=== PATIENT | male | born 1990 | race Caucasian/White ===

== ENCOUNTER 2024-11-06 22:10 | Inpatient (IN) | payer MEDICARE, OTHER ==
--- NOTE | 2024-11-06 22:22 | ED ---
SOB HPI - General Stated Complaint: Difficulty Breathing Time Seen by Provider: 11/06/24 22:11 Source: EMS Mode of arrival: EMS Limitations: physical limitation (Developmental delay) - History of Present Illness Initial Comments: This patient is a 34-year-old man with history of Prader-Willi syndrome who is sent from the [facility] to have evaluation and treatment for shortness of breath. The patient not able to give any additional history. MD Complaint: shortness of breath -: unknown - Related Data Home Medications Medication Instructions Recorded Confirmed Acetaminophen [Tylenol 8 Hour] 650 mg PO Q4H PRN 11/07/24 11/07/24 Albuterol Sulfate [Albuterol 2 puff PO RT-Q4H PRN 11/07/24 11/07/24 Sulfate Hfa] Ammonium Lactate Cream [Lac-Hydrin 1 applic TOPICAL BID 11/07/24 11/07/24 12% Cream] Ascorbic Acid [Vitamin C] 250 mg PO DAILY 11/07/24 11/07/24 Cetirizine HCl [Zyrtec] 10 mg PO DAILY 11/07/24 11/07/24 Cholecalciferol [Vitamin D3 (25 25 mcg PO DAILY 11/07/24 11/07/24 Mcg = 1000 Iu)] Furosemide [Lasix] 40 mg PO DAILY@0700 11/07/24 11/07/24 Insulin Lispro [humaLOG Kwikpen] 5 unit SQ TID@0700,1200,1700 11/07/24 11/07/24 Insulin Lispro [humaLOG Kwikpen] See Protocol SQ TID@0700,1200,1700 11/07/24 11/07/24 Loperamide [Imodium] 2 - 4 mg PO QID PRN 11/07/24 11/07/24 Magnesium Oxide [Mag-Ox] 400 mg PO DAILY@1400 11/07/24 11/07/24 Melatonin 6 mg PO HS 11/07/24 11/07/24 Omeprazole [PriLOSEC] 20 mg PO DAILY 11/07/24 11/07/24 Potassium Chloride [Klor-Con M20] 40 meq PO DAILY@0700 11/07/24 11/07/24 Propranolol [Inderal] 10 mg PO BID 11/07/24 11/07/24 Simvastatin [Zocor] 20 mg PO HS 11/07/24 11/07/24 Topiramate [Topamax] 50 mg PO DAILY@0700 11/07/24 11/07/24 Topiramate [Topamax] 100 mg PO DAILY@1400 11/07/24 11/07/24 Valproic Acid [Depakene] 500 mg PO TID@0700,1300,1900 11/07/24 11/07/24 Ziprasidone [Geodon] 40 mg PO DAILY@1400 11/07/24 11/07/24 Previous Rx's Medication Instructions Recorded Budesonide [Pulmicort] 1 mg INHALATION RT-BID ml 11/21/24 Enoxaparin [Lovenox] 40 mg SQ DAILY each 11/21/24 Formoterol Fumarate [Perforomist] 20 mcg INHALATION RT-BID ml 11/21/24 INSULIN LISPRO (HumaLOG) [HumaLOG] 0 unit SQ ACHS each 11/21/24 INSULIN LISPRO (HumaLOG) [HumaLOG] 15 unit SQ AC-TID each 11/21/24 Insulin Glargine (Lantus) [Lantus 55 unit SQ HS each 11/21/24 Vial] Ipratropium-Albuterol Nebulize 3 ml INHALATION RT-Q4H PRN each 11/21/24 [Duoneb 0.5 mg-3 mg/3 ml Soln] Ipratropium-Albuterol Nebulize 3 ml INHALATION RT-QID each 11/21/24 [Duoneb 0.5 mg-3 mg/3 ml Soln] LORazepam [Ativan] 0.5 mg PO Q6HR PRN #4 tab 11/21/24 Nystatin 100,000 Unit/gm Powd 1 applic TOPICAL BID each 11/21/24 [Mycostatin Powder] predniSONE 10 mg PO DAILY tab 11/21/24 risperiDONE [RisperDAL] 2 mg PO DAILY tab 11/21/24 risperiDONE [RisperDAL] 2 mg PO HS tab 11/21/24 Allergies Allergy/AdvReac Type Severity Reaction Status Date / Time Milk Containing Products Allergy Unknown Verified 11/07/24 08:56 (Dairy) Review of Systems ROS Statement: Those systems with pertinent positive or pertinent negative responses have been documented in the HPI. ROS Other: All systems not noted in ROS Statement are negative. Limitations: ROS unobtainable due to patients medical condition Constitutional: Denies: fever Respiratory: Reports: dyspnea Gastrointestinal: Denies: vomiting, diarrhea General Exam General appearance: alert, in distress Head exam: Present: atraumatic Eye exam: Present: PERRL. Absent: scleral icterus, conjunctival injection Neck exam: Present: normal inspection. Absent: tenderness Respiratory exam: Present: respiratory distress, wheezes. Absent: rales, rhonchi, stridor, accessory muscle use Cardiovascular Exam: Present: regular rate, normal rhythm, normal heart sounds. Absent: systolic murmur, diastolic murmur, rubs, gallop GI/Abdominal exam: Present: soft. Absent: distended, tenderness, guarding, rebound, rigid, mass, pulsatile mass Extremities exam: Present: normal inspection, normal capillary refill. Absent: pedal edema, calf tenderness Back exam: Present: normal inspection. Absent: CVA tenderness (R), CVA tenderness (L) Neurological exam: Present: alert. Absent: motor sensory deficit Skin exam: Present: warm, dry, intact, normal color. Absent: rash Course Vital Signs 11/06/24 11/06/24 11/06/24 22:12 22:30 22:50 Temperature 98.3 F Pulse Rate 89 81 Pulse Rate [ Molecular Genetic Pathologist ] Respiratory 33 H 25 H Rate Blood Pressure 133/77 122/71 Blood Pressure [Right Arm Supine] O2 Sat by Pulse 99 100 Oximetry Fraction of 100 Inspired Oxygen (FIO2) 11/06/24 11/07/24 11/07/24 23:56 00:09 00:19 Temperature Pulse Rate 77 87 89 Pulse Rate [ Molecular Genetic Pathologist ] Respiratory 20 Rate Blood Pressure 97/58 Blood Pressure [Right Arm Supine] O2 Sat by Pulse 99 Oximetry Fraction of 50 Inspired Oxygen (FIO2) 11/07/24 11/07/24 11/07/24 00:42 01:00 03:20 Temperature Pulse Rate 73 81 Pulse Rate [ Molecular Genetic Pathologist ] Respiratory 22 21 Rate Blood Pressure 119/69 131/72 Blood Pressure [Right Arm Supine] O2 Sat by Pulse 99 96 Oximetry Fraction of 50 Inspired Oxygen (FIO2) 11/07/24 11/07/24 11/07/24 04:00 04:40 04:42 Temperature Pulse Rate 93 Pulse Rate [ Molecular Genetic Pathologist ] Respiratory 20 Rate Blood Pressure 144/81 Blood Pressure [Right Arm Supine] O2 Sat by Pulse 95 Oximetry Fraction of 50 100 Inspired Oxygen (FIO2) 11/07/24 11/07/24 11/07/24 04:45 04:55 05:00 Temperature Pulse Rate 89 Pulse Rate [ 111 H 108 H Molecular Genetic Pathologist ] Respiratory 20 20 20 Rate Blood Pressure 149/96 Blood Pressure 163/97 163/97 [Right Arm Supine] O2 Sat by Pulse 98 98 98 Oximetry Fraction of 100 100 Inspired Oxygen (FIO2) 11/07/24 11/07/24 11/07/24 05:17 05:30 06:10 Temperature 99.1 F Pulse Rate 85 Pulse Rate [ 86 Molecular Genetic Pathologist ] Respiratory 22 22 Rate Blood Pressure 117/74 Blood Pressure 115/75 [Right Arm Supine] O2 Sat by Pulse 100 98 Oximetry Fraction of 100 100 Inspired Oxygen (FIO2) Procedures - Intubation Sedative: Etomidate Mg Given: 20 Laryngoscope: fiber optic video scope Size: 3 ET Tube Size: 6.5 ET Tube Uncuffed: Yes Tube Secured Location: teeth Tube Placement Confirmation: visualized tube passing through cords, equal breath sounds bilaterally, no breath sounds over epigastrium, confirmation by capnometry Patient Tolerated Procedure: no complications Intubation Complications: none Medical Decision Making - Medical Decision Making This patient is a 34-year-old man with history of Prader-Willi syndrome, also reportedly with history of asthma, obstructive sleep apnea, here with dyspnea. The patient presents with wheezing, tachypnea, mild respiratory distress. He is placed on BiPAP but then did become increasingly somnolent. Blood gases checked and the patient with hypercarbic respiratory failure. The patient is intubated, the case discussed with Dr. Myers, covering with GI and his treatment recommendations are incorporated. The patient had initial chest x-ray that I interpreted as negative for acute infiltrate, pneumothorax, congestive heart failure The patient had chest x-ray following intubation that I interpreted as negative for acute infiltrate, pneumothorax, there is presence of endotracheal tube Was pt. sent in by a medical professional or institution (, PA, AUDIT CONTROL CLERK, urgent c are, hospital, or usp...) When possible be specific @ -Yes the patient is sent from his long-term care facility for increasing dyspnea Did you speak to anyone other than the patient for history (EMS, parent, family, police, friend...)? What history was obtained from this source @ -[EMS gave history Did you review nursing and triage notes (agree or disagree)? Why? @ -[I reviewed and agree with nursing and triage notes] Were old charts reviewed (outside hosp., previous admission, EMS record, old EKG, old radiological studies, urgent care reports/EKG's, usp records)? Report findings @ -[No old charts were reviewed] Differential Diagnosis (chest pain, altered mental status, abdominal pain women, abdominal pain men, vaginal bleeding, weakness, fever, dyspnea, syncope, headache, dizziness, GI bleed, back pain, seizure, CVA, palpatations, mental health, musculoskeletal)? @ -[Differential Dyspnea: Coronary syndrome, arrhythmia, tamponade, asthma, COPD, pulmonary embolism, pneumonia, pneumothorax, pulmonary effusion, anaphylaxis, diabetic ketoacidosis, flailed chest, pulmonary contusion, diaphragmatic rupture, anemia, neuromuscular, this is not meant to be an all-inclusive list. EKG interpreted by me (3pts min.). @ -[I interpreted as above] X-rays interpreted by me (1pt min.). @ -[I interpreted as above CT interpreted by me (1pt min.). @ -[None done] U/S interpreted by me (1pt. min.). @ -[None done] What testing was considered but not performed or refused? (CT, X-rays, U/S, labs)? Why? @ -[None] What meds were considered but not given or refused? Why? @ -[None] Did you discuss the management of the patient with other professionals (professionals i.e. , PA, AUDIT CONTROL CLERK, lab, RT, psych nurse, social services coordinator, bowling alley manager, teacher, special service officer, dependency case manager)? Give summary @ -[Case discussed with admitting physician and also with the pulmonology service and treatment recommendations incorporated Was smoking cessation discussed for >3mins.? @ -[No] Was critical care preformed (if so, how long)? @ -[Yes, 45 minutes Were there social determinants of health that impacted care today? How? (Homelessness, low income, unemployed, alcoholism, drug addiction, transportation, low edu. Level, literacy, decrease access to med. care, [facility], rehab)? @ -[No] Was there de-escalation of care discussed even if they declined (Discuss DNR or withdrawal of care, Hospice)? DNR status @ -[No] What co-morbidities impacted this encounter? (DM, HTN, Smoking, COPD, CAD, Cancer, CVA, ARF, Chemo, Hep., AIDS, mental health diagnosis, sleep apnea, morbid obesity)? @ -[Prader-Willi syndrome. Diabetes. Asthma. Recent pneumonia Was patient admitted / discharged? Hospital course, mention meds given and route, prescriptions, significant lab abnormalities, going to OR and other pertinent info. @ -[See above Undiagnosed new problem with uncertain prognosis? @ -[No] Drug Therapy requiring intensive monitoring for toxicity (Heparin, Nitro, Insulin, Cardizem)? @ -[No] Were any procedures done? @ -[Yes, endotracheal intubation Diagnosis/symptom? @ -[Acute respiratory failure requiring intubation Hyperglycemia in diabetic patient Acute, or Chronic, or Acute on Chronic? @ -[Acute Uncomplicated (without systemic symptoms) or Complicated (systemic symptoms)? @ -[Complicated by altered mental status Side effects of treatment? @ -[No] Exacerbation, Progression, or Severe Exacerbation? @ -[No] Poses a threat to life or bodily function? How? (Chest pain, [place], [place], pneumonia, PE, COPD, DKA, ARF, appy, cholecystitis, CVA, Diverticulitis, Homicidal, Suicidal, threat to staff... and all critical care pts) @ -[Yes there is threat to life based on respiratory failure All treatments are based on ideal body weight as in ED triage - Lab Data Result diagrams: 11/19/24 15:06 11/21/24 10:33 Lab Results 11/06/24 11/06/24 11/06/24 Range/Units 22:40 22:40 22:40 WBC 5.77 (4.50-10.00) 10*3/uL RBC 4.39 L (4.40-5.60) 10*6/uL Hgb 13.5 (13.0-17.0) g/dL Hct 45.4 (39.6-50.0) % MCV 103.4 H (80.0-97.0) fL MCH 30.8 (27.0-32.0) pg MCHC 29.7 L (32.0-37.0) g/dL Plt Count 183 (140-440) 10*3/uL MPV 10.9 (9.5-12.2) fL Immature Gran % (Auto) 1.4 % Neutrophils % 65.5 % Lymphocytes % 18.2 % Monocytes % 14.4 % Eosinophils % 0.3 % Basophils % 0.2 % Immature Gran # 0.08 H (0.00-0.04) 10*3/uL Neutrophils # 3.78 (1.80-7.70) 10*3/uL Lymphocytes # 1.05 (0.90-5.00) 10*3/uL Monocytes # 0.83 (0.20-1.00) 10*3/uL Eosinophils # 0.02 L (0.04-0.35) 10*3/uL Basophils # 0.01 (0.00-0.10) 10*3/uL PT 10.4 (10.0-12.5) sec INR 0.9 (<1.2) APTT 22.2 (22.0-30.0) sec D-Dimer 0.35 (<0.60) mg/L FEU Sodium 136 L (137-145) mmol/L Potassium 5.4 H (3.5-5.1) mmol/L Chloride 91 L (98-107) mmol/L Carbon Dioxide 39 H (22-30) mmol/L Anion Gap 6 mmol/L BUN 22 H (9-20) mg/dL Creatinine 0.48 L (0.66-1.25) mg/dL Est GFR (CKD-EPI)AfAm >90 (>60 ml/min/1.73 sqM) Est GFR (CKD-EPI)NonAf >90 (>60 ml/min/1.73 sqM) Glucose 248 H (74-99) mg/dL Plasma Lactic Acid Pon[place] (0.7-2.0) mmol/L Calcium 9.3 (8.4-10.2) mg/dL Total Bilirubin 0.3 (0.2-1.3) mg/dL AST 22 (17-59) U/L ALT 14 (4-49) U/L Alkaline Phosphatase 38 (38-126) U/L Troponin I (0.000-0.034) ng/mL NT-Pro-B Natriuret Pep 130 pg/mL Total Protein 6.3 (6.3-8.2) g/dL Albumin 3.2 L (3.5-5.0) g/dL 11/06/24 11/06/24 Range/Units 22:40 22:40 WBC (4.50-10.00) 10*3/uL RBC (4.40-5.60) 10*6/uL Hgb (13.0-17.0) g/dL Hct (39.6-50.0) % MCV (80.0-97.0) fL MCH (27.0-32.0) pg MCHC (32.0-37.0) g/dL Plt Count (140-440) 10*3/uL MPV (9.5-12.2) fL Immature Gran % (Auto) % Neutrophils % % Lymphocytes % % Monocytes % % Eosinophils % % Basophils % % Immature Gran # (0.00-0.04) 10*3/uL Neutrophils # (1.80-7.70) 10*3/uL Lymphocytes # (0.90-5.00) 10*3/uL Monocytes # (0.20-1.00) 10*3/uL Eosinophils # (0.04-0.35) 10*3/uL Basophils # (0.00-0.10) 10*3/uL PT (10.0-12.5) sec INR (<1.2) APTT (22.0-30.0) sec D-Dimer (<0.60) mg/L FEU Sodium (137-145) mmol/L Potassium (3.5-5.1) mmol/L Chloride (98-107) mmol/L Carbon Dioxide (22-30) mmol/L Anion Gap mmol/L BUN (9-20) mg/dL Creatinine (0.66-1.25) mg/dL Est GFR (CKD-EPI)AfAm (>60 ml/min/1.73 sqM) Est GFR (CKD-EPI)NonAf (>60 ml/min/1.73 sqM) Glucose (74-99) mg/dL Plasma Lactic Acid [place] 1.0 (0.7-2.0) mmol/L Calcium (8.4-10.2) mg/dL Total Bilirubin (0.2-1.3) mg/dL AST (17-59) U/L ALT (4-49) U/L Alkaline Phosphatase (38-126) U/L Troponin I <0.012 (0.000-0.034) ng/mL NT-Pro-B Natriuret Pep pg/mL Total Protein (6.3-8.2) g/dL Albumin (3.5-5.0) g/dL - EKG Data -: EKG Interpreted by Me EKG shows normal: sinus rhythm, axis ( normal), intervals (Normal), QRS complexes (Normal), ST-T waves (normal) Rate: normal (Rate 87 bpm) Interpretation: normal EKG Disposition Clinical Impression: Dyspnea, Respiratory failure requiring intubation Disposition: ADMITTED IP TO THIS HOSP Condition: Poor Is patient prescribed a controlled substance at d/c from ED?: No
[2024-11-06] MEDS: NITROGLYCERIN SL TABS 0.4 MG TAB SUBLINGUAL STA (22:46)
[2024-11-06 23:03] LABS: Basophils # (A) 0.01 10*3/uL (0.00-0.10); Basophils % (A) 0.2 %; Eosinophils # (A) 0.02 10*3/uL (0.04-0.35); Eosinophils % (A) 0.3 %; HCT 45.4 % (39.6-50.0); HGB 13.5 g/dL (13.0-17.0); Lymphocytes # (A) 1.05 10*3/uL (0.90-5.00); Lymphocytes % (A) 18.2 %; MCH 30.8 pg (27.0-32.0); MCHC 29.7 g/dL (32.0-37.0); MCV 103.4 fL (80.0-97.0); Mean Platelet Volume 10.9 fL (9.5-12.2); Monocytes # (A) 0.83 10*3/uL (0.20-1.00); Monocytes % (A) 14.4 %; Neutrophils # (A) 3.78 10*3/uL (1.80-7.70); Neutrophils % (A) 65.5 %; Platelet Count 183 10*3/uL (140-440); RBC 4.39 10*6/uL (4.40-5.60); RDW 13.6 % (11.5-14.5); WBC 5.77 10*3/uL (4.50-10.00)
[2024-11-06 23:20] LABS: ALT 14 U/L (4-49); AST 22 U/L (17-59); African American GFR (CKD) >90 (>60 ml/min/1.73 sqM); Albumin 3.2 g/dL (3.5-5.0); Alkaline Phosphatase 38 U/L (38-126); Blood Urea Nitrogen 22 mg/dL (9-20); Calcium 9.3 mg/dL (8.4-10.2); Chloride 91 mmol/L (98-107); Glucose 248 mg/dL (74-99); Non-African American GFR(CKD) >90 (>60 ml/min/1.73 sqM); Potassium 5.4 mmol/L (3.5-5.1); Sodium 136 mmol/L (137-145); Total Bilirubin 0.3 mg/dL (0.2-1.3); Total Protein 6.3 g/dL (6.3-8.2)
[2024-11-06 23:23] LABS: INR 0.9 (<1.2); Partial Thromboplastin Time 22.2 sec (22.0-30.0); Prothrombin Time 10.4 sec (10.0-12.5)
[2024-11-06 23:25] LABS: Anion Gap 6 mmol/L
[2024-11-06 23:27] LABS: NT-Pro-B-Type Natriuretic Pept 130 pg/mL
[2024-11-06 23:35] LABS: Carbon Dioxide 39 mmol/L (22-30)
[2024-11-07] MEDS: ALBUTEROL NEBULIZED 2.5 MG/3 ML INHALATION STA ×2 (00:08→05:24)
[2024-11-07] MEDS: SODIUM CHLORIDE 0.9% 500 ML 500 ML IV STA (00:34)
[2024-11-07] MEDS: methylPREDNISolone SOD SUCCI 125 MG/2 ML VIAL IV STA (00:36)
[2024-11-07] MEDS ORDERED: NALOXONE 0.4 MG/ML 1 ML VIAL IVP PRN (01:57)
[2024-11-07] MEDS: LORazepam 2 MG/ML INJ IV STA ×2 (03:49→04:47)
[2024-11-07 04:23] LABS: ABG PH 7.25 (7.35-7.45); ABG PO2 91 mmHg (83-108); Allen Test Performed? Yes
[2024-11-07] MEDS: ETOMIDATE 2 MG/ML 10 ML VIAL IVP STA (04:39)
--- NOTE | 2024-11-07 05:20 | XR ---
EXAM: XR Chest, 1 View CLINICAL HISTORY: ITS.REASON XR Reason: TUBE PLACEMENT TECHNIQUE: Frontal view of the chest. COMPARISON: X-ray dated 11/06/2024. FINDINGS: Lungs: Stable opacification of the right lung base. Pleural space: Unremarkable. No pneumothorax. Heart: Mild enlargement of the cardiac silhouette. Mediastinum: Unremarkable. Normal mediastinal contour. Bones/joints: Unremarkable. No acute fracture. Tubes, lines and devices: Endotracheal tube is in place with the tip terminating 5.4 cm from the ruthy. IMPRESSION: 1. Interval intubation. 2. Otherwise stable chest.
--- NOTE | 2024-11-07 05:28 | XR ---
EXAMINATION TYPE: XR chest 1V portable DATE OF EXAM: 11/06/2024 COMPARISON: NONE CLINICAL INDICATION: Male, 34 years old with history of dyspnea; TECHNIQUE: Single frontal view of the chest is obtained. FINDINGS: There is cardiomegaly with small right pleural effusion. Old fracture distal left clavicle is seen. IMPRESSION: Cardiomegaly with small right pleural effusion and mild central vascular congestion. Fin dings consistent with CHF exacerbation. [facility], Workstation: [facility], 11/07/2024 5:26 AM
[2024-11-07 05:32] LABS: Influenza A Not Detected (Not Detectd); Influenza B Not Detected (Not Detectd); RSV Not Detected (Not Detectd)
--- NOTE | 2024-11-07 05:36 | XR ---
EXAMINATION TYPE: XR chest 1V DATE OF EXAM: 11/07/2024 CLINICAL INDICATION: Male, 34 years old with history of OG tube placement, progress study. TECHNIQUE: Single AP portable supine view of the chest is obtained. COMPARISON: Chest x-ray from earlier today FINDINGS: Stable endotracheal tube. New orogastric tube projecting below diaphragm. Persistent cardi omegaly and right basilar opacity. Persistent central vascular congestion. Osseous structures are int act. IMPRESSION: Successful interval placement of orogastric tube. Other findings stable. [facility], Workstation: [email or web address], 11/07/2024 5:34 AM
[2024-11-07 05:48] LABS: ABG Base Excess 13.8 mmol/L; ABG Oxygen Saturation >100.0 % (94-97); ABG PCO2 70 mmHg (35-45); ABG PH 7.39 (7.35-7.45); ABG PO2 318 mmHg (83-108); ABG TCO2 44 mmol/L (19-24); Allen Test Performed? Yes
[2024-11-07] MEDS: methylPREDNISolone SOD SUCCI 125 MG/2 ML VIAL IV SCH (06:02)
[2024-11-07 06:07] LABS: ABG PCO2 >98 mmHg (35-45)
[2024-11-07 06:11] LABS: ABG HCO3 42 mmol/L (21-25)
[2024-11-07 06:28] LABS: Glucose,Whole Blood 292 mg/dL (70-110)
[2024-11-07 06:31] LABS: Glucose,Whole Blood 266 mg/dL (70-110)
[2024-11-07] MEDS: SODIUM CHLORIDE 0.9% 1,000 ML IV SCH (07:30)
[2024-11-07] MEDS: IPRATROPIUM-ALBUTEROL 3 ML NEB INHALATION SCH ×2 (08:08→11:46)
[2024-11-07] MEDS ORDERED: Potassium Replacement Protocol 1 EACH MISC MISCELLANE PRN ×2 (09:45→11:18)
[2024-11-07] MEDS ORDERED: Magnesium Replacement Protocol 1 EACH MISC MISCELLANE PRN ×2 (09:45→11:19)
[2024-11-07 10:03] LABS: Glucose,Whole Blood 328 mg/dL (70-110)
[2024-11-07] MEDS: INSULIN LISPRO (HumaLOG) 100 UNIT/ML 10 mL VL SQ SCH ×3 (10:06→16:43)
[2024-11-07] MEDS: PANTOPRAZOLE 40 MG/10 ML VIAL IV SCH (10:07)
[2024-11-07] MEDS: DEXMEDETOMIDINE/0.9% NACL(PMX) 400 MCG in EMPTY BAG 1 BAG IV SCH (10:11)
[2024-11-07 10:17] LABS: Basophils # (A) 0.01 10*3/uL (0.00-0.10); Basophils % (A) 0.2 %; HCT 44.1 % (39.6-50.0); HGB 13.5 g/dL (13.0-17.0); Lymphocytes # (A) 0.49 10*3/uL (0.90-5.00); Lymphocytes % (A) 9.6 %; MCHC 30.6 g/dL (32.0-37.0); MCV 101.4 fL (80.0-97.0); Mean Platelet Volume 10.7 fL (9.5-12.2); Monocytes % (A) 3.9 %; Neutrophils # (A) 4.34 10*3/uL (1.80-7.70); Neutrophils % (A) 84.9 %; Platelet Count 166 10*3/uL (140-440); RBC 4.35 10*6/uL (4.40-5.60); RDW 13.4 % (11.5-14.5); WBC 5.11 10*3/uL (4.50-10.00)
[2024-11-07] MEDS: CHLORHEXIDINE GLUCONATE 15 ML CUP MUCOUS MEM SCH (10:26)
[2024-11-07] MEDS: ENOXAPARIN 40 MG/0.4 ML SYRINGE SQ SCH (10:26)
[2024-11-07 10:32] LABS: African American GFR (CKD) >90 (>60 ml/min/1.73 sqM); Anion Gap 6 mmol/L; Blood Urea Nitrogen 24 mg/dL (9-20); Carbon Dioxide 38 mmol/L (22-30); Chloride 93 mmol/L (98-107); Glucose 366 mg/dL (74-99); Magnesium 1.6 mg/dL (1.6-2.3); Non-African American GFR(CKD) >90 (>60 ml/min/1.73 sqM); Potassium 3.5 mmol/L (3.5-5.1); Sodium 137 mmol/L (137-145)
[2024-11-07 10:51] LABS: Appearance,Urine Clear (Clear); Bilirubin,Urine Negative (Negative); Blood,Urine Negative (Negative); Color,Urine Colorless; Glucose,Urine (UA) 4+ (Negative); Leukocyte Esterase,Urine Negative (Negative); Nitrite,Urine Negative (Negative); Protein,Urine Negative (Negative); Specific Gravity,Urine 1.021 (1.001-1.035); Urobilinogen,Urine <2.0 mg/dL (<2.0)
[2024-11-07] MEDS ORDERED: LOPERAMIDE 2 MG CAP PO PRN (10:54)
[2024-11-07] MEDS ORDERED: ALBUTEROL HFA INHALER INHALATION PRN (10:54)
[2024-11-07 11:11] LABS: Ketones,Urine 2+ (Negative)
[2024-11-07] MEDS: INSULIN GLARGINE (LANTUS) 100 UNIT/ML SYR SQ SCH (11:21)
[2024-11-07] MEDS: PANTOPRAZOLE 40 MG/10 ML VIAL IVP SCH (11:22)
[2024-11-07] MEDS: AMMONIUM LACTATE 12% CREAM 140 GM TUBE TOPICAL SCH (11:25)
[2024-11-07] MEDS: CHOLECALCIFEROL 25 MCG (1000 IU) TABLET PO SCH (11:29)
[2024-11-07] MEDS: LORATADINE 10 MG TAB PO SCH (11:29)
[2024-11-07] MEDS: ASCORBIC ACID 500 MG TAB PO SCH (11:29)
--- NOTE | 2024-11-07 11:54 | P.CNPUL ---
History of Present Illness Consult date: 11/07/24 Requesting physician: May Montalvo Reason for consult: other (Acute hypoxic and hypercapnic respiratory failure) Chief complaint: Shortness of breath History of present illness: This is a 34-year-old white male with history of Prader-Willi syndrome, patient was sent from [facility] for evaluation of shortness of breath for the last few days. Patient is known to have history of asthma and he was basically receiving treatment on outpatient basis for presumptive pneumonia. His shortness of breath has become worse and his O2 saturation was noted to be very low while at the longterm. Patient was sent to the ER, initially managed with BiPAP, however patient continued to do poorly in spite of BiPAP, after few hours of being on BiPAP, ABG was checked and his pO2 was 91 pCO2 over 98 pH was 7.25, patient became more and more obtunded hence he was intubated and placed on ventilatory support. Patient is on assist-control rate of 22, tidal volume 350 FiO2 at 50% and PEEP at 5. ABG is pending. Last ABG showed a pO2 of 318 pCO2 70 pH of 7.39. Dramatically improved after intubation mechanical ventilation, and considering the patient has a pCO2 of 70 with a pH of 7.39 that implies that the patient has chronic hypercapnic respiratory failure with adequate metabolic compensation. Patient is on propofol at 25 mcg/kg/min he is on IV fluid 0.9 at 75 cc/h and he is sedated, could not assess the patient mentally hence I recommended stopping propofol and starting the patient on Precedex the plan is to awaken the patient and give the patient at least a weaning trial if possible today. WBC count is 5.11 hemoglobin 15.5, electrolytes were noted to be normal renal profile is normal, chest x-ray this morning showed cardiomegaly and right basilar opacity, possible atelectasis involving the right lower lobe. Initial chest x-ray in the ER showed no evidence of infiltrate or atelectasis. Review of Systems ROS unobtainable: due to endotracheal tube Past Medical History Past Medical History: Diabetes Mellitus Additional Past Medical History / Comment(s): Prader-Willi SyndromeDysphagia, Oropharyngeal Phase, Morbid obesity with Aveolar hypoventilation, Muscle Weak ness, obstructive Sleep Apnea, Severe Intellectual Disabilities, Unspecified Asthma with Exacerbation History of Any Multi-Drug Resistant Organisms: None Reported Past Psychological History: Unable to Obtain Smoking Status: Unknown if ever smoked Past Alcohol Use History: None Reported Past Drug Use History: None Reported Medications and Allergies Home Medications Medication Instructions Recorded Confirmed Type Acetaminophen [Tylenol 8 Hour] 650 mg PO Q4H PRN 11/07/24 11/07/24 History Albuterol Sulfate [Albuterol 2 puff PO RT-Q4H PRN 11/07/24 11/07/24 History Sulfate Hfa] Ammonium Lactate Cream [Lac-Hydrin 1 applic TOPICAL BID 11/07/24 11/07/24 History 12% Cream] Amoxicillin 500 mg PO TID@0700,1300,1900 11/07/24 11/07/24 History Ascorbic Acid [Vitamin C] 250 mg PO DAILY 11/07/24 11/07/24 History Cetirizine HCl [Zyrtec] 10 mg PO DAILY 11/07/24 11/07/24 History Cholecalciferol [Vitamin D3 (25 25 mcg PO DAILY 11/07/24 11/07/24 History Mcg = 1000 Iu)] Furosemide [Lasix] 40 mg PO DAILY@0700 11/07/24 11/07/24 History Insulin Glargine,Hum.rec.anlog 30 units SQ DAILY 11/07/24 11/07/24 History [Lantus Solostar Pen] Insulin Lispro [humaLOG Kwikpen] 5 unit SQ TID@0700,1200,1700 11/07/24 11/07/24 History Insulin Lispro [humaLOG Kwikpen] See Protocol SQ TID@0700,1200,1700 11/07/24 11/07/24 History Ipratropium-Albuterol Nebulize 3 ml INHALATION RT-Q6H 11/07/24 11/07/24 History [Duoneb 0.5 mg-3 mg/3 ml Soln] Loperamide [Imodium] 2 - 4 mg PO QID PRN 11/07/24 11/07/24 History Magnesium Oxide [Mag-Ox] 400 mg PO DAILY@1400 11/07/24 11/07/24 History Melatonin 6 mg PO HS 11/07/24 11/07/24 History Omeprazole [PriLOSEC] 20 mg PO DAILY 11/07/24 11/07/24 History Potassium Chloride [Klor-Con M20] 40 meq PO DAILY@0700 11/07/24 11/07/24 History Propranolol [Inderal] 10 mg PO BID 11/07/24 11/07/24 History Semaglutide [Ozempic] 0.5 mg SQ WE 11/07/24 11/07/24 History Simvastatin [Zocor] 20 mg PO HS 11/07/24 11/07/24 History Topiramate [Topamax] 50 mg PO DAILY@0700 11/07/24 11/07/24 History Topiramate [Topamax] 100 mg PO DAILY@1400 11/07/24 11/07/24 History Valproic Acid [Depakene] 500 mg PO TID@0700,1300,1900 11/07/24 11/07/24 History Ziprasidone [Geodon] 40 mg PO DAILY@1400 11/07/24 11/07/24 History metFORMIN HCL 500 mg PO BID 11/07/24 11/07/24 History predniSONE See Taper PO DAILY 11/07/24 11/07/24 History risperiDONE [RisperDAL] 1 mg PO BID 11/07/24 11/07/24 History Allergies Allergy/AdvReac Type Severity Reaction Status Date / Time Milk Containing Products Allergy Unknown Verified 11/07/24 08:56 (Dairy) Physical Exam Vitals: Vital Signs Temp Pulse Pulse Resp BP BP Pulse Ox 11/07/24 11:39 11/07/24 11:15 53 L 22 132/66 98 11/07/24 10:45 54 L 22 123/59 98 11/07/24 10:15 63 23 112/54 98 11/07/24 10:00 60 22 112/54 97 11/07/24 09:45 60 22 108/52 97 11/07/24 09:15 60 22 113/54 97 11/07/24 09:00 58 L 22 108/61 97 11/07/24 08:45 11/07/24 08:28 11/07/24 08:24 58 L 11/07/24 08:15 56 L 22 126/71 98 11/07/24 08:13 56 L 11/07/24 08:07 11/07/24 08:00 97.2 F L 63 22 123/68 100 11/07/24 07:45 57 L 22 119/61 99 11/07/24 07:30 59 L 22 106/61 98 11/07/24 07:15 60 22 109/60 98 11/07/24 07:00 62 22 113/62 99 11/07/24 06:45 63 22 111/63 100 11/07/24 06:30 65 22 100 11/07/24 06:27 17 11/07/24 06:10 99.1 F 85 22 117/74 98 11/07/24 05:30 86 22 115/75 100 11/07/24 05:17 11/07/24 05:00 108 H 20 163/97 98 11/07/24 04:55 111 H 20 163/97 98 11/07/24 04:45 89 20 149/96 98 11/07/24 04:42 11/07/24 04:40 93 20 144/81 95 11/07/24 04:00 11/07/24 03:20 81 21 131/72 96 11/07/24 01:00 11/07/24 00:42 73 22 119/69 99 11/07/24 00:19 89 11/07/24 00:09 87 11/06/24 23:56 77 20 97/58 99 11/06/24 22:50 81 25 H 122/71 100 11/06/24 22:30 11/06/24 22:12 98.3 F 89 33 H 133/77 99 FiO2 11/07/24 11:39 45 11/07/24 11:15 11/07/24 10:45 45 11/07/24 10:15 11/07/24 10:00 45 11/07/24 09:45 11/07/24 09:15 11/07/24 09:00 45 11/07/24 08:45 45 11/07/24 08:28 50 11/07/24 08:24 11/07/24 08:15 11/07/24 08:13 11/07/24 08:07 50 11/07/24 08:00 50 11/07/24 07:45 11/07/24 07:30 11/07/24 07:15 11/07/24 07:00 11/07/24 06:45 11/07/24 06:30 11/07/24 06:27 11/07/24 06:10 11/07/24 05:30 100 11/07/24 05:17 11/07/24 05:00 100 11/07/24 04:55 11/07/24 04:45 11/07/24 04:42 11/07/24 04:40 11/07/24 04:00 11/07/24 03:20 11/07/24 01:00 50 11/07/24 00:42 11/07/24 00:19 11/07/24 00:09 50 11/06/24 23:56 11/06/24 22:50 11/06/24 22:30 100 11/06/24 22:12 Intake and Output 11/06/24 11/07/24 11/07/24 22:59 06:59 14:59 Intake Total 1.757 356.289 Output Total 320 505 Balance -318.243 -148.711 Intake: IV 260 Sodium Chloride 0.9% 1, 260 000 ml @ 75 mls/hr IV . [id number] [facility] Rx#:[id number] Intake, IV Titration 1.757 96.289 Amount Dexmedetomidine/0.9% NaCl 5.647 (Pmx) 400 mcg In Empty Bag 1 bag @ 0.2 MCG/KG/HR 5.019 mls/hr IV .[id number] [facility] Rx#:[id number] propofoL 1,000 mg In 1.757 90.642 Empty Bag 1 bag @ 15 MCG/ KG/MIN 9.034 mls/hr IV . Q11H5M [facility] Rx#:[id number] Output: Urine 320 505 Uretheral (Valentin) 320 Other: Weight 100.38 kg 100 kg General: Revealed 34-year-old white male obese intubated mechanically ventilated sedated Skin: Areas of cellulitis noted in both lower extremities, presumably the patient had recent MSSA dermatitis has been treated with Kefzol. Eye: Pupils are equal, round and reactive to light, extra-ocular movements are intact; there is normal conjunctiva bilaterally. Ears, nose, mouth and throat: There are moist mucous membranes and no oral lesions. Neck: The neck is supple, there is no tenderness or JVD. Cardiovascular: There is a regular rate and rhythm. No murmur, rub or gallop is appreciated. Respiratory: Diminished breath sounds at the bases no crackles rhonchi or wheezes Gastrointestinal: Obese, soft, non-distended, non-tender abdomen without masses or organomegaly noted. There is no rebound or guarding present. Bowel sounds are unremarkable. Musculoskeletal: No deformities there is however poor muscle tone. Neurological: Could not assess patient is sedated Psychiatric: Could not assess Results - Laboratory Findings CBC and BMP: 11/07/24 09:59 11/07/24 09:59 ABG ABG pH 7.39 (7.35-7.45) 11/07/24 05:44 ABG pCO2 70 mmHg (35-45) H 11/07/24 05:44 ABG pO2 318 mmHg (83-108) H 11/07/24 05:44 ABG O2 Saturation >100.0 % (94-97) H 11/07/24 05:44 PT/INR, D-dimer PT 10.4 sec (10.0-12.5) 11/06/24 22:40 INR 0.9 (<1.2) 11/06/24 22:40 D-Dimer 0.35 mg/L FEU (<0.60) 11/06/24 22:40 Abnormal lab findings: Abnormal Labs 11/06/24 11/06/24 11/07/24 22:40 22:40 04:20 RBC 4.39 L MCV 103.4 H MCHC 29.7 L Immature Gran # 0.08 H Lymphocytes # Eosinophils # 0.02 L ABG pH 7.25 L ABG pCO2 >98 H* ABG pO2 ABG HCO3 ABG Total CO2 ABG O2 Saturation 98.0 H Sodium 136 L Potassium 5.4 H Chloride 91 L Carbon Dioxide 39 H BUN 22 H Creatinine 0.48 L Glucose 248 H POC Glucose (mg/dL) Albumin 3.2 L Urine Glucose (UA) Urine Ketones 11/07/24 11/07/24 11/07/24 05:44 06:26 06:30 RBC MCV MCHC Immature Gran # Lymphocytes # Eosinophils # ABG pH ABG pCO2 70 H ABG pO2 318 H ABG HCO3 42 H* ABG Total CO2 44 H ABG O2 Saturation >100.0 H Sodium Potassium Chloride Carbon Dioxide BUN Creatinine Glucose POC Glucose (mg/dL) 292 H 266 H Albumin Urine Glucose (UA) Urine Ketones 05/02/25 05/02/25 05/02/25 09:59 09:59 10:02 RBC 4.35 L MCV 101.4 H MCHC 30.6 L Immature Gran # 0.07 H Lymphocytes # 0.49 L Eosinophils # 0.00 L ABG pH ABG pCO2 ABG pO2 ABG HCO3 ABG Total CO2 ABG O2 Saturation Sodium Potassium Chloride 93 L Carbon Dioxide 38 H BUN 24 H Creatinine 0.47 L Glucose 366 H POC Glucose (mg/dL) 328 H Albumin Urine Glucose (UA) Urine Ketones 11/07/24 10:20 RBC MCV MCHC Immature Gran # Lymphocytes # Eosinophils # ABG pH ABG pCO2 ABG pO2 ABG HCO3 ABG Total CO2 ABG O2 Saturation Sodium Potassium Chloride Carbon Dioxide BUN Creatinine Glucose POC Glucose (mg/dL) Albumin Urine Glucose (UA) 4+ H Urine Ketones 2+ H - Diagnostic Findings Chest x-ray: image reviewed (As noted in HPI) Assessment and Plan Assessment: Impression: Acute on chronic hypercapnic respiratory failure Acute hypoxic respiratory failure Possible right lower lobe pneumonia Acute exacerbation of mild intermittent asthma History of Prader-Willi syndrome, characterized by history of developmental delay, muscle weakness, restrictive lung disease, secondary to muscle weakness, obesity, and behavioral disorder. Recent history of right lower lobe pneumonia, treated on outpatient basis History of MSSA cellulitis/dermatitis, treated on outpatient basis Recommendation: Continue ventilatory support Continue antibiotics Continue bronchodilators Continue GI DVT prophylaxis Resume home meds Continue Solu-Medrol 60 mg IV push every 6 hours Transition patient to Precedex from propofol Could consider giving the patient a weaning trial depending on his overall clinical status off propofol. Consider nutritional support/enteral feeding if the patient does not wean today. Patient is critically ill Will continue to follow Time with Patient: Greater than 30
[2024-11-07 12:04] LABS: Glucose,Whole Blood 314 mg/dL (70-110)
[2024-11-07] MEDS: POTASSIUM BICARBONATE/CIT AC 20 MEQ TABLET.EFF NG-TUBE SCH (12:14)
[2024-11-07] MEDS: MAGNESIUM SULFATE-D5W PMX 1 GM in DEXTROSE/WATER 1 100ML.BAG IVPB SCH (12:17)
[2024-11-07] MEDS: VALPROIC ACID ORAL SOLN 250 MG/5 ML CUP PO SCH (12:24)
[2024-11-07] MEDS: MAGNESIUM OXIDE 400 MG TAB PO SCH (13:25)
[2024-11-07] MEDS: TOPIRAMATE 100 MG TAB PO SCH (13:28)
[2024-11-07] MEDS: ZIPRASIDONE 40 MG CAP PO SCH (14:34)
[2024-11-07] MEDS: risperiDONE 1 MG TAB PO SCH (14:35)
[2024-11-07] MEDS: IPRATROPIUM-ALBUTEROL 3 ML NEB INHALATION PRN (15:18)
[2024-11-07 16:41] LABS: Glucose,Whole Blood 296 mg/dL (70-110)
[2024-11-07 19:44] LABS: Glucose,Whole Blood 325 mg/dL (70-110)
[2024-11-07] MEDS: ATORVASTATIN 10 MG TAB PO SCH (19:53)
[2024-11-07] MEDS: MELATONIN 3 MG TABLET PO SCH (19:53)
[2024-11-07 23:35] LABS: Glucose,Whole Blood 316 mg/dL (70-110)
[2024-11-08] MEDS: ACETAMINOPHEN TAB 325 MG TAB PO PRN (00:26)
[2024-11-08 03:43] LABS: Glucose,Whole Blood 291 mg/dL (70-110)
[2024-11-08 05:27] LABS: Eosinophils # (A) 0.03 10*3/uL (0.04-0.35); Eosinophils % (A) 0.6 %; HCT 42.3 % (39.6-50.0); HGB 13.3 g/dL (13.0-17.0); Lymphocytes # (A) 1.26 10*3/uL (0.90-5.00); Lymphocytes % (A) 26.1 %; MCH 30.6 pg (27.0-32.0); MCHC 31.4 g/dL (32.0-37.0); MCV 97.2 fL (80.0-97.0); Mean Platelet Volume 11.7 fL (9.5-12.2); Monocytes # (A) 0.61 10*3/uL (0.20-1.00); Monocytes % (A) 12.7 %; Neutrophils % (A) 60.2 %; Platelet Count 145 10*3/uL (140-440); RBC 4.35 10*6/uL (4.40-5.60); RDW 13.7 % (11.5-14.5); WBC 4.82 10*3/uL (4.50-10.00)
[2024-11-08 05:30] LABS: ABG HCO3 33 mmol/L (21-25); ABG PCO2 47 mmHg (35-45); ABG PH 7.45 (7.35-7.45); ABG PO2 110 mmHg (83-108); ABG TCO2 34 mmol/L (19-24); Allen Test Performed? Yes
[2024-11-08 05:48] LABS: African American GFR (CKD) >90 (>60 ml/min/1.73 sqM); Anion Gap 7 mmol/L; Blood Urea Nitrogen 18 mg/dL (9-20); Calcium 9.2 mg/dL (8.4-10.2); Carbon Dioxide 29 mmol/L (22-30); Chloride 97 mmol/L (98-107); Glucose 329 mg/dL (74-99); Non-African American GFR(CKD) >90 (>60 ml/min/1.73 sqM); Potassium 4.1 mmol/L (3.5-5.1); Sodium 133 mmol/L (137-145)
[2024-11-08] MEDS: POTASSIUM BICARBONATE/CIT AC 20 MEQ TABLET.EFF PO SCH (06:05)
[2024-11-08] MEDS: INSULIN GLARGINE (LANTUS) 100 UNIT/ML SYR SQ SCH ×2 (06:06→20:11)
[2024-11-08] MEDS: TOPIRAMATE 25 MG TAB PO SCH (06:06)
[2024-11-08 06:17] LABS: ABG Oxygen Saturation 99.2 % (94-97)
--- NOTE | 2024-11-08 06:53 | XR ---
EXAMINATION TYPE: XR chest 1V portable DATE OF EXAM: 11/08/2024 CLINICAL INDICATION: Male, 34 years old with history of Tube placement, progress study. SOB. TECHNIQUE: Single AP portable semiupright view of the chest is obtained. COMPARISON: Chest x-ray from one day earlier and older studies. FINDINGS: Stable endotracheal and orogastric tubes. Persistent cardiomegaly and medial bibasilar opacity. Persistent low lung volumes and central vascula r congestion. Osseous structures are intact. IMPRESSION: Overall stable findings, correlate for CHF exacerbation/ fluid overload state. Underly ing acute infiltrates medial lung bases cannot be excluded. [facility], , 11/08/2024 6:51 AM
[2024-11-08] MEDS ORDERED: FUROSEMIDE 40 MG TAB PO SCH (07:00)
[2024-11-08] MEDS ORDERED: POTASSIUM CHLORIDE ER 20 MEQ TAB.ER PO SCH (07:00)
[2024-11-08 07:12] LABS: RBC Morphology Normal
[2024-11-08] MEDS: IPRATROPIUM-ALBUTEROL 3 ML NEB INHALATION SCH (07:50)
--- NOTE | 2024-11-08 07:52 | P.HPIM ---
History of Present Illness H&P Date: 11/07/24 This is a 34-year-old male who presented to the emergency department from [facility] where he resides with increased shortness of breath and concerns for aspiration. Patient follows with Dr. Rodriguez in the outpatient setting with a past medical history of asthma, diabetes mellitus, hypertension, musculoskeletal disorder, pneumonia, respiratory disorder, sleep apnea, Prader-Willi syndrome with dysphagia, morbid obesity with alveolar hypoventilation yes, obstructive sleep apnea, depression. Patient has mental disabilities and has a primary legal guardian and is considered full code at this time. Patient with difficulty keeping oxygenation on his face will make it extremely difficult to continue with oxygen therapy. Initially ER attempted BiPAP although extremely agitated and unable to tolerate with pulmonary periodicals library assistant consulted recommending mechanical ventilation. Labs reviewed on admission reveal a normal white count with a hemoglobin of 13.5, platelets 183, sodium 136 with a pot assium of 5.4, carbon dioxide 39, BUN 22, creatinine 0.48 and random glucose was 248. ABGs were done with a pH of 7.39, PCO2 is 70, PO2 318, bicarb is 42. EKG showing sinus rhythm chest x-ray showing stable chest postintubation. Patient was admitted to the ICU. Patient is currently on Precedex and off propofol and home medications are being reviewed and resumed as appropriate. Patient was sta rted on antibiotic empirically and also steroids with breathing treatments. Patient is not wheezing and given sugars are elevated, discussed with pulmonary and will be discontinuing steroids. BNP was not elevated although patient does appear edematous throughout. Patient did receive a few doses of Lasix and is currently maintained on gentle IV hydration. REVIEW OF SYSTEMS: Unable to review as patient is intubated on Precedex The rest of the 14-point review of systems is negative. PHYSICAL EXAMINATION: GENERAL: The patient is currently intubated with an FiO2 of 50% and PEEP of 5, weaning as tolerated, ill-appearing, edematous, morbidly obese HEENT: Pupils are round and equally reacting to light. EOMI. No scleral icterus. No conjunctival pallor. Normocephalic, atraumatic. No pharyngeal erythema. No thyromegaly. CARDIOVASCULAR: S1 and S2 muffled PULMONARY: Diminished breath sounds bilaterally otherwise chest is clear to auscultation, no wheezing or crackles. ABDOMEN: Soft, obese, nontender, nondistended, normoactive bowel sounds. No palpable organomegaly. MUSCULOSKELETAL: No joint swelling or deformity. EXTREMITIES: No cyanosis, clubbing, or pedal edema. Edematous of upper and lower extremities NEUROLOGICAL: Gross neurological examination did not reveal any focal deficits. Unable to completely assess as patient is intubated and somewhat sedated SKIN: No rashes. Pale, lower extremity discoloration Assessment: Acute on chronic hypoxic respiratory failure, requiring BiPAP initially and now on mechanical ventilation Possible right lower lobe pneumonia, although suspicion is low, will order procalcitonin, empirically on antibiotics, likely atelectasis History of mild intermittent asthma with acute exacerbation History of Prader-Willi syndrome with developmental delay and muscle weakness Diabetes mellitus, type II, uncontrolled with hyperglycemia History of hypertension History of sleep apnea and morbid obesity with alveolar hypoventilation, does not use a CPAP History of obstructive sleep apnea History of dysphagia History of depression History of recent lower extremity cellulitis with MSSA, treated outpatient Morbid obesity with a BMI of 49.2 GI prophylaxis DVT prophylaxis Full code Plan: Patient was admitted from [facility] where he resides with increasing shortness of breath and difficulty maintaining oxygenation not tolerating much nasal nae jovani. Initially brought to the ER put on BiPAP although became more obtunded and nonresponsive requiring mechanical ventilation and ICU admission Blood sugars are extremely elevated and was initiated on steroids although no significant wheezing noted, will discontinue and this was discussed with pul curt. Continue to monitor Accu-Cheks AC and at bedtime and will adjust insulins accordingly. Recommend long-acting twice daily as he normally only takes a daily Patient does have a legal guardian and remains full code at this time although there is discussion of possible hospice with comfort care that will be addressed Continue current regimen and follow-up on repeat labs Patient is off propofol and maintained on Precedex at this time and being weaned as tolerated Home medications reviewed and resumed as appropriate Prognosis is guarded The impression and plan of care has been dictated by Mandie Colmenares, Nurse Practitioner as directed. Dr. Naresh MD I have performed a history and examination and MDM of this patient, discussed the same with the dictator, and agree with the dictator's assessment and plan as written ,documented as a scribe. Based on total visit time, I have performed more than 50% of the visit. Past Medical History Past Medical History: Diabetes Mellitus Additional Past Medical History / Comment(s): Prader-Willi SyndromeDysphagia, Oropharyngeal Phase, Morbid obesity with Aveolar hypoventilation, Muscle Weakness, obstructive Sleep Apnea, Severe Intellectual Disabilities, Unspecified Asthma with Exacerbation History of Any Multi-Drug Resistant Organisms: None Reported Past Psychological History: Unable to Obtain Smoking Status: Unknown if ever smoked Past Alcohol Use History: None Reported Past Drug Use History: None Reported Medications and Allergies Home Medications Medication Instructions Recorded Confirmed Type Acetaminophen [Tylenol 8 Hour] 650 mg PO Q4H PRN 11/07/24 11/07/24 History Albuterol Sulfate [Albuterol 2 puff PO RT-Q4H PRN 11/07/24 11/07/24 History Sulfate Hfa] Ammonium Lactate Cream [Lac-Hydrin 1 applic TOPICAL BID 11/07/24 11/07/24 History 12% Cream] Amoxicillin 500 mg PO TID@0700,1300,1900 11/07/24 11/07/24 History Ascorbic Acid [Vitamin C] 250 mg PO DAILY 11/07/24 11/07/24 History Cetirizine HCl [Zyrtec] 10 mg PO DAILY 11/07/24 11/07/24 History Cholecalciferol [Vitamin D3 (25 25 mcg PO DAILY 11/07/24 11/07/24 History Mcg = 1000 Iu)] Furosemide [Lasix] 40 mg PO DAILY@0700 11/07/24 11/07/24 History Insulin Glargine,Hum.rec.anlog 30 units SQ DAILY 11/07/24 11/07/24 History [Lantus Solostar Pen] Insulin Lispro [humaLOG Kwikpen] 5 unit SQ TID@0700,1200,1700 11/07/24 11/07/24 History Insulin Lispro [humaLOG Kwikpen] See Protocol SQ TID@0700,1200,1700 11/07/24 11/07/24 History Ipratropium-Albuterol Nebulize 3 ml INHALATION RT-Q6H 11/07/24 11/07/24 History [Duoneb 0.5 mg-3 mg/3 ml Soln] Loperamide [Imodium] 2 - 4 mg PO QID PRN 11/07/24 11/07/24 History Magnesium Oxide [Mag-Ox] 400 mg PO DAILY@1400 11/07/24 11/07/24 History Melatonin 6 mg PO HS 11/07/24 11/07/24 History Omeprazole [PriLOSEC] 20 mg PO DAILY 11/07/24 11/07/24 History Potassium Chloride [Klor-Con M20] 40 meq PO DAILY@0700 11/07/24 11/07/24 History Propranolol [Inderal] 10 mg PO BID 11/07/24 11/07/24 History Semaglutide [Ozempic] 0.5 mg SQ WE 11/07/24 11/07/24 History Simvastatin [Zocor] 20 mg PO HS 11/07/24 11/07/24 History Topiramate [Topamax] 50 mg PO DAILY@0700 11/07/24 11/07/24 History Topiramate [Topamax] 100 mg PO DAILY@1400 11/07/24 11/07/24 History Valproic Acid [Depakene] 500 mg PO TID@0700,1300,1900 11/07/24 11/07/24 History Ziprasidone [Geodon] 40 mg PO DAILY@1400 11/07/24 11/07/24 History metFORMIN HCL 500 mg PO BID 11/07/24 11/07/24 History predniSONE See Taper PO DAILY 11/07/24 11/07/24 History risperiDONE [RisperDAL] 1 mg PO BID 11/07/24 11/07/24 History Allergies Allergy/AdvReac Type Severity Reaction Status Date / Time Milk Containing Products Allergy Unknown Verified 11/07/24 08:56 (Dairy) Physical Exam Vitals: Vital Signs Temp Pulse Pulse Resp BP BP Pulse Ox 11/07/24 09:15 60 22 113/54 97 11/07/24 09:00 58 L 22 108/61 97 11/07/24 08:28 11/07/24 08:24 58 L 11/07/24 08:15 56 L 22 126/71 98 11/07/24 08:13 56 L 11/07/24 08:07 11/07/24 08:00 97.2 F L 63 22 123/68 100 11/07/24 07:45 57 L 22 119/61 99 11/07/24 07:30 59 L 22 106/61 98 11/07/24 07:15 60 22 109/60 98 11/07/24 07:00 62 22 113/62 99 11/07/24 06:45 63 22 111/63 100 11/07/24 06:30 65 22 100 11/07/24 06:27 17 11/07/24 06:10 99.1 F 85 22 117/74 98 11/07/24 05:30 86 22 115/75 100 11/07/24 05:17 11/07/24 05:00 108 H 20 163/97 98 11/07/24 04:55 111 H 20 163/97 98 11/07/24 04:45 89 20 149/96 98 11/07/24 04:42 11/07/24 04:40 93 20 144/81 95 11/07/24 04:00 11/07/24 03:20 81 21 131/72 96 11/07/24 01:00 11/07/24 00:42 73 22 119/69 99 11/07/24 00:19 89 11/07/24 00:09 87 11/06/24 23:56 77 20 97/58 99 11/06/24 22:50 81 25 H 122/71 100 11/06/24 22:30 11/06/24 22:12 98.3 F 89 33 H 133/77 99 FiO2 11/07/24 09:15 11/07/24 09:00 45 11/07/24 08:28 50 11/07/24 08:24 11/07/24 08:15 11/07/24 08:13 11/07/24 08:07 50 11/07/24 08:00 50 11/07/24 07:45 11/07/24 07:30 11/07/24 07:15 11/07/24 07:00 11/07/24 06:45 11/07/24 06:30 11/07/24 06:27 11/07/24 06:10 11/07/24 05:30 100 11/07/24 05:17 100 11/07/24 05:00 100 11/07/24 04:55 100 11/07/24 04:45 11/07/24 04:42 100 11/07/24 04:40 11/07/24 04:00 50 11/07/24 03:20 11/07/24 01:00 50 11/07/24 00:42 11/07/24 00:19 11/07/24 00:09 50 11/06/24 23:56 11/06/24 22:50 11/06/24 22:30 100 11/06/24 22:12 Intake and Output 11/06/24 11/07/24 11/07/24 22:59 06:59 14:59 Intake Total 1.757 74.281 Output Total 320 Balance -318.243 74.281 Intake: Intake, IV Titration 1.757 74.281 Amount propofoL 1,000 mg In 1.757 74.281 Empty Bag 1 bag @ 15 MCG/ KG/MIN 9.034 mls/hr IV . Q11H5M [facility] Rx#:[id number] Output: Urine 320 Uretheral (Valentin) 320 Other: Weight 100.38 kg Results CBC & Chem 7: 11/08/24 04:48 11/08/24 04:48 Labs: Abnormal Lab Results - Last 24 Hours (Table) 11/06/24 11/06/24 11/07/24 Range/Units 22:40 22:40 04:20 RBC 4.39 L (4.40-5.60) 10*6/uL MCV 103.4 H (80.0-97.0) fL MCHC 29.7 L (32.0-37.0) g/dL Immature Gran # 0.08 H (0.00-0.04) 10*3/uL Eosinophils # 0.02 L (0.04-0.35) 10*3/uL ABG pH 7.25 L (7.35-7.45) ABG pCO2 >98 H* (35-45) mmHg ABG pO2 (83-108) mmHg ABG HCO3 (21-25) mmol/L ABG Total CO2 (19-24) mmol/L ABG O2 Saturation 98.0 H (94-97) % Sodium 136 L (137-145) mmol/L Potassium 5.4 H (3.5-5.1) mmol/L Chloride 91 L (98-107) mmol/L Carbon Dioxide 39 H (22-30) mmol/L BUN 22 H (9-20) mg/dL Creatinine 0.48 L (0.66-1.25) mg/dL Glucose 248 H (74-99) mg/dL POC Glucose (mg/dL) (70-110) mg/dL Albumin 3.2 L (3.5-5.0) g/dL 11/07/24 11/07/24 11/07/24 Range/Units 05:44 06:26 06:30 RBC (4.40-5.60) 10*6/uL MCV (80.0-97.0) fL MCHC (32.0-37.0) g/dL Immature Gran # (0.00-0.04) 10*3/uL Eosinophils # (0.04-0.35) 10*3/uL ABG pH (7.35-7.45) ABG pCO2 70 H (35-45) mmHg ABG pO2 318 H (83-108) mmHg ABG HCO3 42 H* (21-25) mmol/L ABG Total CO2 44 H (19-24) mmol/L ABG O2 Saturation >100.0 H (94-97) % Sodium (137-145) mmol/L Potassium (3.5-5.1) mmol/L Chloride (98-107) mmol/L Carbon Dioxide (22-30) mmol/L BUN (9-20) mg/dL Creatinine (0.66-1.25) mg/dL Glucose (74-99) mg/dL POC Glucose (mg/dL) 292 H 266 H (70-110) mg/dL Albumin (3.5-5.0) g/dL 11/07/24 Range/Units 10:02 RBC (4.40-5.60) 10*6/uL MCV (80.0-97.0) fL MCHC (32.0-37.0) g/dL Immature Gran # (0.00-0.04) 10*3/uL Eosinophils # (0.04-0.35) 10*3/uL ABG pH (7.35-7.45) ABG pCO2 (35-45) mmHg ABG pO2 (83-108) mmHg ABG HCO3 (21-25) mmol/L ABG Total CO2 (19-24) mmol/L ABG O2 Saturation (94-97) % Sodium (137-145) mmol/L Potassium (3.5-5.1) mmol/L Chloride (98-107) mmol/L Carbon Dioxide (22-30) mmol/L BUN (9-20) mg/dL Creatinine (0.66-1.25) mg/dL Glucose (74-99) mg/dL POC Glucose (mg/dL) 328 H (70-110) mg/dL Albumin (3.5-5.0) g/dL
[2024-11-08 08:59] LABS: Glucose,Whole Blood 298 mg/dL (70-110)
--- NOTE | 2024-11-08 11:51 | P.PN ---
Subjective Progress Note Date: 11/08/24 Principal diagnosis: Acute hypoxic and hypercapnic respiratory failure This is a 34-year-old white male with history of Prader-Willi syndrome, patient was sent from [facility] for evaluation of shortness of breath for the last few days. Patient is known to have history of asthma and he was basically receiving treatment on outpatient basis for presumptive pneumonia. His shortness of breath has become worse and his O2 saturation was noted to [facility]. Patient was sent to the ER, initially managed with BiPAP, however patient continued to do poorly in spite of BiPAP, after few hours of being on BiPAP, ABG was checked and his pO2 was 91 pCO2 over 98 pH was 7.25, patient became more and more obtunded hence he was intubated and placed on ventilatory support. Patient is on assist-control rate of 22, tidal volume 350 FiO2 at 50% and PEEP at 5. ABG is pending. Last ABG showed a pO2 of 318 pCO2 70 pH of 7.39. Dramatically improved after intubation mechanical ventilation, and considering the patient has a pCO2 of 70 with a pH of 7.39 that implies that the patient has chronic hypercapnic respiratory failure with adequate metabolic compensation. Patient is on propofol at 25 mcg/kg/min he is on IV fluid 0.9 at 75 cc/h and he is sedated, could not assess the patient mentally hence I recommended stopping propofol and starting the patient on Precedex the plan is to awaken the patient and give the patient at least a weaning trial if possible today. WBC count is 5.11 hemoglobin 15.5, electrolytes were noted to be normal renal profile is normal, chest x-ray this morning showed cardiomegaly and right basilar opacity, possible atelectasis involving the right lower lobe. Initial chest x-ray in the ER showed no evidence of infiltrate or atelectasis. Patient was seen today on 11/08/2024, remains in the ICU intubated and m echanically ventilated, patient is on assist-control rate of 22 tidal volume 350 FiO2 50% and PEEP of 5 ABG showed a pO2 of 110 pCO2 47 pH of 7.45, patient is on propofol at 35 mcg/kg/min IV fluid is 0.9 at 75 cc/h. Patient remains empirically on antibiotics,/ceftriaxone. Remains on bronchodilators, GI and DVT prophylaxis, and the patient is receiving enteral feeding/nutritional support. Patient is also on multiple seizure medications considering his seizure history. Patient is sedated, it is difficult to assess his mental status as he seems to be arousable but does not follow any instructions, seems to be a bit confused, went ahead and recommended stopping propofol and starting the patient on Precedex, and hopefully we can get to the point where he can assess mental status fully off propofol. Labs today were reviewed CBC is basically unremarkable. Electrolytes are normal renal profile is normal, blood sugar is 298. Chest x-ray showed stable findings, minimal basilar atelectasis and slight prominence of the pulmonary vasculature. Endotracheal tube seems to be in proper position. Objective - Vital Signs Vital signs: Vital Signs Temp 97.7 F 11/08/24 08:00 Pulse 54 L 11/08/24 11:18 Resp 22 11/08/24 11:00 BP 132/91 11/08/24 11:00 Pulse Ox 98 11/08/24 11:00 FiO2 45 11/08/24 10:46 Intake & Output 11/07/24 11/08/24 11/08/24 18:59 06:59 18:59 Intake Total 8278.081 1032.410 620.086 Output Total 1265 980 420 Balance 137.538 428.410 200.086 Weight 100 kg 99.6 kg Intake: IV 985 900 375 Magnesium Sulfate-D5w Pmx 200 1 gm In Dextrose/Water 1 100ml.bag @ 100 mls/hr IVPB Q1H [facility] Rx#: [id number] Sodium Chloride 0.9% 1, 785 900 375 000 ml @ 75 mls/hr IV . [id number] [facility] Rx#:[id number] Intake, IV Titration 167.538 208.410 108.086 Amount Dexmedetomidine/0.9% NaCl 48.437 9.913 (Pmx) 400 mcg In Empty Bag 1 bag @ 0.2 MCG/KG/HR 5.019 mls/hr IV .[id number] [facility] Rx#:[id number] propofoL 1,000 mg In 119.101 208.410 98.173 Empty Bag 1 bag @ 15 MCG/ KG/MIN 9.034 mls/hr IV . [id number] [facility] Rx#:[id number] Tube Feeding 10 180 107 Other 240 120 30 Output: Urine 1265 980 420 Other: Voiding Method Indwelling Catheter Indwelling Catheter Indwelling Catheter - Exam General: Revealed 34-year-old white male obese intubated mechanically ventilated sedated, on propofol Skin: Areas of cellulitis noted in both lower extremities, presumably the patient had recent MSSA dermatitis has been treated with Kefzol. Eye: Pupils are equal, round and reactive to light, extra-ocular movements are intact; there is normal conjunctiva bilaterally. Ears, nose, mouth and throat: There are moist mucous membranes and no oral lesions. Neck: The neck is supple, there is no tenderness or JVD. Cardiovascular: There is a regular rate and rhythm. No murmur, rub or gallop is appreciated. Respiratory: Diminished breath sounds at the bases no crackles rhonchi or wheezes Gastrointestinal: Obese, soft, non-distended, non-tender abdomen without masses or organomegaly noted. There is no rebound or guarding present. Bowel sounds are unremarkable. Musculoskeletal: No deformities there is however poor muscle tone. Neurological: Could not assess patient is sedated Psychiatric: Could not assess - Labs CBC & Chem 7: 11/08/24 04:48 11/08/24 04:48 Labs: Abnormal Lab Results - Last 24 Hours (Table) 11/07/24 11/07/24 11/07/24 Range/Units 12:02 16:39 19:43 RBC (4.40-5.60) 10*6/uL MCV (80.0-97.0) fL MCHC (32.0-37.0) g/dL Eosinophils # (0.04-0.35) 10*3/uL ABG pCO2 (35-45) mmHg ABG pO2 (83-108) mmHg ABG HCO3 (21-25) mmol/L ABG Total CO2 (19-24) mmol/L ABG O2 Saturation (94-97) % Sodium (137-145) mmol/L Chloride (98-107) mmol/L Creatinine (0.66-1.25) mg/dL Glucose (74-99) mg/dL POC Glucose (mg/dL) 314 H 296 H 325 H (70-110) mg/dL 11/07/24 11/08/24 11/08/24 Range/Units 23:33 03:41 04:48 RBC (4.40-5.60) 10*6/uL MCV (80.0-97.0) fL MCHC (32.0-37.0) g/dL Eosinophils # (0.04-0.35) 10*3/uL ABG pCO2 (35-45) mmHg ABG pO2 (83-108) mmHg ABG HCO3 (21-25) mmol/L ABG Total CO2 (19-24) mmol/L ABG O2 Saturation (94-97) % Sodium 133 L (137-145) mmol/L Chloride 97 L (98-107) mmol/L Creatinine 0.35 L (0.66-1.25) mg/dL Glucose 329 H (74-99) mg/dL POC Glucose (mg/dL) 316 H 291 H (70-110) mg/dL 11/08/24 11/08/24 11/08/24 Range/Units 04:48 05:31 08:57 RBC 4.35 L (4.40-5.60) 10*6/uL MCV 97.2 H (80.0-97.0) fL MCHC 31.4 L (32.0-37.0) g/dL Eosinophils # 0.03 L (0.04-0.35) 10*3/uL ABG pCO2 47 H (35-45) mmHg ABG pO2 110 H (83-108) mmHg ABG HCO3 33 H (21-25) mmol/L ABG Total CO2 34 H (19-24) mmol/L ABG O2 Saturation 99.2 H (94-97) % Sodium (137-145) mmol/L Chloride (98-107) mmol/L Creatinine (0.66-1.25) mg/dL Glucose (74-99) mg/dL POC Glucose (mg/dL) 298 H (70-110) mg/dL Microbiology - Last 24 Hours (Table) 11/07/24 05:00 Gram Stain - Preliminary Sputum Sputum Culture - Preliminary Assessment and Plan Assessment: Impression: Acute on chronic hypercapnic respiratory failure Acute hypoxic respiratory failure Possible right lower lobe pneumonia Acute exacerbation of mild intermittent asthma History of Prader-Willi syndrome, characterized by history of developmental delay, muscle weakness, restrictive lung disease, secondary to muscle weakness, obesity, and behavioral disorder. Recent history of right lower lobe pneumonia, treated on outpatient basis History of MSSA cellulitis/dermatitis, treated on outpatient basis Recommendation: Continue ventilatory support Continue antibiotics Continue bronchodilators Continue GI DVT prophylaxis Resume home meds Transition propofol to Precedex today and give the patient another trial of weaning if possible today. Consider nutritional support/enteral feeding if the patient does not wean today. Patient is critically ill Critical care time is 35 minutes Will continue to follow Time with Patient: Greater than 30
[2024-11-08 11:52] LABS: Glucose,Whole Blood 238 mg/dL (70-110)
[2024-11-08 15:52] LABS: Glucose,Whole Blood 242 mg/dL (70-110)
--- NOTE | 2024-11-08 19:34 | P.PN ---
Subjective Progress Note Date: 11/08/24 This is a 34-year-old male who presented to the emergency department from [facility] where he resides with increased shortness of breath and concerns for aspiration. Patient follows with Dr. Rodriguez in the outpatient setting with a past medical history of asthma, diabetes mellitus, hypertension, musculoskeletal disorder, pneumonia, respiratory disorder, sleep apnea, Prader-Willi syndrome with dysphagia, morbid obesity with alveolar hypoventilation yes, obstructive sleep apnea, depression. Patient has mental disabilities and has a primary legal guardian and is considered full code at this time. Patient with difficulty keeping oxygenation on his face will make it extremely difficult to continue with oxygen therapy. Initially ER attempted BiPAP although extremely agitated and unable to tolerate with pulmonary country manager consulted recommending mechanical ventilation. Labs reviewed on admission reveal a normal white count with a hemoglobin of 13.5, platelets 183, sodium 136 with a potassium of 5.4, carbon dioxide 39, BUN 22, creatinine 0.48 and random glucose was 248. ABGs were done with a pH of 7.39, PCO2 is 70, PO2 318, bicarb is 42. EKG showing sinus rhythm chest x-ray showing stable chest postintubation. Patient was admitted to the ICU. Patient is currently on Precedex and off propofol and home medications are being reviewed and resumed as appropriate. Patient was started on antibiotic empirically and also steroids with breathing treatments. Patient is not wheezing and given sugars are elevated, discussed with pulmonary and will be discontinuing steroids. BNP was not elevated although patient does appear edematous throughout. Patient did receive a few doses of Lasix and is currently maintained on gentle IV hydration. 11/08/2024 Patient is evaluated today in follow up in the intensive care unit. Remains intubated and sedated on the mechanical ventilator. Currently sedated with propofol. Unable to be weaned today from the vent. Chest xray reveals possible fluid over load state, underlying acute infiltrates medial lung bases cannot be excluded. Labs reveal white blood cell count 4.82, hgb 13.3, sodium 133, potassium 4.1, BUN 18, creatinine 0.35. Hemoglobin A1C - 9.6. REVIEW OF SYSTEMS: Unable to review as patient is intubated on Precedex The rest of the 14-point review of systems is negative. PHYSICAL EXAMINATION: GENERAL: The patient is currently intubated with an FiO2 of 50% and PEEP of 5, weaning as tolerated, ill-appearing, edematous, morbidly obese HEENT: Pupils are round and equally reacting to light. EOMI. No scleral icterus. No conjunctival pallor. Normocephalic, atraumatic. No pharyngeal erythema. No thyromegaly. CARDIOVASCULAR: S1 and S2 muffled PULMONARY: Diminished breath sounds bilaterally otherwise chest is clear to auscultation, no wheezing or crackles. ABDOMEN: Soft, obese, nontender, nondistended, normoactive bowel sounds. No palpable organomegaly. MUSCULOSKELETAL: No joint swelling or deformity. EXTREMITIES: No cyanosis, clubbing, or pedal edema. Edematous of upper and lower extremities NEUROLOGICAL: Gross neurological examination did not reveal any focal deficits. Unable to completely assess as patient is intubated and somewhat sedated SKIN: No rashes. Pale, lower extremity discoloration Assessment: Acute on chronic hypoxic respiratory failure, requiring BiPAP initially and now on mechanical ventilation Possible right lower lobe pneumonia, although suspicion is low, will order procalcitonin, empirically on antibiotics, likely atelectasis History of mild intermittent asthma with acute exacerbation History of Prader-Willi syndrome with developmental delay and muscle weakness Diabetes mellitus, type II, uncontrolled with hyperglycemia History of hypertension History of sleep apnea and morbid obesity with alveolar hypoventilation, does not use a CPAP History of obstructive sleep apnea History of dysphagia History of depression History of recent lower extremity cellulitis with MSSA, treated outpatient Morbid obesity with a BMI of 49.2 GI prophylaxis DVT prophylaxis Full code Plan: Patient was admitted from [facility] where he resides with increasing shortness of breath and difficulty maintaining oxygenation not tolerating much nasal cannula. Initially brought to the ER put on BiPAP although became more obtunded and nonresponsive requiring mechanical ventilation and ICU admission Blood sugars are extremely elevated and was initiated on steroids although no significant wheezing noted, will discontinue and this was discussed with pulmonary. Continue to monitor Accu-Cheks AC and at bedtime and will adjust insulins accordingly. Recommend long-acting twice daily as he normally only takes a daily Patient does have a legal guardian and remains full code at this time although there is discussion of possible hospice with comfort care that will be addressed Continue current regimen and follow-up on repeat labs Patient is currently sedated with propofol. Blood glucose remains elevated and lantus has been adjusted. Continue accuchecks and sliding scale insulin Q4h. Continue enteral feedings Home medications reviewed and resumed as appropriate Prognosis is guarded The impression and plan of care has been dictated by Otilia Jarrett, Nurse Practitioner as directed. Dr. Naresh MD I have performed a history and examination and MDM of this patient, discussed the same with the dictator, and agree with the dictator's assessment and plan as written ,documented as a scribe. Based on total visit time, I have performed more than 50% of the visit. Objective - Vital Signs Vital signs: Vital Signs Temp 98.3 F 11/08/24 16:00 Pulse 59 L 11/08/24 19:00 Resp 22 11/08/24 19:00 BP 103/63 11/08/24 19:00 Pulse Ox 97 11/08/24 19:00 FiO2 45 11/08/24 15:36 Intake & Output 11/08/24 11/08/24 11/09/24 06:59 18:59 06:59 Intake Total 9675.672 2250.817 Output Total 980 1330 Balance 428.410 226.817 Weight 99.6 kg Intake: IV 900 975 Sodium Chloride 0.9% 1, 900 975 000 ml @ 75 mls/hr IV . [id number] [facility] Rx#:[id number] Intake, IV Titration 208.410 181.817 Amount Dexmedetomidine/0.9% NaCl 9.913 (Pmx) 400 mcg In Empty Bag 1 bag @ 0.2 MCG/KG/HR 5.019 mls/hr IV .[id number] [facility] Rx#:[id number] propofoL 1,000 mg In 208.410 171.904 Empty Bag 1 bag @ 15 MCG/ KG/MIN 9.034 mls/hr IV . Q11H5M [facility] Rx#:[id number] Tube Feeding 180 310 Other 120 90 Output: Urine 980 1330 Other: Voiding Method Indwelling Catheter Indwelling Catheter - Labs CBC & Chem 7: 11/08/24 04:48 11/08/24 04:48 Labs: Abnormal Lab Results - Last 24 Hours (Table) 11/07/24 11/07/24 11/08/24 Range/Units 19:43 23:33 03:41 RBC (4.40-5.60) 10*6/uL MCV (80.0-97.0) fL MCHC (32.0-37.0) g/dL Eosinophils # (0.04-0.35) 10*3/uL ABG pCO2 (35-45) mmHg ABG pO2 (83-108) mmHg ABG HCO3 (21-25) mmol/L ABG Total CO2 (19-24) mmol/L ABG O2 Saturation (94-97) % Sodium (137-145) mmol/L Chloride (98-107) mmol/L Creatinine (0.66-1.25) mg/dL Glucose (74-99) mg/dL POC Glucose (mg/dL) 325 H 316 H 291 H (70-110) mg/dL Hemoglobin A1c (<=6.0) % 11/08/24 11/08/24 11/08/24 Range/Units 04:44 04:48 04:48 RBC 4.35 L (4.40-5.60) 10*6/uL MCV 97.2 H (80.0-97.0) fL MCHC 31.4 L (32.0-37.0) g/dL Eosinophils # 0.03 L (0.04-0.35) 10*3/uL ABG pCO2 (35-45) mmHg ABG pO2 (83-108) mmHg ABG HCO3 (21-25) mmol/L ABG Total CO2 (19-24) mmol/L ABG O2 Saturation (94-97) % Sodium 133 L (137-145) mmol/L Chloride 97 L (98-107) mmol/L Creatinine 0.35 L (0.66-1.25) mg/dL Glucose 329 H (74-99) mg/dL POC Glucose (mg/dL) (70-110) mg/dL Hemoglobin A1c 9.6 H (<=6.0) % 11/08/24 11/08/24 11/08/24 Range/Units 05:31 08:57 11:50 RBC (4.40-5.60) 10*6/uL MCV (80.0-97.0) fL MCHC (32.0-37.0) g/dL Eosinophils # (0.04-0.35) 10*3/uL ABG pCO2 47 H (35-45) mmHg ABG pO2 110 H (83-108) mmHg ABG HCO3 33 H (21-25) mmol/L ABG Total CO2 34 H (19-24) mmol/L ABG O2 Saturation 99.2 H (94-97) % Sodium (137-145) mmol/L Chloride (98-107) mmol/L Creatinine (0.66-1.25) mg/dL Glucose (74-99) mg/dL POC Glucose (mg/dL) 298 H 238 H (70-110) mg/dL Hemoglobin A1c (<=6.0) % 11/08/24 Range/Units 15:50 RBC (4.40-5.60) 10*6/uL MCV (80.0-97.0) fL MCHC (32.0-37.0) g/dL Eosinophils # (0.04-0.35) 10*3/uL ABG pCO2 (35-45) mmHg ABG pO2 (83-108) mmHg ABG HCO3 (21-25) mmol/L ABG Total CO2 (19-24) mmol/L ABG O2 Saturation (94-97) % Sodium (137-145) mmol/L Chloride (98-107) mmol/L Creatinine (0.66-1.25) mg/dL Glucose (74-99) mg/dL POC Glucose (mg/dL) 242 H (70-110) mg/dL Hemoglobin A1c (<=6.0) % Microbiology - Last 24 Hours (Table) 11/07/24 05:45 Blood Culture - Preliminary Blood 11/07/24 05:00 Gram Stain - Preliminary Sputum Sputum Culture - Preliminary Assessment and Plan Time with Patient: Less than 30
[2024-11-08 20:04] LABS: Glucose,Whole Blood 256 mg/dL (70-110)
[2024-11-09 00:12] LABS: Glucose,Whole Blood 206 mg/dL (70-110)
[2024-11-09 04:08] LABS: Glucose,Whole Blood 161 mg/dL (70-110)
--- NOTE | 2024-11-09 05:47 | XR ---
EXAMINATION TYPE: XR chest 1V portable DATE OF EXAM: 11/09/2024 CLINICAL INDICATION: Male, 34 years old with history of Tube placement, progress study. SOB. TECHNIQUE: Single AP portable semiupright view of the chest is obtained. COMPARISON: Chest x-ray from one day earlier and older studies. FINDINGS: Stable endotracheal and orogastric tubes. Persistent cardiomegaly and medial bibasilar opacity. Persistent central vascular congestion and sma ll right pleural effusion. Osseous structures are intact. IMPRESSION: Overall stable findings, correlate for suspected CHF exacerbation/ fluid overload stat e. Underlying acute infiltrates medial lung bases cannot be excluded. [facility], , 11/09/2024 5:45 AM
[2024-11-09 06:20] LABS: ABG Base Excess 4.7 mmol/L; ABG HCO3 32 mmol/L (21-25); ABG Oxygen Saturation 99.8 % (94-97); ABG PCO2 57 mmHg (35-45); ABG PH 7.36 (7.35-7.45); ABG PO2 228 mmHg (83-108); ABG TCO2 33 mmol/L (19-24); Allen Test Performed? Yes
[2024-11-09 06:29] LABS: African American GFR (CKD) >90 (>60 ml/min/1.73 sqM); Anion Gap 3 mmol/L; Blood Urea Nitrogen 16 mg/dL (9-20); Carbon Dioxide 31 mmol/L (22-30); Chloride 106 mmol/L (98-107); Glucose 190 mg/dL (74-99); Magnesium 1.8 mg/dL (1.6-2.3); Non-African American GFR(CKD) >90 (>60 ml/min/1.73 sqM); Potassium 3.8 mmol/L (3.5-5.1); Sodium 140 mmol/L (137-145)
[2024-11-09 06:40] LABS: Basophils # (A) 0.01 10*3/uL (0.00-0.10); Basophils % (A) 0.2 %; Eosinophils # (A) 0.18 10*3/uL (0.04-0.35); HGB 13.4 g/dL (13.0-17.0); Lymphocytes # (A) 1.42 10*3/uL (0.90-5.00); Lymphocytes % (A) 23.8 %; MCH 30.2 pg (27.0-32.0); MCHC 30.5 g/dL (32.0-37.0); MCV 99.1 fL (80.0-97.0); Mean Platelet Volume 10.7 fL (9.5-12.2); Monocytes # (A) 0.58 10*3/uL (0.20-1.00); Monocytes % (A) 9.7 %; Neutrophils # (A) 3.75 10*3/uL (1.80-7.70); Platelet Count 142 10*3/uL (140-440); RBC 4.44 10*6/uL (4.40-5.60); RDW 14.4 % (11.5-14.5); WBC 5.96 10*3/uL (4.50-10.00)
[2024-11-09 08:02] LABS: Glucose,Whole Blood 161 mg/dL (70-110)
--- NOTE | 2024-11-09 11:45 | P.PN ---
Subjective Progress Note Date: 11/09/24 Principal diagnosis: Acute hypoxic and hypercapnic respiratory failure This is a 34-year-old white male with history of Prader-Willi syndrome, patient was sent from [facility] for evaluation of shortness of breath for the last few days. Patient is known to have history of asthma and he was basically receiving treatment on outpatient basis for presumptive pneumonia. His shortness of breath has become worse and his O2 saturation was noted to be very low while at the care home. Patient was sent to the ER, initially managed with BiPAP, however patient continued to do poorly in spite of BiPAP, after few hours of being on BiPAP, ABG was checked and his pO2 was 91 pCO2 over 98 pH was 7.25, patient became more and more obtunded hence he was intubated and placed on ventilatory support. Patient is on assist-control rate of 22, tidal volume 350 FiO2 at 50% and PEEP at 5. ABG is pending. Last ABG showed a pO2 of 318 pCO2 70 pH of 7.39. Dramatically improved after intubation mechanical ventilation, and considering the patient has a pCO2 of 70 with a pH of 7.39 that implies that the patient has chronic hypercapnic respiratory failure with adequate metabolic compensation. Patient is on propofol at 25 mcg/kg/min he is on IV fluid 0.9 at 75 cc/h and he is sedated, could not assess the patient mentally hence I recommended stopping propofol and starting the patient on Precedex the plan is to awaken the patient and give the patient at least a weaning trial if possible today. WBC count is 5.11 hemoglobin 15.5, electrolytes were noted to be normal renal profile is normal, chest x-ray this morning showed cardiomegaly and right basilar opacity, possible atelectasis involving the right lower lobe. Initial chest x-ray in the ER showed no evidence of infiltrate or atelectasis. Patient was seen today on 11/08/2024, remains in the ICU intubated and m echanically ventilated, patient is on assist-control rate of 22 tidal volume 350 FiO2 50% and PEEP of 5 ABG showed a pO2 of 110 pCO2 47 pH of 7.45, patient is on propofol at 35 mcg/kg/min IV fluid is 0.9 at 75 cc/h. Patient remains empirically on antibiotics,/ceftriaxone. Remains on bronchodilators, GI and DVT prophylaxis, and the patient is receiving enteral feeding/nutritional support. Patient is also on multiple seizure medications considering his seizure history. Patient is sedated, it is difficult to assess his mental status as he seems to be arousable but does not follow any instructions, seems to be a bit confused, went ahead and recommended stopping propofol and starting the patient on Precedex, and hopefully we can get to the point where he can assess mental status fully off propofol. Labs today were reviewed CBC is basically unremarkable. Electrolytes are normal renal profile is normal, blood sugar is 298. Chest x-ray showed stable findings, minimal basilar atelectasis and slight prominence of the pulmonary vasculature. Endotracheal tube seems to be in proper position. Patient was seen today on 11/09/2024, patient remains in the ICU, intubated and mechanically ventilated, attempts have been made over the last 2 days to wean and extubate the patient, patient has been extremely difficult to wean. Yesterday the patient lasted less than half an hour and he was extremely tachypneic, tachycardic, could not tolerate even pressure support of 12 and CPAP for more than half an hour. Patient had to be placed back on full ventilatory support and placed back on propofol. We have tried again doing the same thing, and the patient again did not seem to do well. Patient is known to have history of Prader-Willi syndrome, and it is not surprising that the patient has profound muscle weakness with chronic hypercapnia he may eventually require tracheostomy and PEG tube placement. However my understanding today that the legal guardian is petitioning the court Sunday, and the plan is to consider comfort care measures on this patient in the next couple of days. Considering this, will not consult for tracheostomy and PEG tube placement, and will not arrange for ce ntral line or arterial line placement at this point. We are managing the patient well with peripheral lines. WBC count is 5.9 hemoglobin 13.4 his ABG today showed a pO2 of 228 pCO2 57 pH of 7.36 and this was on FiO2 of 45% hence FiO2 was cut down to 40%. Basic metabolic profile is normal, bicarb is 31. Renal profile is normal. Chest x-ray showed mostly minimal interstitial prominence, no clear-cut evidence of pneumonia although underlying infiltrates not completely excluded. Patient remains empirically on antibiotics. The findings on the chest x-ray are mostly findings of bibasilar atelectasis. Objective - Vital Signs Vital signs: Vital Signs Temp 98.6 F 11/09/24 08:00 Pulse 74 11/09/24 11:37 Resp 22 11/09/24 11:00 BP 114/69 11/09/24 11:00 Pulse Ox 94 L 11/09/24 11:00 FiO2 40 11/09/24 11:14 Intake & Output 11/08/24 11/09/24 11/09/24 18:59 06:59 18:59 Intake Total 3599.767 6072.337 546.000 Output Total 1330 1275 455 Balance 226.817 215.337 91.000 Weight 99.6 kg Intake: IV 975 825 300 Sodium Chloride 0.9% 1, 975 825 300 000 ml @ 75 mls/hr IV . [id number] [facility] Rx#:[id number] Intake, IV Titration 181.817 286.337 100.000 Amount Dexmedetomidine/0.9% NaCl 9.913 0 (Pmx) 400 mcg In Empty Bag 1 bag @ 0.2 MCG/KG/HR 5.019 mls/hr IV .[id number] [facility] Rx#:[id number] propofoL 1,000 mg In 171.904 286.337 100.000 Empty Bag 1 bag @ 15 MCG/ KG/MIN 9.034 mls/hr IV . [id number] [facility] Rx#:[id number] Tube Feeding 310 319 116 Other 90 60 30 Output: Urine 1330 1275 455 Other: Voiding Method Indwelling Catheter Indwelling Catheter Indwelling Catheter # Bowel Movements 1 1 - Exam General: Revealed 34-year-old white male obese intubated mechanically ventilated sedated, on propofol Skin: Areas of cellulitis noted in both lower extremities, presumably the patient had recent MSSA dermatitis has been treated with Kefzol. Eye: Pupils are equal, round and reactive to light, extra-ocular movements are intact; there is normal conjunctiva bilaterally. Ears, nose, mouth and throat: There are moist mucous membranes and no oral lesions. Neck: The neck is supple, there is no tenderness or JVD. Cardiovascular: There is a regular rate and rhythm. No murmur, rub or gallop is appreciated. Respiratory: Diminished breath sounds at the bases no crackles rhonchi or wheezes Gastrointestinal: Obese, soft, non-distended, non-tender abdomen without masses or organomegaly noted. There is no rebound or guarding present. Bowel sounds are unremarkable. Musculoskeletal: No deformities there is however poor muscle tone. Neurological: Could not assess patient is sedated Psychiatric: Could not assess - Labs CBC & Chem 7: 11/09/24 05:32 11/09/24 05:32 Labs: Abnormal Lab Results - Last 24 Hours (Table) 11/08/24 11/08/24 11/08/24 Range/Units 04:44 11:50 15:50 MCV (80.0-97.0) fL MCHC (32.0-37.0) g/dL ABG pCO2 (35-45) mmHg ABG pO2 (83-108) mmHg ABG HCO3 (21-25) mmol/L ABG Total CO2 (19-24) mmol/L ABG O2 Saturation (94-97) % Carbon Dioxide (22-30) mmol/L Creatinine (0.66-1.25) mg/dL Glucose (74-99) mg/dL POC Glucose (mg/dL) 238 H 242 H (70-110) mg/dL Hemoglobin A1c 9.6 H (<=6.0) % 11/08/24 11/09/24 11/09/24 Range/Units 20:03 00:11 04:06 MCV (80.0-97.0) fL MCHC (32.0-37.0) g/dL ABG pCO2 (35-45) mmHg ABG pO2 (83-108) mmHg ABG HCO3 (21-25) mmol/L ABG Total CO2 (19-24) mmol/L ABG O2 Saturation (94-97) % Carbon Dioxide (22-30) mmol/L Creatinine (0.66-1.25) mg/dL Glucose (74-99) mg/dL POC Glucose (mg/dL) 256 H 206 H 161 H (70-110) mg/dL Hemoglobin A1c (<=6.0) % 11/09/24 11/09/24 11/09/24 Range/Units 05:32 05:32 06:21 MCV 99.1 H (80.0-97.0) fL MCHC 30.5 L (32.0-37.0) g/dL ABG pCO2 57 H (35-45) mmHg ABG pO2 228 H (83-108) mmHg ABG HCO3 32 H (21-25) mmol/L ABG Total CO2 33 H (19-24) mmol/L ABG O2 Saturation 99.8 H (94-97) % Carbon Dioxide 31 H (22-30) mmol/L Creatinine 0.32 L (0.66-1.25) mg/dL Glucose 190 H (74-99) mg/dL POC Glucose (mg/dL) (70-110) mg/dL Hemoglobin A1c (<=6.0) % 11/09/24 Range/Units 08:00 MCV (80.0-97.0) fL MCHC (32.0-37.0) g/dL ABG pCO2 (35-45) mmHg ABG pO2 (83-108) mmHg ABG HCO3 (21-25) mmol/L ABG Total CO2 (19-24) mmol/L ABG O2 Saturation (94-97) % Carbon Dioxide (22-30) mmol/L Creatinine (0.66-1.25) mg/dL Glucose (74-99) mg/dL POC Glucose (mg/dL) 161 H (70-110) mg/dL Hemoglobin A1c (<=6.0) % Microbiology - Last 24 Hours (Table) 11/07/24 05:00 Gram Stain - Final Sputum Sputum Culture - Final 11/07/24 05:45 Blood Culture - Preliminary Blood Assessment and Plan Assessment: Impression: Acute on chronic hypercapnic respiratory failure Acute hypoxic respiratory failure Possible right lower lobe pneumonia Acute exacerbation of mild intermittent asthma History of Prader-Willi syndrome, characterized by history of developmental delay, muscle weakness, restrictive lung disease, secondary to muscle weakness, obesity, and behavioral disorder. Recent history of right lower lobe pneumonia, treated on outpatient basis History of MSSA cellulitis/dermatitis, treated on outpatient basis Recommendation: Continue ventilatory support, patient is a failure to wean Continue antibiotics Continue bronchodilators Continue GI DVT prophylaxis Resume home meds Another attempt of weaning was made today on Precedex, patient failed again. Continue enteral feeding/nutritional support Legal guardian to petition court tomorrow regarding DNR CODE STATUS and comfort care measures, otherwise the patient will need tracheostomy and PEG tube placement. Patient is critically ill Critical care time is 35 minutes Will continue to follow Time with Patient: Greater than 30
[2024-11-09 12:06] LABS: Glucose,Whole Blood 132 mg/dL (70-110)
--- NOTE | 2024-11-09 15:14 | P.PN ---
Subjective Progress Note Date: 11/09/24 This is a 34-year-old male who presented to the emergency department from [facility] where he resides with increased shortness of breath and concerns for aspiration. Patient follows with Dr. Rodriguez in the outpatient setting with a past medical history of asthma, diabetes mellitus, hypertension, musculoskeletal disorder, pneumonia, respiratory disorder, sleep apnea, Prader-Willi syndrome with dysphagia, morbid obesity with alveolar hypoventilation yes, obstructive sleep apnea, depression. Patient has mental disabilities and has a primary legal guardian and is considered full code at this time. Patient with difficulty keeping oxygenation on his face will make it extremely difficult to continue with oxygen therapy. Initially ER attempted BiPAP although extremely agitated and unable to tolerate with pulmonary inspector open die consulted recommending mechanical ventilation. Labs reviewed on admission reveal a normal white count with a hemoglobin of 13.5, platelets 183, sodium 136 with a potassium of 5.4, carbon dioxide 39, BUN 22, creatinine 0.48 and random glucose was 248. ABGs were done with a pH of 7.39, PCO2 is 70, PO2 318, bicarb is 42. EKG showing sinus rhythm chest x-ray showing stable chest postintubation. Patient was admitted to the ICU. Patient is currently on Precedex and off propofol and home medications are being reviewed and resumed as appropriate. Patient was started on antibiotic empirically and also steroids with breathing treatments. Patient is not wheezing and given sugars are elevated, discussed with pulmonary and will be discontinuing steroids. BNP was not elevated although patient does appear edematous throughout. Patient did receive a few doses of Lasix and is currently maintained on gentle IV hydration. 11/08/2024 Patient is evaluated today in follow up in the intensive care unit. Remains intubated and sedated on the mechanical ventilator. Currently sedated with propofol. Unable to be weaned today from the vent. Chest xray reveals possible fluid over load state, underlying acute infiltrates medial lung bases cannot be excluded. Labs reveal white blood cell count 4.82, hgb 13.3, sodium 133, potassium 4.1, BUN 18, creatinine 0.35. Hemoglobin A1C - 9.6. 11/09/2024 Patient evaluated today in the ICU. Remains intubated and sedated with propofol. Plans to start precedex and weaning trial today. Chest xray today reveals suspected CHF exacerbation/fluid overload state. Underlying acute infiltrates medial lung bases cannot be excluded. Lantus adjusted and blood glucose is significantly improved. REVIEW OF SYSTEMS: Unable to review as patient is intubated and sedated The rest of the 14-point review of systems is negative. PHYSICAL EXAMINATION: GENERAL: The patient is currently intubated with an FiO2 of 50% and PEEP of 5, weaning as tolerated, ill-appearing, edematous, morbidly obese HEENT: Pupils are round and equally reacting to light. EOMI. No scleral icterus. No conjunctival pallor. Normocephalic, atraumatic. No pharyngeal erythema. No thyromegaly. CARDIOVASCULAR: S1 and S2 muffled PULMONARY: Diminished breath sounds bilaterally otherwise chest is clear to auscultation, no wheezing or crackles. ABDOMEN: Soft, obese, nontender, nondistended, normoactive bowel sounds. No palpable organomegaly. MUSCULOSKELETAL: No joint swelling or deformity. EXTREMITIES: No cyanosis, clubbing, or pedal edema. Edematous of upper and lower extremities NEUROLOGICAL: Gross neurological examination did not reveal any focal deficits. Unable to completely assess as patient is intubated and somewhat sedated SKIN: No rashes. Pale, lower extremity discoloration Assessment: Acute on chronic hypoxic respiratory failure, requiring BiPAP initially and now on mechanical ventilation Possible right lower lobe pneumonia, although suspicion is low, will order procalcitonin, empirically on antibiotics, likely atelectasis History of mild intermittent asthma with acute exacerbation History of Prader-Willi syndrome with developmental delay and muscle weakness Diabetes mellitus, type II, uncontrolled with hyperglycemia History of hypertension History of sleep apnea and morbid obesity with alveolar hypoventilation, does not use a CPAP History of obstructive sleep apnea History of dysphagia History of depression History of recent lower extremity cellulitis with MSSA, treated outpatient Morbid obesity with a BMI of 49.2 GI prophylaxis DVT prophylaxis Full code Plan: Patient was admitted from [facility] where he resides with increasing shortness of breath and difficulty maintaining oxygenation not tolerating much nasal cannula. Initially brought to the ER put on BiPAP although became more obtunded and nonresponsive requiring mechanical ventilation and ICU admission Patient does have a legal guardian and remains full code at this time although there is discussion of possible hospice with comfort care that will be addressed Continue current regimen and follow-up on repeat labs Patient is currently sedated with propofol with plans to start precedex and weaning trial. Blood glucose remains elevated and lantus has been adjusted. Continue accuchecks and sliding scale insulin Q4h. Continue enteral feedings Home medications reviewed and resumed as appropriate Prognosis is guarded The impression and plan of care has been dictated by Otilia Jarrett, Nurse Practitioner as directed. Dr. Naresh MD I have performed a history and examination and MDM of this patient, discussed the same with the dictator, and agree with the dictator's assessment and plan as written ,documented as a scribe. Based on total visit time, I have performed more than 50% of the visit. Objective - Vital Signs Vital signs: Vital Signs Temp 98.5 F 11/09/24 12:00 Pulse 59 L 11/09/24 14:00 Resp 22 11/09/24 14:00 BP 94/57 11/09/24 14:00 Pulse Ox 94 L 11/09/24 14:00 FiO2 45 11/09/24 12:00 Intake & Output 11/08/24 11/09/24 11/09/24 18:59 06:59 18:59 Intake Total 3563.008 7314.337 992.000 Output Total 1330 1275 630 Balance 226.817 215.337 362.000 Weight 99.6 kg Intake: IV 975 825 600 Sodium Chloride 0.9% 1, 975 825 600 000 ml @ 75 mls/hr IV . [id number] [facility] Rx#:[id number] Intake, IV Titration 181.817 286.337 100.000 Amount Dexmedetomidine/0.9% NaCl 9.913 0 (Pmx) 400 mcg In Empty Bag 1 bag @ 0.2 MCG/KG/HR 5.019 mls/hr IV .[id number] [facility] Rx#:[id number] propofoL 1,000 mg In 171.904 286.337 100.000 Empty Bag 1 bag @ 15 MCG/ KG/MIN 9.034 mls/hr IV . Q11H5M [facility] Rx#:[id number] Tube Feeding 310 319 232 Other 90 60 60 Output: Urine 1330 1275 630 Other: Voiding Method Indwelling Catheter Indwelling Catheter Indwelling Catheter # Bowel Movements 1 1 - Labs CBC & Chem 7: 11/09/24 05:32 11/09/24 05:32 Labs: Abnormal Lab Results - Last 24 Hours (Table) 11/08/24 11/08/2425 Range/Units 15:50 20:03 00:11 MCV (80.0-97.0) fL MCHC (32.0-37.0) g/dL ABG pCO2 (35-45) mmHg ABG pO2 (83-108) mmHg ABG HCO3 (21-25) mmol/L ABG Total CO2 (19-24) mmol/L ABG O2 Saturation (94-97) % Carbon Dioxide (22-30) mmol/L Creatinine (0.66-1.25) mg/dL Glucose (74-99) mg/dL POC Glucose (mg/dL) 242 H 256 H 206 H (70-110) mg/dL 11/09/24 11/09/24 11/09/24 Range/Units 04:06 05:32 05:32 MCV 99.1 H (80.0-97.0) fL MCHC 30.5 L (32.0-37.0) g/dL ABG pCO2 (35-45) mmHg ABG pO2 (83-108) mmHg ABG HCO3 (21-25) mmol/L ABG Total CO2 (19-24) mmol/L ABG O2 Saturation (94-97) % Carbon Dioxide 31 H (22-30) mmol/L Creatinine 0.32 L (0.66-1.25) mg/dL Glucose 190 H (74-99) mg/dL POC Glucose (mg/dL) 161 H (70-110) mg/dL 11/09/24 11/09/24 11/09/24 Range/Units 06:21 08:00 12:04 MCV (80.0-97.0) fL MCHC (32.0-37.0) g/dL ABG pCO2 57 H (35-45) mmHg ABG pO2 228 H (83-108) mmHg ABG HCO3 32 H (21-25) mmol/L ABG Total CO2 33 H (19-24) mmol/L ABG O2 Saturation 99.8 H (94-97) % Carbon Dioxide (22-30) mmol/L Creatinine (0.66-1.25) mg/dL Glucose (74-99) mg/dL POC Glucose (mg/dL) 161 H 132 H (70-110) mg/dL Microbiology - Last 24 Hours (Table) 11/07/24 05:45 Blood Culture - Preliminary Blood 11/07/24 05:00 Gram Stain - Final Sputum Sputum Culture - Final Assessment and Plan Time with Patient: Less than 30
[2024-11-09 15:36] LABS: Glucose,Whole Blood 152 mg/dL (70-110)
[2024-11-09 20:00] LABS: Glucose,Whole Blood 139 mg/dL (70-110)
[2024-11-10 00:44] LABS: Glucose,Whole Blood 179 mg/dL (70-110)
[2024-11-10 04:20] LABS: Glucose,Whole Blood 167 mg/dL (70-110)
[2024-11-10 04:45] LABS: Basophils # (A) 0.01 10*3/uL (0.00-0.10); Basophils % (A) 0.1 %; Eosinophils # (A) 0.44 10*3/uL (0.04-0.35); Eosinophils % (A) 6.3 %; HCT 42.6 % (39.6-50.0); HGB 12.9 g/dL (13.0-17.0); Lymphocytes # (A) 1.22 10*3/uL (0.90-5.00); Lymphocytes % (A) 17.5 %; MCH 30.4 pg (27.0-32.0); MCHC 30.3 g/dL (32.0-37.0); MCV 100.5 fL (80.0-97.0); Mean Platelet Volume 10.9 fL (9.5-12.2); Monocytes # (A) 0.65 10*3/uL (0.20-1.00); Monocytes % (A) 9.3 %; Neutrophils # (A) 4.62 10*3/uL (1.80-7.70); Neutrophils % (A) 66.4 %; Platelet Count 154 10*3/uL (140-440); RBC 4.24 10*6/uL (4.40-5.60); RDW 14.6 % (11.5-14.5); WBC 6.97 10*3/uL (4.50-10.00)
[2024-11-10 04:58] LABS: African American GFR (CKD) >90 (>60 ml/min/1.73 sqM); Anion Gap 6 mmol/L; Blood Urea Nitrogen 13 mg/dL (9-20); Calcium 8.5 mg/dL (8.4-10.2); Carbon Dioxide 26 mmol/L (22-30); Chloride 105 mmol/L (98-107); Glucose 182 mg/dL (74-99); Non-African American GFR(CKD) >90 (>60 ml/min/1.73 sqM); Potassium 4.1 mmol/L (3.5-5.1); Sodium 137 mmol/L (137-145)
[2024-11-10 05:49] LABS: ABG Base Excess 4.5 mmol/L; ABG HCO3 31 mmol/L (21-25); ABG Oxygen Saturation 98.3 % (94-97); ABG PCO2 52 mmHg (35-45); ABG PH 7.38 (7.35-7.45); ABG PO2 113 mmHg (83-108); ABG TCO2 32 mmol/L (19-24); Allen Test Performed? Yes
--- NOTE | 2024-11-10 07:25 | XR ---
EXAMINATION TYPE: XR chest 1V portable DATE OF EXAM: 11/10/2024 5:14 AM COMPARISON: 11/09/2024 CLINICAL INDICATION: Male, 34 years old with history of Tube placement, , FINDINGS: ET tube and NG tube are satisfactory. Heart remains mildly enlarged. Interstitial density persists bu t with slight interval improvement. Ongoing small right pleural effusion with right basilar opacity. 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 IMPRESSION: Ongoing CHF with pulmonary vascular congestion. Some interval improvement. Ongoing small right pleura l effusion with adjacent atelectasis and/or consolidation. [facility], , 11/10/2024 7:23 AM
[2024-11-10 07:55] LABS: Glucose,Whole Blood 204 mg/dL (70-110)
--- NOTE | 2024-11-10 11:27 | P.PN ---
Subjective Progress Note Date: 11/10/24 This is a 34-year-old white male with history of Prader-Willi syndrome, patient was sent from [facility] for evaluation of shortness of breath for the last few days. Patient is known to have history of asthma and he was basically receiving treatment on outpatient basis for presumptive pneumonia. His shortness of breath has become worse and his O2 saturation was noted to be very low while at the senior living. Patient was sent to the ER, initially managed with BiPAP, however patient continued to do poorly in spite of BiPAP, after few hours of being on BiPAP, ABG was checked and his pO2 was 91 pCO2 over 98 pH was 7.25, patient became more and more obtunded hence he was intubated and placed on ventilatory support. Patient is on assist-control rate of 22, tidal volume 350 FiO2 at 50% and PEEP at 5. ABG is pending. Last ABG showed a pO2 of 318 pCO2 70 pH of 7.39. Dramatically improved after intubation mechanical ventilation, and considering the patient has a pCO2 of 70 with a pH of 7.39 that implies that the patient has chronic hypercapnic respiratory failure with adequate metabolic compensation. Patient is on propofol at 25 mcg/kg/min he is on IV fluid 0.9 at 75 cc/h and he is sedated, could not assess the patient mentally hence I recommended stopping propofol and starting the patient on Precedex the plan is to awaken the patient and give the patient at least a weaning trial if possible today. WBC count is 5.11 hemoglobin 15.5, electrolytes were noted to be normal renal profile is normal, chest x-ray this morning showed cardiomegaly and right basilar opacity, possible atelectasis involving the right lower lobe. Initial chest x-ray in the ER showed no evidence of infiltrate or atelectasis. Patient was seen today on 11/08/2024, remains in the ICU intubated and m echanically ventilated, patient is on assist-control rate of 22 tidal volume 350 FiO2 50% and PEEP of 5 ABG showed a pO2 of 110 pCO2 47 pH of 7.45, patient is on propofol at 35 mcg/kg/min IV fluid is 0.9 at 75 cc/h. Patient remains empirically on antibiotics,/ceftriaxone. Remains on bronchodilators, GI and DVT prophylaxis, and the patient is receiving enteral feeding/nutritional support. Patient is also on multiple seizure medications considering his seizure history. Patient is sedated, it is difficult to assess his mental status as he seems to be arousable but does not follow any instructions, seems to be a bit confused, went ahead and recommended stopping propofol and starting the patient on Precedex, and hopefully we can get to the point where he can assess mental status fully off propofol. Labs today were reviewed CBC is basically unremarkable. Electrolytes are normal renal profile is normal, blood sugar is 298. Chest x-ray showed stable findings, minimal basilar atelectasis and slight prominence of the pulmonary vasculature. Endotracheal tube seems to be in proper position. Patient was seen today on 11/09/2024, patient remains in the ICU, intubated and mechanically ventilated, attempts have been made over the last 2 days to wean and extubate the patient, patient has been extremely difficult to wean. Yesterday the patient lasted less than half an hour and he was extremely tachypneic, tachycardic, could not tolerate even pressure support of 12 and CPAP for more than half an hour. Patient had to be placed back on full ventilatory support and placed back on propofol. We have tried again doing the same thing, and the patient again did not seem to do well. Patient is known to have history of Prader-Willi syndrome, and it is not surprising that the patient has profound muscle weakness with chronic hypercapnia he may eventually require tracheostomy and PEG tube placement. However my understanding today that the legal guardian is petitioning the court Sunday, and the plan is to consider comfort care measures on this patient in the next couple of days. Considering this, will not consult for tracheostomy and PEG tube placement, and will not arrange for ce ntral line or arterial line placement at this point. We are managing the patient well with peripheral lines. WBC count is 5.9 hemoglobin 13.4 his ABG today showed a pO2 of 228 pCO2 57 pH of 7.36 and this was on FiO2 of 45% hence FiO2 was cut down to 40%. Basic metabolic profile is normal, bicarb is 31. Renal profile is normal. Chest x-ray showed mostly minimal interstitial prominence, no clear-cut evidence of pneumonia although underlying infiltrates not completely excluded. Patient remains empirically on antibiotics. The findings on the chest x-ray are mostly findings of bibasilar atelectasis. 11/10/2024 patient seen and examined at bedside. Patient intubated, sedated and on mechanical ventilation. No acute events overnight. Legal guardian from [employer] mentions that they were not aware of plans for change of code status and no process initiated as it requires documentation that patient is clinically deteriorating. Current ventilator settings are volume control with a rate of 22, tidal volume 350, FiO2 40 and a PEEP of 5. Drips currently running are propofol 50 mcg/kg/hr, 0.9 normal saline 75 cc/h. Enteral feeding with [employer] 1.4 at 15ml/hr. Chest x-ray today showed ongoing CHF with pulmonary vascular congestion with some interval improvement, ongoing right pleural effusion with adjacent atelectasis and/for consultation. Labs: WBC 6.97, hemoglobin 12.9, platelet count 1 54,000, potassium 4.1, chloride 105, bicarb 26, BUN 13, creatinine 0.35, glucose 192, calcium 8.5. ABG pH of 7.38, PCO2 52, PO2 113 Review of systems: Cannot be obtained at this time Physical examination: Vital signs reviewed General: non toxic, no distress, sedated, intubated and mechanically ventilated Derm: no unusual rashes/lesions, warm Head: atraumatic, normocephalic, symmetric Eyes: EOMI, anicteric sclera, pupils equal round reactive to light ENT: Nose and ears atraumatic Neck: No cervical lymphadenopathy, trachea midline, supple Mouth: no lip lesion, mucus membranes moist, ET and OG tube noted Cardiovascular: S1S2 reg, no murmur Lungs: Diffuse coarse rales, no accessory muscle use Abdominal: soft, nontender to palpation, no guarding Ext: muscle strength 5 out of 5 in all 4 extremities grossly, no gross muscle atrophy, no contractures, positive dorsalis pedis pulse bilateral, no edema Neuro: Cannot be obtained Psych: Cannot be obtained Assessment: Acute hypoxic respiratory failure, likely secondary to acute exacerbation of mild intermittent asthma Acute on chronic hypercapnic respiratory failure History of Prader-Willi syndrome, characterized by history of developmental delay, muscle weakness, restrictive lung disease, secondary to muscle weakness, obesity, and behavioral disorder. Recent history of right lower lobe pneumonia, treated on outpatient basis History of MSSA cellulitis/dermatitis, treated on outpatient basis Recommendation: Continue ventilatory support. Decrease FiO2 to 30% Patient has high airway resistance of 18. Patient is not ready for weaning trials at this time. Continue DuoNebs as needed and [id number]. Initiate Pulmicort twice daily and formoterol twice daily inhalers Initiate IV Solu-Medrol 60 mg IV every 6 hours Discontinue IV fluids 0.9 normal saline Golva control with dilaudid as needed Resume home meds Continue enteral feeding to goal rate DVT prophylaxis: Lovenox 40 mg subcu daily GI prophylaxis: Protonix 40 mg IV daily Prognosis: Patient is critically ill. Legal guardian from [employer] mentions that they were not aware of plans for change of code status. Due to the patient's clinical state, we will defer for now. Will continue to follow Mandie Guzmán MD PGY-1/Information Coordinator Dictation was produced using [employer] dictation software. please excuse any grammatical, word or spelling errors. Objective - Vital Signs Vital signs: Vital Signs Temp 98.5 F 11/10/24 04:00 Pulse 77 11/10/24 07:00 Resp 22 11/10/24 07:00 BP 104/60 11/10/24 07:00 Pulse Ox 97 11/10/24 07:00 FiO2 40 11/10/24 04:03 Intake & Output 11/09/24 11/10/24 11/10/24 18:59 06:59 18:59 Intake Total 9757.551 8631.276 Output Total 770 690 Balance 943.062 0862.276 Weight 101.9 kg Intake: IV 825 900 Sodium Chloride 0.9% 1, 825 900 000 ml @ 75 mls/hr IV . [id number] [facility] Rx#:[id number] Intake, IV Titration 175.036 286.276 Amount Dexmedetomidine/0.9% NaCl 3.263 (Pmx) 400 mcg In Empty Bag 1 bag @ 0.2 MCG/KG/HR 5.019 mls/hr IV .[id number] [facility] Rx#:[id number] propofoL 1,000 mg In 171.773 286.276 Empty Bag 1 bag @ 15 MCG/ KG/MIN 9.034 mls/hr IV . [id number] [facility] Rx#:[id number] Tube Feeding 319 348 Other 90 190 Output: Urine 770 690 Other: Voiding Method Indwelling Catheter Indwelling Catheter # Bowel Movements 1 - Labs CBC & Chem 7: 11/10/24 04:27 11/10/24 04:27 Labs: Abnormal Lab Results - Last 24 Hours (Table) 11/09/24 11/09/24 11/09/24 Range/Units 08:00 12:04 15:33 RBC (4.40-5.60) 10*6/uL Hgb (13.0-17.0) g/dL MCV (80.0-97.0) fL MCHC (32.0-37.0) g/dL Eosinophils # (0.04-0.35) 10*3/uL ABG pCO2 (35-45) mmHg ABG pO2 (83-108) mmHg ABG HCO3 (21-25) mmol/L ABG Total CO2 (19-24) mmol/L ABG O2 Saturation (94-97) % Creatinine (0.66-1.25) mg/dL Glucose (74-99) mg/dL POC Glucose (mg/dL) 161 H 132 H 152 H (70-110) mg/dL 11/09/24 11/10/24 11/10/24 Range/Units 19:58 00:43 04:18 RBC (4.40-5.60) 10*6/uL Hgb (13.0-17.0) g/dL MCV (80.0-97.0) fL MCHC (32.0-37.0) g/dL Eosinophils # (0.04-0.35) 10*3/uL ABG pCO2 (35-45) mmHg ABG pO2 (83-108) mmHg ABG HCO3 (21-25) mmol/L ABG Total CO2 (19-24) mmol/L ABG O2 Saturation (94-97) % Creatinine (0.66-1.25) mg/dL Glucose (74-99) mg/dL POC Glucose (mg/dL) 139 H 179 H 167 H (70-110) mg/dL 11/10/24 11/10/24 11/10/24 Range/Units 04:27 04:27 05:49 RBC 4.24 L (4.40-5.60) 10*6/uL Hgb 12.9 L (13.0-17.0) g/dL MCV 100.5 H (80.0-97.0) fL MCHC 30.3 L (32.0-37.0) g/dL Eosinophils # 0.44 H (0.04-0.35) 10*3/uL ABG pCO2 52 H (35-45) mmHg ABG pO2 113 H (83-108) mmHg ABG HCO3 31 H (21-25) mmol/L ABG Total CO2 32 H (19-24) mmol/L ABG O2 Saturation 98.3 H (94-97) % Creatinine 0.35 L (0.66-1.25) mg/dL Glucose 182 H (74-99) mg/dL POC Glucose (mg/dL) (70-110) mg/dL Microbiology - Last 24 Hours (Table) 11/07/24 05:45 Blood Culture - Preliminary Blood 11/07/24 05:00 Gram Stain - Final Sputum Sputum Culture - Final
[2024-11-10] MEDS: BUDESONIDE 0.5 MG/2 ML NEBU INHALATION STA (11:34)
[2024-11-10] MEDS: FORMOTEROL FUMARATE 20 MCG/2 ML NEBU INHALATION ONE (11:34)
[2024-11-10 12:43] LABS: Glucose,Whole Blood 153 mg/dL (70-110)
[2024-11-10] MEDS: methylPREDNISolone SOD SUCCI 125 MG/2 ML VIAL IV SCH (12:43)
--- NOTE | 2024-11-10 16:17 | XR ---
EXAMINATION TYPE: XR chest 1V portable DATE OF EXAM: 11/10/2024 4:11 PM COMPARISON: Multiple radiographs, with the most recent on 11/11/2023 TECHNIQUE: XR chest 1V portable Portable AP radiograph of the chest. CLINICAL INDICATION:Male, 34 years old with history of o2 demand increased; FINDINGS: Lungs/Pleura: No pneumothorax. The left lung is clear. Similar small right pleural effusion with righ t basilar airspace opacities. Pulmonary vascularity: Unremarkable. Heart/mediastinum: Cardiomediastinal silhouette is enlarged and stable. Musculoskeletal: No acute osseous pathology. 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 Other findings: None Lines/Tubes: Endotracheal tube with distal tip 4.5 cm above the ruthy Nasogastric tube with its distal tip and side-port projecting under the diaphragm. IMPRESSION: 1. Similar small right pleural effusion with right basilar patchy airspace opacities which may repre sent infiltrates versus atelectasis. 2. Stable support tubes. [facility], , 11/10/2024 4:14 PM
[2024-11-10 16:35] LABS: Glucose,Whole Blood 208 mg/dL (70-110)
--- NOTE | 2024-11-10 17:45 | P.PN ---
Subjective Progress Note Date: 11/10/24 This is a 34-year-old male who presented to the emergency department from [facility] where he resides with increased shortness of breath and concerns for aspiration. Patient follows with Dr. Rodriguez in the outpatient setting with a past medical history of asthma, diabetes mellitus, hypertension, musculoskeletal disorder, pneumonia, respiratory disorder, sleep apnea, Prader-Willi syndrome with dysphagia, morbid obesity with alveolar hypoventilation yes, obstructive sleep apnea, depression. Patient has mental disabilities and has a primary legal guardian and is considered full code at this time. Patient with difficulty keeping oxygenation on his face will make it extremely difficult to continue with oxygen therapy. Initially ER attempted BiPAP although extremely agitated and unable to tolerate with pulmonary pig iron loader consulted recommending mechanical ventilation. Labs reviewed on admission reveal a normal white count with a hemoglobin of 13.5, platelets 183, sodium 136 with a potassium of 5.4, carbon dioxide 39, BUN 22, creatinine 0.48 and random glucose was 248. ABGs were done with a pH of 7.39, PCO2 is 70, PO2 318, bicarb is 42. EKG showing sinus rhythm chest x-ray showing stable chest postintubation. Patient was admitted to the ICU. Patient is currently on Precedex and off propofol and home medications are being reviewed and resumed as appropriate. Patient was started on antibiotic empirically and also steroids with breathing treatments. Patient is not wheezing and given sugars are elevated, discussed with pulmonary and will be discontinuing steroids. BNP was not elevated although patient does appear edematous throughout. Patient did receive a few doses of Lasix and is currently maintained on gentle IV hydration. 11/08/2024 Patient is evaluated today in follow up in the intensive care unit. Remains intubated and sedated on the mechanical ventilator. Currently sedated with propofol. Unable to be weaned today from the vent. Chest xray reveals possible fluid over load state, underlying acute infiltrates medial lung bases cannot be excluded. Labs reveal white blood cell count 4.82, hgb 13.3, sodium 133, potassium 4.1, BUN 18, creatinine 0.35. Hemoglobin A1C - 9.6. 11/09/2024 Patient evaluated today in the ICU. Remains intubated and sedated with propofol. Plans to start precedex and weaning trial today. Chest xray today reveals suspected CHF exacerbation/fluid overload state. Underlying acute infiltrates medial lung bases cannot be excluded. Lantus adjusted and blood glucose is significantly improved. 11/10/2024 Patient evaluated today remains in the intensive care unit he remains intubated and sedated on the mechanical ventilator. FiO2 40%. Currently sedated with propofol. Chest xray reveals ongoing CHF with pulmonary vascular congestion. Some interval improvement. Ongoing small right pleural effusion with adjacent atelectasis and or consolidation. Labs today reveal white blood cell count 6.97, hgb 12.9, sodium 137, potassium 4.1, BUN 13, creatinine 0.35. REVIEW OF SYSTEMS: Unable to review as patient is intubated and sedated The rest of the 14-point review of systems is negative. PHYSICAL EXAMINATION: GENERAL: The patient is currently intubated with an FiO2 of 40% and PEEP of 5, weaning as tolerated, ill-appearing, edematous, morbidly obese HEENT: Pupils are round and equally reacting to light. EOMI. No scleral icterus. No conjunctival pallor. Normocephalic, atraumatic. No pharyngeal erythema. No thyromegaly. CARDIOVASCULAR: S1 and S2 muffled PULMONARY: Diminished breath sounds bilaterally otherwise chest is clear to auscultation, no wheezing or crackles. ABDOMEN: Soft, obese, nontender, nondistended, normoactive bowel sounds. No palpable organomegaly. MUSCULOSKELETAL: No joint swelling or deformity. EXTREMITIES: No cyanosis, clubbing, or pedal edema. Edematous of upper and lower extremities NEUROLOGICAL: Gross neurological examination did not reveal any focal deficits. Unable to completely assess as patient is intubated and somewhat sedated SKIN: No rashes. Pale, lower extremity discoloration. Deep cracked fissure on right heel. Assessment: Acute on chronic hypoxic respiratory failure, requiring BiPAP initially and now on mechanical ventilation Possible right lower lobe pneumonia, although suspicion is low, will order procalcitonin, empirically on antibiotics, likely atelectasis History of mild intermittent asthma with acute exacerbation History of Prader-Willi syndrome with developmental delay and muscle weakness Diabetes mellitus, type II, uncontrolled with hyperglycemia History of hypertension History of sleep apnea and morbid obesity with alveolar hypoventilation, does not use a CPAP History of obstructive sleep apnea History of dysphagia History of depression History of recent lower extremity cellulitis with MSSA, treated outpatient Morbid obesity with a BMI of 49.2 GI prophylaxis DVT prophylaxis Full code Plan: Patient was admitted from [facility] where he resides with increasing shortness of breath and difficulty maintaining oxygenation not tolerating much nasal cannu la. Initially brought to the ER put on BiPAP although became more obtunded and nonresponsive requiring mechanical ventilation and ICU admission Continue current regimen and follow-up on repeat labs Patient is currently sedated with propofol Blood glucose remains elevated and lantus has been adjusted. Continue accuchecks and sliding scale insulin Q4h. Continue enteral feedings Home medications reviewed and resumed as appropriate Prognosis is guarded patient remains full code. Monitor electrolytes and renal function The impression and plan of care has been dictated by Otilia Jarrett, Nurse Practitioner as directed. Dr. Naresh MD I have performed a history and examination and MDM of this patient, discussed the same with the dictator, and agree with the dictator's assessment and plan as written ,documented as a scribe. Based on total visit time, I have performed more than 50% of the visit. Objective - Vital Signs Vital signs: Vital Signs Temp 98.1 F 11/10/24 12:00 Pulse 75 11/10/24 13:00 Resp 22 11/10/24 13:00 BP 102/57 11/10/24 13:00 Pulse Ox 93 L 11/10/24 13:00 FiO2 40 11/10/24 12:00 Intake & Output 11/09/24 11/10/24 11/10/24 18:59 06:59 18:59 Intake Total 3724.819 9471.276 551.836 Output Total 770 690 385 Balance 059.853 7689.276 166.836 Weight 101.9 kg 101.9 kg Intake: IV 825 900 255 0.9 @ KVO 30 Sodium Chloride 0.9% 1, 825 900 225 000 ml @ 75 mls/hr IV . [id number] [facility] Rx#:[id number] Intake, IV Titration 175.036 286.276 88.836 Amount Dexmedetomidine/0.9% NaCl 3.263 (Pmx) 400 mcg In Empty Bag 1 bag @ 0.2 MCG/KG/HR 5.019 mls/hr IV .[id number] [facility] Rx#:[id number] propofoL 1,000 mg In 171.773 286.276 88.836 Empty Bag 1 bag @ 15 MCG/ KG/MIN 9.034 mls/hr IV . Q11H5M [facility] Rx#:[id number] Tube Feeding 319 348 118 Other 90 190 90 Output: Urine 770 690 385 Other: Voiding Method Indwelling Catheter Indwelling Catheter Indwelling Catheter # Bowel Movements 1 1 - Labs CBC & Chem 7: 11/10/24 04:27 11/10/24 04:27 Labs: Abnormal Lab Results - Last 24 Hours (Table) 11/09/24 11/09/24 11/10/24 Range/Units 15:33 19:58 00:43 RBC (4.40-5.60) 10*6/uL Hgb (13.0-17.0) g/dL MCV (80.0-97.0) fL MCHC (32.0-37.0) g/dL Eosinophils # (0.04-0.35) 10*3/uL ABG pCO2 (35-45) mmHg ABG pO2 (83-108) mmHg ABG HCO3 (21-25) mmol/L ABG Total CO2 (19-24) mmol/L ABG O2 Saturation (94-97) % Creatinine (0.66-1.25) mg/dL Glucose (74-99) mg/dL POC Glucose (mg/dL) 152 H 139 H 179 H (70-110) mg/dL 11/10/24 11/10/24 11/10/24 Range/Units 04:18 04:27 04:27 RBC 4.24 L (4.40-5.60) 10*6/uL Hgb 12.9 L (13.0-17.0) g/dL MCV 100.5 H (80.0-97.0) fL MCHC 30.3 L (32.0-37.0) g/dL Eosinophils # 0.44 H (0.04-0.35) 10*3/uL ABG pCO2 (35-45) mmHg ABG pO2 (83-108) mmHg ABG HCO3 (21-25) mmol/L ABG Total CO2 (19-24) mmol/L ABG O2 Saturation (94-97) % Creatinine 0.35 L (0.66-1.25) mg/dL Glucose 182 H (74-99) mg/dL POC Glucose (mg/dL) 167 H (70-110) mg/dL 11/10/24 11/10/24 11/10/24 Range/Units 05:49 07:54 12:41 RBC (4.40-5.60) 10*6/uL Hgb (13.0-17.0) g/dL MCV (80.0-97.0) fL MCHC (32.0-37.0) g/dL Eosinophils # (0.04-0.35) 10*3/uL ABG pCO2 52 H (35-45) mmHg ABG pO2 113 H (83-108) mmHg ABG HCO3 31 H (21-25) mmol/L ABG Total CO2 32 H (19-24) mmol/L ABG O2 Saturation 98.3 H (94-97) % Creatinine (0.66-1.25) mg/dL Glucose (74-99) mg/dL POC Glucose (mg/dL) 204 H 153 H (70-110) mg/dL Microbiology - Last 24 Hours (Table) 11/07/24 05:45 Blood Culture - Preliminary Blood 11/07/24 05:00 Gram Stain - Final Sputum Sputum Culture - Final Assessment and Plan Time with Patient: Less than 30
[2024-11-10 19:42] LABS: Glucose,Whole Blood 258 mg/dL (70-110)
[2024-11-10] MEDS: AMMONIUM LACTATE 12% LOTION 225 GM BTL TOPICAL SCH (19:49)
[2024-11-10] MEDS: FORMOTEROL FUMARATE 20 MCG/2 ML NEBU INHALATION SCH (19:57)
[2024-11-10] MEDS: BUDESONIDE 0.5 MG/2 ML NEBU INHALATION SCH (19:57)
[2024-11-10] MEDS: HYDROmorphone 0.5 MG/0.5 ML SYRINGE IVP PRN (19:58)
[2024-11-10 23:44] LABS: Glucose,Whole Blood 269 mg/dL (70-110)
[2024-11-11 04:00] LABS: Glucose,Whole Blood 294 mg/dL (70-110)
[2024-11-11 04:49] LABS: Allen Test Performed? Yes
[2024-11-11 04:50] LABS: ABG Base Excess 3.4 mmol/L; ABG HCO3 28 mmol/L (21-25); ABG Oxygen Saturation 95.1 % (94-97); ABG PCO2 41 mmHg (35-45); ABG PH 7.44 (7.35-7.45); ABG PO2 93 mmHg (83-108); ABG TCO2 29 mmol/L (19-24)
[2024-11-11 06:19] LABS: HCT 45.7 % (39.6-50.0); HGB 14.1 g/dL (13.0-17.0); Lymphocytes % (A) 6.6 %; MCH 30.1 pg (27.0-32.0); MCHC 30.9 g/dL (32.0-37.0); MCV 97.4 fL (80.0-97.0); Mean Platelet Volume 11.7 fL (9.5-12.2); Monocytes % (A) 3.3 %; Neutrophils # (A) 5.43 10*3/uL (1.80-7.70); Neutrophils % (A) 89.8 %; Platelet Count 170 10*3/uL (140-440); RBC 4.69 10*6/uL (4.40-5.60); RDW 13.6 % (11.5-14.5); WBC 6.05 10*3/uL (4.50-10.00)
[2024-11-11 06:34] LABS: African American GFR (CKD) >90 (>60 ml/min/1.73 sqM); Anion Gap 8 mmol/L; Blood Urea Nitrogen 12 mg/dL (9-20); Calcium 9.3 mg/dL (8.4-10.2); Carbon Dioxide 27 mmol/L (22-30); Chloride 104 mmol/L (98-107); Glucose 315 mg/dL (74-99); Magnesium 1.9 mg/dL (1.6-2.3); Non-African American GFR(CKD) >90 (>60 ml/min/1.73 sqM); Potassium 4.3 mmol/L (3.5-5.1); Sodium 139 mmol/L (137-145)
--- NOTE | 2024-11-11 07:40 | XR ---
EXAMINATION TYPE: XR chest 1V portable DATE OF EXAM: 11/11/2024 5:22 AM COMPARISON: 11/10/2024 CLINICAL INDICATION: Male, 34 years old with history of intubated, , FINDINGS: Heart mildly enlarged. Residual interstitial densities. Hfgvl-[id number] right pleural effusion mauricio lar to minimally increased. Adjacent right basilar opacity similar. Some patchy retrocardiac opacity similar to slightly increased. ET and NG tubes satisfactory. IMPRESSION: 1. Mild cardiomegaly and interstitial changes persist. 2. Wzhat-[id number]-[id number] right pleural effusion with adjacent atelectasis and/or consolidation similar to slightly increased. 3. Patchy retrocardiac opacity similar to increased as well. [facility], , 11/11/2024 7:38 AM
[2024-11-11 09:10] LABS: Glucose,Whole Blood 318 mg/dL (70-110)
[2024-11-11] MEDS: MAGNESIUM SULFATE-D5W PMX 1 GM in DEXTROSE/WATER 1 100ML.BAG IVPB ONE (09:14)
--- NOTE | 2024-11-11 10:42 | P.PN ---
Subjective Progress Note Date: 11/11/24 This is a 34-year-old white male with history of Prader-Willi syndrome, patient was sent from [facility] for evaluation of shortness of breath for the last few days. Patient is known to have history of asthma and he was basically receiving treatment on outpatient basis for presumptive pneumonia. His shortness of breath has become worse and his O2 saturation was noted to be very low while at the group home. Patient was sent to the ER, initially managed with BiPAP, however patient continued to do poorly in spite of BiPAP, after few hours of being on BiPAP, ABG was checked and his pO2 was 91 pCO2 over 98 pH was 7.25, patient became more and more obtunded hence he was intubated and placed on ventilatory support. Patient is on assist-control rate of 22, tidal volume 350 FiO2 at 50% and PEEP at 5. ABG is pending. Last ABG showed a pO2 of 318 pCO2 70 pH of 7.39. Dramatically improved after intubation mechanical ventilation, and considering the patient has a pCO2 of 70 with a pH of 7.39 that implies that the patient has chronic hypercapnic respiratory failure with adequate metabolic compensation. Patient is on propofol at 25 mcg/kg/min he is on IV fluid 0.9 at 75 cc/h and he is sedated, could not assess the patient mentally hence I recommended stopping propofol and starting the patient on Precedex the plan is to awaken the patient and give the patient at least a weaning trial if possible today. WBC count is 5.11 hemoglobin 15.5, electrolytes were noted to be normal renal profile is normal, chest x-ray this morning showed cardiomegaly and right basilar opacity, possible atelectasis involving the right lower lobe. Initial chest x-ray in the ER showed no evidence of infiltrate or atelectasis. Patient was seen today on 11/08/2024, remains in the ICU intubated and m echanically ventilated, patient is on assist-control rate of 22 tidal volume 350 FiO2 50% and PEEP of 5 ABG showed a pO2 of 110 pCO2 47 pH of 7.45, patient is on propofol at 35 mcg/kg/min IV fluid is 0.9 at 75 cc/h. Patient remains empirically on antibiotics,/ceftriaxone. Remains on bronchodilators, GI and DVT prophylaxis, and the patient is receiving enteral feeding/nutritional support. Patient is also on multiple seizure medications considering his seizure history. Patient is sedated, it is difficult to assess his mental status as he seems to be arousable but does not follow any instructions, seems to be a bit confused, went ahead and recommended stopping propofol and starting the patient on Precedex, and hopefully we can get to the point where he can assess mental status fully off propofol. Labs today were reviewed CBC is basically unremarkable. Electrolytes are normal renal profile is normal, blood sugar is 298. Chest x-ray showed stable findings, minimal basilar atelectasis and slight prominence of the pulmonary vasculature. Endotracheal tube seems to be in proper position. Patient was seen today on 11/09/2024, patient remains in the ICU, intubated and mechanically ventilated, attempts have been made over the last 2 days to wean and extubate the patient, patient has been extremely difficult to wean. Yesterday the patient lasted less than half an hour and he was extremely tachypneic, tachycardic, could not tolerate even pressure support of 12 and CPAP for more than half an hour. Patient had to be placed back on full ventilatory support and placed back on propofol. We have tried again doing the same thing, and the patient again did not seem to do well. Patient is known to have history of Prader-Willi syndrome, and it is not surprising that the patient has profound muscle weakness with chronic hypercapnia he may eventually require tracheostomy and PEG tube placement. However my understanding today that the legal guardian is petitioning the court Sunday, and the plan is to consider comfort care measures on this patient in the next couple of days. Considering this, will not consult for tracheostomy and PEG tube placement, and will not arrange for ce ntral line or arterial line placement at this point. We are managing the patient well with peripheral lines. WBC count is 5.9 hemoglobin 13.4 his ABG today showed a pO2 of 228 pCO2 57 pH of 7.36 and this was on FiO2 of 45% hence FiO2 was cut down to 40%. Basic metabolic profile is normal, bicarb is 31. Renal profile is normal. Chest x-ray showed mostly minimal interstitial prominence, no clear-cut evidence of pneumonia although underlying infiltrates not completely excluded. Patient remains empirically on antibiotics. The findings on the chest x-ray are mostly findings of bibasilar atelectasis. 11/10/2024 patient seen and examined at bedside. Patient intubated, sedated and on mechanical ventilation. No acute events overnight. Legal guardian from [employer] mentions that they were not aware of plans for change of code status and no process initiated as it requires documentation that patient is clinically deteriorating. Current ventilator settings are volume control with a rate of 22, tidal volume 350, FiO2 40 and a PEEP of 5. Drips currently running are propofol 50 mcg/kg/hr, 0.9 normal saline 75 cc/h. Enteral feeding with [employer] 1.4 at 15ml/hr. Chest x-ray today showed ongoing CHF with pulmonary vascular congestion with some interval improvement, ongoing right pleural effusion with adjacent atelectasis and/for consultation. Labs: WBC 6.97, hemoglobin 12.9, platelet count 1 54,000, potassium 4.1, chloride 105, bicarb 26, BUN 13, creatinine 0.35, glucose 192, calcium 8.5. ABG pH of 7.38, PCO2 52, PO2 113 11/11/2024 patient seen and examined at bedside in the ICU. Patient intubated, sedated and on mechanical ventilation. No acute events overnight. Current ventilator settings are volume control with a rate of 22, tidal volume 350, FiO2 40 and a PEEP of 5. Drips currently running are propofol 50 mcg/kg/hr, 0.9 normal saline 75 cc/h. Enteral feeding with [employer] 1.4 at 15ml/hr. Labs: WBC 6.05, hemoglobin 14.1, sodium 139, potassium 4.3, bicarb 27, calcium 9.3, magnesium 1.9, BUN 12, creatinine 0.36, glucose 315. ABG showed PO293, pCO2 41, pH 7.44 Imaging; persistent mild cardiomegaly and interstitial changes, small to moderate right pleural effusion with adjacent atelectasis and/or consolidation and patchy retrocardiac opacity Review of systems: Cannot be obtained at this time Physical examination: Vital signs reviewed General: non toxic, no distress, sedated, intubated and mechanically ventilated Derm: no unusual rashes/lesions, warm Head: atraumatic, normocephalic, symmetric Eyes: EOMI, anicteric sclera, pupils equal round reactive to light ENT: Nose and ears atraumatic Neck: No cervical lymphadenopathy, trachea midline, supple Mouth: no lip lesion, mucus membranes moist, ET and OG tube noted Cardiovascular: S1S2 reg, no murmur Lungs: Coarse rales in middle lung cervantes, no accessory muscle use Abdominal: soft, nontender to palpation, no guarding Ext: muscle strength 5 out of 5 in all 4 extremities grossly, no gross muscle atrophy, no contractures, positive dorsalis pedis pulse bilateral, bilateral lower extremity +2 pitting edema Neuro: Cannot be obtained Psych: Cannot be obtained Assessment: Acute hypoxic respiratory failure, likely secondary to acute exacerbation of mild intermittent asthma Acute on chronic hypercapnic respiratory failure History of Prader-Willi syndrome, characterized by history of developmental delay, muscle weakness, restrictive lung disease, secondary to muscle weakness, obesity, and behavioral disorder. Recent history of right lower lobe pneumonia, treated on outpatient basis History of MSSA cellulitis/dermatitis, treated on outpatient basis Recommendation: Continue ventilatory support. Patient has high airway resistance of 8 which is improved overnight. We will attempt spontaneous breathing trial today. Daily interruption of sedation Continue DuoNebs as needed and [id number], Pulmicort twice daily and formoterol twice daily inhalers Continue IV Solu-Medrol 60 mg IV every 6 hours [place] control with dilaudid as needed Resume home meds Continue enteral feeding to goal rate DVT prophylaxis: Lovenox 40 mg subcu daily GI prophylaxis: Protonix 40 mg IV daily Prognosis: Patient is critically ill. Legal guardian from [place] mentions that they were not aware of plans for change of code status. Due to the patient's clinical state, we will defer for now. Will continue to follow Mandie Guzmán MD PGY-1/Hand Wrapper Operator Dictation was produced using [employer] dictation software. please excuse any grammatical, word or spelling errors. Objective - Vital Signs Vital signs: Vital Signs Temp 98.3 F 11/11/24 04:00 Pulse 63 11/11/24 07:00 Resp 22 11/11/24 07:00 BP 142/68 11/11/24 07:00 Pulse Ox 94 L 11/11/24 07:00 FiO2 50 11/11/24 04:36 Intake & Output 11/10/24 11/11/24 11/11/24 18:59 06:59 18:59 Intake Total 931.836 650.703 25 Output Total 1160 870 75 Balance -228.164 -219.297 -50 Weight 101.9 kg 100.9 kg Intake: IV 315 110 10 0.9 @ KVO 90 110 10 Sodium Chloride 0.9% 1, 225 000 ml @ 75 mls/hr IV . [id number] [facility] Rx#:[id number] Intake, IV Titration 288.836 285.703 Amount propofoL 1,000 mg In 288.836 285.703 Empty Bag 1 bag @ 15 MCG/ KG/MIN 9.034 mls/hr IV . [id number] [facility] Rx#:[id number] Tube Feeding 208 165 15 Other 120 90 Output: Urine 1160 870 75 Other: Voiding Method Indwelling Catheter Indwelling Catheter # Bowel Movements 1 - Labs CBC & Chem 7: 11/11/24 05:14 11/11/24 05:14 Labs: Abnormal Lab Results - Last 24 Hours (Table) 11/10/24 11/10/24 11/10/24 Range/Units 07:54 12:41 16:34 MCV (80.0-97.0) fL MCHC (32.0-37.0) g/dL Lymphocytes # (0.90-5.00) 10*3/uL Eosinophils # (0.04-0.35) 10*3/uL ABG HCO3 (21-25) mmol/L ABG Total CO2 (19-24) mmol/L Creatinine (0.66-1.25) mg/dL Glucose (74-99) mg/dL POC Glucose (mg/dL) 204 H 153 H 208 H (70-110) mg/dL 11/10/24 11/10/24 11/11/24 Range/Units 19:40 23:42 03:59 MCV (80.0-97.0) fL MCHC (32.0-37.0) g/dL Lymphocytes # (0.90-5.00) 10*3/uL Eosinophils # (0.04-0.35) 10*3/uL ABG HCO3 (21-25) mmol/L ABG Total CO2 (19-24) mmol/L Creatinine (0.66-1.25) mg/dL Glucose (74-99) mg/dL POC Glucose (mg/dL) 258 H 269 H 294 H (70-110) mg/dL 11/11/24 11/11/24 11/11/24 Range/Units 04:42 05:14 05:14 MCV 97.4 H (80.0-97.0) fL MCHC 30.9 L (32.0-37.0) g/dL Lymphocytes # 0.40 L (0.90-5.00) 10*3/uL Eosinophils # 0.00 L (0.04-0.35) 10*3/uL ABG HCO3 28 H (21-25) mmol/L ABG Total CO2 29 H (19-24) mmol/L Creatinine 0.36 L (0.66-1.25) mg/dL Glucose 315 H (74-99) mg/dL POC Glucose (mg/dL) (70-110) mg/dL Microbiology - Last 24 Hours (Table) 11/07/24 05:45 Blood Culture - Preliminary Blood
[2024-11-11 12:02] LABS: Glucose,Whole Blood 295 mg/dL (70-110)
[2024-11-11] MEDS: INSULIN LISPRO (HumaLOG) 100 UNIT/ML 10 mL VL SQ SCH ×2 (12:35)
[2024-11-11] MEDS: FUROSEMIDE 10 MG/ML 2 ML VIAL IV ONE (15:28)
[2024-11-11 16:23] LABS: Glucose,Whole Blood 305 mg/dL (70-110)
[2024-11-11 20:11] LABS: Glucose,Whole Blood 256 mg/dL (70-110)
[2024-11-11 23:30] LABS: Glucose,Whole Blood 235 mg/dL (70-110)
[2024-11-12 03:26] LABS: Glucose,Whole Blood 271 mg/dL (70-110)
[2024-11-12 04:48] LABS: ABG Base Excess 4.1 mmol/L; ABG HCO3 30 mmol/L (21-25); ABG Oxygen Saturation 96.4 % (94-97); ABG PCO2 46 mmHg (35-45); ABG PH 7.42 (7.35-7.45); ABG PO2 83 mmHg (83-108); ABG TCO2 31 mmol/L (19-24); Allen Test Performed? Yes
--- NOTE | 2024-11-12 05:31 | P.PN ---
Subjective Progress Note Date: 11/11/24 This is a 34-year-old male who presented to the emergency department from [facility] where he resides with increased shortness of breath and concerns for aspiration. Patient follows with Dr. Rodriguez in the outpatient setting with a past medical history of asthma, diabetes mellitus, hypertension, musculoskeletal disorder, pneumonia, respiratory disorder, sleep apnea, Prader-Willi syndrome with dysphagia, morbid obesity with alveolar hypoventilation yes, obstructive sleep apnea, depression. Patient has mental disabilities and has a primary legal guardian and is considered full code at this time. Patient with difficulty keeping oxygenation on his face will make it extremely difficult to continue with oxygen therapy. Initially ER attempted BiPAP although extremely agitated and unable to tolerate with pulmonary dross skimmer consulted recommending mechanical ventilation. Labs reviewed on admission reveal a normal white count with a hemoglobin of 13.5, platelets 183, sodium 136 with a potassium of 5.4, carbon dioxide 39, BUN 22, creatinine 0.48 and random glucose was 248. ABGs were done with a pH of 7.39, PCO2 is 70, PO2 318, bicarb is 42. EKG showing sinus rhythm chest x-ray showing stable chest postintubation. Patient was admitted to the ICU. Patient is currently on Precedex and off propofol and home medications are being reviewed and resumed as appropriate. Patient was started on antibiotic empirically and also steroids with breathing treatments. Patient is not wheezing and given sugars are elevated, discussed with pulmonary and will be discontinuing steroids. BNP was not elevated although patient does appear edematous throughout. Patient did receive a few doses of Lasix and is currently maintained on gentle IV hydration. 11/08/2024 Patient is evaluated today in follow up in the intensive care unit. Remains intubated and sedated on the mechanical ventilator. Currently sedated with propofol. Unable to be weaned today from the vent. Chest xray reveals possible fluid over load state, underlying acute infiltrates medial lung bases cannot be excluded. Labs reveal white blood cell count 4.82, hgb 13.3, sodium 133, potassium 4.1, BUN 18, creatinine 0.35. Hemoglobin A1C - 9.6. 11/09/2024 Patient evaluated today in the ICU. Remains intubated and sedated with propofol. Plans to start precedex and weaning trial today. Chest xray today reveals suspected CHF exacerbation/fluid overload state. Underlying acute infiltrates medial lung bases cannot be excluded. Lantus adjusted and blood glucose is significantly improved. 11/10/2024 Patient evaluated today remains in the intensive care unit he remains intubated and sedated on the mechanical ventilator. FiO2 40%. Currently sedated with propofol. Chest xray reveals ongoing CHF with pulmonary vascular congestion. Some interval improvement. Ongoing small right pleural effusion with adjacent atelectasis and or consolidation. Labs today reveal white blood cell count 6.97, hgb 12.9, sodium 137, potassium 4.1, BUN 13, creatinine 0.35. 11/11/2024 Evaluated today in the intensive care unit, remains sedated and intubated on the mechanical ventilator. Chest xray reveals mild cardiomegaly and interstitial change persists, small to moderate right pleural effusion with adjacent atelectasis and or consolidation similar to slightly increased. Patchy retrocardiac opacity similar to increased as well. proBNP was checked and normal at 160. Currently on TF running at 15 mls/hr which is goal rate. Remains on IV solu-medrol. White blood cell count 6.05, hgb 14.1, sodium 139, potassium 4.3, BUN 12, creatinine 0.36. REVIEW OF SYSTEMS: Unable to review as patient is intubated and sedated The rest of the 14-point review of systems is negative. PHYSICAL EXAMINATION: GENERAL: The patient is currently intubated with an FiO2 of 40% and PEEP of 5, weaning as tolerated, ill-appearing, edematous, morbidly obese HEENT: Pupils are round and equally reacting to light. EOMI. No scleral icterus. No conjunctival pallor. Normocephalic, atraumatic. No pharyngeal erythema. No thyromegaly. CARDIOVASCULAR: S1 and S2 muffled PULMONARY: Diminished breath sounds bilaterally otherwise chest is clear to auscultation, no wheezing or crackles. ABDOMEN: Soft, obese, nontender, nondistended, normoactive bowel sounds. No pa lpable organomegaly. MUSCULOSKELETAL: No joint swelling or deformity. EXTREMITIES: No cyanosis, clubbing, or pedal edema. Edematous of upper and lower extremities NEUROLOGICAL: Gross neurological examination did not reveal any focal deficits. Unable to completely assess as patient is intubated and somewhat sedated SKIN: No rashes. Pale, lower extremity discoloration. Deep cracked fissure on right heel. Assessment: Acute on chronic hypoxic respiratory failure, requiring BiPAP initially and now on mechanical ventilation Possible right lower lobe pneumonia, although suspicion is low, will order procalcitonin, empirically on antibiotics, likely atelectasis History of mild intermittent asthma with acute exacerbation History of Prader-Willi syndrome with developmental delay and muscle weakness Diabetes mellitus, type II, uncontrolled with hyperglycemia History of hypertension History of sleep apnea and morbid obesity with alveolar hypoventilation, does not use a CPAP History of obstructive sleep apnea History of dysphagia History of depression History of recent lower extremity cellulitis with MSSA, treated outpatient Morbid obesity with a BMI of 49.2 GI prophylaxis DVT prophylaxis Full code Plan: Patient was admitted from [facility] where he resides with increasing shortness of breath and difficulty maintaining oxygenation not tolerating much nasal cannula. Initially brought to the ER put on BiPAP although became more obtunded and nonresponsive requiring mechanical ventilation and ICU admission Continue current regimen and follow-up on repeat labs Patient is currently sedated with propofol Blood glucose remains elevated and lantus has been adjusted. Continue accuchecks and sliding scale insulin Q4h. Continue enteral feedings Home medications reviewed and resumed as appropriate Prognosis is guarded patient remains full code. Monitor electrolytes and renal function The impression and plan of care has been dictated by Otilia Jarrett, Nurse Practitioner as directed. Dr. Naresh MD I have performed a history and examination and MDM of this patient, discussed the same with the dictator, and agree with the dictator's assessment and plan as written ,documented as a scribe. Based on total visit time, I have performed more than 50% of the visit. Objective - Vital Signs Vital signs: Vital Signs Temp 98.7 F 11/12/24 04:00 Pulse 53 L 11/12/24 05:00 Resp 22 11/12/24 05:00 BP 169/81 11/12/24 05:00 Pulse Ox 97 11/12/24 05:00 FiO2 40 11/12/24 04:34 Intake & Output 11/11/24 11/11/24 11/12/24 06:59 18:59 06:59 Intake Total 650.703 660.000 599.425 Output Total 870 1840 1065 Balance -219.297 -1180.000 -465.575 Weight 100.9 kg 98.4 kg Intake: IV 110 120 110 0.9 @ KVO 110 120 110 Intake, IV Titration 285.703 300.000 324.425 Amount Magnesium Sulfate-D5w Pmx 100 1 gm In Dextrose/Water 1 100ml.bag @ 100 mls/hr IVPB ONCE ONE Rx#: [id number] propofoL 1,000 mg In 285.703 200.000 324.425 Empty Bag 1 bag @ 15 MCG/ KG/MIN 9.034 mls/hr IV . Q11H5M [facility] Rx#:[id number] Tube Feeding 165 180 165 Other 90 60 Output: Urine 870 1840 1065 Other: Voiding Method Indwelling Catheter Indwelling Catheter Indwelling Catheter - Labs CBC & Chem 7: 11/11/24 05:14 11/11/24 05:14 Labs: Abnormal Lab Results - Last 24 Hours (Table) 11/11/24 11/11/24 11/11/24 Range/Units 05:14 05:14 09:09 MCV 97.4 H (80.0-97.0) fL MCHC 30.9 L (32.0-37.0) g/dL Lymphocytes # 0.40 L (0.90-5.00) 10*3/uL Eosinophils # 0.00 L (0.04-0.35) 10*3/uL ABG pCO2 (35-45) mmHg ABG HCO3 (21-25) mmol/L ABG Total CO2 (19-24) mmol/L Creatinine 0.36 L (0.66-1.25) mg/dL Glucose 315 H (74-99) mg/dL POC Glucose (mg/dL) 318 H (70-110) mg/dL 11/11/24 11/11/24 11/11/24 Range/Units 12:00 16:12 20:10 MCV (80.0-97.0) fL MCHC (32.0-37.0) g/dL Lymphocytes # (0.90-5.00) 10*3/uL Eosinophils # (0.04-0.35) 10*3/uL ABG pCO2 (35-45) mmHg ABG HCO3 (21-25) mmol/L ABG Total CO2 (19-24) mmol/L Creatinine (0.66-1.25) mg/dL Glucose (74-99) mg/dL POC Glucose (mg/dL) 295 H 305 H 256 H (70-110) mg/dL 11/11/24 11/12/24 11/12/24 Range/Units 23:28 03:25 04:38 MCV (80.0-97.0) fL MCHC (32.0-37.0) g/dL Lymphocytes # (0.90-5.00) 10*3/uL Eosinophils # (0.04-0.35) 10*3/uL ABG pCO2 46 H (35-45) mmHg ABG HCO3 30 H (21-25) mmol/L ABG Total CO2 31 H (19-24) mmol/L Creatinine (0.66-1.25) mg/dL Glucose (74-99) mg/dL POC Glucose (mg/dL) 235 H 271 H (70-110) mg/dL Assessment and Plan Time with Patient: Less than 30
[2024-11-12 06:11] LABS: Glucose,Whole Blood 236 mg/dL (70-110)
[2024-11-12 06:34] LABS: HCT 43.9 % (39.6-50.0); Lymphocytes # (A) 0.52 10*3/uL (0.90-5.00); Lymphocytes % (A) 10.2 %; MCH 30.8 pg (27.0-32.0); MCHC 31.9 g/dL (32.0-37.0); MCV 96.7 fL (80.0-97.0); Monocytes # (A) 0.28 10*3/uL (0.20-1.00); Monocytes % (A) 5.5 %; Neutrophils # (A) 4.27 10*3/uL (1.80-7.70); Neutrophils % (A) 83.9 %; Platelet Count 200 10*3/uL (140-440); RBC 4.54 10*6/uL (4.40-5.60); RDW 13.4 % (11.5-14.5); WBC 5.09 10*3/uL (4.50-10.00)
--- NOTE | 2024-11-12 06:40 | XR ---
EXAMINATION TYPE: XR chest 1V portable DATE OF EXAM: 11/12/2024 CLINICAL INDICATION: Male, 34 years old with history of Mechanical ventilation, progress study. TECHNIQUE: Single AP portable semiupright view of the chest is obtained. COMPARISON: Chest x-ray from one day earlier and older studies. FINDINGS: Stable endotracheal and orogastric tubes. Persistent cardiomegaly and central vascular congestion along with small moderate sized right pleural effusion and bibasilar opacities. Osseous structures are intact. IMPRESSION: Overall stable findings, correlate for suspected CHF exacerbation/ fluid overload stat e. Underlying acute basilar infiltrates be excluded. [facility], , 11/12/2024 6:38 AM
[2024-11-12 06:53] LABS: African American GFR (CKD) >90 (>60 ml/min/1.73 sqM); Anion Gap 8 mmol/L; Blood Urea Nitrogen 16 mg/dL (9-20); Calcium 9.9 mg/dL (8.4-10.2); Carbon Dioxide 27 mmol/L (22-30); Chloride 104 mmol/L (98-107); Glucose 277 mg/dL (74-99); Non-African American GFR(CKD) >90 (>60 ml/min/1.73 sqM); Potassium 4.1 mmol/L (3.5-5.1); Sodium 139 mmol/L (137-145)
[2024-11-12 08:25] LABS: Glucose,Whole Blood 260 mg/dL (70-110)
--- NOTE | 2024-11-12 09:58 | P.PN ---
Subjective Progress Note Date: 11/12/24 This is a 34-year-old white male with history of Prader-Willi syndrome, patient was sent from [facility] for evaluation of shortness of breath for the last few days. Patient is known to have history of asthma and he was basically receiving treatment on outpatient basis for presumptive pneumonia. His shortness of breath has become worse and his O2 saturation was noted to be very low while at the long term. Patient was sent to the ER, initially managed with BiPAP, however patient continued to do poorly in spite of BiPAP, after few hours of being on BiPAP, ABG was checked and his pO2 was 91 pCO2 over 98 pH was 7.25, patient became more and more obtunded hence he was intubated and placed on ventilatory support. Patient is on assist-control rate of 22, tidal volume 350 FiO2 at 50% and PEEP at 5. ABG is pending. Last ABG showed a pO2 of 318 pCO2 70 pH of 7.39. Dramatically improved after intubation mechanical ventilation, and considering the patient has a pCO2 of 70 with a pH of 7.39 that implies that the patient has chronic hypercapnic respiratory failure with adequate metabolic compensation. Patient is on propofol at 25 mcg/kg/min he is on IV fluid 0.9 at 75 cc/h and he is sedated, could not assess the patient mentally hence I recommended stopping propofol and starting the patient on Precedex the plan is to awaken the patient and give the patient at least a weaning trial if possible today. WBC count is 5.11 hemoglobin 15.5, electrolytes were noted to be normal renal profile is normal, chest x-ray this morning showed cardiomegaly and right basilar opacity, possible atelectasis involving the right lower lobe. Initial chest x-ray in the ER showed no evidence of infiltrate or atelectasis. Patient was seen today on 11/08/2024, remains in the ICU intubated and m echanically ventilated, patient is on assist-control rate of 22 tidal volume 350 FiO2 50% and PEEP of 5 ABG showed a pO2 of 110 pCO2 47 pH of 7.45, patient is on propofol at 35 mcg/kg/min IV fluid is 0.9 at 75 cc/h. Patient remains empirically on antibiotics,/ceftriaxone. Remains on bronchodilators, GI and DVT prophylaxis, and the patient is receiving enteral feeding/nutritional support. Patient is also on multiple seizure medications considering his seizure history. Patient is sedated, it is difficult to assess his mental status as he seems to be arousable but does not follow any instructions, seems to be a bit confused, went ahead and recommended stopping propofol and starting the patient on Precedex, and hopefully we can get to the point where he can assess mental status fully off propofol. Labs today were reviewed CBC is basically unremarkable. Electrolytes are normal renal profile is normal, blood sugar is 298. Chest x-ray showed stable findings, minimal basilar atelectasis and slight prominence of the pulmonary vasculature. Endotracheal tube seems to be in proper position. Patient was seen today on 11/09/2024, patient remains in the ICU, intubated and mechanically ventilated, attempts have been made over the last 2 days to wean and extubate the patient, patient has been extremely difficult to wean. Yesterday the patient lasted less than half an hour and he was extremely tachypneic, tachycardic, could not tolerate even pressure support of 12 and CPAP for more than half an hour. Patient had to be placed back on full ventilatory support and placed back on propofol. We have tried again doing the same thing, and the patient again did not seem to do well. Patient is known to have history of Prader-Willi syndrome, and it is not surprising that the patient has profound muscle weakness with chronic hypercapnia he may eventually require tracheostomy and PEG tube placement. However my understanding today that the legal guardian is petitioning the court Sunday, and the plan is to consider comfort care measures on this patient in the next couple of days. Considering this, will not consult for tracheostomy and PEG tube placement, and will not arrange for ce ntral line or arterial line placement at this point. We are managing the patient well with peripheral lines. WBC count is 5.9 hemoglobin 13.4 his ABG today showed a pO2 of 228 pCO2 57 pH of 7.36 and this was on FiO2 of 45% hence FiO2 was cut down to 40%. Basic metabolic profile is normal, bicarb is 31. Renal profile is normal. Chest x-ray showed mostly minimal interstitial prominence, no clear-cut evidence of pneumonia although underlying infiltrates not completely excluded. Patient remains empirically on antibiotics. The findings on the chest x-ray are mostly findings of bibasilar atelectasis. 11/10/2024 patient seen and examined at bedside. Patient intubated, sedated and on mechanical ventilation. No acute events overnight. Legal guardian from [employer] mentions that they were not aware of plans for change of code status and no process initiated as it requires documentation that patient is clinically deteriorating. Current ventilator settings are volume control with a rate of 22, tidal volume 350, FiO2 40 and a PEEP of 5. Drips currently running are propofol 50 mcg/kg/hr, 0.9 normal saline 75 cc/h. Enteral feeding with [employer] 1.4 at 15ml/hr. Chest x-ray today showed ongoing CHF with pulmonary vascular congestion with some interval improvement, ongoing right pleural effusion with adjacent atelectasis and/for consultation. Labs: WBC 6.97, hemoglobin 12.9, platelet count 1 54,000, potassium 4.1, chloride 105, bicarb 26, BUN 13, creatinine 0.35, glucose 192, calcium 8.5. ABG pH of 7.38, PCO2 52, PO2 113 11/11/2024 patient seen and examined at bedside in the ICU. Patient intubated, sedated and on mechanical ventilation. No acute events overnight. Current ventilator settings are volume control with a rate of 22, tidal volume 350, FiO2 40 and a PEEP of 5. Drips currently running are propofol 50 mcg/kg/hr, 0.9 normal saline 75 cc/h. Enteral feeding with [employer] 1.4 at 15ml/hr. Labs: WBC 6.05, hemoglobin 14.1, sodium 139, potassium 4.3, bicarb 27, calcium 9.3, magnesium 1.9, BUN 12, creatinine 0.36, glucose 315. ABG showed PO2 93, pCO2 41, pH 7.44 Imaging; persistent mild cardiomegaly and interstitial changes, small to moderate right pleural effusion with adjacent atelectasis and/or consolidation and patchy retrocardiac opacity 11/12/2024 patient seen and examined at bedside in the ICU. Patient intubated, sedated and on mechanical ventilation. No acute events overnight. Attempted DIS SBT yesterday but patient failed due to rapid and shallow breathing with tachycardia despite being off sedation. Current IV drips are propofol 50mcg/kg/hr, enteral feeding with [employer] 1.4 at 15ml/hr. Labs: WBC 5.09, hemoglobin 14, platelet count 200,000, sodium 139, potassium 4.1, bicarb 27, calcium 9.9, glucose 277, BUN 16, creatinine 0.39. ABG showed PO2 82, pCO2 46, pH 7.42. Sputum culture negative Imaging; chest x-ray today independently interpreted showed overall stable findings with cardiomegaly, noted basilar infiltrates Review of systems: Cannot be obtained at this time Physical examination: Vital signs reviewed General: non toxic, no distress, sedated, intubated and mechanically ventilated Derm: no unusual rashes/lesions, warm Head: atraumatic, normocephalic, symmetric Eyes: EOMI, anicteric sclera, pupils equal round reactive to light ENT: Nose and ears atraumatic Neck: No cervical lymphadenopathy, trachea midline, supple Mouth: no lip lesion, mucus membranes moist, ET and OG tube noted Cardiovascular: S1S2 reg, no murmur Lungs: Bibasilar coarse rales, no accessory muscle use Abdominal: soft, nontender to palpation, no guarding Ext: muscle strength 5 out of 5 in all 4 extremities grossly, no gross muscle atrophy, no contractures, positive dorsalis pedis pulse bilateral, bilateral lower extremity +2 pitting edema Neuro: Cannot be obtained Psych: Cannot be obtained Assessment: Acute hypoxic respiratory failure, likely secondary to acute exacerbation of mild intermittent asthma Acute on chronic hypercapnic respiratory failure Diabetes type 2 with hyperglycemia, steroid induced History of Prader-Willi syndrome, characterized by history of developmental delay, muscle weakness, restrictive lung disease, secondary to muscle weakness, obesity, and behavioral disorder. Recent history of right lower lobe pneumonia, treated on outpatient basis History of MSSA cellulitis/dermatitis, treated on outpatient basis Recommendation: Continue ventilatory support. Spontaneous breathing trial today. Daily interruption of sedation Continue DuoNebs as needed and [id number], Pulmicort twice daily and formoterol twice daily inhalers Continue IV Solu-Medrol 40 mg IV every 6 hours Continue with insulin sliding scale coverage. Monitor for hypoglycemia Continue with insulin glargine 45 units nightly and Insulin Lispro 10 units AC- TID. [place] control with dilaudid as needed Continue enteral feeding to goal rate DVT prophylaxis: Lovenox 40 mg subcu daily GI prophylaxis: Protonix 40 mg IV twice daily Prognosis: Patient is critically ill. Legal guardian from [employer] mentions that they were not aware of plans for change of code status. Due to the patient's clinical state, we will defer for now. Will continue to follow Mandie Guzmán MD PGY-1/Svp Dictation was produced using [employer] dictation software. please excuse any grammatical, word or spelling errors. Objective - Vital Signs Vital signs: Vital Signs Temp 98.7 F 11/12/24 04:00 Pulse 53 L 11/12/24 06:00 Resp 22 11/12/24 06:00 BP 166/81 11/12/24 06:00 Pulse Ox 96 11/12/24 06:00 FiO2 40 11/12/24 04:34 Intake & Output 11/11/24 11/11/24 11/12/24 06:59 18:59 06:59 Intake Total 650.703 660.000 624.425 Output Total 870 1840 1105 Balance -219.297 -1180.000 -480.575 Weight 100.9 kg 98.4 kg Intake: IV 110 120 120 0.9 @ KVO 110 120 120 Intake, IV Titration 285.703 300.000 324.425 Amount Magnesium Sulfate-D5w Pmx 100 1 gm In Dextrose/Water 1 100ml.bag @ 100 mls/hr IVPB ONCE ONE Rx#: [id number] propofoL 1,000 mg In 285.703 200.000 324.425 Empty Bag 1 bag @ 15 MCG/ KG/MIN 9.034 mls/hr IV . Q11H5M [facility] Rx#:[id number] Tube Feeding 165 180 180 Other 90 60 Output: Urine 870 1840 1105 Other: Voiding Method Indwelling Catheter Indwelling Catheter Indwelling Catheter - Labs CBC & Chem 7: 11/12/24 05:42 11/12/24 05:42 Labs: Abnormal Lab Results - Last 24 Hours (Table) 11/11/24 11/11/24 11/11/24 Range/Units 09:09 12:00 16:12 MCHC (32.0-37.0) g/dL Lymphocytes # (0.90-5.00) 10*3/uL Eosinophils # (0.04-0.35) 10*3/uL ABG pCO2 (35-45) mmHg ABG HCO3 (21-25) mmol/L ABG Total CO2 (19-24) mmol/L POC Glucose (mg/dL) 318 H 295 H 305 H (70-110) mg/dL 11/11/24 11/11/24 11/12/24 Range/Units 20:10 23:28 03:25 MCHC (32.0-37.0) g/dL Lymphocytes # (0.90-5.00) 10*3/uL Eosinophils # (0.04-0.35) 10*3/uL ABG pCO2 (35-45) mmHg ABG HCO3 (21-25) mmol/L ABG Total CO2 (19-24) mmol/L POC Glucose (mg/dL) 256 H 235 H 271 H (70-110) mg/dL 11/12/24 11/12/24 11/12/24 Range/Units 04:38 05:42 06:09 MCHC 31.9 L (32.0-37.0) g/dL Lymphocytes # 0.52 L (0.90-5.00) 10*3/uL Eosinophils # 0.00 L (0.04-0.35) 10*3/uL ABG pCO2 46 H (35-45) mmHg ABG HCO3 30 H (21-25) mmol/L ABG Total CO2 31 H (19-24) mmol/L POC Glucose (mg/dL) 236 H (70-110) mg/dL
[2024-11-12 12:54] LABS: Glucose,Whole Blood 176 mg/dL (70-110)
[2024-11-12] MEDS: INSULIN LISPRO (HumaLOG) 100 UNIT/ML 10 mL VL SQ SCH (13:26)
[2024-11-12] MEDS: methylPREDNISolone SOD SUCCI 40 MG/ML 1 ML VIAL IV SCH (14:31)
[2024-11-12 17:17] LABS: Glucose,Whole Blood 136 mg/dL (70-110)
--- NOTE | 2024-11-12 18:09 | P.PN ---
Subjective Progress Note Date: 11/12/24 This is a 34-year-old male who presented to the emergency department from [facility] where he resides with increased shortness of breath and concerns for aspiration. Patient follows with Dr. Rodriguez in the outpatient setting with a past medical history of asthma, diabetes mellitus, hypertension, musculoskeletal disorder, pneumonia, respiratory disorder, sleep apnea, Prader-Willi syndrome with dysphagia, morbid obesity with alveolar hypoventilation yes, obstructive sleep apnea, depression. Patient has mental disabilities and has a primary legal guardian and is considered full code at this time. Patient with difficulty keeping oxygenation on his face will make it extremely difficult to continue with oxygen therapy. Initially ER attempted BiPAP although extremely agitated and unable to tolerate with pulmonary custodian consulted recommending mechanical ventilation. Labs reviewed on admission reveal a normal white count with a hemoglobin of 13.5, platelets 183, sodium 136 with a potassium of 5.4, carbon dioxide 39, BUN 22, creatinine 0.48 and random glucose was 248. ABGs were done with a pH of 7.39, PCO2 is 70, PO2 318, bicarb is 42. EKG showing sinus rhythm chest x-ray showing stable chest postintubation. Patient was admitted to the ICU. Patient is currently on Precedex and off propofol and home medications are being reviewed and resumed as appropriate. Patient was started on antibiotic empirically and also steroids with breathing treatments. Patient is not wheezing and given sugars are elevated, discussed with pulmonary and will be discontinuing steroids. BNP was not elevated although patient does appear edematous throughout. Patient did receive a few doses of Lasix and is currently maintained on gentle IV hydration. 11/08/2024 Patient is evaluated today in follow up in the intensive care unit. Remains intubated and sedated on the mechanical ventilator. Currently sedated with propofol. Unable to be weaned today from the vent. Chest xray reveals possible fluid over load state, underlying acute infiltrates medial lung bases cannot be excluded. Labs reveal white blood cell count 4.82, hgb 13.3, sodium 133, potassium 4.1, BUN 18, creatinine 0.35. Hemoglobin A1C - 9.6. 11/09/2024 Patient evaluated today in the ICU. Remains intubated and sedated with propofol. Plans to start precedex and weaning trial today. Chest xray today reveals suspected CHF exacerbation/fluid overload state. Underlying acute infiltrates medial lung bases cannot be excluded. Lantus adjusted and blood glucose is significantly improved. 11/10/2024 Patient evaluated today remains in the intensive care unit he remains intubated and sedated on the mechanical ventilator. FiO2 40%. Currently sedated with propofol. Chest xray reveals ongoing CHF with pulmonary vascular congestion. Some interval improvement. Ongoing small right pleural effusion with adjacent atelectasis and or consolidation. Labs today reveal white blood cell count 6.97, hgb 12.9, sodium 137, potassium 4.1, BUN 13, creatinine 0.35. 11/11/2024 Evaluated today in the intensive care unit, remains sedated and intubated on the mechanical ventilator. Chest xray reveals mild cardiomegaly and interstitial change persists, small to moderate right pleural effusion with adjacent atelectasis and or consolidation similar to slightly increased. Patchy retrocardiac opacity similar to increased as well. proBNP was checked and normal at 160. Currently on TF running at 15 mls/hr which is goal rate. Remains on IV solu-medrol. White blood cell count 6.05, hgb 14.1, sodium 139, potassium 4.3, BUN 12, creatinine 0.36. 11/12/2024 Patient is evaluated today in the ICU. He has been extubated. He is asking to go home. He remains on oxygen via nasal cannula at 2L. Chest xray reveals stable findings, correlate for suspected CHF exacerbation/fluid overload state. Underlying acute basilar infiltrates. Labs today reveal white blood cell count 5.09, hgb 14.0, sodium 139, potassium 4.1, BUN 16, creatinine 0.39. REVIEW OF SYSTEMS: Unable to review as patient is intubated and sedated The rest of the 14-point review of systems is negative. PHYSICAL EXAMINATION: GENERAL: The patient is extubated, he is awake alert and oriented, ill- appearing, edematous, morbidly obese HEENT: Pupils are round and equally reacting to light. EOMI. No scleral icterus. No conjunctival pallor. Normocephalic, atraumatic. No pharyngeal erythema. No thyromegaly. CARDIOVASCULAR: S1 and S2 muffled PULMONARY: Diminished breath sounds bilaterally otherwise chest is clear to auscultation, no wheezing or crackles. ABDOMEN: Soft, obese, nontender, nondistended, normoactive bowel sounds. No palpable organomegaly. MUSCULOSKELETAL: No joint swelling or deformity. EXTREMITIES: No cyanosis, clubbing, or pedal edema. Edematous of upper and lower extremities NEUROLOGICAL: Gross neurological examination did not reveal any focal deficits. SKIN: No rashes. Pale, lower extremity discoloration. Deep cracked fissure on right heel. Assessment: Acute on chronic hypoxic respiratory failure, requiring BiPAP initially and then mechanical ventilation; currently extubated Possible right lower lobe pneumonia, although suspicion is low, will order procalcitonin, empirically on antibiotics, likely atelectasis History of mild intermittent asthma with acute exacerbation History of Prader-Willi syndrome with developmental delay and muscle weakness Diabetes mellitus, type II, uncontrolled with hyperglycemia History of hypertension History of sleep apnea and morbid obesity with alveolar hypoventilation, does not use a CPAP History of obstructive sleep apnea History of dysphagia History of depression History of recent lower extremity cellulitis with MSSA, treated outpatient Morbid obesity with a BMI of 49.2 GI prophylaxis DVT prophylaxis Full code Plan: Patient was admitted from [facility] where he resides with increasing shortness of breath and difficulty maintaining oxygenation not tolerating much nasal cannula. Initially brought to the ER put on BiPAP although became more obtunded and nonresponsive requiring mechanical ventilation and ICU admission Patient has been extubated and currently on oxygen via nasal cannula at 2L. Continue current regimen and follow-up on repeat labs Blood glucose remains elevated and lantus has been adjusted. Continue accuchecks and sliding scale insulin Q4h. Patient to remain NPO for 24 hrs post extubation and will be re-evaluated by . Home medications reviewed and resumed as appropriate Prognosis is guarded patient remains full code. Monitor electrolytes and renal function The impression and plan of care has been dictated by Otilia Jarrett, Nurse Practitioner as directed. Dr. Naresh MD I have performed a history and examination and MDM of this patient, discussed the same with the dictator, and agree with the dictator's assessment and plan as written ,documented as a scribe. Based on total visit time, I have performed more than 50% of the visit. Objective - Vital Signs Vital signs: Vital Signs Temp 98.1 F 11/12/24 08:00 Pulse 66 11/12/24 09:00 Resp 22 11/12/24 09:00 BP 148/76 11/12/24 09:00 Pulse Ox 96 11/12/24 09:00 FiO2 40 11/12/24 08:00 Intake & Output 11/11/24 11/12/24 11/12/24 18:59 06:59 18:59 Intake Total 660.000 624.425 172.411 Output Total 1840 1105 130 Balance -1180.000 -480.575 42.411 Weight 98.4 kg Intake: IV 120 120 30 0.9 @ KVO 120 120 30 Intake, IV Titration 300.000 324.425 82.411 Amount Magnesium Sulfate-D5w Pmx 100 1 gm In Dextrose/Water 1 100ml.bag @ 100 mls/hr IVPB ONCE ONE Rx#: [id number] propofoL 1,000 mg In 200.000 324.425 82.411 Empty Bag 1 bag @ 15 MCG/ KG/MIN 9.034 mls/hr IV . Q11H5M [facility] Rx#:[id number] Tube Feeding 180 180 30 Other 60 30 Output: Urine 1840 1105 130 Other: Voiding Method Indwelling Catheter Indwelling Catheter Indwelling Catheter - Labs CBC & Chem 7: 11/12/24 05:42 11/12/24 05:42 Labs: Abnormal Lab Results - Last 24 Hours (Table) 11/11/24 11/11/24 11/11/24 Range/Units 09:09 12:00 16:12 MCHC (32.0-37.0) g/dL Lymphocytes # (0.90-5.00) 10*3/uL Eosinophils # (0.04-0.35) 10*3/uL ABG pCO2 (35-45) mmHg ABG HCO3 (21-25) mmol/L ABG Total CO2 (19-24) mmol/L Creatinine (0.66-1.25) mg/dL Glucose (74-99) mg/dL POC Glucose (mg/dL) 318 H 295 H 305 H (70-110) mg/dL 11/11/24 11/11/24 11/12/24 Range/Units 20:10 23:28 03:25 MCHC (32.0-37.0) g/dL Lymphocytes # (0.90-5.00) 10*3/uL Eosinophils # (0.04-0.35) 10*3/uL ABG pCO2 (35-45) mmHg ABG HCO3 (21-25) mmol/L ABG Total CO2 (19-24) mmol/L Creatinine (0.66-1.25) mg/dL Glucose (74-99) mg/dL POC Glucose (mg/dL) 256 H 235 H 271 H (70-110) mg/dL 11/12/24 11/12/24 11/12/24 Range/Units 04:38 05:42 05:42 MCHC 31.9 L (32.0-37.0) g/dL Lymphocytes # 0.52 L (0.90-5.00) 10*3/uL Eosinophils # 0.00 L (0.04-0.35) 10*3/uL ABG pCO2 46 H (35-45) mmHg ABG HCO3 30 H (21-25) mmol/L ABG Total CO2 31 H (19-24) mmol/L Creatinine 0.39 L (0.66-1.25) mg/dL Glucose 277 H (74-99) mg/dL POC Glucose (mg/dL) (70-110) mg/dL 11/12/24 11/12/24 Range/Units 06:09 08:23 MCHC (32.0-37.0) g/dL Lymphocytes # (0.90-5.00) 10*3/uL Eosinophils # (0.04-0.35) 10*3/uL ABG pCO2 (35-45) mmHg ABG HCO3 (21-25) mmol/L ABG Total CO2 (19-24) mmol/L Creatinine (0.66-1.25) mg/dL Glucose (74-99) mg/dL POC Glucose (mg/dL) 236 H 260 H (70-110) mg/dL Assessment and Plan Time with Patient: Less than 30
[2024-11-12 19:57] LABS: Glucose,Whole Blood 116 mg/dL (70-110)
[2024-11-12] MEDS: VALPROATE SODIUM 500 MG in SODIUM CHLORIDE 0.9% 100 ML IVPB SCH (20:16)
[2024-11-13 03:36] LABS: Glucose,Whole Blood 114 mg/dL (70-110)
[2024-11-13 04:30] LABS: HCT 43.8 % (39.6-50.0); HGB 13.9 g/dL (13.0-17.0); Lymphocytes # (A) 1.24 10*3/uL (0.90-5.00); Lymphocytes % (A) 19.4 %; MCH 31.2 pg (27.0-32.0); MCHC 31.7 g/dL (32.0-37.0); MCV 98.2 fL (80.0-97.0); Mean Platelet Volume 11.1 fL (9.5-12.2); Monocytes # (A) 0.57 10*3/uL (0.20-1.00); Monocytes % (A) 8.9 %; Neutrophils # (A) 4.54 10*3/uL (1.80-7.70); Neutrophils % (A) 71.1 %; Platelet Count 226 10*3/uL (140-440); RBC 4.46 10*6/uL (4.40-5.60); RDW 13.2 % (11.5-14.5); WBC 6.39 10*3/uL (4.50-10.00)
[2024-11-13 04:54] LABS: African American GFR (CKD) >90 (>60 ml/min/1.73 sqM); Anion Gap 7 mmol/L; Blood Urea Nitrogen 25 mg/dL (9-20); Calcium 9.9 mg/dL (8.4-10.2); Carbon Dioxide 29 mmol/L (22-30); Chloride 104 mmol/L (98-107); Glucose 126 mg/dL (74-99); Non-African American GFR(CKD) >90 (>60 ml/min/1.73 sqM); Sodium 140 mmol/L (137-145)
[2024-11-13 05:04] LABS: Potassium 4.8 mmol/L (3.5-5.1)
--- NOTE | 2024-11-13 05:58 | XR ---
EXAMINATION TYPE: XR chest 1V portable DATE OF EXAM: 11/13/2024 CLINICAL INDICATION: Male, 34 years old with history of Mechanical ventilation, progress study. TECHNIQUE: Single AP portable upright view of the chest is obtained. COMPARISON: Chest x-ray from one day earlier and older studies. FINDINGS: Interval extubation with removal of endotracheal and orogastric tubes. Persistent cardiomegaly and mild central vascular congestion along with small to moderate size right greater than left pleural effusions and bibasilar opacities. Osseous structures are intact. IMPRESSION: Interval extubation. Persistent small to moderate-sized right greater than left pleural e ffusions and bibasilar acute infiltrates and/or atelectasis. [facility], , 11/13/2024 5:56 AM
[2024-11-13 06:23] LABS: Glucose,Whole Blood 92 mg/dL (70-110)
[2024-11-13 09:40] LABS: Glucose,Whole Blood 97 mg/dL (70-110)
--- NOTE | 2024-11-13 11:15 | P.PN ---
Subjective Progress Note Date: 11/13/24 This is a 34-year-old white male with history of Prader-Willi syndrome, patient was sent from [facility] for evaluation of shortness of breath for the last few days. Patient is known to have history of asthma and he was basically receiving treatment on outpatient basis for presumptive pneumonia. His shortness of breath has become worse and his O2 saturation was noted to be very low while at the [facility]. Patient was sent to the ER, initially managed with BiPAP, however patient continued to do poorly in spite of BiPAP, after few hours of being on BiPAP, ABG was checked and his pO2 was 91 pCO2 over 98 pH was 7.25, patient became more and more obtunded hence he was intubated and placed on ventilatory support. Patient is on assist-control rate of 22, tidal volume 350 FiO2 at 50% and PEEP at 5. ABG is pending. Last ABG showed a pO2 of 318 pCO2 70 pH of 7.39. Dramatically improved after intubation mechanical ventilation, and considering the patient has a pCO2 of 70 with a pH of 7.39 that implies that the patient has chronic hypercapnic respiratory failure with adequate metabolic compensation. Patient is on propofol at 25 mcg/kg/min he is on IV fluid 0.9 at 75 cc/h and he is sedated, could not assess the patient mentally hence I recommended stopping propofol and starting the patient on Precedex the plan is to awaken the patient and give the patient at least a weaning trial if possible today. WBC count is 5.11 hemoglobin 15.5, electrolytes were noted to be normal renal profile is normal, chest x-ray this morning showed cardiomegaly and right basilar opacity, possible atelectasis involving the right lower lobe. Initial chest x-ray in the ER showed no evidence of infiltrate or atelectasis. Patient was seen today on 11/08/2024, remains in the ICU intubated and m echanically ventilated, patient is on assist-control rate of 22 tidal volume 350 FiO2 50% and PEEP of 5 ABG showed a pO2 of 110 pCO2 47 pH of 7.45, patient is on propofol at 35 mcg/kg/min IV fluid is 0.9 at 75 cc/h. Patient remains empirically on antibiotics,/ceftriaxone. Remains on bronchodilators, GI and DVT prophylaxis, and the patient is receiving enteral feeding/nutritional support. Patient is also on multiple seizure medications considering his seizure history. Patient is sedated, it is difficult to assess his mental status as he seems to be arousable but does not follow any instructions, seems to be a bit confused, went ahead and recommended stopping propofol and starting the patient on Precedex, and hopefully we can get to the point where he can assess mental status fully off propofol. Labs today were reviewed CBC is basically unremarkable. Electrolytes are normal renal profile is normal, blood sugar is 298. Chest x-ray showed stable findings, minimal basilar atelectasis and slight prominence of the pulmonary vasculature. Endotracheal tube seems to be in proper position. Patient was seen today on 11/09/2024, patient remains in the ICU, intubated and mechanically ventilated, attempts have been made over the last 2 days to wean and extubate the patient, patient has been extremely difficult to wean. Yesterday the patient lasted less than half an hour and he was extremely tachypneic, tachycardic, could not tolerate even pressure support of 12 and CPAP for more than half an hour. Patient had to be placed back on full ventilatory support and placed back on propofol. We have tried again doing the same thing, and the patient again did not seem to do well. Patient is known to have history of Prader-Willi syndrome, and it is not surprising that the patient has profound muscle weakness with chronic hypercapnia he may eventually require tracheostomy and PEG tube placement. However my understanding today that the legal guardian is petitioning the court Sunday, and the plan is to consider comfort care measures on this patient in the next couple of days. Considering this, will not consult for tracheostomy and PEG tube placement, and will not arrange for ce ntral line or arterial line placement at this point. We are managing the patient well with peripheral lines. WBC count is 5.9 hemoglobin 13.4 his ABG today showed a pO2 of 228 pCO2 57 pH of 7.36 and this was on FiO2 of 45% hence FiO2 was cut down to 40%. Basic metabolic profile is normal, bicarb is 31. Renal profile is normal. Chest x-ray showed mostly minimal interstitial prominence, no clear-cut evidence of pneumonia although underlying infiltrates not completely excluded. Patient remains empirically on antibiotics. The findings on the chest x-ray are mostly findings of bibasilar atelectasis. 11/10/2024 patient seen and examined at bedside. Patient intubated, sedated and on mechanical ventilation. No acute events overnight. Legal guardian from [employer] mentions that they were not aware of plans for change of code status and no process initiated as it requires documentation that patient is clinically deteriorating. Current ventilator settings are volume control with a rate of 22, tidal volume 350, FiO2 40 and a PEEP of 5. Drips currently running are propofol 50 mcg/kg/hr, 0.9 normal saline 75 cc/h. Enteral feeding with [employer] 1.4 at 15ml/hr. Chest x-ray today showed ongoing CHF with pulmonary vascular congestion with some interval improvement, ongoing right pleural effusion with adjacent atelectasis and/for consultation. Labs: WBC 6.97, hemoglobin 12.9, platelet count 1 54,000, potassium 4.1, chloride 105, bicarb 26, BUN 13, creatinine 0.35, glucose 192, calcium 8.5. ABG pH of 7.38, PCO2 52, PO2 113 11/11/2024 patient seen and examined at bedside in the ICU. Patient intubated, sedated and on mechanical ventilation. No acute events overnight. Current ventilator settings are volume control with a rate of 22, tidal volume 350, FiO2 40 and a PEEP of 5. Drips currently running are propofol 50 mcg/kg/hr, 0.9 normal saline 75 cc/h. Enteral feeding with [employer] 1.4 at 15ml/hr. Labs: WBC 6.05, hemoglobin 14.1, sodium 139, potassium 4.3, bicarb 27, calcium 9.3, magnesium 1.9, BUN 12, creatinine 0.36, glucose 315. ABG showed PO2 93, pCO2 41, pH 7.44 Imaging; persistent mild cardiomegaly and interstitial changes, small to moderate right pleural effusion with adjacent atelectasis and/or consolidation and patchy retrocardiac opacity 11/12/2024 patient seen and examined at bedside in the ICU. Patient intubated, sedated and on mechanical ventilation. No acute events overnight. Attempted DIS SBT yesterday but patient failed due to rapid and shallow breathing with tachycardia despite being off sedation. Current IV drips are propofol 50mcg/kg/hr, enteral feeding with [employer] 1.4 at 15ml/hr. Labs: WBC 5.09, hemoglobin 14, platelet count 200,000, sodium 139, potassium 4.1, bicarb 27, calcium 9.9, glucose 277, BUN 16, creatinine 0.39. ABG showed PO2 82, pCO2 46, pH 7.42. Sputum culture negative Imaging; chest x-ray today independently interpreted showed overall stable findings with cardiomegaly, noted basilar infiltrates 11/13/2024 patient seen and examined at bedside in the ICU. Patient was successful with spontaneous breathing trial and was extubated. No acute events overnight. No new complaints or symptoms. Attempted DIS SBT yesterday and was successful, patient was extubated around 10 AM. Failed swallow eval postextubation yesterday. Currently on n.p.o. Labs: WBC 6.3, hemoglobin 13.9, sodium 140, potassium 4.8, bicarb 29, BUN 25, creatinine 0.35, glucose 126, calcium 9.9 Imaging; chest x-ray today showed stable small to moderate-sized right greater than left pleural effusions and bibasilar acute infiltrates and/or atelectasis. Review of systems: Pertinent positives and negatives as discussed in HPI, a complete review of systems was performed and all other systems are negative. Physical examination: Vital signs reviewed General: non toxic, no distress, on nasal cannula Derm: no unusual rashes/lesions, warm Head: atraumatic, normocephalic, symmetric Eyes: EOMI, anicteric sclera, pupils equal round reactive to light ENT: Nose and ears atraumatic Neck: No cervical lymphadenopathy, trachea midline, supple Mouth: no lip lesion, mucus membranes moist, poor dentition Cardiovascular: S1S2 reg, no murmur Lungs: Bibasilar fine rales, no accessory muscle use Abdominal: soft, nontender to palpation, no guarding Ext: muscle strength 5 out of 5 in all 4 extremities grossly, no gross muscle atrophy, no contractures, positive dorsalis pedis pulse bilateral, bilateral lower extremity +1 pitting edema Neuro: CN II-XI grossly intact, no gross focal neuro deficits Psych: Alert and oriented x 3, appropriate affect and mood Assessment: Acute hypoxic respiratory failure, likely secondary to acute exacerbation of mild intermittent asthma, improved Acute on chronic hypercapnic respiratory failure Diabetes type 2 with hyperglycemia, improved History of Prader-Willi syndrome, characterized by history of developmental delay, muscle weakness, restrictive lung disease, secondary to muscle weakness, obesity, and behavioral disorder. Recent history of right lower lobe pneumonia, treated on outpatient basis History of MSSA cellulitis/dermatitis, treated on outpatient basis Recommendation: Patient has been extubated successfully. Continue supplemental oxygenation as needed. Continue DuoNebs as needed and [id number], Pulmicort twice daily and formoterol twice daily inhalers. Increase Plumicort to 1mg. Continue IV Solu-Medrol 40 mg IV every 6 hours Continue with insulin sliding scale coverage. Monitor for hypoglycemia Continue with insulin glargine 40 units nightly and Insulin Lispro 10 units AC- TID. Discontinue dilaudid Failed swallow evaluation. Reevaluate today. Currently NPO for now. DVT prophylaxis: Lovenox 40 mg subcu daily GI prophylaxis: Protonix 40 mg IV twice daily Prognosis: Guarded. Will continue to follow Mandie Guzmán MD PGY-1/[employer] Dictation was produced using [employer] dictation software. please excuse any grammatical, word or spelling errors. Objective - Vital Signs Vital signs: Vital Signs Temp 98.3 F 11/12/24 21:00 Pulse 61 11/13/24 07:41 Resp 20 11/13/24 07:41 BP 147/80 11/13/24 07:00 Pulse Ox 94 L 11/13/24 07:39 FiO2 40 11/12/24 12:00 Intake & Output 11/12/24 11/13/24 11/13/24 18:59 06:59 18:59 Intake Total 275.862 320 10 Output Total 905 760 60 Balance -629.138 -440 -50 Weight 98.4 kg 98.8 kg Intake: IV 120 120 10 0.9 @ KVO 120 120 10 Intake, IV Titration 95.862 200 Amount Valproate Sodium 500 mg 200 In Sodium Chloride 0.9% 100 ml @ 100 mls/hr IVPB Q8H [facility] Rx#:[id number] propofoL 1,000 mg In 95.862 Empty Bag 1 bag @ 15 MCG/ KG/MIN 9.034 mls/hr IV . Q11H5M [facility] Rx#:[id number] Tube Feeding 30 Other 30 Output: Urine 905 760 60 Other: Voiding Method Indwelling Catheter Indwelling Catheter - Labs CBC & Chem 7: 11/13/24 04:04 11/13/24 04:04 Labs: Abnormal Lab Results - Last 24 Hours (Table) 11/12/24 11/12/24 11/12/24 Range/Units 08:23 12:52 17:16 MCV (80.0-97.0) fL MCHC (32.0-37.0) g/dL Eosinophils # (0.04-0.35) 10*3/uL BUN (9-20) mg/dL Creatinine (0.66-1.25) mg/dL Glucose (74-99) mg/dL POC Glucose (mg/dL) 260 H 176 H 136 H (70-110) mg/dL 11/12/24 11/13/24 11/13/24 Range/Units 19:55 03:35 04:04 MCV 98.2 H (80.0-97.0) fL MCHC 31.7 L (32.0-37.0) g/dL Eosinophils # 0.00 L (0.04-0.35) 10*3/uL BUN (9-20) mg/dL Creatinine (0.66-1.25) mg/dL Glucose (74-99) mg/dL POC Glucose (mg/dL) 116 H 114 H (70-110) mg/dL 11/13/24 Range/Units 04:04 MCV (80.0-97.0) fL MCHC (32.0-37.0) g/dL Eosinophils # (0.04-0.35) 10*3/uL BUN 25 H (9-20) mg/dL Creatinine 0.35 L (0.66-1.25) mg/dL Glucose 126 H (74-99) mg/dL POC Glucose (mg/dL) (70-110) mg/dL Microbiology - Last 24 Hours (Table) 11/07/24 05:45 Blood Culture - Final Blood
[2024-11-13 11:52] LABS: Glucose,Whole Blood 111 mg/dL (70-110)
--- NOTE | 2024-11-13 15:38 | P.PN ---
Subjective Progress Note Date: 11/13/24 This is a 34-year-old male who presented to the emergency department from [facility] where he resides with increased shortness of breath and concerns for aspiration. Patient follows with Dr. Rodriguez in the outpatient setting with a past medical history of asthma, diabetes mellitus, hypertension, musculoskeletal disorder, pneumonia, respiratory disorder, sleep apnea, Prader-Willi syndrome with dysphagia, morbid obesity with alveolar hypoventilation yes, obstructive sleep apnea, depression. Patient has mental disabilities and has a primary legal guardian and is considered full code at this time. Patient with difficulty keeping oxygenation on his face will make it extremely difficult to continue with oxygen therapy. Initially ER attempted BiPAP although extremely agitated and unable to tolerate with pulmonary consulting hr professional consulted recommending mechanical ventilation. Labs reviewed on admission reveal a normal white count with a hemoglobin of 13.5, platelets 183, sodium 136 with a potassium of 5.4, carbon dioxide 39, BUN 22, creatinine 0.48 and random glucose was 248. ABGs were done with a pH of 7.39, PCO2 is 70, PO2 318, bicarb is 42. EKG showing sinus rhythm chest x-ray showing stable chest postintubation. Patient was admitted to the ICU. Patient is currently on Precedex and off propofol and home medications are being reviewed and resumed as appropriate. Patient was started on antibiotic empirically and also steroids with breathing treatments. Patient is not wheezing and given sugars are elevated, discussed with pulmonary and will be discontinuing steroids. BNP was not elevated although patient does appear edematous throughout. Patient did receive a few doses of Lasix and is currently maintained on gentle IV hydration. 11/08/2024 Patient is evaluated today in follow up in the intensive care unit. Remains intubated and sedated on the mechanical ventilator. Currently sedated with propofol. Unable to be weaned today from the vent. Chest xray reveals possible fluid over load state, underlying acute infiltrates medial lung bases cannot be excluded. Labs reveal white blood cell count 4.82, hgb 13.3, sodium 133, potassium 4.1, BUN 18, creatinine 0.35. Hemoglobin A1C - 9.6. 11/09/2024 Patient evaluated today in the ICU. Remains intubated and sedated with propofol. Plans to start precedex and weaning trial today. Chest xray today reveals suspected CHF exacerbation/fluid overload state. Underlying acute infiltrates medial lung bases cannot be excluded. Lantus adjusted and blood glucose is significantly improved. 11/10/2024 Patient evaluated today remains in the intensive care unit he remains intubated and sedated on the mechanical ventilator. FiO2 40%. Currently sedated with propofol. Chest xray reveals ongoing CHF with pulmonary vascular congestion. Some interval improvement. Ongoing small right pleural effusion with adjacent atelectasis and or consolidation. Labs today reveal white blood cell count 6.97, hgb 12.9, sodium 137, potassium 4.1, BUN 13, creatinine 0.35. 11/11/2024 Evaluated today in the intensive care unit, remains sedated and intubated on the mechanical ventilator. Chest xray reveals mild cardiomegaly and interstitial change persists, small to moderate right pleural effusion with adjacent atelectasis and or consolidation similar to slightly increased. Patchy retrocardiac opacity similar to increased as well. proBNP was checked and normal at 160. Currently on TF running at 15 mls/hr which is goal rate. Remains on IV solu-medrol. White blood cell count 6.05, hgb 14.1, sodium 139, potassium 4.3, BUN 12, creatinine 0.36. 11/12/2024 Patient is evaluated today in the ICU. He has been extubated. He is asking to go home. He remains on oxygen via nasal cannula at 2L. Chest xray reveals stable findings, correlate for suspected CHF exacerbation/fluid overload state. Underlying acute basilar infiltrates. Labs today reveal white blood cell count 5.09, hgb 14.0, sodium 139, potassium 4.1, BUN 16, creatinine 0.39. 11/13/2024 Patient is evaluated today in follow up in the ICU. He has been extubated and remains on oxygen via nasal cannula at 4L. He is pointing to a sore tooth on the left maxilla and there is a slight redness to the check and mild mandibular swelling. He is noted to have poor dentition and will order a CT panorex to rule out any abscess. Chest xray today reveals persistent cardiomegaly and mild centr al vascular congestion along with small to moderate size right greater than left pleural effusions and bibasilar opacities. Osseous structures are intact. WBC 6.39, hgb 13.9, sodium 140, potassium 4.8, BUN 25, creatinine 0.35. 93% on 3L. He remains NPO and pending follow up with speech therapy. Review of Systems Constitutional: Denied any fatigue denied any fever. Cardio vascular: denied any chest pain, palpitations Gastrointestinal: denied any nausea, vomiting, diarrhea Pulmonary: Denied any shortness of breath cough Neurologic denied any new focal deficits All inpatient medications were reviewed and appropriate changes in these medications as dictated in the interval history and assessment and plan. PHYSICAL EXAMINATION: GENERAL: The patient is extubated, he is awake alert and oriented, ill- appearing, edematous, morbidly obese HEENT: Pupils are round and equally reacting to light. EOMI. No scleral icterus. No conjunctival pallor. Normocephalic, atraumatic. No pharyngeal erythema. No thyromegaly. left facial erythema CARDIOVASCULAR: S1 and S2 muffled PULMONARY: Diminished breath sounds bilaterally otherwise chest is clear to auscultation, no wheezing or crackles. ABDOMEN: Soft, obese, nontender, nondistended, normoactive bowel sounds. No palpable organomegaly. MUSCULOSKELETAL: No joint swelling or deformity. EXTREMITIES: No cyanosis, clubbing, or pedal edema. Edematous of upper and lower extremities NEUROLOGICAL: Gross neurological examination did not reveal any focal deficits. SKIN: No rashes. Pale, lower extremity discoloration. Deep cracked fissure on right heel. Assessment: Acute on chronic hypoxic respiratory failure, requiring BiPAP initially and then mechanical ventilation; currently extubated Possible right lower lobe pneumonia, although suspicion is low, will order procalcitonin, empirically on antibiotics, likely atelectasis History of mild intermittent asthma with acute exacerbation History of Prader-Willi syndrome with developmental delay and muscle weakness Diabetes mellitus, type II, uncontrolled with hyperglycemia History of hypertension History of sleep apnea and morbid obesity with alveolar hypoventilation, does not use a CPAP History of obstructive sleep apnea History of dysphagia History of depression History of recent lower extremity cellulitis with MSSA, treated outpatient Morbid obesity with a BMI of 49.2 GI prophylaxis DVT prophylaxis Full code Plan: Patient was admitted from [facility] where he resides with increasing shortness of breath and difficulty maintaining oxygenation not tolerating much nasal cannula. Initially brought to the ER put on BiPAP although became more obtunded and nonresponsive requiring mechanical ventilation and ICU admission Patient has been extubated and currently on oxygen via nasal cannula at 3L. Continue current regimen and follow-up on repeat labs Blood glucose remains elevated and lantus has been adjusted. Continue accuchecks and sliding scale insulin achs. Patient to remain NPO for 24 hrs post extubation and will be re-evaluated by ST. CT panorex ordered Home medications reviewed and resumed as appropriate Prognosis is guarded patient remains full code. Monitor electrolytes and renal function The impression and plan of care has been dictated by Otilia Jarrett, Nurse Practitioner as directed. Dr. Naresh MD I have performed a history and examination and MDM of this patient, discussed the same with the dictator, and agree with the dictator's assessment and plan as written ,documented as a scribe. Based on total visit time, I have performed more than 50% of the visit. Objective - Vital Signs Vital signs: Vital Signs Temp 97.4 F L 11/13/24 08:00 Pulse 69 11/13/24 13:00 Resp 29 H 11/13/24 13:00 BP 157/81 11/13/24 13:00 Pulse Ox 93 L 11/13/24 13:00 FiO2 40 11/12/24 12:00 Intake & Output 11/12/24 11/13/24 11/13/24 18:59 06:59 18:59 Intake Total 275.862 320 30 Output Total 905 760 160 Balance -629.138 -440 -130 Weight 98.4 kg 98.8 kg 98.8 kg Intake: IV 120 120 30 0.9 @ KVO 120 120 30 Intake, IV Titration 95.862 200 Amount Valproate Sodium 500 mg 200 In Sodium Chloride 0.9% 100 ml @ 100 mls/hr IVPB Q8H [facility] Rx#:[id number] propofoL 1,000 mg In 95.862 Empty Bag 1 bag @ 15 MCG/ KG/MIN 9.034 mls/hr IV . Q11H5M [facility] Rx#:[id number] Tube Feeding 30 Other 30 Output: Urine 905 760 160 Other: Voiding Method Indwelling Catheter Indwelling Catheter Indwelling Catheter - Labs CBC & Chem 7: 11/13/24 04:04 11/13/24 04:04 Labs: Abnormal Lab Results - Last 24 Hours (Table) 11/12/24 11/12/24 11/13/24 Range/Units 17:16 19:55 03:35 MCV (80.0-97.0) fL MCHC (32.0-37.0) g/dL Eosinophils # (0.04-0.35) 10*3/uL BUN (9-20) mg/dL Creatinine (0.66-1.25) mg/dL Glucose (74-99) mg/dL POC Glucose (mg/dL) 136 H 116 H 114 H (70-110) mg/dL 11/13/24 11/13/24 11/13/24 Range/Units 04:04 04:04 11:51 MCV 98.2 H (80.0-97.0) fL MCHC 31.7 L (32.0-37.0) g/dL Eosinophils # 0.00 L (0.04-0.35) 10*3/uL BUN 25 H (9-20) mg/dL Creatinine 0.35 L (0.66-1.25) mg/dL Glucose 126 H (74-99) mg/dL POC Glucose (mg/dL) 111 H (70-110) mg/dL Microbiology - Last 24 Hours (Table) 11/07/24 05:45 Blood Culture - Final Blood Assessment and Plan Time with Patient: Less than 30
[2024-11-13 16:06] LABS: Glucose,Whole Blood 133 mg/dL (70-110)
[2024-11-13] MEDS: FUROSEMIDE 10 MG/ML 4 ML VIAL IV STA (16:15)
[2024-11-13] MEDS: INSULIN LISPRO (HumaLOG) 100 UNIT/ML 10 mL VL SQ SCH (16:15)
[2024-11-13 21:15] LABS: Glucose,Whole Blood 176 mg/dL (70-110)
[2024-11-13] MEDS: BUDESONIDE 1 MG/2 ML NEBU INHALATION SCH (21:17)
[2024-11-13] MEDS: INSULIN GLARGINE (LANTUS) 100 UNIT/ML SYR SQ SCH (21:53)
[2024-11-14] MEDS: IPRATROPIUM-ALBUTEROL 3 ML NEB INHALATION PRN (04:18)
[2024-11-14 05:18] LABS: Glucose,Whole Blood 172 mg/dL (70-110)
[2024-11-14 05:26] LABS: ABG Base Excess 10.9 mmol/L; ABG HCO3 39 mmol/L (21-25); ABG Oxygen Saturation 95.8 % (94-97); ABG PCO2 64 mmHg (35-45); ABG PH 7.39 (7.35-7.45); ABG PO2 83 mmHg (83-108); ABG TCO2 41 mmol/L (19-24); Allen Test Performed? Yes
[2024-11-14 06:20] LABS: Glucose,Whole Blood 180 mg/dL (70-110)
--- NOTE | 2024-11-14 07:01 | XR ---
EXAMINATION TYPE: XR chest 1V portable DATE OF EXAM: 11/14/2024 CLINICAL INDICATION: Male, 34 years old with history of low o2 sat, progress study. TECHNIQUE: Single AP portable upright view of the chest is obtained. COMPARISON: Chest x-ray from one day earlier FINDINGS: Persistent cardiomegaly and mild worsening central increased opacities along with small to moderate s ize right greater than left pleural effusions and bibasilar opacities. Osseous structures are intact. IMPRESSION: Worsening central increased opacity suggests worsening CHF exacerbation/fluid overload st ate. [facility], , 11/14/2024 6:58 AM
[2024-11-14] MEDS: VALPROATE SODIUM 500 MG in SODIUM CHLORIDE 0.9% 100 ML IVPB SCH (08:08)
[2024-11-14] MEDS: FUROSEMIDE 10 MG/ML 4 ML VIAL IV STA (08:08)
[2024-11-14 08:12] LABS: Basophils # (A) 0.02 10*3/uL (0.00-0.10); Basophils % (A) 0.2 %; HCT 46.4 % (39.6-50.0); HGB 14.8 g/dL (13.0-17.0); Lymphocytes # (A) 0.72 10*3/uL (0.90-5.00); Lymphocytes % (A) 7.8 %; MCH 30.9 pg (27.0-32.0); MCHC 31.9 g/dL (32.0-37.0); MCV 96.9 fL (80.0-97.0); Mean Platelet Volume 10.6 fL (9.5-12.2); Monocytes # (A) 0.82 10*3/uL (0.20-1.00); Monocytes % (A) 8.9 %; Neutrophils # (A) 7.58 10*3/uL (1.80-7.70); Neutrophils % (A) 82.3 %; Platelet Count 240 10*3/uL (140-440); RBC 4.79 10*6/uL (4.40-5.60); WBC 9.21 10*3/uL (4.50-10.00)
[2024-11-14 08:20] LABS: African American GFR (CKD) >90 (>60 ml/min/1.73 sqM); Anion Gap 9 mmol/L; Blood Urea Nitrogen 25 mg/dL (9-20); Carbon Dioxide 36 mmol/L (22-30); Chloride 97 mmol/L (98-107); Glucose 196 mg/dL (74-99); Non-African American GFR(CKD) >90 (>60 ml/min/1.73 sqM); Sodium 142 mmol/L (137-145)
[2024-11-14 08:41] LABS: Potassium 4.3 mmol/L (3.5-5.1)
--- NOTE | 2024-11-14 10:56 | CA ---
Transthoracic Echo Report Name: Dheeraj Lopez Age: 34 Gender: M : 1990 Exam Date: 11/14/2024 09:13 Exam Location: [place] [facility] Ht (in): 56 Wt (lb): 207 Ordering Physician: Otilia Jarrett Attending/Referring Phys: [employer] Test Technician Deena Roger RDCS Procedure CPT: Indications: chf Cardiac Hx: Technical Quality: Very technically difficult study Contrast 1: Definity Total Dose (mL): 6 Contrast 2: Total Dose (mL): MEASUREMENTS (Male / Female) Normal Values 2D ECHO LV Diastolic Diameter PLAX 4.5 cm 4.2 - 5.9 / 3.9 - 5.3 cm LV Systolic Diameter PLAX 3.1 cm IVS Diastolic Thickness 1.2 cm 0.6 - 1.0 / 0.6 - 0.9 cm LVPW Diastolic Thickness 0.9 cm 0.6 - 1.0 / 0.6 - 0.9 cm LV Relative Wall Thickness 0.5 LVOT Diameter 2.1 cm Aortic Root Diameter 2.7 cm LV Diastolic Volume MOD BP 104.6 cm??? 67 - 155 / 56 - 104 cm??? LV Systolic Volume MOD BP 36.8 cm??? 22 - 58 / 19 - 49 cm??? LV Ejection Fraction MOD BP 64.8 % >= 55 % LV Cardiac Index MOD BP 2381.0 cm???/min???m??? LV Diastolic Volume MOD 4C 96.5 cm??? LV Systolic Volume MOD 4C 27.9 cm??? LV Ejection Fraction MOD 4C 71.1 % LV Cardiac Index MOD 4C 2409.9 cm???/min???m??? LV Diastolic Length 4C 7.3 cm LV Systolic Length 4C 5.6 cm LV Diastolic Volume MOD 2C 109.3 cm??? LV Systolic Volume MOD 2C 45.0 cm??? LV Ejection Fraction MOD 2C 58.8 % LV Cardiac Index MOD 2C 2259.6 cm???/min???m??? LV Diastolic Length 2C 7.6 cm LV Systolic Length 2C 6.1 cm Ascending Aorta Diameter 2.7 cm DOPPLER LVOT Peak Velocity 131.2 cm/s LVOT Peak Gradient 6.9 mmHg LVOT Velocity Time Integral 23.3 cm LVOT Stroke Volume 78.0 cm??? LVOT Stroke Volume Index 43.3 ml/m??? LVOT Cardiac Index 2740.9 cm???/min???m??? Mitral E Point Velocity 69.6 cm/s Mitral A Point Velocity 64.9 cm/s Mitral E to A Ratio 1.1 MV Deceleration Time 162.6 ms MV E' Velocity 5.9 cm/s Mitral E to MV E' Ratio 11.8 PV Peak Velocity 112.0 cm/s PV Peak Gradient 5.0 mmHg FINDINGS Left Ventricle Left ventricular ejection fraction is estimated at 55-60 % by visual estimate. Mildly increased septal wall thickness. Left ventricular cavity size normal. No obvious regional wall motion abnormalities. Right Ventricle Right ventricle not well visualized. Unable to estimate the right ventricular systolic pressure. Right Atrium Right atrium not well visualized. Left Atrium Left atrium not well visualized. Mitral Valve Mitral valve not well visualized. No mitral stenosis, regurgitation or prolapse. Aortic Valve Trileaflet aortic valve. No aortic valve stenosis or regurgitation. Tricuspid Valve Tricuspid valve not well visualized. No tricuspid stenosis, regurgitation or prolapse. Pulmonic Valve Pulmonic valve not well visualized. No pulmonic stenosis. No pulmonic regurgitation. Pericardium No pericardial effusion. Aorta Normal size aortic root and proximal ascending aorta. CONCLUSIONS Technically difficult study. Echo contrast was used. Systolic function is normal. Doppler exam is suboptimal valvular structures are not very well-seen. No pericardial effusion. Previewed by: Dr. Jonna Yepez MD (Electronically Signed) Final Date: 14 Nov 2024 10:56
--- NOTE | 2024-11-14 11:03 | P.PN ---
Subjective Progress Note Date: 11/14/24 Principal diagnosis: Respiratory distress. This is a 34-year-old white male with history of Prader-Willi syndrome, patient was sent from [facility] for evaluation of shortness of breath for the last few days. Patient is known to have history of asthma and he was ba sically receiving treatment on outpatient basis for presumptive pneumonia. His shortness of breath has become worse and his O2 saturation was noted to be very low while at the [facility]. Patient was sent to the ER, initially managed with BiPAP, however patient continued to do poorly in spite of BiPAP, after few hours of being on BiPAP, ABG was checked and his pO2 was 91 pCO2 over 98 pH was 7.25, patient became more and more obtunded hence he was intubated and placed on ventilatory support. Patient is on assist-control rate of 22, tidal volume 350 FiO2 at 50% and PEEP at 5. ABG is pending. Last ABG showed a pO2 of 318 pCO2 70 pH of 7.39. Dramatically improved after intubation mechanical ventilation, and considering the patient has a pCO2 of 70 with a pH of 7.39 that implies that the patient has chronic hypercapnic respiratory failure with adequate metabolic compensation. Patient is on propofol at 25 mcg/kg/min he is on IV fluid 0.9 at 75 cc/h and he is sedated, could not assess the patient mentally hence I recommended stopping propofol and starting the patient on Precedex the plan is to awaken the patient and give the patient at least a weaning trial if possible today. WBC count is 5.11 hemoglobin 15.5, electrolytes were noted to be normal renal profile is normal, chest x-ray this morning showed cardiomegaly and right basilar opacity, possible atelectasis involving the right lower lobe. Initial chest x-ray in the ER showed no evidence of infiltrate or atelectasis. Patient was seen today on 11/08/2024, remains in the ICU intubated and mechanically ventilated, patient is on assist-control rate of 22 tidal volume 350 FiO2 50% and PEEP of 5 ABG showed a pO2 of 110 pCO2 47 pH of 7.45, patient is on propofol at 35 mcg/kg/min IV fluid is 0.9 at 75 cc/h. Patient remains empirically on antibiotics,/ceftriaxone. Remains on bronchodilators, GI and DVT prophylaxis, and the patient is receiving enteral feeding/nutritional support. Patient is also on multiple seizure medications considering his seizure history. Patient is sedated, it is difficult to assess his mental status as he seems to be arousable but does not follow any instructions, seems to be a bit confused, went ahead and recommended stopping propofol and starting the patient on Precedex, and hopefully we can get to the point where he can assess mental status fully off propofol. Labs today were reviewed CBC is basically unremarkable. Electrolytes are normal renal profile is normal, blood sugar is 298. Chest x-ray showed stable findings, minimal basilar atelectasis and slight prominence of the pulmonary vasculature. Endotracheal tube seems to be in proper position. Patient was seen today on 11/09/2024, patient remains in the ICU, intubated and mechanically ventilated, attempts have been made over the last 2 days to wean and extubate the patient, patient has been extremely difficult to wean. Yesterday the patient lasted less than half an hour and he was extremely tachypneic, tachycardic, could not tolerate even pressure support of 12 and CPAP for more than half an hour. Patient had to be placed back on full ventilatory support and placed back on propofol. We have tried again doing the same thing, and the patient again did not seem to do well. Patient is known to have history of Prader-Willi syndrome, and it is not surprising that the patient has profound muscle weakness with chronic hypercapnia he may eventually require tracheostomy and PEG tube placement. However my understanding today that the legal guardian is petitioning the court Sunday, and the plan is to consider comfort care measures on this patient in the next couple of days. Considering this, will not consult for tracheostomy and PEG tube placement, and will not arrange for central line or arterial line placement at this point. We are managing the patient well with peripheral lines. WBC count is 5.9 hemoglobin 13.4 his ABG today showed a pO2 of 228 pCO2 57 pH of 7.36 and this was on FiO2 of 45% hence FiO2 was cut down to 40%. Basic metabolic profile is normal, bicarb is 31. Renal profile is normal. Chest x-ray showed mostly minimal interstitial prominence, no clear-cut evidence of pneumonia although underlying infiltrates not completely excluded. Patient remains empirically on antibiotics. The findings on the chest x-ray are mostly findings of bibasilar atelectasis. 11/10/2024 patient seen and examined at bedside. Patient intubated, sedated and on mechanical ventilation. No acute events overnight. Legal guardian from [employer] mentions that they were not aware of plans for change of code status and no process initiated as it requires documentation that patient is clinically deteriorating. Current ventilator settings are volume control with a rate of 22, tidal volume 350, FiO2 40 and a PEEP of 5. Drips currently running are propofol 50 mcg/kg/hr, 0.9 normal saline 75 cc/h. Enteral feeding with [employer] 1.4 at 15ml/hr. Chest x-ray today showed ongoing CHF with pulmonary vascular congestion with some interval improvement, ongoing right pleural effusion with adjacent atelectasis and/for consultation. Labs: WBC 6.97, hemoglobin 12.9, platelet count 1 54,000, potassium 4.1, ch loride 105, bicarb 26, BUN 13, creatinine 0.35, glucose 192, calcium 8.5. ABG pH of 7.38, PCO2 52, PO2 113 11/11/2024 patient seen and examined at bedside in the ICU. Patient intubated, sedated and on mechanical ventilation. No acute events overnight. Current ventilator settings are volume control with a rate of 22, tidal volume 350, FiO2 40 and a PEEP of 5. Drips currently running are propofol 50 mcg/kg/hr, 0.9 normal saline 75 cc/h. Enteral feeding with [employer] 1.4 at 15ml/hr. Labs: WBC 6.05, hemoglobin 14.1, sodium 139, potassium 4.3, bicarb 27, calcium 9.3, magnesium 1.9, BUN 12, creatinine 0.36, glucose 315. ABG showed PO2 93, pCO2 41, pH 7.44 Imaging; persistent mild cardiomegaly and interstitial changes, small to moderate right pleural effusion with adjacent atelectasis and/or consolidation and patchy retrocardiac opacity 11/12/2024 patient seen and examined at bedside in the ICU. Patient intubated, sedated and on mechanical ventilation. No acute events overnight. Attempted DIS SBT yesterday but patient failed due to rapid and shallow breathing with tachycardia despite being off sedation. Current IV drips are propofol 50mcg/kg/hr, enteral feeding with [employer] 1.4 at 15ml/hr. Labs: WBC 5.09, hemoglobin 14, platelet count 200,000, sodium 139, potassium 4.1, bicarb 27, calcium 9.9, glucose 277, BUN 16, creatinine 0.39. ABG showed PO2 82, pCO2 46, pH 7.42. Sputum culture negative Imaging; chest x-ray today independently interpreted showed overall stable findings with cardiomegaly, noted basilar infiltrates 11/13/2024 patient seen and examined at bedside in the ICU. Patient was successful with spontaneous breathing trial and was extubated. No acute events overnight. No new complaints or symptoms. Attempted DIS SBT yesterday and was successful, patient was extubated around 10 AM. Failed swallow eval postextubation yesterday. Currently on n.p.o. Labs: WBC 6.3, hemoglobin 13.9, sodium 140, potassium 4.8, bicarb 29, BUN 25, creatinine 0.35, glucose 126, calcium 9.9 Imaging; chest x-ray today showed stable small to moderate-sized right greater than left pleural effusions and bibasilar acute infiltrates and/or atelectasis. Progress note dated November 14, 2024. 34-year-old male seen today in room 351. The patient was previously on the ventilator, in the intensive care unit. He was successfully extubated, transferred out. Yesterday he developed some respiratory difficulty, he was transferred down to the third floor, and placed on BiPAP, with settings of 12/5, 60%. The patient is getting saline at 20 cc an hour. This morning, the patient had a sitter in the hospital room, and the patient was hoping to eat. I did tell the nurse, Karla, to have respiratory change him to nasal O2, so that he could eat. Current labs include a white count 9.2, hemoglobin 14.8, hematocrit 46.4, and a platelet count of 240,000. Blood gases this morning showed a pO2 of 83, pCO2 64, and a pH of 7.39. Sodium 142, potassium 4.3, chlorides 97, CO2 36, BUN 25, and creatinine 0.34. Chest x-ray was consistent with CHF. Objective - Vital Signs Vital signs: Vital Signs Temp 98.3 F 11/14/24 06:24 Pulse 76 11/14/24 06:43 Resp 30 H 11/14/24 06:24 BP 150/81 11/14/24 06:24 Pulse Ox 95 11/14/24 06:24 FiO2 60 11/14/24 06:24 Intake & Output 11/13/24 11/14/24 11/14/24 18:59 06:59 18:59 Intake Total 40 Output Total 2059 1099 2449 Balance -2019 Weight 98.8 kg 94 kg Intake: IV 40 0.9 @ KVO 40 Output: Urine 2059 1099 2449 Other: Voiding Method Indwelling Catheter Indwelling Catheter - Exam No acute distress, currently on BiPAP. HEENT examination is grossly unremarkable. Mucous membranes are moist. No oral lesions. Neck supple. Full range of motion. No adenopathy thyromegaly or neck vein distention. Cardiovascular examination reveals regular rhythm rate. S1-S2 normal. No S3 or S4. No discernible murmur noted. Heart sounds are distant. Lungs reveal bibasilar crackles. No wheezes or rhonchi. Breath sounds equal bilaterally. Abdomen soft bowel sounds are heard. No masses or tenderness. Central obesity. Extremities are intact. No cyanosis or clubbing. Mild lower extremity edema. Skin is without rash or lesion. Neurologic examination is brief but nonfocal. - Labs CBC & Chem 7: 11/14/24 07:54 11/14/24 07:54 Labs: Abnormal Lab Results - Last 24 Hours (Table) 11/13/24 11/13/24 11/13/24 Range/Units 11:51 16:04 21:13 MCHC (32.0-37.0) g/dL Immature Gran # (0.00-0.04) 10*3/uL Lymphocytes # (0.90-5.00) 10*3/uL Eosinophils # (0.04-0.35) 10*3/uL ABG pCO2 (35-45) mmHg ABG HCO3 (21-25) mmol/L ABG Total CO2 (19-24) mmol/L Chloride (98-107) mmol/L Carbon Dioxide (22-30) mmol/L BUN (9-20) mg/dL Creatinine (0.66-1.25) mg/dL Glucose (74-99) mg/dL POC Glucose (mg/dL) 111 H 133 H 176 H (70-110) mg/dL 11/14/24 11/14/24 11/14/24 Range/Units 05:16 05:22 06:17 MCHC (32.0-37.0) g/dL Immature Gran # (0.00-0.04) 10*3/uL Lymphocytes # (0.90-5.00) 10*3/uL Eosinophils # (0.04-0.35) 10*3/uL ABG pCO2 64 H (35-45) mmHg ABG HCO3 39 H (21-25) mmol/L ABG Total CO2 41 H (19-24) mmol/L Chloride (98-107) mmol/L Carbon Dioxide (22-30) mmol/L BUN (9-20) mg/dL Creatinine (0.66-1.25) mg/dL Glucose (74-99) mg/dL POC Glucose (mg/dL) 172 H 180 H (70-110) mg/dL 11/14/24 11/14/24 Range/Units 07:54 07:54 MCHC 31.9 L (32.0-37.0) g/dL Immature Gran # 0.07 H (0.00-0.04) 10*3/uL Lymphocytes # 0.72 L (0.90-5.00) 10*3/uL Eosinophils # 0.00 L (0.04-0.35) 10*3/uL ABG pCO2 (35-45) mmHg ABG HCO3 (21-25) mmol/L ABG Total CO2 (19-24) mmol/L Chloride 97 L (98-107) mmol/L Carbon Dioxide 36 H (22-30) mmol/L BUN 25 H (9-20) mg/dL Creatinine 0.34 L (0.66-1.25) mg/dL Glucose 196 H (74-99) mg/dL POC Glucose (mg/dL) (70-110) mg/dL Assessment and Plan Assessment: Acute hypoxemic respiratory failure, likely on the basis of chronic bronchial asthma exacerbation. Patient required intubation, and mechanical ventilation, and was successfully extubated. Acute on chronic hypercapnic respiratory failure. Type 2 diabetes mellitus. History of Prader-Willi syndrome. History of right lower lobe pneumonia. History of methicillin sensitive Staph aureus cellulitis/dermatitis. Plan: Plan dated November 14, 2024. The patient is seen today in room 351. He is currently on BiPAP, with settings of 12/5, and 60%. Labs, x-rays, and all medications are reviewed. We will continue to follow with patient, make recommendations. Prognosis is certainly guarded. CODE STATUS should be addressed by the primary service. Dictation was produced using [employer] software. Please excuse any grammatical, word or spelling errors. Time with Patient: Less than 30
[2024-11-14 11:12] VITALS: BMI 46.4
[2024-11-14 11:36] LABS: Glucose,Whole Blood 192 mg/dL (70-110)
[2024-11-14 14:25] LABS: Glucose,Whole Blood 178 mg/dL (70-110)
[2024-11-14 16:22] LABS: Glucose,Whole Blood 241 mg/dL (70-110)
[2024-11-14] MEDS: FUROSEMIDE 10 MG/ML 4 ML VIAL IV SCH (18:00)
[2024-11-14 19:45] LABS: Glucose,Whole Blood 398 mg/dL (70-110)
--- NOTE | 2024-11-14 22:21 | P.PN ---
Subjective Progress Note Date: 11/14/24 This is a 34-year-old male who presented to the emergency department from [facility] where he resides with increased shortness of breath and concerns for aspiration. Patient follows with Dr. Rodriguez in the outpatient setting with a past medical history of asthma, diabetes mellitus, hypertension, musculoskeletal disorder, pneumonia, respiratory disorder, sleep apnea, Prader-Willi syndrome with dysphagia, morbid obesity with alveolar hypoventilation yes, obstructive sleep apnea, depression. Patient has mental disabilities and has a primary legal guardian and is considered full code at this time. Patient with difficulty keeping oxygenation on his face will make it extremely difficult to continue with oxygen therapy. Initially ER attempted BiPAP although extremely agitated and unable to tolerate with pulmonary risk management director consulted recommending mechanical ventilation. Labs reviewed on admission reveal a normal white count with a hemoglobin of 13.5, platelets 183, sodium 136 with a potassium of 5.4, carbon dioxide 39, BUN 22, creatinine 0.48 and random glucose was 248. ABGs were done with a pH of 7.39, PCO2 is 70, PO2 318, bicarb is 42. EKG showing sinus rhythm chest x-ray showing stable chest postintubation. Patient was admitted to the ICU. Patient is currently on Precedex and off propofol and home medications are being reviewed and resumed as appropriate. Patient was started on antibiotic empirically and also steroids with breathing treatments. Patient is not wheezing and given sugars are elevated, discussed with pulmonary and will be discontinuing steroids. BNP was not elevated although patient does appear edematous throughout. Patient did receive a few doses of Lasix and is currently maintained on gentle IV hydration. 11/08/2024 Patient is evaluated today in follow up in the intensive care unit. Remains intubated and sedated on the mechanical ventilator. Currently sedated with propofol. Unable to be weaned today from the vent. Chest xray reveals possible fluid over load state, underlying acute infiltrates medial lung bases cannot be excluded. Labs reveal white blood cell count 4.82, hgb 13.3, sodium 133, potassium 4.1, BUN 18, creatinine 0.35. Hemoglobin A1C - 9.6. 11/09/2024 Patient evaluated today in the ICU. Remains intubated and sedated with propofol. Plans to start precedex and weaning trial today. Chest xray today reveals suspected CHF exacerbation/fluid overload state. Underlying acute infiltrates medial lung bases cannot be excluded. Lantus adjusted and blood glucose is significantly improved. 11/10/2024 Patient evaluated today remains in the intensive care unit he remains intubated and sedated on the mechanical ventilator. FiO2 40%. Currently sedated with propofol. Chest xray reveals ongoing CHF with pulmonary vascular congestion. Some interval improvement. Ongoing small right pleural effusion with adjacent atelectasis and or consolidation. Labs today reveal white blood cell count 6.97, hgb 12.9, sodium 137, potassium 4.1, BUN 13, creatinine 0.35. 11/11/2024 Evaluated today in the intensive care unit, remains sedated and intubated on the mechanical ventilator. Chest xray reveals mild cardiomegaly and interstitial change persists, small to moderate right pleural effusion with adjacent atelectasis and or consolidation similar to slightly increased. Patchy retrocardiac opacity similar to increased as well. proBNP was checked and normal at 160. Currently on TF running at 15 mls/hr which is goal rate. Remains on IV solu-medrol. White blood cell count 6.05, hgb 14.1, sodium 139, potassium 4.3, BUN 12, creatinine 0.36. 11/12/2024 Patient is evaluated today in the ICU. He has been extubated. He is asking to go home. He remains on oxygen via nasal cannula at 2L. Chest xray reveals stable findings, correlate for suspected CHF exacerbation/fluid overload state. Underlying acute basilar infiltrates. Labs today reveal white blood cell count 5.09, hgb 14.0, sodium 139, potassium 4.1, BUN 16, creatinine 0.39. 11/13/2024 Patient is evaluated today in follow up in the ICU. He has been extubated and remains on oxygen via nasal cannula at 4L. He is pointing to a sore tooth on the left maxilla and there is a slight redness to the check and mild mandibular swelling. He is noted to have poor dentition and will order a CT panorex to rule out any abscess. Chest xray today reveals persistent cardiomegaly and mild centr al vascular congestion along with small to moderate size right greater than left pleural effusions and bibasilar opacities. Osseous structures are intact. WBC 6.39, hgb 13.9, sodium 140, potassium 4.8, BUN 25, creatinine 0.35. 93% on 3L. He remains NPO and pending follow up with speech therapy. 11/14/2024 Patient is evaluated today in follow up on the stepdown unit. He was moved to the med/surg floor yesterday however was ateamed due to respiratory distress and concern for aspiration. Chest xray reveals worsening central increased opacity suggesting worsening CHF exacerbation fluid overload state. S/P IV lasix 40 mg and patient had 2.4 L of urine output. Echocardiogram reveals EF 55-60%; No pericardial effusion. Currently on 12L hi flow cannula. Review of Systems Constitutional: Denied any fatigue denied any fever. Cardio vascular: denied any chest pain, palpitations Gastrointestinal: denied any nausea, vomiting, diarrhea Pulmonary: Denied any shortness of breath cough Neurologic denied any new focal deficits All inpatient medications were reviewed and appropriate changes in these medications as dictated in the interval history and assessment and plan. PHYSICAL EXAMINATION: GENERAL: The patient is extubated, he is awake alert and oriented, ill- appearing, edematous, morbidly obese HEENT: Pupils are round and equally reacting to light. EOMI. No scleral icterus. No conjunctival pallor. Normocephalic, atraumatic. No pharyngeal erythema. No thyromegaly. left facial erythema CARDIOVASCULAR: S1 and S2 muffled PULMONARY: Diminished breath sounds bilaterally otherwise chest is clear to auscultation, no wheezing or crackles. ABDOMEN: Soft, obese, nontender, nondistended, normoactive bowel sounds. No palpable organomegaly. MUSCULOSKELETAL: No joint swelling or deformity. EXTREMITIES: No cyanosis, clubbing, or pedal edema. Edematous of upper and lower extremities NEUROLOGICAL: Gross neurological examination did not reveal any focal deficits. SKIN: No rashes. Pale, lower extremity discoloration. Deep cracked fissure on right heel. Assessment: Acute on chronic hypoxic respiratory failure, requiring BiPAP initially and then mechanical ventilation; currently extubated Possible right lower lobe pneumonia, although suspicion is low, will order procalcitonin, empirically on antibiotics, likely atelectasis History of mild intermittent asthma with acute exacerbation Volume overload History of Prader-Willi syndrome with developmental delay and muscle weakness Diabetes mellitus, type II, uncontrolled with hyperglycemia History of hypertension History of sleep apnea and morbid obesity with alveolar hypoventilation, does not use a CPAP History of obstructive sleep apnea History of dysphagia History of depression History of recent lower extremity cellulitis with MSSA, treated outpatient Morbid obesity with a BMI of 49.2 GI prophylaxis DVT prophylaxis Full code Plan: Patient was admitted from [facility] where he resides with increasing shortness of breath and difficulty maintaining oxygenation not tolerating much nasal cannula. Initially brought to the ER put on BiPAP although became more obtunded and nonresponsive requiring mechanical ventilation and ICU admission Patient has been extubated and currently on oxygen via nasal cannula at 3L. Continue current regimen and follow-up on repeat labs Blood glucose remains elevated and lantus has been adjusted. Continue accuchecks and sliding scale insulin achs. Continue IV lasix 40 mg [id number] Speech therapy has placed the patient on dysphagia level 1: pureed diet HT liquids and aspiration precautions 1:[address] panorex ordered Possible MBSS early next week Home medications reviewed and resumed as appropriate Prognosis is guarded patient remains full code. Monitor electrolytes and renal function The impression and plan of care has been dictated by Otilia Jarrett, Nurse Practitioner as directed. Dr. Naresh MD I have performed a history and examination and MDM of this patient, discussed the same with the dictator, and agree with the dictator's assessment and plan as written ,documented as a scribe. Based on total visit time, I have performed more than 50% of the visit. Objective - Vital Signs Vital signs: Vital Signs Temp 98.2 F 11/14/24 19:50 Pulse 92 11/14/24 21:57 Resp 20 11/14/24 19:50 BP 157/83 11/14/24 19:50 Pulse Ox 95 11/14/24 19:50 FiO2 60 11/14/24 11:20 Intake & Output 11/14/24 11/14/24 11/15/24 06:59 18:59 06:59 Intake Total 20 Output Total 1100 3250 1200 Balance -1100 -3250 -1180 Weight 94 kg 94 kg Intake: IV 20 Invasive Line 1 10 Invasive Line 2 10 Output: Urine 1100 3250 1200 Other: Voiding Method Indwelling Catheter Indwelling Catheter Indwelling Catheter # Bowel Movements 1 - Labs CBC & Chem 7: 11/14/24 07:54 11/14/24 07:54 Labs: Abnormal Lab Results - Last 24 Hours (Table) 11/14/24 11/14/24 11/14/24 Range/Units 05:16 05:22 06:17 MCHC (32.0-37.0) g/dL Immature Gran # (0.00-0.04) 10*3/uL Lymphocytes # (0.90-5.00) 10*3/uL Eosinophils # (0.04-0.35) 10*3/uL ABG pCO2 64 H (35-45) mmHg ABG HCO3 39 H (21-25) mmol/L ABG Total CO2 41 H (19-24) mmol/L Chloride (98-107) mmol/L Carbon Dioxide (22-30) mmol/L BUN (9-20) mg/dL Creatinine (0.66-1.25) mg/dL Glucose (74-99) mg/dL POC Glucose (mg/dL) 172 H 180 H (70-110) mg/dL 11/14/24 11/14/24 11/14/24 Range/Units 07:54 07:54 11:35 MCHC 31.9 L (32.0-37.0) g/dL Immature Gran # 0.07 H (0.00-0.04) 10*3/uL Lymphocytes # 0.72 L (0.90-5.00) 10*3/uL Eosinophils # 0.00 L (0.04-0.35) 10*3/uL ABG pCO2 (35-45) mmHg ABG HCO3 (21-25) mmol/L ABG Total CO2 (19-24) mmol/L Chloride 97 L (98-107) mmol/L Carbon Dioxide 36 H (22-30) mmol/L BUN 25 H (9-20) mg/dL Creatinine 0.34 L (0.66-1.25) mg/dL Glucose 196 H (74-99) mg/dL POC Glucose (mg/dL) 192 H (70-110) mg/dL 11/14/24 11/14/24 11/14/24 Range/Units 14:23 16:20 19:43 MCHC (32.0-37.0) g/dL Immature Gran # (0.00-0.04) 10*3/uL Lymphocytes # (0.90-5.00) 10*3/uL Eosinophils # (0.04-0.35) 10*3/uL ABG pCO2 (35-45) mmHg ABG HCO3 (21-25) mmol/L ABG Total CO2 (19-24) mmol/L Chloride (98-107) mmol/L Carbon Dioxide (22-30) mmol/L BUN (9-20) mg/dL Creatinine (0.66-1.25) mg/dL Glucose (74-99) mg/dL POC Glucose (mg/dL) 178 H 241 H 398 H (70-110) mg/dL Assessment and Plan Time with Patient: Less than 30
[2024-11-15 05:01] LABS: Glucose,Whole Blood 211 mg/dL (70-110)
[2024-11-15 06:08] LABS: Glucose,Whole Blood 203 mg/dL (70-110)
--- NOTE | 2024-11-15 09:10 | CT ---
EXAMINATION TYPE: CT Panorex DATE OF EXAM: 11/15/2024 COMPARISON: None. CLINICAL INDICATION: Male, 34 years old with history of Left maxillary erythema and swelling; tooth p ain; PHH, LEFT MAXILLARY SWELLING TECHNIQUE: CT of the mandible performed without contrast with sagittal and coronal reformats. CT DLP: 715.9 mGycm Automated exposure control for dose reduction was used. FINDINGS: Lack of dentition in the central maxilla is identified. There are multiple cavitary fillings and kake ns in the bilateral maxillary and mandibular teeth causing streak artifact making evaluation suboptim al. Some anterior lucency adjacent to crown involving left mandibular molar tooth is seen sagittal im age 56 suspicious for small cavity. Advise nonemergent dental follow-up to further evaluate. No signi ficant soft tissue fat stranding or well-formed fluid collection/abscess. Moderate to severe mucosal thickening in the right maxillary sinus. There is mild/moderate opacificat ion of the right ethmoid sinuses there is old fracture deformity medial wall right orbit. IMPRESSION: Possible left mandibular molar small cavity. No significant soft tissue inflammatory change. [facility], , 11/15/2024 9:08 AM
[2024-11-15 09:21] LABS: Basophils # (A) 0.02 10*3/uL (0.00-0.10); Basophils % (A) 0.2 %; HCT 50.4 % (39.6-50.0); HGB 15.8 g/dL (13.0-17.0); Lymphocytes # (A) 0.64 10*3/uL (0.90-5.00); Lymphocytes % (A) 5.7 %; MCH 30.2 pg (27.0-32.0); MCHC 31.3 g/dL (32.0-37.0); MCV 96.4 fL (80.0-97.0); Mean Platelet Volume 11.2 fL (9.5-12.2); Monocytes # (A) 0.94 10*3/uL (0.20-1.00); Monocytes % (A) 8.3 %; Neutrophils # (A) 9.58 10*3/uL (1.80-7.70); Neutrophils % (A) 84.6 %; Platelet Count 243 10*3/uL (140-440); RBC 5.23 10*6/uL (4.40-5.60); RDW 12.8 % (11.5-14.5); WBC 11.32 10*3/uL (4.50-10.00)
[2024-11-15 09:37] LABS: African American GFR (CKD) >90 (>60 ml/min/1.73 sqM); Anion Gap 8 mmol/L; Blood Urea Nitrogen 25 mg/dL (9-20); Calcium 9.6 mg/dL (8.4-10.2); Carbon Dioxide 39 mmol/L (22-30); Chloride 89 mmol/L (98-107); Glucose 497 mg/dL (74-99); Non-African American GFR(CKD) >90 (>60 ml/min/1.73 sqM); Potassium 3.7 mmol/L (3.5-5.1); Sodium 136 mmol/L (137-145)
--- NOTE | 2024-11-15 09:46 | P.PN ---
Subjective Progress Note Date: 11/15/24 Principal diagnosis: Respiratory distress. This is a 34-year-old white male with history of Prader-Willi syndrome, patient was sent from [facility] for evaluation of shortness of breath for the last few days. Patient is known to have history of asthma and he was ba sically receiving treatment on outpatient basis for presumptive pneumonia. His shortness of breath has become worse and his O2 saturation was noted to be very low while at the [facility]. Patient was sent to the ER, initially managed with BiPAP, however patient continued to do poorly in spite of BiPAP, after few hours of being on BiPAP, ABG was checked and his pO2 was 91 pCO2 over 98 pH was 7.25, patient became more and more obtunded hence he was intubated and placed on ventilatory support. Patient is on assist-control rate of 22, tidal volume 350 FiO2 at 50% and PEEP at 5. ABG is pending. Last ABG showed a pO2 of 318 pCO2 70 pH of 7.39. Dramatically improved after intubation mechanical ventilation, and considering the patient has a pCO2 of 70 with a pH of 7.39 that implies that the patient has chronic hypercapnic respiratory failure with adequate metabolic compensation. Patient is on propofol at 25 mcg/kg/min he is on IV fluid 0.9 at 75 cc/h and he is sedated, could not assess the patient mentally hence I recommended stopping propofol and starting the patient on Precedex the plan is to awaken the patient and give the patient at least a weaning trial if possible today. WBC count is 5.11 hemoglobin 15.5, electrolytes were noted to be normal renal profile is normal, chest x-ray this morning showed cardiomegaly and right basilar opacity, possible atelectasis involving the right lower lobe. Initial chest x-ray in the ER showed no evidence of infiltrate or atelectasis. Patient was seen today on 11/08/2024, remains in the ICU intubated and mechanically ventilated, patient is on assist-control rate of 22 tidal volume 350 FiO2 50% and PEEP of 5 ABG showed a pO2 of 110 pCO2 47 pH of 7.45, patient is on propofol at 35 mcg/kg/min IV fluid is 0.9 at 75 cc/h. Patient remains empirically on antibiotics,/ceftriaxone. Remains on bronchodilators, GI and DVT prophylaxis, and the patient is receiving enteral feeding/nutritional support. Patient is also on multiple seizure medications considering his seizure history. Patient is sedated, it is difficult to assess his mental status as he seems to be arousable but does not follow any instructions, seems to be a bit confused, went ahead and recommended stopping propofol and starting the patient on Precedex, and hopefully we can get to the point where he can assess mental status fully off propofol. Labs today were reviewed CBC is basically unremarkable. Electrolytes are normal renal profile is normal, blood sugar is 298. Chest x-ray showed stable findings, minimal basilar atelectasis and slight prominence of the pulmonary vasculature. Endotracheal tube seems to be in proper position. Patient was seen today on 11/09/2024, patient remains in the ICU, intubated and mechanically ventilated, attempts have been made over the last 2 days to wean and extubate the patient, patient has been extremely difficult to wean. Yesterday the patient lasted less than half an hour and he was extremely tachypneic, tachycardic, could not tolerate even pressure support of 12 and CPAP for more than half an hour. Patient had to be placed back on full ventilatory support and placed back on propofol. We have tried again doing the same thing, and the patient again did not seem to do well. Patient is known to have history of Prader-Willi syndrome, and it is not surprising that the patient has profound muscle weakness with chronic hypercapnia he may eventually require tracheostomy and PEG tube placement. However my understanding today that the legal guardian is petitioning the court Sunday, and the plan is to consider comfort care measures on this patient in the next couple of days. Considering this, will not consult for tracheostomy and PEG tube placement, and will not arrange for central line or arterial line placement at this point. We are managing the patient well with peripheral lines. WBC count is 5.9 hemoglobin 13.4 his ABG today showed a pO2 of 228 pCO2 57 pH of 7.36 and this was on FiO2 of 45% hence FiO2 was cut down to 40%. Basic metabolic profile is normal, bicarb is 31. Renal profile is normal. Chest x-ray showed mostly minimal interstitial prominence, no clear-cut evidence of pneumonia although underlying infiltrates not completely excluded. Patient remains empirically on antibiotics. The findings on the chest x-ray are mostly findings of bibasilar atelectasis. 11/10/2024 patient seen and examined at bedside. Patient intubated, sedated and on mechanical ventilation. No acute events overnight. Legal guardian from [employer] mentions that they were not aware of plans for change of code status and no process initiated as it requires documentation that patient is clinically deteriorating. Current ventilator settings are volume control with a rate of 22, tidal volume 350, FiO2 40 and a PEEP of 5. Drips currently running are propofol 50 mcg/kg/hr, 0.9 normal saline 75 cc/h. Enteral feeding with [employer] 1.4 at 15ml/hr. Chest x-ray today showed ongoing CHF with pulmonary vascular congestion with some interval improvement, ongoing right pleural effusion with adjacent atelectasis and/for consultation. Labs: WBC 6.97, hemoglobin 12.9, platelet count 1 54,000, potassium 4.1, ch loride 105, bicarb 26, BUN 13, creatinine 0.35, glucose 192, calcium 8.5. ABG pH of 7.38, PCO2 52, PO2 113 11/11/2024 patient seen and examined at bedside in the ICU. Patient intubated, sedated and on mechanical ventilation. No acute events overnight. Current ventilator settings are volume control with a rate of 22, tidal volume 350, FiO2 40 and a PEEP of 5. Drips currently running are propofol 50 mcg/kg/hr, 0.9 normal saline 75 cc/h. Enteral feeding with [employer] 1.4 at 15ml/hr. Labs: WBC 6.05, hemoglobin 14.1, sodium 139, potassium 4.3, bicarb 27, calcium 9.3, magnesium 1.9, BUN 12, creatinine 0.36, glucose 315. ABG showed PO2 93, pCO2 41, pH 7.44 Imaging; persistent mild cardiomegaly and interstitial changes, small to moderate right pleural effusion with adjacent atelectasis and/or consolidation and patchy retrocardiac opacity 11/12/2024 patient seen and examined at bedside in the ICU. Patient intubated, sedated and on mechanical ventilation. No acute events overnight. Attempted DIS SBT yesterday but patient failed due to rapid and shallow breathing with tachycardia despite being off sedation. Current IV drips are propofol 50mcg/kg/hr, enteral feeding with [employer] 1.4 at 15ml/hr. Labs: WBC 5.09, hemoglobin 14, platelet count 200,000, sodium 139, potassium 4.1, bicarb 27, calcium 9.9, glucose 277, BUN 16, creatinine 0.39. ABG showed PO2 82, pCO2 46, pH 7.42. Sputum culture negative Imaging; chest x-ray today independently interpreted showed overall stable findings with cardiomegaly, noted basilar infiltrates 11/13/2024 patient seen and examined at bedside in the ICU. Patient was successful with spontaneous breathing trial and was extubated. No acute events overnight. No new complaints or symptoms. Attempted DIS SBT yesterday and was successful, patient was extubated around 10 AM. Failed swallow eval postextubation yesterday. Currently on n.p.o. Labs: WBC 6.3, hemoglobin 13.9, sodium 140, potassium 4.8, bicarb 29, BUN 25, creatinine 0.35, glucose 126, calcium 9.9 Imaging; chest x-ray today showed stable small to moderate-sized right greater than left pleural effusions and bibasilar acute infiltrates and/or atelectasis. Progress note dated November 14, 2024. 34-year-old male seen today in room 351. The patient was previously on the ventilator, in the intensive care unit. He was successfully extubated, transferred out. Yesterday he developed some respiratory difficulty, he was transferred down to the third floor, and placed on BiPAP, with settings of 12/5, 60%. The patient is getting saline at 20 cc an hour. This morning, the patient had a sitter in the hospital room, and the patient was hoping to eat. I did tell the nurse, Karla, to have respiratory change him to nasal O2, so that he could eat. Current labs include a white count 9.2, hemoglobin 14.8, hematocrit 46.4, and a platelet count of 240,000. Blood gases this morning showed a pO2 of 83, pCO2 64, and a pH of 7.39. Sodium 142, potassium 4.3, chlorides 97, CO2 36, BUN 25, and creatinine 0.34. Chest x-ray was consistent with CHF. Progress note dated November 15, 2024. 34-year-old male again seen today in room 351. The patient is currently on high flow nasal O2, 10 L. He is not receiving any IV fluids. He apparently did not wear the BiPAP last night. He is calling for his mother, this morning, while in the room. White count is 11.3, hemoglobin 15.8, hematocrit 50.4, platelet count 243,000. Sodium 136, potassium 3.7, chlorides 89, CO2 39, BUN 25, creatinine 0.50. Glucose was 497. Calcium was 9.6. Objective - Vital Signs Vital signs: Vital Signs Temp 97.6 F 11/15/24 04:55 Pulse 73 11/15/24 07:39 Resp 22 11/15/24 04:55 BP 122/77 11/15/24 04:55 Pulse Ox 95 11/15/24 07:28 FiO2 60 11/14/24 11:20 Intake & Output 11/14/24 11/15/24 11/15/24 18:59 06:59 18:59 Intake Total 50 180 Output Total 3250 2650 Balance -3250 -2600 180 Weight 94 kg 94 kg Intake: IV 50 Invasive Line 1 20 Invasive Line 2 20 Invasive Line 3 10 Oral 180 Output: Urine 3250 2650 Other: Voiding Method Indwelling Catheter Indwelling Catheter # Bowel Movements 1 - Exam No acute distress, currently on 10 L high flow nasal cannula. HEENT examination is grossly unremarkable. Mucous membranes are moist. No oral lesions. Neck supple. Full range of motion. No adenopathy thyromegaly or neck vein distention. Cardiovascular examination reveals regular rhythm rate. S1-S2 normal. No S3 or S4. No discernible murmur noted. Heart sounds are distant. Lungs reveal bibasilar crackles. No wheezes or rhonchi. Breath sounds equal bilaterally. Abdomen soft bowel sounds are heard. No masses or tenderness. Central obesity. Extremities are intact. No cyanosis or clubbing. Mild lower extremity edema. Skin is without rash or lesion. Neurologic examination is brief but nonfocal. - Labs CBC & Chem 7: 11/15/24 08:34 11/15/24 08:34 Labs: Abnormal Lab Results - Last 24 Hours (Table) 11/14/24 11/14/24 11/14/24 Range/Units 11:35 14:23 16:20 WBC (4.50-10.00) 10*3/uL Hct (39.6-50.0) % MCHC (32.0-37.0) g/dL Immature Gran # (0.00-0.04) 10*3/uL Neutrophils # (1.80-7.70) 10*3/uL Lymphocytes # (0.90-5.00) 10*3/uL Eosinophils # (0.04-0.35) 10*3/uL Sodium (137-145) mmol/L Chloride (98-107) mmol/L Carbon Dioxide (22-30) mmol/L BUN (9-20) mg/dL Creatinine (0.66-1.25) mg/dL Glucose (74-99) mg/dL POC Glucose (mg/dL) 192 H 178 H 241 H (70-110) mg/dL 11/14/24 11/15/24 11/15/24 Range/Units 19:43 04:58 06:06 WBC (4.50-10.00) 10*3/uL Hct (39.6-50.0) % MCHC (32.0-37.0) g/dL Immature Gran # (0.00-0.04) 10*3/uL Neutrophils # (1.80-7.70) 10*3/uL Lymphocytes # (0.90-5.00) 10*3/uL Eosinophils # (0.04-0.35) 10*3/uL Sodium (137-145) mmol/L Chloride (98-107) mmol/L Carbon Dioxide (22-30) mmol/L BUN (9-20) mg/dL Creatinine (0.66-1.25) mg/dL Glucose (74-99) mg/dL POC Glucose (mg/dL) 398 H 211 H 203 H (70-110) mg/dL 11/15/24 11/15/24 Range/Units 08:34 08:34 WBC 11.32 H (4.50-10.00) 10*3/uL Hct 50.4 H (39.6-50.0) % MCHC 31.3 L (32.0-37.0) g/dL Immature Gran # 0.14 H (0.00-0.04) 10*3/uL Neutrophils # 9.58 H (1.80-7.70) 10*3/uL Lymphocytes # 0.64 L (0.90-5.00) 10*3/uL Eosinophils # 0.00 L (0.04-0.35) 10*3/uL Sodium 136 L (137-145) mmol/L Chloride 89 L (98-107) mmol/L Carbon Dioxide 39 H (22-30) mmol/L BUN 25 H (9-20) mg/dL Creatinine 0.50 L (0.66-1.25) mg/dL Glucose 497 H (74-99) mg/dL POC Glucose (mg/dL) (70-110) mg/dL Assessment and Plan Assessment: Acute hypoxemic respiratory failure, likely on the basis of chronic bronchial asthma exacerbation. Patient required intubation, and mechanical ventilation, and was successfully extubated. Acute on chronic hypercapnic respiratory failure. Type 2 diabetes mellitus. History of Prader-Willi syndrome. History of right lower lobe pneumonia. History of methicillin sensitive Staph aureus cellulitis/dermatitis. Plan: Plan dated November 14, 2024. The patient is seen today in room 351. He is currently on BiPAP, with settings of 12/5, and 60%. Labs, x-rays, and all medications are reviewed. We will continue to follow with patient, make recommendations. Prognosis is certainly guarded. CODE STATUS should be addressed by the primary service. Dictation was produced using [employer] software. Please excuse any grammatical, word or spelling errors. Plan dated November 15, 2024. The patient is seen today in room 351. The patient is currently on 10 L high flow nasal O2. Labs, x-rays, medications are reviewed. He is not receiving any IV fluids. The patient did not require the use of BiPAP last night. We will continue to follow the patient, make recommendations. CODE STATUS should be addressed by the primary service. Dictation was produced using [employer] software. Please excuse any grammatical, word or spelling errors. Time with Patient: Less than 30
[2024-11-15 11:04] LABS: Glucose,Whole Blood 394 mg/dL (70-110)
[2024-11-15] MEDS: INSULIN GLARGINE (LANTUS) 100 UNIT/ML SYR SQ STA (11:22)
--- NOTE | 2024-11-15 14:31 | P.PN ---
Subjective Progress Note Date: 11/15/24 This is a 34-year-old male who presented to the emergency department from [facility] where he resides with increased shortness of breath and concerns for aspiration. Patient follows with Dr. Rodriguez in the outpatient setting with a past medical history of asthma, diabetes mellitus, hypertension, musculoskeletal disorder, pneumonia, respiratory disorder, sleep apnea, Prader-Willi syndrome with dysphagia, morbid obesity with alveolar hypoventilation yes, obstructive sleep apnea, depression. Patient has mental disabilities and has a primary legal guardian and is considered full code at this time. Patient with difficulty keeping oxygenation on his face will make it extremely difficult to continue with oxygen therapy. Initially ER attempted BiPAP although extremely agitated and unable to tolerate with pulmonary research clerk consulted recommending mechanical ventilation. Labs reviewed on admission reveal a normal white count with a hemoglobin of 13.5, platelets 183, sodium 136 with a potassium of 5.4, carbon dioxide 39, BUN 22, creatinine 0.48 and random glucose was 248. ABGs were done with a pH of 7.39, PCO2 is 70, PO2 318, bicarb is 42. EKG showing sinus rhythm chest x-ray showing stable chest postintubation. Patient was admitted to the ICU. Patient is currently on Precedex and off propofol and home medications are being reviewed and resumed as appropriate. Patient was started on antibiotic empirically and also steroids with breathing treatments. Patient is not wheezing and given sugars are elevated, discussed with pulmonary and will be discontinuing steroids. BNP was not elevated although patient does appear edematous throughout. Patient did receive a few doses of Lasix and is currently maintained on gentle IV hydration. 11/08/2024 Patient is evaluated today in follow up in the intensive care unit. Remains intubated and sedated on the mechanical ventilator. Currently sedated with propofol. Unable to be weaned today from the vent. Chest xray reveals possible fluid over load state, underlying acute infiltrates medial lung bases cannot be excluded. Labs reveal white blood cell count 4.82, hgb 13.3, sodium 133, potassium 4.1, BUN 18, creatinine 0.35. Hemoglobin A1C - 9.6. 11/09/2024 Patient evaluated today in the ICU. Remains intubated and sedated with propofol. Plans to start precedex and weaning trial today. Chest xray today reveals suspected CHF exacerbation/fluid overload state. Underlying acute infiltrates medial lung bases cannot be excluded. Lantus adjusted and blood glucose is significantly improved. 11/10/2024 Patient evaluated today remains in the intensive care unit he remains intubated and sedated on the mechanical ventilator. FiO2 40%. Currently sedated with propofol. Chest xray reveals ongoing CHF with pulmonary vascular congestion. Some interval improvement. Ongoing small right pleural effusion with adjacent atelectasis and or consolidation. Labs today reveal white blood cell count 6.97, hgb 12.9, sodium 137, potassium 4.1, BUN 13, creatinine 0.35. 11/11/2024 Evaluated today in the intensive care unit, remains sedated and intubated on the mechanical ventilator. Chest xray reveals mild cardiomegaly and interstitial change persists, small to moderate right pleural effusion with adjacent atelectasis and or consolidation similar to slightly increased. Patchy retrocardiac opacity similar to increased as well. proBNP was checked and normal at 160. Currently on TF running at 15 mls/hr which is goal rate. Remains on IV solu-medrol. White blood cell count 6.05, hgb 14.1, sodium 139, potassium 4.3, BUN 12, creatinine 0.36. 11/12/2024 Patient is evaluated today in the ICU. He has been extubated. He is asking to go home. He remains on oxygen via nasal cannula at 2L. Chest xray reveals stable findings, correlate for suspected CHF exacerbation/fluid overload state. Underlying acute basilar infiltrates. Labs today reveal white blood cell count 5.09, hgb 14.0, sodium 139, potassium 4.1, BUN 16, creatinine 0.39. 11/13/2024 Patient is evaluated today in follow up in the ICU. He has been extubated and remains on oxygen via nasal cannula at 4L. He is pointing to a sore tooth on the left maxilla and there is a slight redness to the check and mild mandibular swelling. He is noted to have poor dentition and will order a CT panorex to rule out any abscess. Chest xray today reveals persistent cardiomegaly and mild centr al vascular congestion along with small to moderate size right greater than left pleural effusions and bibasilar opacities. Osseous structures are intact. WBC 6.39, hgb 13.9, sodium 140, potassium 4.8, BUN 25, creatinine 0.35. 93% on 3L. He remains NPO and pending follow up with speech therapy. 11/14/2024 Patient is evaluated today in follow up on the stepdown unit. He was moved to the med/surg floor yesterday however was ateamed due to respiratory distress and concern for aspiration. Chest xray reveals worsening central increased opacity suggesting worsening CHF exacerbation fluid overload state. S/P IV lasix 40 mg and patient had 2.4 L of urine output. Echocardiogram reveals EF 55-60%; No pericardial effusion. Currently on 12L hi flow cannula. 11/15/2024 Patient is evaluated in follow-up on the medical floor. He continues to call out that he is hungry and requesting a burger although he i continued on a pured diet at this time. He continues on IV Lasix 40 mg every 12 hours with significant urine output of 8.5 L in the last 24 hours. Labs today reveal a sodium level of 136, BUN of 25 creatinine of 0.50. His blood glucose is elevated. He is currently down to an 8 L high flow cannula. The CT Panorex has been completed revealing a possible left indibulin molar small cavity. No significant soft tissue inflammatory change. Review of Systems Constitutional: Denied any fatigue denied any fever. Cardio vascular: denied any chest pain, palpitations Gastrointestinal: denied any nausea, vomiting, diarrhea Pulmonary: Denied any shortness of breath cough Neurologic denied any new focal deficits All inpatient medications were reviewed and appropriate changes in these me dications as dictated in the interval history and assessment and plan. PHYSICAL EXAMINATION: GENERAL: The patient is extubated, he is awake alert and oriented, ill- appearing, edematous, morbidly obese HEENT: Pupils are round and equally reacting to light. EOMI. No scleral icterus. No conjunctival pallor. Normocephalic, atraumatic. No pharyngeal erythema. No thyromegaly. left facial erythema CARDIOVASCULAR: S1 and S2 muffled PULMONARY: Diminished breath sounds bilaterally otherwise chest is clear to auscultation, no wheezing or crackles. ABDOMEN: Soft, obese, nontender, nondistended, normoactive bowel sounds. No palpable organomegaly. MUSCULOSKELETAL: No joint swelling or deformity. EXTREMITIES: No cyanosis, clubbing, or pedal edema. Edematous of upper and lower extremities NEUROLOGICAL: Gross neurological examination did not reveal any focal deficits. SKIN: No rashes. Pale, lower extremity discoloration. Deep cracked fissure on right heel. Assessment: Acute on chronic hypoxic respiratory failure, requiring BiPAP initially and then mechanical ventilation; currently extubated Possible right lower lobe pneumonia, although suspicion is low, will order procalcitonin, empirically on antibiotics, likely atelectasis History of mild intermittent asthma with acute exacerbation Volume overload History of Prader-Willi syndrome with developmental delay and muscle weakness Diabetes mellitus, type II, uncontrolled with hyperglycemia History of hypertension History of sleep apnea and morbid obesity with alveolar hypoventilation, does not use a CPAP History of obstructive sleep apnea History of dysphagia History of depression History of recent lower extremity cellulitis with MSSA, treated outpatient Morbid obesity with a BMI of 49.2 GI prophylaxis DVT prophylaxis Full code Plan: Patient was admitted from [facility] where he resides with increasing shortness of breath and difficulty maintaining oxygenation not tolerating much nasal cannula. Initially brought to the ER put on BiPAP although became more obtunded and nonresponsive requiring mechanical ventilation and ICU admission Patient has been extubated and currently on oxygen via nasal cannula at 3L. Continue current regimen and follow-up on repeat labs Blood glucose remains elevated and lantus has been adjusted. Continue accuchecks and sliding scale insulin achs. Decreased Lasix to 20 mg every 12 hours to the IV Speech therapy has placed the patient on dysphagia level 1: pureed diet HT liquids and aspiration precautions 1:1 supervision. Possible MBSS early next week Home medications reviewed and resumed as appropriate Prognosis is guarded patient remains full code. Monitor electrolytes and renal function Return to the [facility] on discharge The impression and plan of care has been dictated by Otilia Jarrett, Nurse Practitioner as directed. Dr. Naresh MD I have performed a history and examination and MDM of this patient, discussed the same with the dictator, and agree with the dictator's assessment and plan as written ,documented as a scribe. Based on total visit time, I have performed more than 50% of the visit. Objective - Vital Signs Vital signs: Vital Signs Temp 98.2 F 11/15/24 12:00 Pulse 72 11/15/24 12:00 Resp 18 11/15/24 12:00 BP 128/79 11/15/24 12:00 Pulse Ox 96 11/15/24 12:00 FiO2 60 11/14/24 11:20 Intake & Output 11/14/24 11/15/2425 18:59 06:59 18:59 Intake Total 50 180 Output Total 3250 2650 1500 Balance -3250 -2600 -1320 Weight 94 kg 94 kg Intake: IV 50 Invasive Line 1 20 Invasive Line 2 20 Invasive Line 3 10 Oral 180 Output: Urine 3250 2650 1500 Other: Voiding Method Indwelling Catheter Indwelling Catheter Indwelling Catheter # Bowel Movements 1 2 - Labs CBC & Chem 7: 11/15/24 08:34 11/15/24 08:34 Labs: Abnormal Lab Results - Last 24 Hours (Table) 11/14/24 11/14/24 11/15/24 Range/Units 16:20 19:43 04:58 WBC (4.50-10.00) 10*3/uL Hct (39.6-50.0) % MCHC (32.0-37.0) g/dL Immature Gran # (0.00-0.04) 10*3/uL Neutrophils # (1.80-7.70) 10*3/uL Lymphocytes # (0.90-5.00) 10*3/uL Eosinophils # (0.04-0.35) 10*3/uL Sodium (137-145) mmol/L Chloride (98-107) mmol/L Carbon Dioxide (22-30) mmol/L BUN (9-20) mg/dL Creatinine (0.66-1.25) mg/dL Glucose (74-99) mg/dL POC Glucose (mg/dL) 241 H 398 H 211 H (70-110) mg/dL 11/15/24 11/15/24 11/15/24 Range/Units 06:06 08:34 08:34 WBC 11.32 H (4.50-10.00) 10*3/uL Hct 50.4 H (39.6-50.0) % MCHC 31.3 L (32.0-37.0) g/dL Immature Gran # 0.14 H (0.00-0.04) 10*3/uL Neutrophils # 9.58 H (1.80-7.70) 10*3/uL Lymphocytes # 0.64 L (0.90-5.00) 10*3/uL Eosinophils # 0.00 L (0.04-0.35) 10*3/uL Sodium 136 L (137-145) mmol/L Chloride 89 L (98-107) mmol/L Carbon Dioxide 39 H (22-30) mmol/L BUN 25 H (9-20) mg/dL Creatinine 0.50 L (0.66-1.25) mg/dL Glucose 497 H (74-99) mg/dL POC Glucose (mg/dL) 203 H (70-110) mg/dL 11/15/24 Range/Units 11:01 WBC (4.50-10.00) 10*3/uL Hct (39.6-50.0) % MCHC (32.0-37.0) g/dL Immature Gran # (0.00-0.04) 10*3/uL Neutrophils # (1.80-7.70) 10*3/uL Lymphocytes # (0.90-5.00) 10*3/uL Eosinophils # (0.04-0.35) 10*3/uL Sodium (137-145) mmol/L Chloride (98-107) mmol/L Carbon Dioxide (22-30) mmol/L BUN (9-20) mg/dL Creatinine (0.66-1.25) mg/dL Glucose (74-99) mg/dL POC Glucose (mg/dL) 394 H (70-110) mg/dL Assessment and Plan Time with Patient: Less than 30
[2024-11-15 16:22] LABS: Glucose,Whole Blood 345 mg/dL (70-110)
[2024-11-15] MEDS: FUROSEMIDE 10 MG/ML 4 ML VIAL IV SCH (16:53)
[2024-11-15] MEDS: INSULIN LISPRO (HumaLOG) 100 UNIT/ML 10 mL VL SQ SCH (16:54)
[2024-11-15 19:49] LABS: Glucose,Whole Blood 318 mg/dL (70-110)
[2024-11-15] MEDS: INSULIN GLARGINE (LANTUS) 100 UNIT/ML SYR SQ SCH (20:06)
[2024-11-15 23:25] LABS: Glucose,Whole Blood 197 mg/dL (70-110)
[2024-11-16] MEDS: LORazepam 1 MG/0.5 ML VIAL IV PRN (05:50)
[2024-11-16 06:18] LABS: Glucose,Whole Blood 169 mg/dL (70-110)
[2024-11-16 08:10] LABS: African American GFR (CKD) >90 (>60 ml/min/1.73 sqM); Blood Urea Nitrogen 21 mg/dL (9-20); Calcium 10.1 mg/dL (8.4-10.2); Chloride 91 mmol/L (98-107); Glucose 195 mg/dL (74-99); Non-African American GFR(CKD) >90 (>60 ml/min/1.73 sqM); Potassium 3.6 mmol/L (3.5-5.1); Sodium 140 mmol/L (137-145)
[2024-11-16 08:17] LABS: Anion Gap 11 mmol/L
--- NOTE | 2024-11-16 08:38 | P.PN ---
Subjective Progress Note Date: 11/16/24 Principal diagnosis: Respiratory distress. This is a 34-year-old white male with history of Prader-Willi syndrome, patient was sent from [facility] for evaluation of shortness of breath for the last few days. Patient is known to have history of asthma and he was ba sically receiving treatment on outpatient basis for presumptive pneumonia. His shortness of breath has become worse and his O2 saturation was noted to be very [facility] the [facility]. Patient was sent to the ER, initially managed with BiPAP, however patient continued to do poorly in spite of BiPAP, after few hours of being on BiPAP, ABG was checked and his pO2 was 91 pCO2 over 98 pH was 7.25, patient became more and more obtunded hence he was intubated and placed on ventilatory support. Patient is on assist-control rate of 22, tidal volume 350 FiO2 at 50% and PEEP at 5. ABG is pending. Last ABG showed a pO2 of 318 pCO2 70 pH of 7.39. Dramatically improved after intubation mechanical ventilation, and considering the patient has a pCO2 of 70 with a pH of 7.39 that implies that the patient has chronic hypercapnic respiratory failure with adequate metabolic compensation. Patient is on propofol at 25 mcg/kg/min he is on IV fluid 0.9 at 75 cc/h and he is sedated, could not assess the patient mentally hence I recommended stopping propofol and starting the patient on Precedex the plan is to awaken the patient and give the patient at least a weaning trial if possible today. WBC count is 5.11 hemoglobin 15.5, electrolytes were noted to be normal renal profile is normal, chest x-ray this morning showed cardiomegaly and right basilar opacity, possible atelectasis involving the right lower lobe. Initial chest x-ray in the ER showed no evidence of infiltrate or atelectasis. Patient was seen today on 11/08/2024, remains in the ICU intubated and mechanically ventilated, patient is on assist-control rate of 22 tidal volume 350 FiO2 50% and PEEP of 5 ABG showed a pO2 of 110 pCO2 47 pH of 7.45, patient is on propofol at 35 mcg/kg/min IV fluid is 0.9 at 75 cc/h. Patient remains empirically on antibiotics,/ceftriaxone. Remains on bronchodilators, GI and DVT prophylaxis, and the patient is receiving enteral feeding/nutritional support. Patient is also on multiple seizure medications considering his seizure history. Patient is sedated, it is difficult to assess his mental status as he seems to be arousable but does not follow any instructions, seems to be a bit confused, went ahead and recommended stopping propofol and starting the patient on Precedex, and hopefully we can get to the point where he can assess mental status fully off propofol. Labs today were reviewed CBC is basically unremarkable. Electrolytes are normal renal profile is normal, blood sugar is 298. Chest x-ray showed stable findings, minimal basilar atelectasis and slight prominence of the pulmonary vasculature. Endotracheal tube seems to be in proper position. Patient was seen today on 11/09/2024, patient remains in the ICU, intubated and mechanically ventilated, attempts have been made over the last 2 days to wean and extubate the patient, patient has been extremely difficult to wean. Yesterday the patient lasted less than half an hour and he was extremely tachypneic, tachycardic, could not tolerate even pressure support of 12 and CPAP for more than half an hour. Patient had to be placed back on full ventilatory support and placed back on propofol. We have tried again doing the same thing, and the patient again did not seem to do well. Patient is known to have history of Prader-Willi syndrome, and it is not surprising that the patient has profound muscle weakness with chronic hypercapnia he may eventually require tracheostomy and PEG tube placement. However my understanding today that the legal guardian is petitioning the court Sunday, and the plan is to consider comfort care measures on this patient in the next couple of days. Considering this, will not consult for tracheostomy and PEG tube placement, and will not arrange for central line or arterial line placement at this point. We are managing the patient well with peripheral lines. WBC count is 5.9 hemoglobin 13.4 his ABG today showed a pO2 of 228 pCO2 57 pH of 7.36 and this was on FiO2 of 45% hence FiO2 was cut down to 40%. Basic metabolic profile is normal, bicarb is 31. Renal profile is normal. Chest x-ray showed mostly minimal interstitial prominence, no clear-cut evidence of pneumonia although underlying infiltrates not completely excluded. Patient remains empirically on antibiotics. The findings on the chest x-ray are mostly findings of bibasilar atelectasis. 11/10/2024 patient seen and examined at bedside. Patient intubated, sedated and on mechanical ventilation. No acute events overnight. Legal guardian from [employer] mentions that they were not aware of plans for change of code status and no process initiated as it requires documentation that patient is clinically deteriorating. Current ventilator settings are volume control with a rate of 22, tidal volume 350, FiO2 40 and a PEEP of 5. Drips currently running are propofol 50 mcg/kg/hr, 0.9 normal saline 75 cc/h. Enteral feeding with [employer] 1.4 at 15ml/hr. Chest x-ray today showed ongoing CHF with pulmonary vascular congestion with some interval improvement, ongoing right pleural effusion with adjacent atelectasis and/for consultation. Labs: WBC 6.97, hemoglobin 12.9, platelet count 1 54,000, potassium 4.1, ch loride 105, bicarb 26, BUN 13, creatinine 0.35, glucose 192, calcium 8.5. ABG pH of 7.38, PCO2 52, PO2 113 11/11/2024 patient seen and examined at bedside in the ICU. Patient intubated, sedated and on mechanical ventilation. No acute events overnight. Current ventilator settings are volume control with a rate of 22, tidal volume 350, FiO2 40 and a PEEP of 5. Drips currently running are propofol 50 mcg/kg/hr, 0.9 normal saline 75 cc/h. Enteral feeding with [employer] 1.4 at 15ml/hr. Labs: WBC 6.05, hemoglobin 14.1, sodium 139, potassium 4.3, bicarb 27, calcium 9.3, magnesium 1.9, BUN 12, creatinine 0.36, glucose 315. ABG showed PO2 93, pCO2 41, pH 7.44 Imaging; persistent mild cardiomegaly and interstitial changes, small to moderate right pleural effusion with adjacent atelectasis and/or consolidation and patchy retrocardiac opacity 11/12/2024 patient seen and examined at bedside in the ICU. Patient intubated, sedated and on mechanical ventilation. No acute events overnight. Attempted DIS SBT yesterday but patient failed due to rapid and shallow breathing with tachycardia despite being off sedation. Current IV drips are propofol 50mcg/kg/hr, enteral feeding with [employer] 1.4 at 15ml/hr. Labs: WBC 5.09, hemoglobin 14, platelet count 200,000, sodium 139, potassium 4.1, bicarb 27, calcium 9.9, glucose 277, BUN 16, creatinine 0.39. ABG showed PO2 82, pCO2 46, pH 7.42. Sputum culture negative Imaging; chest x-ray today independently interpreted showed overall stable findings with cardiomegaly, noted basilar infiltrates 11/13/2024 patient seen and examined at bedside in the ICU. Patient was successful with spontaneous breathing trial and was extubated. No acute events overnight. No new complaints or symptoms. Attempted DIS SBT yesterday and was successful, patient was extubated around 10 AM. Failed swallow eval postextubation yesterday. Currently on n.p.o. Labs: WBC 6.3, hemoglobin 13.9, sodium 140, potassium 4.8, bicarb 29, BUN 25, creatinine 0.35, glucose 126, calcium 9.9 Imaging; chest x-ray today showed stable small to moderate-sized right greater than left pleural effusions and bibasilar acute infiltrates and/or atelectasis. Progress note dated November 14, 2024. 34-year-old male seen today in room 351. The patient was previously on the ventilator, in the intensive care unit. He was successfully extubated, transferred out. Yesterday he developed some respiratory difficulty, he was transferred down to the third floor, and placed on BiPAP, with settings of 12/5, 60%. The patient is getting saline at 20 cc an hour. This morning, the patient had a sitter in the hospital room, and the patient was hoping to eat. I did tell the nurse, Karla, to have respiratory change him to nasal O2, so that he could eat. Current labs include a white count 9.2, hemoglobin 14.8, hematocrit 46.4, and a platelet count of 240,000. Blood gases this morning showed a pO2 of 83, pCO2 64, and a pH of 7.39. Sodium 142, potassium 4.3, chlorides 97, CO2 36, BUN 25, and creatinine 0.34. Chest x-ray was consistent with CHF. Progress note dated November 15, 2024. 34-year-old male again seen today in room 351. The patient is currently on high flow nasal O2, 10 L. He is not receiving any IV fluids. He apparently did not wear the BiPAP last night. He is calling for his mother, this morning, while in the room. White count is 11.3, hemoglobin 15.8, hematocrit 50.4, platelet count 243,000. Sodium 136, potassium 3.7, chlorides 89, CO2 39, BUN 25, creatinine 0.50. Glucose was 497. Calcium was 9.6. Progress note dated November 16, 2024. 34-year-old male seen again today in room 351. He is currently on a liter high flow nasal cannula. He is not receiving any IV fluids. He did spend some time on BiPAP, with settings of 12/5, and 60%. Currently, he is doing about the same. Current labs, include a glucose of 169. Objective - Vital Signs Vital signs: Vital Signs Temp 97.5 F L 11/16/24 04:50 Pulse 88 11/16/24 08:27 Resp 22 11/16/24 04:50 BP 140/75 11/16/24 04:50 Pulse Ox 96 11/16/24 08:03 FiO2 60 11/15/24 23:25 Intake & Output 11/15/24 11/16/24 11/16/24 18:59 06:59 18:59 Intake Total 180 10 Output Total 1700 1600 Balance -1520 -1590 Intake: IV 10 Invasive Line 3 10 Oral 180 Output: Urine 1700 1600 Other: Voiding Method Indwelling Catheter Indwelling Catheter # Bowel Movements 2 - Exam No acute distress, currently on 8 L high flow nasal cannula. HEENT examination is grossly unremarkable. Mucous membranes are moist. No oral lesions. Neck supple. Full range of motion. No adenopathy thyromegaly or neck vein distention. Cardiovascular examination reveals regular rhythm rate. S1-S2 normal. No S3 or S4. No discernible murmur noted. Heart sounds are distant. Lungs reveal bibasilar crackles. No wheezes or rhonchi. Breath sounds equal bilaterally. Abdomen soft bowel sounds are heard. No masses or tenderness. Central obesity. Extremities are intact. No cyanosis or clubbing. Mild lower extremity edema. Skin is without rash or lesion. Neurologic examination is brief but nonfocal. - Labs CBC & Chem 7: 11/15/24 08:34 11/15/24 08:34 Labs: Abnormal Lab Results - Last 24 Hours (Table) 11/15/24 11/15/24 11/15/24 Range/Units 08:34 08:34 11:01 WBC 11.32 H (4.50-10.00) 10*3/uL Hct 50.4 H (39.6-50.0) % MCHC 31.3 L (32.0-37.0) g/dL Immature Gran # 0.14 H (0.00-0.04) 10*3/uL Neutrophils # 9.58 H (1.80-7.70) 10*3/uL Lymphocytes # 0.64 L (0.90-5.00) 10*3/uL Eosinophils # 0.00 L (0.04-0.35) 10*3/uL Sodium 136 L (137-145) mmol/L Chloride 89 L (98-107) mmol/L Carbon Dioxide 39 H (22-30) mmol/L BUN 25 H (9-20) mg/dL Creatinine 0.50 L (0.66-1.25) mg/dL Glucose 497 H (74-99) mg/dL POC Glucose (mg/dL) 394 H (70-110) mg/dL 11/15/24 11/15/24 11/15/24 Range/Units 16:17 19:45 23:25 WBC (4.50-10.00) 10*3/uL Hct (39.6-50.0) % MCHC (32.0-37.0) g/dL Immature Gran # (0.00-0.04) 10*3/uL Neutrophils # (1.80-7.70) 10*3/uL Lymphocytes # (0.90-5.00) 10*3/uL Eosinophils # (0.04-0.35) 10*3/uL Sodium (137-145) mmol/L Chloride (98-107) mmol/L Carbon Dioxide (22-30) mmol/L BUN (9-20) mg/dL Creatinine (0.66-1.25) mg/dL Glucose (74-99) mg/dL POC Glucose (mg/dL) 345 H 318 H 197 H (70-110) mg/dL 11/16/24 Range/Units 06:16 WBC (4.50-10.00) 10*3/uL Hct (39.6-50.0) % MCHC (32.0-37.0) g/dL Immature Gran # (0.00-0.04) 10*3/uL Neutrophils # (1.80-7.70) 10*3/uL Lymphocytes # (0.90-5.00) 10*3/uL Eosinophils # (0.04-0.35) 10*3/uL Sodium (137-145) mmol/L Chloride (98-107) mmol/L Carbon Dioxide (22-30) mmol/L BUN (9-20) mg/dL Creatinine (0.66-1.25) mg/dL Glucose (74-99) mg/dL POC Glucose (mg/dL) 169 H (70-110) mg/dL Assessment and Plan Assessment: Acute hypoxemic respiratory failure, likely on the basis of chronic bronchial asthma exacerbation. Patient required intubation, and mechanical ventilation, and was successfully extubated, 11/12/2024. Acute on chronic hypercapnic respiratory failure. Type 2 diabetes mellitus. History of Prader-Willi syndrome. History of right lower lobe pneumonia. History of methicillin sensitive Staph aureus cellulitis/dermatitis. Plan: Plan dated November 14, 2024. The patient is seen today in room 351. He is currently on BiPAP, with settings of 12/5, and 60%. Labs, x-rays, and all medications are reviewed. We will continue to follow with patient, make recommendations. Prognosis is certainly guarded. CODE STATUS should be addressed by the primary service. Dictation was produced using [employer] software. Please excuse any grammatical, word or spelling errors. Plan dated November 15, 2024. The patient is seen today in room 351. The patient is currently on 10 L high flow nasal O2. Labs, x-rays, medications are reviewed. He is not receiving any IV fluids. The patient did not require the use of BiPAP last night. We will continue to follow the patient, make recommendations. CODE STATUS should be addressed by the primary service. Dictation was produced using [employer] software. Please excuse any grammatical, word or spelling errors. Plan dated November 16, 2024. The patient is seen today in room 351. He has been weaned down to a liter high flow nasal cannula. He did use BiPAP last night, with settings 12/5, and 60%. He is not receiving any IV fluids. Labs, x-rays, and all medications are reviewed. We will continue to follow make recommendations were appropriate. He still needs a swallow evaluation. Prognosis is guarded. Dictation was produced using [employer] software. Please excuse any grammatical, word or spelling errors. Time with Patient: Less than 30
[2024-11-16] MEDS: NYSTATIN 100,000 UNIT/GM POWD 15 GM TOPICAL SCH (09:00)
[2024-11-16 09:42] LABS: Carbon Dioxide 38 mmol/L (22-30)
[2024-11-16 11:19] LABS: Glucose,Whole Blood 257 mg/dL (70-110)
--- NOTE | 2024-11-16 15:06 | P.CN ---
Psychiatric Consult - . Consult date: 11/16/24 Consult:: 11/16/24 15:02 IDENTIFYING DATA: This patient is a 34-year-old male with a public guardian, residing at [facility] REASON FOR REFERRAL: Psychiatry was consulted for aggressive behaviors due to Prader-Willi syndrome HISTORY OF PRESENT ILLNESS: The patient presented to the hospital with shortness of breath and was ultimately intubated and transferred to the ICU however he has since been extubated. Patient reportedly has been exhibiting aggressive behaviors with staff noting that patient often times will kick and scream when he is not given food. Patient has a history of aggression. Patient was seen and evaluated with sitter at bedside however was a poor historian, answering yes to every question and expressing hunger. PAST PSYCHIATRIC HISTORY: Unknown PAST MEDICAL HISTORY: Prader-Willi syndrome. ALLERGIES: as per EMR. CHEMICAL DEPENDENCY HISTORY: as per HPI. FAMILY PSYCHIATRIC/SUBSTANCE USE HISTORY: Unknown SOCIAL HISTORY: Patient has been residing at [facility] however was previously staying at a intermediate MENTAL STATUS EXAM: General Appearance: Patient appears to be stated age is alert, uncooperative. He is wearing a hospital gown Behavior: Patient appeared restless, smiling Speech: Patient's speech is brief, normal volume Mood/Affect: Affect is constricted Suicidality/Homicidality: Unable to assess Perceptions: Unable to assess however patient did not appear internally preoccupied during encounter Though content/process: Unable to assess Judgment and insight: Limited IMPRESSIONS: Prader-Willi syndrome PLAN: -At this time patient DOES NOT meet criteria for inpatient psychiatric admission. -Would recommend the following medication changes/additions: Will order Depakote level to be completed tomorrow and then will likely titrate Depakote tomorrow for mood stabilization/aggression. Start Zyprexa 10 mg IM twice daily as needed for acute safety concerns -Continue 1:1 sitter for safety -Communicated plan to patient's nurse -Will continue to follow along -Please contact with any questions.
[2024-11-16 16:14] LABS: Glucose,Whole Blood 363 mg/dL (70-110)
[2024-11-16] MEDS: OLANZapine 10 MG VIAL IM PRN (16:52)
[2024-11-16 20:09] LABS: Glucose,Whole Blood 203 mg/dL (70-110)
--- NOTE | 2024-11-16 22:44 | P.PN ---
Subjective Progress Note Date: 11/16/24 This is a 34-year-old male who presented to the emergency department from [facility] where he resides with increased shortness of breath and concerns for aspiration. Patient follows with Dr. Rodriguez in the outpatient setting with a past medical history of asthma, diabetes mellitus, hypertension, musculoskeletal disorder, pneumonia, respiratory disorder, sleep apnea, Prader-Willi syndrome with dysphagia, morbid obesity with alveolar hypoventilation yes, obstructive sleep apnea, depression. Patient has mental disabilities and has a primary legal guardian and is considered full code at this time. Patient with difficulty keeping oxygenation on his face will make it extremely difficult to continue with oxygen therapy. Initially ER attempted BiPAP although extremely agitated and unable to tolerate with pulmonary whiting can worker consulted recommending mechanical ventilation. Labs reviewed on admission reveal a normal white count with a hemoglobin of 13.5, platelets 183, sodium 136 with a potassium of 5.4, carbon dioxide 39, BUN 22, creatinine 0.48 and random glucose was 248. ABGs were done with a pH of 7.39, PCO2 is 70, PO2 318, bicarb is 42. EKG showing sinus rhythm chest x-ray showing stable chest postintubation. Patient was admitted to the ICU. Patient is currently on Precedex and off propofol and home medications are being reviewed and resumed as appropriate. Patient was started on antibiotic empirically and also steroids with breathing treatments. Patient is not wheezing and given sugars are elevated, discussed with pulmonary and will be discontinuing steroids. BNP was not elevated although patient does appear edematous throughout. Patient did receive a few doses of Lasix and is currently maintained on gentle IV hydration. 11/08/2024 Patient is evaluated today in follow up in the intensive care unit. Remains intubated and sedated on the mechanical ventilator. Currently sedated with propofol. Unable to be weaned today from the vent. Chest xray reveals possible fluid over load state, underlying acute infiltrates medial lung bases cannot be excluded. Labs reveal white blood cell count 4.82, hgb 13.3, sodium 133, potassium 4.1, BUN 18, creatinine 0.35. Hemoglobin A1C - 9.6. 11/09/2024 Patient evaluated today in the ICU. Remains intubated and sedated with propofol. Plans to start precedex and weaning trial today. Chest xray today reveals suspected CHF exacerbation/fluid overload state. Underlying acute infiltrates medial lung bases cannot be excluded. Lantus adjusted and blood glucose is significantly improved. 11/10/2024 Patient evaluated today remains in the intensive care unit he remains intubated and sedated on the mechanical ventilator. FiO2 40%. Currently sedated with propofol. Chest xray reveals ongoing CHF with pulmonary vascular congestion. Some interval improvement. Ongoing small right pleural effusion with adjacent atelectasis and or consolidation. Labs today reveal white blood cell count 6.97, hgb 12.9, sodium 137, potassium 4.1, BUN 13, creatinine 0.35. 11/11/2024 Evaluated today in the intensive care unit, remains sedated and intubated on the mechanical ventilator. Chest xray reveals mild cardiomegaly and interstitial change persists, small to moderate right pleural effusion with adjacent atelectasis and or consolidation similar to slightly increased. Patchy retrocardiac opacity similar to increased as well. proBNP was checked and normal at 160. Currently on TF running at 15 mls/hr which is goal rate. Remains on IV solu-medrol. White blood cell count 6.05, hgb 14.1, sodium 139, potassium 4.3, BUN 12, creatinine 0.36. 11/12/2024 Patient is evaluated today in the ICU. He has been extubated. He is asking to go home. He remains on oxygen via nasal cannula at 2L. Chest xray reveals stable findings, correlate for suspected CHF exacerbation/fluid overload state. Underlying acute basilar infiltrates. Labs today reveal white blood cell count 5.09, hgb 14.0, sodium 139, potassium 4.1, BUN 16, creatinine 0.39. 11/13/2024 Patient is evaluated today in follow up in the ICU. He has been extubated and remains on oxygen via nasal cannula at 4L. He is pointing to a sore tooth on the left maxilla and there is a slight redness to the check and mild mandibular swelling. He is noted to have poor dentition and will order a CT panorex to rule out any abscess. Chest xray today reveals persistent cardiomegaly and mild centr al vascular congestion along with small to moderate size right greater than left pleural effusions and bibasilar opacities. Osseous structures are intact. WBC 6.39, hgb 13.9, sodium 140, potassium 4.8, BUN 25, creatinine 0.35. 93% on 3L. He remains NPO and pending follow up with speech therapy. 11/14/2024 Patient is evaluated today in follow up on the stepdown unit. He was moved to the med/surg floor yesterday however was ateamed due to respiratory distress and concern for aspiration. Chest xray reveals worsening central increased opacity suggesting worsening CHF exacerbation fluid overload state. S/P IV lasix 40 mg and patient had 2.4 L of urine output. Echocardiogram reveals EF 55-60%; No pericardial effusion. Currently on 12L hi flow cannula. 11/15/2024 Patient is evaluated in follow-up on the medical floor. He continues to call out that he is hungry and requesting a burger although he i continued on a pured diet at this time. He continues on IV Lasix 40 mg every 12 hours with significant urine output of 8.5 L in the last 24 hours. Labs today reveal a sodium level of 136, BUN of 25 creatinine of 0.50. His blood glucose is elevated. He is currently down to an 8 L high flow cannula. The CT Panorex has been completed revealing a possible left indibulin molar small cavity. No significant soft tissue inflammatory change. 11/16/2024 Patient evaluated today in follow up. He continues on IV lasix 20 mg IV q12 hour. Indwelling catheter in place. He is requesting solid food. Continues on pureed diet and social work to follow up again tomorrow. Patient has been agitat ed with staff and requiring soft mitts. Sitter at the bedside. Sodium 140, potassium 3.6, bun 21, creatinine 0.54. Currently on 9L hi flow cannula with oxygen saturations of 96%. Review of Systems Constitutional: Denied any fatigue denied any fever. Cardio vascular: denied any chest pain, palpitations Gastrointestinal: denied any nausea, vomiting, diarrhea Pulmonary: Denied any shortness of breath cough Neurologic denied any new focal deficits All inpatient medications were reviewed and appropriate changes in these medications as dictated in the interval history and assessment and plan. PHYSICAL EXAMINATION: GENERAL: The patient is extubated, he is awake alert and oriented, ill-appear ing, edematous, morbidly obese HEENT: Pupils are round and equally reacting to light. EOMI. No scleral icterus. No conjunctival pallor. Normocephalic, atraumatic. No pharyngeal erythema. No thyromegaly. left facial erythema CARDIOVASCULAR: S1 and S2 muffled PULMONARY: Diminished breath sounds bilaterally otherwise chest is clear to auscultation, no wheezing or crackles. ABDOMEN: Soft, obese, nontender, nondistended, normoactive bowel sounds. No palpable organomegaly. MUSCULOSKELETAL: No joint swelling or deformity. EXTREMITIES: No cyanosis, clubbing, or pedal edema. Edematous of upper and lower extremities NEUROLOGICAL: Gross neurological examination did not reveal any focal deficits. SKIN: No rashes. Pale, lower extremity discoloration. Deep cracked fissure on right heel. Assessment: Acute on chronic hypoxic respiratory failure, requiring BiPAP initially and then mechanical ventilation; currently extubated Possible right lower lobe pneumonia, although suspicion is low, will order procalcitonin, empirically on antibiotics, likely atelectasis History of mild intermittent asthma with acute exacerbation Volume overload History of Prader-Willi syndrome with developmental delay and muscle weakness Diabetes mellitus, type II, uncontrolled with hyperglycemia History of hypertension History of sleep apnea and morbid obesity with alveolar hypoventilation, does not use a CPAP History of obstructive sleep apnea History of dysphagia History of depression History of recent lower extremity cellulitis with MSSA, treated outpatient Morbid obesity with a BMI of 49.2 GI prophylaxis DVT prophylaxis Full code Plan: Patient was admitted from [facility] where he resides with increasing shortness of breath and difficulty maintaining oxygenation not tolerating much nasal cannula. Initially brought to the ER put on BiPAP although became more obtunded and nonresponsive requiring mechanical ventilation and ICU admission Patient has been extubated and currently on oxygen via nasal cannula at 9L. Continue current regimen and follow-up on repeat labs Blood glucose remains elevated and lantus has been adjusted. Continue accuchecks and sliding scale insulin achs. Transition to oral lasix Wean IV steroids Psychiatry consultation as patient has been agitated and aggressive with staff Speech therapy has placed the patient on dysphagia level 1: pureed diet HT liquids and aspiration precautions 1:1 supervision. Possible MBSS early next week Monitor electrolytes and renal function Return to the [facility] on discharge The impression and plan of care has been dictated by Otilia Jarrett, Nurse Practitioner as directed. Dr. Naresh MD I have performed a history and examination and MDM of this patient, discussed the same with the dictator, and agree with the dictator's assessment and plan as written ,documented as a scribe. Based on total visit time, I have performed more than 50% of the visit. Objective - Vital Signs Vital signs: Vital Signs Temp 97.5 F L 11/16/24 04:50 Pulse 81 11/16/24 04:50 Resp 22 11/16/24 04:50 BP 140/75 11/16/24 04:50 Pulse Ox 92 L 11/16/24 04:50 FiO2 60 11/15/24 23:25 Intake & Output 11/15/24 11/15/24 11/16/24 06:59 18:59 06:59 Intake Total 50 180 10 Output Total 2650 1700 1600 Balance -2600 -1520 -1590 Weight 94 kg Intake: IV 50 10 Invasive Line 1 20 Invasive Line 2 20 Invasive Line 3 10 10 Oral 180 Output: Urine 2650 1700 1600 Other: Voiding Method Indwelling Catheter Indwelling Catheter Indwelling Catheter # Bowel Movements 2 - Labs CBC & Chem 7: 11/15/24 08:34 11/16/24 07:01 Labs: Abnormal Lab Results - Last 24 Hours (Table) 11/15/24 11/15/24 11/15/24 Range/Units 08:34 08:34 11:01 WBC 11.32 H (4.50-10.00) 10*3/uL Hct 50.4 H (39.6-50.0) % MCHC 31.3 L (32.0-37.0) g/dL Immature Gran # 0.14 H (0.00-0.04) 10*3/uL Neutrophils # 9.58 H (1.80-7.70) 10*3/uL Lymphocytes # 0.64 L (0.90-5.00) 10*3/uL Eosinophils # 0.00 L (0.04-0.35) 10*3/uL Sodium 136 L (137-145) mmol/L Chloride 89 L (98-107) mmol/L Carbon Dioxide 39 H (22-30) mmol/L BUN 25 H (9-20) mg/dL Creatinine 0.50 L (0.66-1.25) mg/dL Glucose 497 H (74-99) mg/dL POC Glucose (mg/dL) 394 H (70-110) mg/dL 11/15/24 11/15/24 11/15/24 Range/Units 16:17 19:45 23:25 WBC (4.50-10.00) 10*3/uL Hct (39.6-50.0) % MCHC (32.0-37.0) g/dL Immature Gran # (0.00-0.04) 10*3/uL Neutrophils # (1.80-7.70) 10*3/uL Lymphocytes # (0.90-5.00) 10*3/uL Eosinophils # (0.04-0.35) 10*3/uL Sodium (137-145) mmol/L Chloride (98-107) mmol/L Carbon Dioxide (22-30) mmol/L BUN (9-20) mg/dL Creatinine (0.66-1.25) mg/dL Glucose (74-99) mg/dL POC Glucose (mg/dL) 345 H 318 H 197 H (70-110) mg/dL 11/16/24 Range/Units 06:16 WBC (4.50-10.00) 10*3/uL Hct (39.6-50.0) % MCHC (32.0-37.0) g/dL Immature Gran # (0.00-0.04) 10*3/uL Neutrophils # (1.80-7.70) 10*3/uL Lymphocytes # (0.90-5.00) 10*3/uL Eosinophils # (0.04-0.35) 10*3/uL Sodium (137-145) mmol/L Chloride (98-107) mmol/L Carbon Dioxide (22-30) mmol/L BUN (9-20) mg/dL Creatinine (0.66-1.25) mg/dL Glucose (74-99) mg/dL POC Glucose (mg/dL) 169 H (70-110) mg/dL
[2024-11-17 05:51] LABS: African American GFR (CKD) >90 (>60 ml/min/1.73 sqM); Anion Gap 5 mmol/L; Blood Urea Nitrogen 28 mg/dL (9-20); Calcium 9.9 mg/dL (8.4-10.2); Carbon Dioxide 40 mmol/L (22-30); Chloride 94 mmol/L (98-107); Glucose 181 mg/dL (74-99); Non-African American GFR(CKD) >90 (>60 ml/min/1.73 sqM); Potassium 4.1 mmol/L (3.5-5.1); Sodium 139 mmol/L (137-145)
[2024-11-17 05:54] LABS: Glucose,Whole Blood 146 mg/dL (70-110)
[2024-11-17 05:56] LABS: Valproic Acid (Depakene) 58.2 ug/mL
[2024-11-17] MEDS: predniSONE 20 MG TAB PO SCH (09:07)
[2024-11-17] MEDS: FUROSEMIDE 20 MG TAB PO SCH (09:07)
--- NOTE | 2024-11-17 11:24 | XR ---
EXAMINATION TYPE: XR chest 1V DATE OF EXAM: 11/17/2024 11:05 AM COMPARISON: Chest radiographs from 11/14/2024 CLINICAL INDICATION: Male, 34 years old with history of hypoxia; TECHNIQUE: XR chest 1V Frontal view of the chest. FINDINGS: Lungs/Pleura: Low lung volumes are present. There is no evidence of pleural effusion, focal consolida tion, or pneumothorax. Pulmonary vascularity: Unremarkable. Heart/mediastinum: Cardiomediastinal silhouette is unremarkable. Musculoskeletal: No acute osseous pathology. IMPRESSION: Low lung volumes with a generalized hazy appearance which could represent atelectasis. [facility], , 11/17/2024 11:21 AM
[2024-11-17 11:35] LABS: Glucose,Whole Blood 193 mg/dL (70-110)
--- NOTE | 2024-11-17 13:04 | P.PN ---
Subjective Progress Note Date: 11/17/24 This is a 34-year-old white male with history of Prader-Willi syndrome, patient was sent from [facility] for evaluation of shortness of breath for the last few days. Patient is known to have history of asthma and he was basically receiving treatment on outpatient basis for presumptive pneumonia. His shortness of breath has become worse and his O2 saturation was noted to be very low while at the detention. Patient was sent to the ER, initially managed with BiPAP, however patient continued to do poorly in spite of BiPAP, after few hours of being on BiPAP, ABG was checked and his pO2 was 91 pCO2 over 98 pH was 7.25, patient became more and more obtunded hence he was intubated and placed on ventilatory support. Patient is on assist-control rate of 22, tidal volume 350 FiO2 at 50% and PEEP at 5. ABG is pending. Last ABG showed a pO2 of 318 pCO2 70 pH of 7.39. Dramatically improved after intubation mechanical ventilation, and considering the patient has a pCO2 of 70 with a pH of 7.39 that implies that the patient has chronic hypercapnic respiratory failure with adequate metabolic compensation. Patient is on propofol at 25 mcg/kg/min he is on IV fluid 0.9 at 75 cc/h and he is sedated, could not assess the patient mentally hence I recommended stopping propofol and starting the patient on Precedex the plan is to awaken the patient and give the patient at least a weani ng trial if possible today. WBC count is 5.11 hemoglobin 15.5, electrolytes were noted to be normal renal profile is normal, chest x-ray this morning showed cardiomegaly and right basilar opacity, possible atelectasis involving the right lower lobe. Initial chest x-ray in the ER showed no evidence of infiltrate or atelectasis. Patient was seen today on 11/08/2024, remains in the ICU intubated and mechanically ventilated, patient is on assist-control rate of 22 tidal volume 350 FiO2 50% and PEEP of 5 ABG showed a pO2 of 110 pCO2 47 pH of 7.45, patient is on propofol at 35 mcg/kg/min IV fluid is 0.9 at 75 cc/h. Patient remains empirically on antibiotics,/ceftriaxone. Remains on bronchodilators, GI and DVT prophylaxis, and the patient is receiving enteral feeding/nutritional support. Patient is also on multiple seizure medications considering his seizure history. Patient is sedated, it is difficult to assess his mental status as he seems to be arousable but does not follow any instructions, seems to be a bit confused, went ahead and recommended stopping propofol and starting the patient on Precedex, and hopefully we can get to the point where he can assess mental status fully off propofol. Labs today were reviewed CBC is basically unremarkable. Electrolytes are normal renal profile is normal, blood sugar is 298. Chest x-ray showed stable findings, minimal basilar atelectasis and slight prominence of the pulmonary vasculature. Endotracheal tube seems to be in proper position. Patient was seen today on 11/09/2024, patient remains in the ICU, intubated and mechanically ventilated, attempts have been made over the last 2 days to wean and extubate the patient, patient has been extremely difficult to wean. Yesterday the patient lasted less than half an hour and he was extremely tachypneic, tachycardic, could not tolerate even pressure support of 12 and CPAP for more than half an hour. Patient had to be placed back on full ventilatory support and placed back on propofol. We have tried again doing the same thing, and the patient again did not seem to do well. Patient is known to have history of Prader-Willi syndrome, and it is not surprising that the patient has profound muscle weakness with chronic hypercapnia he may eventually require tracheostomy and PEG tube placement. However my understanding today that the legal guardian is petitioning the court Sunday, and the plan is to consider comfort care measures on this patient in the next couple of days. Considering this, will not consult for tracheostomy and PEG tube placement, and will not arrange for central line or arterial line placement at this point. We are managing the patient well with peripheral lines. WBC count is 5.9 hemoglobin 13.4 his ABG today showed a pO2 of 228 pCO2 57 pH of 7.36 and this was on FiO2 of 45% hence FiO2 was cut down to 40%. Basic metabolic profile is normal, bicarb is 31. Renal profile is normal. Chest x-ray showed mostly minimal interstitial prominence, no clear-cut evidence of pneumonia although underlying infiltrates not completely excluded. Patient remains empirically on antibiotics. The findings on the chest x-ray are mostly findings of bibasilar atelectasis. 11/10/2024 patient seen and examined at bedside. Patient intubated, sedated and on mechanical ventilation. No acute events overnight. Legal guardian from [employer] mentions that they were not aware of plans for change of code status and no process initiated as it requires documentation that patient is clinically deteriorating. Current ventilator settings are volume control with a rate of 22, tidal volume 350, FiO2 40 and a PEEP of 5. Drips currently running are propofol 50 mcg/kg/hr, 0.9 normal saline 75 cc/h. Enteral feeding with [employer] 1.4 at 15ml/hr. Chest x-ray today showed ongoing CHF with pulmonary vascular congestion with some interval improvement, ongoing right pleural effusion with adjacent atelectasis and/for consultation. Labs: WBC 6.97, hemoglobin 12.9, platelet count 1 54,000, potassium 4.1, chloride 105, bicarb 26, BUN 13, creatinine 0.35, glucose 192, calcium 8.5. ABG pH of 7.38, PCO2 52, PO2 113 11/11/2024 patient seen and examined at bedside in the ICU. Patient intubated, sedated and on mechanical ventilation. No acute events overnight. Current ventilator settings are volume control with a rate of 22, tidal volume 350, FiO2 40 and a PEEP of 5. Drips currently running are propofol 50 mcg/kg/hr, 0.9 normal saline 75 cc/h. Enteral feeding with [employer] 1.4 at 15ml/hr. Labs: WBC 6.05, hemoglobin 14.1, sodium 139, potassium 4.3, bicarb 27, calcium 9.3, magnesium 1.9, BUN 12, creatinine 0.36, glucose 315. ABG showed PO2 93, pCO2 41, pH 7.44 Imaging; persistent mild cardiomegaly and interstitial changes, small to moderate right pleural effusion with adjacent atelectasis and/or consolidation and patchy retrocardiac opacity 11/12/2024 patient seen and examined at bedside in the ICU. Patient intubated, sedated and on mechanical ventilation. No acute events overnight. Attempted DIS SBT yesterday but patient failed due to rapid and shallow breathing with tachycardia despite being off sedation. Current IV drips are propofol 50mcg/kg/hr, enteral feeding with [employer] 1.4 at 15ml/hr. Labs: WBC 5.09, hemoglobin 14, platelet count 200,000, sodium 139, potassium 4.1, bicarb 27, calcium 9.9, glucose 277, BUN 16, creatinine 0.39. ABG showed PO2 82, pCO2 46, pH 7.42. Sputum culture negative Imaging; chest x-ray today independently interpreted showed overall stable findings with cardiomegaly, noted basilar infiltrates 11/13/2024 patient seen and examined at bedside in the ICU. Patient was successful with spontaneous breathing trial and was extubated. No acute events overnight. No new complaints or symptoms. Attempted DIS SBT yesterday and was successful, patient was extubated around 10 AM. Failed swallow eval postextubation yesterday. Currently on n.p.o. Labs: WBC 6.3, hemoglobin 13.9, sodium 140, potassium 4.8, bicarb 29, BUN 25, c reatinine 0.35, glucose 126, calcium 9.9 Imaging; chest x-ray today showed stable small to moderate-sized right greater than left pleural effusions and bibasilar acute infiltrates and/or atelectasis. Progress note dated November 14, 2024. 34-year-old male seen today in room 351. The patient was previously on the ventilator, in the intensive care unit. He was successfully extubated, transferred out. Yesterday he developed some respiratory difficulty, he was transferred down to the third floor, and placed on BiPAP, with settings of 12/5, 60%. The patient is getting saline at 20 cc an hour. This morning, the patient had a sitter in the hospital room, and the patient was hoping to eat. I did t ell the nurse, Karla, to have respiratory change him to nasal O2, so that he could eat. Current labs include a white count 9.2, hemoglobin 14.8, hematocrit 46.4, and a platelet count of 240,000. Blood gases this morning showed a pO2 of 83, pCO2 64, and a pH of 7.39. Sodium 142, potassium 4.3, chlorides 97, CO2 36, BUN 25, and creatinine 0.34. Chest x-ray was consistent with CHF. Progress note dated November 15, 2024. 34-year-old male again seen today in room 351. The patient is currently on high flow nasal O2, 10 L. He is not receiving any IV fluids. He apparently did not wear the BiPAP last night. He is calling for his mother, this morning, while in the room. White count is 11.3, hemoglobin 15.8, hematocrit 50.4, platelet count 243,000. Sodium 136, potassium 3.7, chlorides 89, CO2 39, BUN 25, creatinine 0.50. Glucose was 497. Calcium was 9.6. Progress note dated November 16, 2024. 34-year-old male seen again today in room 351. He is currently on a liter high flow nasal cannula. He is not receiving any IV fluids. He did spend some time on BiPAP, with settings of 12/5, and 60%. Currently, he is doing about the same. Current labs, include a glucose of 169. 11/17/2024, patient is being seen for a follow-up. The patient is post acute hypoxic/hypercapnic respiratory failure and the patient was extubated on 11/12/2024. This morning, the patient remains on 7 L of oxygen by nasal cannula. He has a sitter at the bedside. He has Prader-Willi syndrome. He was also being treated for right lower lobe pneumonia. Based on that, I ordered a follow-up chest x-ray and the chest x-ray shows low lung volumes with generalized hazy appearance which could potentially represent atelectasis. Findings are slightly worse on the right compared to the left. Electrolytes are all stable, sodium is 139, potassium is 4.1, bicarbonate 40 with a BUN of 28 and a creatinine of 0.4. The patient continues to state that he is extremely hungry and is requesting food all the time. Hemodynamically stable. Cultures including sputum and blood cultures were negative. The patient is on [facility]. The patient is on Perforomist and Pulmicort nebulized treatments twice a day, he is on Lantus 35 units at bedtime and NovoLog 15 units with meals and sliding scale coverage. He is also on a combination of Zyprexa, Risperdal and Topamax and valproic acid. He remains on Lovenox 40 mg subcu for DVT prophylaxis. He remains on Lasix 20 mg p.o. daily. Objective - Vital Signs Vital signs: Vital Signs Temp 97.8 F 11/16/24 20:15 Pulse 75 11/17/24 09:48 Resp 18 11/17/24 08:08 BP 112/67 11/17/24 08:08 Pulse Ox 90 L 11/17/24 09:30 FiO2 60 11/15/24 23:25 Intake & Output 11/16/24 11/17/24 11/17/24 18:59 06:59 18:59 Intake Total 10 10 180 Output Total 1325 2049 Balance -1314 -2039 180 Intake: IV 10 10 Invasive Line 3 10 Invasive Line 4 10 Oral 180 Output: Urine [id number] Other: Voiding Method Indwelling Catheter Indwelling Catheter - Exam GENERAL: The patient is calm and comfortable he is awake alert and oriented, ill-appearing, edematous, morbidly obese, the patient is currently on 7 L of oxygen by nasal cannula HEENT: Pupils are round and equally reacting to light. EOMI. No scleral icterus. No conjunctival pallor. Normocephalic, atraumatic. No pharyngeal erythema. No thyromegaly. left facial erythema CARDIOVASCULAR: S1 and S2 muffled, the rhythm is regular and there is no sign ificant murmurs appreciated. PULMONARY: Diminished breath sounds bilaterally otherwise chest is clear to auscultation, no wheezing or crackles. Breath sounds are quite diminished in lung base bilaterally. ABDOMEN: Soft, obese, nontender, nondistended, normoactive bowel sounds. No palpable organomegaly. MUSCULOSKELETAL: No joint swelling or deformity. EXTREMITIES: No cyanosis, clubbing, or pedal edema. Edematous of upper and lower extremities NEUROLOGICAL: Gross neurological examination did not reveal any focal deficits. SKIN: No rashes. Pale, lower extremity discoloration. Deep cracked fissure on right heel. - Labs CBC & Chem 7: 11/15/24 08:34 11/17/24 04:41 Labs: Abnormal Lab Results - Last 24 Hours (Table) 11/16/24 11/16/24 11/16/24 Range/Units 11:17 16:13 20:07 Chloride (98-107) mmol/L Carbon Dioxide (22-30) mmol/L BUN (9-20) mg/dL Creatinine (0.66-1.25) mg/dL Glucose (74-99) mg/dL POC Glucose (mg/dL) 257 H 363 H 203 H (70-110) mg/dL 11/17/24 11/17/24 Range/Units 04:41 05:52 Chloride 94 L (98-107) mmol/L Carbon Dioxide 40 H (22-30) mmol/L BUN 28 H (9-20) mg/dL Creatinine 0.42 L (0.66-1.25) mg/dL Glucose 181 H (74-99) mg/dL POC Glucose (mg/dL) 146 H (70-110) mg/dL Assessment and Plan Plan: Acute hypoxemic respiratory failure, likely on the basis of chronic bronchial asthma exacerbation. Patient required intubation, and mechanical ventilation, and was successfully extubated, 11/12/2024. Chest x-ray continues to show small lung volumes and atelectatic change in lung base bilaterally. The patient remains on 7 L of oxygen by nasal cannula Acute on chronic hypercapnic respiratory failure, currently on 7 L of oxygen by nasal cannula. Type 2 diabetes mellitus maintained on Lantus insulin 55 units in addition to NovoLog with meals and sliding scale coverage History of Prader-Willi syndrome. History of right lower lobe pneumonia. History of methicillin sensitive Staph aureus cellulitis/dermatitis. Plan: The patient is currently off BiPAP and is currently on 7 L of oxygen by nasal cannula Follow-up chest x-ray shows atelectatic changes in lung bases right more than left Continue using the incentive spirometer May utilize BiPAP overnight Continue DuoNeb nebulized treatments [id number] Continue Perforomist and Pulmicort nebulized treatments twice a day Continue diuretics, Lasix 40 mg p.o. daily Lantus insulin 55 units daily and NovoLog 15 units with meals + scale coverage Sitter at the bedside Pulmonary toileting Chest x-ray was reviewed Will continue to follow Evaluation was done and 31 minutes Time with Patient: Greater than 30
--- NOTE | 2024-11-17 13:19 | P.PN ---
Progress Note - Text Progress Note Date: 11/17/24 IDENTIFYING DATA: Patient is a 34-year-old male with the public guardian, residing at [facility] REASON FOR CONSULT: Aggressive behaviors due to Prader-Willi syndrome INTERVAL HISTORY: Patient seen and evaluated. Sitter at bedside. Patient received as needed Zyprexa IM today for agitation and this appeared effective. Patient has been agitated but redirectable today. Depakote returned at 58.2. Patient was intermittently somnolent but was able to eat intermittently with sitter. MENTAL STATUS EXAM: General Appearance: Patient appears to be stated age. Patient appears to have poor hygiene and grooming wearing hospital gown with poor eye contact. Behavior: Patient is restless Speech: Speech is brief, nonpressured Mood/Affect: Affect constricted Suicidality/Homicidality: Unable to assess Perceptions: Unable to assess Though content/process: Unable to assess Judgment and insight: Poor IMPRESSIONS: Prader-Willi syndrome PLAN: -At this time patient DOES NOT meet criteria for inpatient psychiatric admission. -Would recommend the following medication changes/additions: Increase Risperdal to 2 mg daily and 1 mg at bedtime, continue Depakote at 500 mg 3 times daily IV, continue Zyprexa 10 mg IM twice daily as needed for acute safety concerns -Continue 1:1 sitter for safety -Communicated plan to patient's nurse -Will continue to follow along as needed -Please contact with any questions.
--- NOTE | 2024-11-17 14:30 | FL ---
EXAMINATION TYPE: FL barium swallow w video DATE OF EXAM: 11/17/2024 MODIFIED SWALLOW / DEGLUTITION STUDY CLINICAL HISTORY: Dysphagia. Rule out aspiration. TECHNIQUE: Deglutition study is performed utilizing thin liquid barium, nectar thick liquid barium, barium thick pudding, and barium coated cracker. 3 minutes of fluoro time and 0 images obtained. To magan dose area product (DAP) in uGy*m?, mGy*cm? (or similar): 849.85 COMPARISON: None. FINDINGS: The oral and pharyngeal phases show satisfactory initiation and propagation with all modali ties tested. Satisfactory mastication is seen with solid modalities tested. There is penetration wit h thin liquid barium. There is no aspiration with any modality tested. Moderate to severe pharyngeal residuals were appreciated. Note is made of underlying esophageal dysmotility with pooling of contras t in the visualized midesophagus. IMPRESSION: Penetration with thin liquid barium. No aspiration identified. Underlying esophageal dysm otility is present. Please refer to speech therapist notes for further details if necessary. [facility], , 11/17/2024 2:27 PM
[2024-11-17 16:40] LABS: Glucose,Whole Blood 317 mg/dL (70-110)
--- NOTE | 2024-11-17 17:05 | P.PN ---
Subjective Progress Note Date: 11/17/24 This is a 34-year-old male who presented to the emergency department from [facility] where he resides with increased shortness of breath and concerns for aspiration. Patient follows with Dr. Rodriguez in the outpatient setting with a past medical history of asthma, diabetes mellitus, hypertension, musculoskeletal disorder, pneumonia, respiratory disorder, sleep apnea, Prader-Willi syndrome with dysphagia, morbid obesity with alveolar hypoventilation yes, obstructive sleep apnea, depression. Patient has mental disabilities and has a primary legal guardian and is considered full code at this time. Patient with difficulty keeping oxygenation on his face will make it extremely difficult to continue with oxygen therapy. Initially ER attempted BiPAP although extremely agitated and unable to tolerate with pulmonary chief financial officer consulted recommending mechanical ventilation. Labs reviewed on admission reveal a normal white count with a hemoglobin of 13.5, platelets 183, sodium 136 with a potassium of 5.4, carbon dioxide 39, BUN 22, creatinine 0.48 and random glucose was 248. ABGs were done with a pH of 7.39, PCO2 is 70, PO2 318, bicarb is 42. EKG showing sinus rhythm chest x-ray showing stable chest postintubation. Patient was admitted to the ICU. Patient is currently on Precedex and off propofol and home medications are being reviewed and resumed as appropriate. Patient was started on antibiotic empirically and also steroids with breathing treatments. Patient is not wheezing and given sugars are elevated, discussed with pulmonary and will be discontinuing steroids. BNP was not elevated although patient does appear edematous throughout. Patient did receive a few doses of Lasix and is currently maintained on gentle IV hydration. 11/08/2024 Patient is evaluated today in follow up in the intensive care unit. Remains intubated and sedated on the mechanical ventilator. Currently sedated with propofol. Unable to be weaned today from the vent. Chest xray reveals possible fluid over load state, underlying acute infiltrates medial lung bases cannot be excluded. Labs reveal white blood cell count 4.82, hgb 13.3, sodium 133, potassium 4.1, BUN 18, creatinine 0.35. Hemoglobin A1C - 9.6. 11/09/2024 Patient evaluated today in the ICU. Remains intubated and sedated with propofol. Plans to start precedex and weaning trial today. Chest xray today reveals suspected CHF exacerbation/fluid overload state. Underlying acute infiltrates medial lung bases cannot be excluded. Lantus adjusted and blood glucose is significantly improved. 11/10/2024 Patient evaluated today remains in the intensive care unit he remains intubated and sedated on the mechanical ventilator. FiO2 40%. Currently sedated with propofol. Chest xray reveals ongoing CHF with pulmonary vascular congestion. Some interval improvement. Ongoing small right pleural effusion with adjacent atelectasis and or consolidation. Labs today reveal white blood cell count 6.97, hgb 12.9, sodium 137, potassium 4.1, BUN 13, creatinine 0.35. 11/11/2024 Evaluated today in the intensive care unit, remains sedated and intubated on the mechanical ventilator. Chest xray reveals mild cardiomegaly and interstitial change persists, small to moderate right pleural effusion with adjacent atelectasis and or consolidation similar to slightly increased. Patchy retrocardiac opacity similar to increased as well. proBNP was checked and normal at 160. Currently on TF running at 15 mls/hr which is goal rate. Remains on IV solu-medrol. White blood cell count 6.05, hgb 14.1, sodium 139, potassium 4.3, BUN 12, creatinine 0.36. 11/12/2024 Patient is evaluated today in the ICU. He has been extubated. He is asking to go home. He remains on oxygen via nasal cannula at 2L. Chest xray reveals stable findings, correlate for suspected CHF exacerbation/fluid overload state. Underlying acute basilar infiltrates. Labs today reveal white blood cell count 5.09, hgb 14.0, sodium 139, potassium 4.1, BUN 16, creatinine 0.39. 11/13/2024 Patient is evaluated today in follow up in the ICU. He has been extubated and remains on oxygen via nasal cannula at 4L. He is pointing to a sore tooth on the left maxilla and there is a slight redness to the check and mild mandibular swelling. He is noted to have poor dentition and will order a CT panorex to rule out any abscess. Chest xray today reveals persistent cardiomegaly and mild centr al vascular congestion along with small to moderate size right greater than left pleural effusions and bibasilar opacities. Osseous structures are intact. WBC 6.39, hgb 13.9, sodium 140, potassium 4.8, BUN 25, creatinine 0.35. 93% on 3L. He remains NPO and pending follow up with speech therapy. 11/14/2024 Patient is evaluated today in follow up on the stepdown unit. He was moved to the med/surg floor yesterday however was ateamed due to respiratory distress and concern for aspiration. Chest xray reveals worsening central increased opacity suggesting worsening CHF exacerbation fluid overload state. S/P IV lasix 40 mg and patient had 2.4 L of urine output. Echocardiogram reveals EF 55-60%; No pericardial effusion. Currently on 12L hi flow cannula. 11/15/2024 Patient is evaluated in follow-up on the medical floor. He continues to call out that he is hungry and requesting a burger although he i continued on a pured diet at this time. He continues on IV Lasix 40 mg every 12 hours with significant urine output of 8.5 L in the last 24 hours. Labs today reveal a sodium level of 136, BUN of 25 creatinine of 0.50. His blood glucose is elevated. He is currently down to an 8 L high flow cannula. The CT Panorex has been completed revealing a possible left indibulin molar small cavity. No significant soft tissue inflammatory change. 11/16/2024 Patient evaluated today in follow up. He continues on IV lasix 20 mg IV q12 hour. Indwelling catheter in place. He is requesting solid food. Continues on pureed diet and social work to follow up again tomorrow. Patient has been agitat ed with staff and requiring soft mitts. Sitter at the bedside. Sodium 140, potassium 3.6, bun 21, creatinine 0.54. Currently on 9L hi flow cannula with oxygen saturations of 96%. 11/17/2024 Patient evaluated today in follow up on the medical floor. Patient has been transitioned to oral lasix 20 mg daily[address] IDC in place. He is requesting solid foods. ST followed up with patient today and recommending to continue the pureed as he is aspirating and having delaying laryngeal clearance. He requires strict 1:1 supervision for feeds and honey thick liquids with spoon and no straws. Discussed in extent with Brown Braun over the phone with the [facility] regarding clinical course, oxygen needs and the issue with diet/aspiration. Did discuss DNR/Hospice as patient does want to eat solid foods and has been continually requesting a hamburger to eat. Also updated on the CT panorex results. Bronw would like an update as discharge is close. PT/OT to follow up with the patient today. He is 91% on 7L of oxygen. Per Brown at the detention he has refused to wear oxygen. Review of Systems Constitutional: Denied any fatigue denied any fever. Cardio vascular: denied any chest pain, palpitations Gastrointestinal: denied any nausea, vomiting, diarrhea Pulmonary: Denied any shortness of breath cough Neurologic denied any new focal deficits All inpatient medications were reviewed and appropriate changes in these medications as dictated in the interval history and assessment and plan. PHYSICAL EXAMINATION: GENERAL: The patient is extubated, he is awake alert and oriented, ill-pop earing, edematous, morbidly obese HEENT: Pupils are round and equally reacting to light. EOMI. No scleral icterus. No conjunctival pallor. Normocephalic, atraumatic. No pharyngeal erythema. No thyromegaly. left facial erythema CARDIOVASCULAR: S1 and S2 muffled PULMONARY: Diminished breath sounds bilaterally otherwise chest is clear to auscultation, no wheezing or crackles. ABDOMEN: Soft, obese, nontender, nondistended, normoactive bowel sounds. No palpable organomegaly. MUSCULOSKELETAL: No joint swelling or deformity. EXTREMITIES: No cyanosis, clubbing, or pedal edema. Edematous of upper and lower extremities NEUROLOGICAL: Gross neurological examination did not reveal any focal deficits. SKIN: No rashes. Pale, lower extremity discoloration. Deep cracked fissure on right heel. Assessment: Acute on chronic hypoxic respiratory failure, requiring BiPAP initially and then mechanical ventilation; currently extubated Possible right lower lobe pneumonia, likely aspiration History of mild intermittent asthma with acute exacerbation Volume overload History of Prader-Willi syndrome with developmental delay and muscle weakness Diabetes mellitus, type II, uncontrolled with hyperglycemia History of hypertension History of sleep apnea and morbid obesity with alveolar hypoventilation, does not use a CPAP History of obstructive sleep apnea History of dysphagia History of depression History of recent lower extremity cellulitis with MSSA, treated outpatient Morbid obesity with a BMI of 49.2 GI prophylaxis DVT prophylaxis Full code Plan: Patient was admitted from [facility] where he resides with increasing shortness of breath and difficulty maintaining oxygenation not tolerating much nasal cannula. Initially brought to the ER put on BiPAP although became more obtunded and non responsive requiring mechanical ventilation and ICU admission Patient has been extubated and currently on oxygen via nasal cannula at 7L. Continue current regimen and follow-up on repeat labs Blood glucose remains elevated and lantus has been adjusted. Continue accuchecks and sliding scale insulin achs. Transition to oral lasix Wean IV steroids Psychiatry consultation as patient has been agitated and aggressive with staff and they are recommending PRN olanzapine. Speech therapy has placed the patient on dysphagia level 1: pureed diet HT liquids and aspiration precautions 1:1 supervision. Greater than 35 minutes have been spent with this patient in coordination of care and discussion of next steps with guardianship office over the phone. Monitor electrolytes and renal function [facility] The impression and plan of care has been dictated by Otilia Jarrett, Nurse Practitioner as directed. Dr. Naresh MD I have performed a history and examination and MDM of this patient, discussed the same with the dictator, and agree with the dictator's assessment and plan as written ,documented as a scribe. Based on total visit time, I have performed more than 50% of the visit. Objective - Vital Signs Vital signs: Vital Signs Temp 97.8 F 11/16/24 20:15 Pulse 70 11/17/24 08:08 Resp 18 11/17/24 08:08 BP 112/67 11/17/24 08:08 Pulse Ox 90 L 11/17/24 08:08 FiO2 60 11/15/24 23:25 Intake & Output 11/16/24 11/17/24 11/17/24 18:59 06:59 18:59 Intake Total 10 10 Output Total 1325 2050 Balance -131 -0 Intake: IV 10 10 Invasive Line 3 10 Invasive Line 4 10 Output: Urine 1325 2050 Other: Voiding Method Indwelling Catheter Indwelling Catheter - Labs CBC & Chem 7: 11/15/24 08:34 11/17/24 04:41 Labs: Abnormal Lab Results - Last 24 Hours (Table) 11/16/24 11/16/24 11/16/24 Range/Units 07:01 11:17 16:13 Chloride 91 L (98-107) mmol/L Carbon Dioxide 38 H (22-30) mmol/L BUN 21 H (9-20) mg/dL Creatinine 0.54 L (0.66-1.25) mg/dL Glucose 195 H (74-99) mg/dL POC Glucose (mg/dL) 257 H 363 H (70-110) mg/dL 11/16/24 11/17/24 11/17/24 Range/Units 20:07 04:41 05:52 Chloride 94 L (98-107) mmol/L Carbon Dioxide 40 H (22-30) mmol/L BUN 28 H (9-20) mg/dL Creatinine 0.42 L (0.66-1.25) mg/dL Glucose 181 H (74-99) mg/dL POC Glucose (mg/dL) 203 H 146 H (70-110) mg/dL Assessment and Plan Time with Patient: Less than 30
[2024-11-17 19:58] LABS: Glucose,Whole Blood 321 mg/dL (70-110)
[2024-11-17] MEDS: risperiDONE 1 MG TAB PO SCH (20:29)
[2024-11-18 06:18] LABS: Glucose,Whole Blood 85 mg/dL (70-110)
[2024-11-18] MEDS: risperiDONE 2 MG TAB PO SCH (09:07)
--- NOTE | 2024-11-18 09:31 | XR ---
EXAMINATION TYPE: XR chest 1V DATE OF EXAM: 11/18/2024 9:16 AM COMPARISON: Chest radiographs from 11/17/2024. CLINICAL INDICATION: Male, 34 years old with history of hypoxia; [facility] TECHNIQUE: XR chest 1V Frontal view of the chest. FINDINGS: Lungs/Pleura: Low lung volumes No evidence of focal consolidation or pneumothorax. Haziness to the martha ng bases and the costophrenic angles is present. Pulmonary vascularity: Unremarkable. Heart/mediastinum: Cardiomediastinal silhouette is unremarkable. Musculoskeletal: No acute osseous pathology. IMPRESSION: Bilateral pleural effusions suggested. [facility], , 11/18/2024 9:29 AM
--- NOTE | 2024-11-18 10:37 | P.PN ---
Subjective Progress Note Date: 11/18/24 This is a 34-year-old white male with history of Prader-Willi syndrome, patient was sent from [facility] for evaluation of shortness of breath for the last few days. Patient is known to have history of asthma and he was basically receiving treatment on outpatient basis for presumptive pneumonia. His shortness of breath has become worse and his O2 saturation was noted to [facility]. Patient was sent to the ER, initially managed with BiPAP, however patient continued to do poorly in spite of BiPAP, after few hours of being on BiPAP, ABG was checked and his pO2 was 91 pCO2 over 98 pH was 7.25, patient became more and more obtunded hence he was intubated and placed on ventilatory support. Patient is on assist-control rate of 22, tidal volume 350 FiO2 at 50% and PEEP at 5. ABG is pending. Last ABG showed a pO2 of 318 pCO2 70 pH of 7.39. Dramatically improved after intubation mechanical ventilation, and considering the patient has a pCO2 of 70 with a pH of 7.39 that implies that the patient has chronic hypercapnic respiratory failure with adequate metabolic compensation. Patient is on propofol at 25 mcg/kg/min he is on IV fluid 0.9 at 75 cc/h and he is sedated, could not assess the patient mentally hence I recommended stopping propofol and starting the patient on Precedex the plan is to awaken the patient and give the patient at least a weani ng trial if possible today. WBC count is 5.11 hemoglobin 15.5, electrolytes were noted to be normal renal profile is normal, chest x-ray this morning showed cardiomegaly and right basilar opacity, possible atelectasis involving the right lower lobe. Initial chest x-ray in the ER showed no evidence of infiltrate or atelectasis. Patient was seen today on 11/08/2024, remains in the ICU intubated and mechanically ventilated, patient is on assist-control rate of 22 tidal volume 350 FiO2 50% and PEEP of 5 ABG showed a pO2 of 110 pCO2 47 pH of 7.45, patient is on propofol at 35 mcg/kg/min IV fluid is 0.9 at 75 cc/h. Patient remains empirically on antibiotics,/ceftriaxone. Remains on bronchodilators, GI and DVT prophylaxis, and the patient is receiving enteral feeding/nutritional support. Patient is also on multiple seizure medications considering his seizure history. Patient is sedated, it is difficult to assess his mental status as he seems to be arousable but does not follow any instructions, seems to be a bit confused, went ahead and recommended stopping propofol and starting the patient on Precedex, and hopefully we can get to the point where he can assess mental status fully off propofol. Labs today were reviewed CBC is basically unremarkable. Electrolytes are normal renal profile is normal, blood sugar is 298. Chest x-ray showed stable findings, minimal basilar atelectasis and slight prominence of the pulmonary vasculature. Endotracheal tube seems to be in proper position. Patient was seen today on 11/09/2024, patient remains in the ICU, intubated and mechanically ventilated, attempts have been made over the last 2 days to wean and extubate the patient, patient has been extremely difficult to wean. Yesterday the patient lasted less than half an hour and he was extremely tachypneic, tachycardic, could not tolerate even pressure support of 12 and CPAP for more than half an hour. Patient had to be placed back on full ventilatory support and placed back on propofol. We have tried again doing the same thing, and the patient again did not seem to do well. Patient is known to have history of Prader-Willi syndrome, and it is not surprising that the patient has profound muscle weakness with chronic hypercapnia he may eventually require tracheostomy and PEG tube placement. However my understanding today that the legal guardian is petitioning the court Sunday, and the plan is to consider comfort care measures on this patient in the next couple of days. Considering this, will not consult for tracheostomy and PEG tube placement, and will not arrange for central line or arterial line placement at this point. We are managing the patient well with peripheral lines. WBC count is 5.9 hemoglobin 13.4 his ABG today showed a pO2 of 228 pCO2 57 pH of 7.36 and this was on FiO2 of 45% hence FiO2 was cut down to 40%. Basic metabolic profile is normal, bicarb is 31. Renal profile is normal. Chest x-ray showed mostly minimal interstitial prominence, no clear-cut evidence of pneumonia although underlying infiltrates not completely excluded. Patient remains empirically on antibiotics. The findings on the chest x-ray are mostly findings of bibasilar atelectasis. 11/10/2024 patient seen and examined at bedside. Patient intubated, sedated and on mechanical ventilation. No acute events overnight. Legal guardian from [employer] mentions that they were not aware of plans for change of code status and no process initiated as it requires documentation that patient is clinically deteriorating. Current ventilator settings are volume control with a rate of 22, tidal volume 350, FiO2 40 and a PEEP of 5. Drips currently running are propofol 50 mcg/kg/hr, 0.9 normal saline 75 cc/h. Enteral feeding with [employer] 1.4 at 15ml/hr. Chest x-ray today showed ongoing CHF with pulmonary vascular congestion with some interval improvement, ongoing right pleural effusion with adjacent atelectasis and/for consultation. Labs: WBC 6.97, hemoglobin 12.9, platelet count 1 54,000, potassium 4.1, chloride 105, bicarb 26, BUN 13, creatinine 0.35, glucose 192, calcium 8.5. ABG pH of 7.38, PCO2 52, PO2 113 11/11/2024 patient seen and examined at bedside in the ICU. Patient intubated, sedated and on mechanical ventilation. No acute events overnight. Current ventilator settings are volume control with a rate of 22, tidal volume 350, FiO2 40 and a PEEP of 5. Drips currently running are propofol 50 mcg/kg/hr, 0.9 normal saline 75 cc/h. Enteral feeding with [employer] 1.4 at 15ml/hr. Labs: WBC 6.05, hemoglobin 14.1, sodium 139, potassium 4.3, bicarb 27, calcium 9.3, magnesium 1.9, BUN 12, creatinine 0.36, glucose 315. ABG showed PO2 93, pCO2 41, pH 7.44 Imaging; persistent mild cardiomegaly and interstitial changes, small to moderate right pleural effusion with adjacent atelectasis and/or consolidation and patchy retrocardiac opacity 11/12/2024 patient seen and examined at bedside in the ICU. Patient intubated, sedated and on mechanical ventilation. No acute events overnight. Attempted DIS SBT yesterday but patient failed due to rapid and shallow breathing with tachycardia despite being off sedation. Current IV drips are propofol 50mcg/kg/hr, enteral feeding with [employer] 1.4 at 15ml/hr. Labs: WBC 5.09, hemoglobin 14, platelet count 200,000, sodium 139, potassium 4.1, bicarb 27, calcium 9.9, glucose 277, BUN 16, creatinine 0.39. ABG showed PO2 82, pCO2 46, pH 7.42. Sputum culture negative Imaging; chest x-ray today independently interpreted showed overall stable findings with cardiomegaly, noted basilar infiltrates 11/13/2024 patient seen and examined at bedside in the ICU. Patient was successful with spontaneous breathing trial and was extubated. No acute events overnight. No new complaints or symptoms. Attempted DIS SBT yesterday and was successful, patient was extubated around 10 AM. Failed swallow eval postextubation yesterday. Currently on n.p.o. Labs: WBC 6.3, hemoglobin 13.9, sodium 140, potassium 4.8, bicarb 29, BUN 25, c reatinine 0.35, glucose 126, calcium 9.9 Imaging; chest x-ray today showed stable small to moderate-sized right greater than left pleural effusions and bibasilar acute infiltrates and/or atelectasis. Progress note dated November 14, 2024. 34-year-old male seen today in room 351. The patient was previously on the ventilator, in the intensive care unit. He was successfully extubated, transferred out. Yesterday he developed some respiratory difficulty, he was transferred down to the third floor, and placed on BiPAP, with settings of 12/5, 60%. The patient is getting saline at 20 cc an hour. This morning, the patient had a sitter in the hospital room, and the patient was hoping to eat. I did t ell the nurse, Karla, to have respiratory change him to nasal O2, so that he could eat. Current labs include a white count 9.2, hemoglobin 14.8, hematocrit 46.4, and a platelet count of 240,000. Blood gases this morning showed a pO2 of 83, pCO2 64, and a pH of 7.39. Sodium 142, potassium 4.3, chlorides 97, CO2 36, BUN 25, and creatinine 0.34. Chest x-ray was consistent with CHF. Progress note dated November 15, 2024. 34-year-old male again seen today in room 351. The patient is currently on high flow nasal O2, 10 L. He is not receiving any IV fluids. He apparently did not wear the BiPAP last night. He is calling for his mother, this morning, while in the room. White count is 11.3, hemoglobin 15.8, hematocrit 50.4, platelet count 243,000. Sodium 136, potassium 3.7, chlorides 89, CO2 39, BUN 25, creatinine 0.50. Glucose was 497. Calcium was 9.6. Progress note dated November 16, 2024. 34-year-old male seen again today in room 351. He is currently on a liter high flow nasal cannula. He is not receiving any IV fluids. He did spend some time on BiPAP, with settings of 12/5, and 60%. Currently, he is doing about the same. Current labs, include a glucose of 169. 11/17/2024, patient is being seen for a follow-up. The patient is post acute hypoxic/hypercapnic respiratory failure and the patient was extubated on 11/12/2024. This morning, the patient remains on 7 L of oxygen by nasal cannula. He has a sitter at the bedside. He has Prader-Willi syndrome. He was also being treated for right lower lobe pneumonia. Based on that, I ordered a follow-up chest x-ray and the chest x-ray shows low lung volumes with generalized hazy appearance which could potentially represent atelectasis. Findings are slightly worse on the right compared to the left. Electrolytes are all stable, sodium is 139, potassium is 4.1, bicarbonate 40 with a BUN of 28 and a creatinine of 0.4. The patient continues to state that he is extremely hungry and is requesting food all the time. Hemodynamically stable. Cultures including sputum and blood cultures were negative. The patient is on [facility]. The patient is on Perforomist and Pulmicort nebulized treatments twice a day, he is on Lantus 35 units at bedtime and NovoLog 15 units with meals and sliding scale coverage. He is also on a combination of Zyprexa, Risperdal and Topamax and valproic acid. He remains on Lovenox 40 mg subcu for DVT prophylaxis. He remains on Lasix 20 mg p.o. daily. On 11/18/2024, the patient is essentially the same condition. He continues to request food and this is part of his Prader-Willi syndrome. He remains on 7 L of oxygen by nasal cannula and a pulse ox around 92 to 94%. A repeat chest x- ray was done today and the findings are essentially unchanged. The patient has some elevation of the right hemidiaphragm with persistent smaller lung volumes and haziness in the right lung base right more than left. The patient also underwent a barium swallow and the patient showed penetration with thin liquid and there was no evidence of any aspiration. The blood work from yesterday was noted. No new labs are available from today. He remains on 7 L. He remains on Lasix 20 mg p.o. daily and Lantus 55 units nightly and NovoLog 15 units with meals and DuoNeb updrafts in addition to performance of Pulmicort nebulized treatments twice a day. No signs of any significant respiratory distress. The fluid balance has been -1.3 L over the past 24 hours. Objective - Vital Signs Vital signs: Vital Signs Temp 98.2 F 11/17/24 20:30 Pulse 73 11/18/24 03:20 Resp 20 11/18/24 03:20 BP 113/74 11/18/24 03:20 Pulse Ox 94 L 11/18/24 03:20 FiO2 60 11/15/24 23:25 Intake & Output 11/17/24 11/18/24 11/18/24 18:59 06:59 18:59 Intake Total 370 250 236 Output Total 1300 700 Balance -930 -450 236 Intake: IV 10 10 Invasive Line 4 10 10 Oral 360 240 236 Output: Urine 1300 700 Other: Voiding Method Indwelling Catheter Indwelling Catheter - Exam GENERAL: The patient is calm and comfortable he is awake alert and oriented, ill-appearing, edematous, morbidly obese, the patient is currently on 7 L of oxygen by nasal cannula HEENT: Pupils are round and equally reacting to light. EOMI. No scleral icterus. No conjunctival pallor. Normocephalic, atraumatic. No pharyngeal erythema. No thyromegaly. left facial erythema CARDIOVASCULAR: S1 and S2 muffled, the rhythm is regular and there is no significant murmurs appreciated. PULMONARY: Diminished breath sounds bilaterally otherwise chest is clear to auscultation, no wheezing or crackles. Breath sounds are quite diminished in lung base bilaterally. ABDOMEN: Soft, obese, nontender, nondistended, normoactive bowel sounds. No palpable organomegaly. MUSCULOSKELETAL: No joint swelling or deformity. EXTREMITIES: No cyanosis, clubbing, or pedal edema. Edematous of upper and lower extremities NEUROLOGICAL: Gross neurological examination did not reveal any focal deficits. SKIN: No rashes. Pale, lower extremity discoloration. Deep cracked fissure on right heel. - Labs CBC & Chem 7: 11/15/24 08:34 11/17/24 04:41 Labs: Abnormal Lab Results - Last 24 Hours (Table) 11/17/24 11/17/24 11/17/24 Range/Units 11:33 16:39 19:55 POC Glucose (mg/dL) 193 H 317 H 321 H (70-110) mg/dL Assessment and Plan Plan: Acute hypoxemic respiratory failure, likely on the basis of chronic bronchial asthma exacerbation. Patient required intubation, and mechanical ventilation, and was successfully extubated, 11/12/2024. Chest x-ray continues to show small lung volumes and atelectatic change in lung base bilaterally. The patient remai ns on 7 L of oxygen by nasal cannula. There may be some bilateral pleural effusion and the patient remains on oral Lasix with excellent urine output. In fact, the patient remains in net negative fluid balance. Acute on chronic hypercapnic respiratory failure, currently on 7 L of oxygen by nasal cannula. Type 2 diabetes mellitus maintained on Lantus insulin 55 units in addition to NovoLog with meals and sliding scale coverage History of Prader-Willi syndrome. History of right lower lobe pneumonia. History of methicillin sensitive Staph aureus cellulitis/dermatitis. Plan: The patient is currently off BiPAP and is currently on 7 L of oxygen by nasal cannula Follow-up chest x-ray shows atelectatic changes in lung bases right more than left Continue using the incentive spirometer May utilize BiPAP overnight Continue DuoNeb nebulized treatments [id number] Continue Perforomist and Pulmicort nebulized treatments twice a day Continue diuretics, and the patient will be switched to Lasix 40 mg IV every 12 hours Swallow evaluation was done and there was penetration without evidence of any aspiration Lantus insulin 55 units daily and NovoLog 15 units with meals + scale coverage Sitter at the bedside Pulmonary toileting Chest x-ray was reviewed Will continue to follow Evaluation was done and 31 minutes Time with Patient: Greater than 30
[2024-11-18] MEDS: FUROSEMIDE 10 MG/ML 4 ML VIAL IV SCH (11:28)
[2024-11-18 11:50] LABS: Glucose,Whole Blood 113 mg/dL (70-110)
[2024-11-18 16:44] LABS: Glucose,Whole Blood 331 mg/dL (70-110)
[2024-11-18 20:08] LABS: Glucose,Whole Blood 358 mg/dL (70-110)
[2024-11-18 23:18] LABS: Glucose,Whole Blood 135 mg/dL (70-110)
[2024-11-19 02:44] LABS: Glucose,Whole Blood 57 mg/dL (70-110)
[2024-11-19 03:06] LABS: Glucose,Whole Blood 126 mg/dL (70-110)
[2024-11-19] MEDS: DEXTROSE 50% SYRINGE 50 ML IVP PRN ×2 (03:19→06:22)
[2024-11-19 06:21] LABS: Glucose,Whole Blood 54 mg/dL (70-110)
[2024-11-19 06:35] LABS: Glucose,Whole Blood 190 mg/dL (70-110)
--- NOTE | 2024-11-19 11:00 | US ---
EXAMINATION TYPE: US chest DATE OF EXAM: 11/19/2024 COMPARISON: XRAY: 11/18/24 CLINICAL INDICATION: Male, 34 years old with history of pleural effusion; pleural effusion TECHNIQUE: Grayscale imaging of the chest. Targeted ultrasound of the posterior lower bilateral FINDINGS: EXAM MEASUREMENTS: Right Pleural Effusion pocket size: 1.7 cm Left Pleural Effusion pocket size: 0 cm Right side NOT marked for possible thoracentesis outside the dept. Left side NOT marked for possible thoracentesis outside the dept. Pulmonologists are able to review the images in the patient?s EMR. IMPRESSIONS: Trace right pleural effusion. [facility], , 11/19/2024 10:57 AM
[2024-11-19 11:05] LABS: Glucose,Whole Blood 225 mg/dL (70-110)
--- NOTE | 2024-11-19 13:18 | PN ---
PROGRESS NOTE DATE OF SERVICE: 11/18/2024 SUBJECTIVE: This 34-year-old gentleman who was admitted with [id number] hypoxic respiratory failure. He is on BiPAP at this time. The patient has right lower pneumonia also. The patient has Prader-Willi syndrome. The legal guardian will be contacted for consideration of possible comfort measures and hospice at this time, because of lack of improvement, multiple complex medical issues, and severe prolonged hypoxic respiratory failure. PAST MEDICAL HISTORY: Reviewed. REVIEW OF SYSTEMS: Could not be taken. CURRENT MEDICATIONS: Reviewed. PHYSICAL EXAMINATION: VITAL SIGNS: Pulse is 85, blood pressure 93/59, respiration 15. CHEST: Few scattered rhonchi and crackles. ABDOMEN: Soft. LABORATORY DATA: Reviewed. ASSESSMENT: 1. Odarp-sa-lgfugtr hypoxic respiratory failure requiring BiPAP and mechanical ventilation. Currently extubated. 2. Possible right lower lobe pneumonia. 3. History of asthma. 4. History of Prader-Willi syndrome. 5. Change in mental status and metabolic encephalopathy. 6. Diabetes mellitus, type 2, uncontrolled with hyperglycemia. 7. Multiple complex medical issues. RECOMMENDATIONS AND DISCUSSION: I recommend to continue current management and we will contact the guardian for possible comfort measures and hospice with the quality of life is poor and also the patient had extensive evaluations shows no significant improvement at this time. As mentioned, prognosis extremely guarded. Further recommendations to follow. MMSAIDAL / IJN: [id number] /
--- NOTE | 2024-11-19 14:45 | P.PN ---
Subjective Progress Note Date: 11/19/24 This is a 34-year-old white male with history of Prader-Willi syndrome, patient was sent from [facility] for evaluation of shortness of breath for the last few days. Patient is known to have history of asthma and he was basically receiving treatment on outpatient basis for presumptive pneumonia. His shortness of breath has become worse and his O2 saturation was noted to be very low while at the senior living. Patient was sent to the ER, initially managed with BiPAP, however patient continued to do poorly in spite of BiPAP, after few hours of being on BiPAP, ABG was checked and his pO2 was 91 pCO2 over 98 pH was 7.25, patient became more and more obtunded hence he was intubated and placed on ventilatory support. Patient is on assist-control rate of 22, tidal volume 350 FiO2 at 50% and PEEP at 5. ABG is pending. Last ABG showed a pO2 of 318 pCO2 70 pH of 7.39. Dramatically improved after intubation mechanical ventilation, and considering the patient has a pCO2 of 70 with a pH of 7.39 that implies that the patient has chronic hypercapnic respiratory failure with adequate metabolic compensation. Patient is on propofol at 25 mcg/kg/min he is on IV fluid 0.9 at 75 cc/h and he is sedated, could not assess the patient mentally hence I recommended stopping propofol and starting the patient on Precedex the plan is to awaken the patient and give the patient at least a weani ng trial if possible today. WBC count is 5.11 hemoglobin 15.5, electrolytes were noted to be normal renal profile is normal, chest x-ray this morning showed cardiomegaly and right basilar opacity, possible atelectasis involving the right lower lobe. Initial chest x-ray in the ER showed no evidence of infiltrate or atelectasis. Patient was seen today on 11/08/2024, remains in the ICU intubated and mechanically ventilated, patient is on assist-control rate of 22 tidal volume 350 FiO2 50% and PEEP of 5 ABG showed a pO2 of 110 pCO2 47 pH of 7.45, patient is on propofol at 35 mcg/kg/min IV fluid is 0.9 at 75 cc/h. Patient remains empirically on antibiotics,/ceftriaxone. Remains on bronchodilators, GI and DVT prophylaxis, and the patient is receiving enteral feeding/nutritional support. Patient is also on multiple seizure medications considering his seizure history. Patient is sedated, it is difficult to assess his mental status as he seems to be arousable but does not follow any instructions, seems to be a bit confused, went ahead and recommended stopping propofol and starting the patient on Precedex, and hopefully we can get to the point where he can assess mental status fully off propofol. Labs today were reviewed CBC is basically unremarkable. Electrolytes are normal renal profile is normal, blood sugar is 298. Chest x-ray showed stable findings, minimal basilar atelectasis and slight prominence of the pulmonary vasculature. Endotracheal tube seems to be in proper position. Patient was seen today on 11/09/2024, patient remains in the ICU, intubated and mechanically ventilated, attempts have been made over the last 2 days to wean and extubate the patient, patient has been extremely difficult to wean. Yesterday the patient lasted less than half an hour and he was extremely tachypneic, tachycardic, could not tolerate even pressure support of 12 and CPAP for more than half an hour. Patient had to be placed back on full ventilatory support and placed back on propofol. We have tried again doing the same thing, and the patient again did not seem to do well. Patient is known to have history of Prader-Willi syndrome, and it is not surprising that the patient has profound muscle weakness with chronic hypercapnia he may eventually require tracheostomy and PEG tube placement. However my understanding today that the legal guardian is petitioning the court Sunday, and the plan is to consider comfort care measures on this patient in the next couple of days. Considering this, will not consult for tracheostomy and PEG tube placement, and will not arrange for central line or arterial line placement at this point. We are managing the patient well with peripheral lines. WBC count is 5.9 hemoglobin 13.4 his ABG today showed a pO2 of 228 pCO2 57 pH of 7.36 and this was on FiO2 of 45% hence FiO2 was cut down to 40%. Basic metabolic profile is normal, bicarb is 31. Renal profile is normal. Chest x-ray showed mostly minimal interstitial prominence, no clear-cut evidence of pneumonia although underlying infiltrates not completely excluded. Patient remains empirically on antibiotics. The findings on the chest x-ray are mostly findings of bibasilar atelectasis. 11/10/2024 patient seen and examined at bedside. Patient intubated, sedated and on mechanical ventilation. No acute events overnight. Legal guardian from [employer] mentions that they were not aware of plans for change of code status and no process initiated as it requires documentation that patient is clinically deteriorating. Current ventilator settings are volume control with a rate of 22, tidal volume 350, FiO2 40 and a PEEP of 5. Drips currently running are propofol 50 mcg/kg/hr, 0.9 normal saline 75 cc/h. Enteral feeding with [employer] 1.4 at 15ml/hr. Chest x-ray today showed ongoing CHF with pulmonary vascular congestion with some interval improvement, ongoing right pleural effusion with adjacent atelectasis and/for consultation. Labs: WBC 6.97, hemoglobin 12.9, platelet count 1 54,000, potassium 4.1, chloride 105, bicarb 26, BUN 13, creatinine 0.35, glucose 192, calcium 8.5. ABG pH of 7.38, PCO2 52, PO2 113 11/11/2024 patient seen and examined at bedside in the ICU. Patient intubated, sedated and on mechanical ventilation. No acute events overnight. Current ventilator settings are volume control with a rate of 22, tidal volume 350, FiO2 40 and a PEEP of 5. Drips currently running are propofol 50 mcg/kg/hr, 0.9 normal saline 75 cc/h. Enteral feeding with [employer] 1.4 at 15ml/hr. Labs: WBC 6.05, hemoglobin 14.1, sodium 139, potassium 4.3, bicarb 27, calcium 9.3, magnesium 1.9, BUN 12, creatinine 0.36, glucose 315. ABG showed PO2 93, pCO2 41, pH 7.44 Imaging; persistent mild cardiomegaly and interstitial changes, small to moderate right pleural effusion with adjacent atelectasis and/or consolidation and patchy retrocardiac opacity 11/12/2024 patient seen and examined at bedside in the ICU. Patient intubated, sedated and on mechanical ventilation. No acute events overnight. Attempted DIS SBT yesterday but patient failed due to rapid and shallow breathing with tachycardia despite being off sedation. Current IV drips are propofol 50mcg/kg/hr, enteral feeding with [employer] 1.4 at 15ml/hr. Labs: WBC 5.09, hemoglobin 14, platelet count 200,000, sodium 139, potassium 4.1, bicarb 27, calcium 9.9, glucose 277, BUN 16, creatinine 0.39. ABG showed PO2 82, pCO2 46, pH 7.42. Sputum culture negative Imaging; chest x-ray today independently interpreted showed overall stable findings with cardiomegaly, noted basilar infiltrates 11/13/2024 patient seen and examined at bedside in the ICU. Patient was successful with spontaneous breathing trial and was extubated. No acute events overnight. No new complaints or symptoms. Attempted DIS SBT yesterday and was successful, patient was extubated around 10 AM. Failed swallow eval postextubation yesterday. Currently on n.p.o. Labs: WBC 6.3, hemoglobin 13.9, sodium 140, potassium 4.8, bicarb 29, BUN 25, c reatinine 0.35, glucose 126, calcium 9.9 Imaging; chest x-ray today showed stable small to moderate-sized right greater than left pleural effusions and bibasilar acute infiltrates and/or atelectasis. Progress note dated November 14, 2024. 34-year-old male seen today in room 351. The patient was previously on the ventilator, in the intensive care unit. He was successfully extubated, transferred out. Yesterday he developed some respiratory difficulty, he was transferred down to the third floor, and placed on BiPAP, with settings of 12/5, 60%. The patient is getting saline at 20 cc an hour. This morning, the patient had a sitter in the hospital room, and the patient was hoping to eat. I did t ell the nurse, Karla, to have respiratory change him to nasal O2, so that he could eat. Current labs include a white count 9.2, hemoglobin 14.8, hematocrit 46.4, and a platelet count of 240,000. Blood gases this morning showed a pO2 of 83, pCO2 64, and a pH of 7.39. Sodium 142, potassium 4.3, chlorides 97, CO2 36, BUN 25, and creatinine 0.34. Chest x-ray was consistent with CHF. Progress note dated November 15, 2024. 34-year-old male again seen today in room 351. The patient is currently on high flow nasal O2, 10 L. He is not receiving any IV fluids. He apparently did not wear the BiPAP last night. He is calling for his mother, this morning, while in the room. White count is 11.3, hemoglobin 15.8, hematocrit 50.4, platelet count 243,000. Sodium 136, potassium 3.7, chlorides 89, CO2 39, BUN 25, creatinine 0.50. Glucose was 497. Calcium was 9.6. Progress note dated November 16, 2024. 34-year-old male seen again today in room 351. He is currently on a liter high flow nasal cannula. He is not receiving any IV fluids. He did spend some time on BiPAP, with settings of 12/5, and 60%. Currently, he is doing about the same. Current labs, include a glucose of 169. 11/17/2024, patient is being seen for a follow-up. The patient is post acute hypoxic/hypercapnic respiratory failure and the patient was extubated on 11/12/2024. This morning, the patient remains on 7 L of oxygen by nasal cannula. He has a sitter at the bedside. He has Prader-Willi syndrome. He was also being treated for right lower lobe pneumonia. Based on that, I ordered a follow-up chest x-ray and the chest x-ray shows low lung volumes with generalized hazy appearance which could potentially represent atelectasis. Findings are slightly worse on the right compared to the left. Electrolytes are all stable, sodium is 139, potassium is 4.1, bicarbonate 40 with a BUN of 28 and a creatinine of 0.4. The patient continues to state that he is extremely hungry and is requesting food all the time. Hemodynamically stable. Cultures including sputum and blood cultures were negative. The patient is on [facility]. The patient is on Perforomist and Pulmicort nebulized treatments twice a day, he is on Lantus 35 units at bedtime and NovoLog 15 units with meals and sliding scale coverage. He is also on a combination of Zyprexa, Risperdal and Topamax and valproic acid. He remains on Lovenox 40 mg subcu for DVT prophylaxis. He remains on Lasix 20 mg p.o. daily. On 11/18/2024, the patient is essentially the same condition. He continues to request food and this is part of his Prader-Willi syndrome. He remains on 7 L of oxygen by nasal cannula and a pulse ox around 92 to 94%. A repeat chest x- ray was done today and the findings are essentially unchanged. The patient has some elevation of the right hemidiaphragm with persistent smaller lung volumes and haziness in the right lung base right more than left. The patient also underwent a barium swallow and the patient showed penetration with thin liquid and there was no evidence of any aspiration. The blood work from yesterday was noted. No new labs are available from today. He remains on 7 L. He remains on Lasix 20 mg p.o. daily and Lantus 55 units nightly and NovoLog 15 units with meals and DuoNeb updrafts in addition to performance of Pulmicort nebulized treatments twice a day. No signs of any significant respiratory distress. The fluid balance has been -1.3 L over the past 24 hours. 11/19/2024, patient is being seen for a follow-up. The patient remains on 7 L of oxygen by nasal cannula. The patient is also being diuresed with IV Lasix. Fluid balance is negative. The repeat chest x-ray continues to show some opac ification along the right hemidiaphragm. Bilateral pleural effusions suspected. Based on that, ultrasound the chest will be ordered. The patient is on IV Lasix. Fluid balance is -1.9 L over the past 24 hours. the patient is awake and alert. No new complaints for now. Pulse ox 92% on 7 L O2 nasal cannula. Objective - Vital Signs Vital signs: Vital Signs Temp 98.0 F 11/19/24 04:00 Pulse 100 11/19/24 08:24 Resp 18 11/19/24 04:00 BP 100/62 11/19/24 04:00 Pulse Ox 93 L 11/19/24 04:00 FiO2 60 11/18/24 11:10 Intake & Output 11/18/24 11/19/24 11/19/24 18:59 06:59 18:59 Intake Total 482 180 Output Total 1300 1100 Balance -818 -1100 180 Weight 94 kg Intake: IV 10 Invasive Line 4 10 Oral 472 180 Output: Urine 1300 1100 Other: Voiding Method Indwelling Catheter Indwelling Catheter # Bowel Movements 1 - Exam GENERAL: The patient is calm and comfortable he is awake alert and oriented, ill-appearing, edematous, morbidly obese, the patient is currently on 7 L of oxygen by nasal cannula HEENT: Pupils are round and equally reacting to light. EOMI. No scleral icterus. No conjunctival pallor. Normocephalic, atraumatic. No pharyngeal erythema. No thyromegaly. left facial erythema CARDIOVASCULAR: S1 and S2 muffled, the rhythm is regular and there is no significant murmurs appreciated. PULMONARY: Diminished breath sounds bilaterally otherwise chest is clear to auscultation, no wheezing or crackles. Breath sounds are quite diminished in lung base bilaterally. ABDOMEN: Soft, obese, nontender, nondistended, normoactive bowel sounds. No palpable organomegaly. MUSCULOSKELETAL: No joint swelling or deformity. EXTREMITIES: No cyanosis, clubbing, or pedal edema. Edematous of upper and low er extremities NEUROLOGICAL: Gross neurological examination did not reveal any focal deficits. SKIN: No rashes. Pale, lower extremity discoloration. Deep cracked fissure on right heel. - Labs CBC & Chem 7: 11/15/24 08:34 11/17/24 04:41 Labs: Abnormal Lab Results - Last 24 Hours (Table) 11/18/24 11/18/24 11/18/24 Range/Units 11:49 16:42 20:06 POC Glucose (mg/dL) 113 H 331 H 358 H (70-110) mg/dL 11/18/24 11/19/24 11/19/24 Range/Units 23:16 02:42 02:58 POC Glucose (mg/dL) 135 H 57 L 126 H (70-110) mg/dL 11/19/24 11/19/24 Range/Units 06:17 06:31 POC Glucose (mg/dL) 54 L 190 H (70-110) mg/dL Assessment and Plan Plan: Acute hypoxemic respiratory failure, likely on the basis of chronic bronchial asthma exacerbation. Patient required intubation, and mechanical ventilation, and was successfully extubated, 11/12/2024. Chest x-ray continues to show small lung volumes and atelectatic change in lung base bilaterally. The patient remains on 7 L of oxygen by nasal cannula. There may be some bilateral pleural effusion and the patient remains on IV Lasix with excellent urine output. In fact, the patient remains in net negative fluid balance. Acute on chronic hypercapnic respiratory failure, currently on 7 L of oxygen by nasal cannula. Type 2 diabetes mellitus maintained on Lantus insulin 55 units in addition to NovoLog with meals and sliding scale coverage History of Prader-Willi syndrome. History of right lower lobe pneumonia. History of methicillin sensitive Staph aureus cellulitis/dermatitis. Plan: The patient is currently off BiPAP and is currently on 7 L of oxygen by nasal cannula, no significant improvement in oxygenation over the past 24 to 48 hours and the patient continues to require 7 L of oxygen by nasal cannula Follow-up chest x-ray shows atelectatic changes in lung bases right more than left, revealed essentially stable findings Continue using the incentive spirometer Continue IV Lasix and the patient is currently on 40 mg of IV Lasix every 12 hours. Obtain ultrasound of the chest and consider thoracentesis if there is any sizable effusion. May utilize BiPAP overnight Continue DuoNeb nebulized treatments [id number] Continue Perforomist and Pulmicort nebulized treatments twice a day Continue diuretics, and the patient will be switched to Lasix 40 mg IV every 12 hours Swallow evaluation was done and there was penetration without evidence of any aspiration Lantus insulin 55 units daily and NovoLog 15 units with meals + scale coverage Sitter at the bedside Pulmonary toileting Chest x-ray was reviewed Will continue to follow Obtain follow-up electrolytes and the patient is being diuresed with IV Lasix. Evaluation was done and 31 minutes Time with Patient: Greater than 30
[2024-11-19 15:27] LABS: Basophils # (A) 0.05 10*3/uL (0.00-0.10); Basophils % (A) 0.4 %; Eosinophils # (A) 0.06 10*3/uL (0.04-0.35); Eosinophils % (A) 0.4 %; HCT 50.6 % (39.6-50.0); HGB 15.8 g/dL (13.0-17.0); Lymphocytes # (A) 0.74 10*3/uL (0.90-5.00); Lymphocytes % (A) 5.4 %; MCH 30.5 pg (27.0-32.0); MCHC 31.2 g/dL (32.0-37.0); MCV 97.7 fL (80.0-97.0); Mean Platelet Volume 11.4 fL (9.5-12.2); Monocytes # (A) 0.26 10*3/uL (0.20-1.00); Monocytes % (A) 1.9 %; Neutrophils # (A) 12.39 10*3/uL (1.80-7.70); Platelet Count 215 10*3/uL (140-440); RBC 5.18 10*6/uL (4.40-5.60); RDW 12.5 % (11.5-14.5); WBC 13.76 10*3/uL (4.50-10.00)
[2024-11-19 15:39] LABS: African American GFR (CKD) >90 (>60 ml/min/1.73 sqM); Albumin 3.3 g/dL (3.5-5.0); Anion Gap 11 mmol/L; Blood Urea Nitrogen 22 mg/dL (9-20); Calcium 9.4 mg/dL (8.4-10.2); Carbon Dioxide 33 mmol/L (22-30); Chloride 89 mmol/L (98-107); Glucose 287 mg/dL (74-99); Non-African American GFR(CKD) >90 (>60 ml/min/1.73 sqM); Sodium 133 mmol/L (137-145); Total Bilirubin 0.6 mg/dL (0.2-1.3); Total Protein 6.1 g/dL (6.3-8.2)
[2024-11-19 15:46] LABS: ALT 29 U/L (4-49)
[2024-11-19 15:52] LABS: AST 30 U/L (17-59); Alkaline Phosphatase 49 U/L (38-126); Potassium 4.5 mmol/L (3.5-5.1)
[2024-11-19 16:16] LABS: Glucose,Whole Blood 286 mg/dL (70-110)
[2024-11-19 20:29] LABS: Glucose,Whole Blood 291 mg/dL (70-110)
[2024-11-20 05:38] LABS: Glucose,Whole Blood 152 mg/dL (70-110)
--- NOTE | 2024-11-20 08:07 | PN ---
PROGRESS NOTE DATE OF SERVICE: 11/19/2024 SUBJECTIVE: This 34-year-old gentleman admitted with acute on chronic hypoxic respiratory failure, also had Prader-Willi syndrome. The patient is unable to keep BiPAP all the time. The patient is on high-flow oxygen. I have discussed at length with legal guardian, Brown at [phone] and Brown would like to proceed with options including hospice at this time. The patient will be closely monitored. PAST MEDICAL HISTORY: Reviewed. REVIEW OF SYSTEMS: Could not be taken. CURRENT MEDICATIONS: Reviewed. PHYSICAL EXAMINATION: VITAL SIGNS: Pulse is 88, blood pressure 115/94, pulse ox 92% on 5 L. HEENT: Conjunctivae normal. CARDIOVASCULAR: S1 and S2. RESPIRATIONS: Few scattered rhonchi. ABDOMEN: Soft, obese. NERVOUS SYSTEM: Soft. LABORATORY DATA: Reviewed. ASSESSMENT: 1. Acute on chronic hypoxic respiratory failure requiring BiPAP and mechanical ventilation, currently extubated. 2. Prader-Willi syndrome. 3. Right lower lobe pneumonia. 4. Change in mental status, metabolic encephalopathy. 5. Diabetes mellitus, type 2, uncontrolled with hyperglycemia. 6. Multiple complex medical issues. RECOMMENDATIONS: Recommend to continue current management and treatment with bronchodilators. Continue the current medications. Otherwise, I would also recommend hospice evaluation possible return to [facility] with hospice. Discussed with the human services case manager, Tisha. Further recommendations to follow. Prognosis guarded. MMODL / IJN: [id number] /
[2024-11-20] MEDS: LORazepam 0.5 MG TAB PO PRN (08:44)
[2024-11-20 11:36] LABS: Glucose,Whole Blood 222 mg/dL (70-110)
--- NOTE | 2024-11-20 12:04 | P.PN ---
Subjective Progress Note Date: 11/20/24 This is a 34-year-old white male with history of Prader-Willi syndrome, patient was sent from [facility] for evaluation of shortness of breath for the last few days. Patient is known to have history of asthma and he was basically receiving treatment on outpatient basis for presumptive pneumonia. His shortness of breath has become worse and his O2 saturation was noted to be very low while at the intermediate. Patient was sent to the ER, initially managed with BiPAP, however patient continued to do poorly in spite of BiPAP, after few hours of being on BiPAP, ABG was checked and his pO2 was 91 pCO2 over 98 pH was 7.25, patient became more and more obtunded hence he was intubated and placed on ventilatory support. Patient is on assist-control rate of 22, tidal volume 350 FiO2 at 50% and PEEP at 5. ABG is pending. Last ABG showed a pO2 of 318 pCO2 70 pH of 7.39. Dramatically improved after intubation mechanical ventilation, and considering the patient has a pCO2 of 70 with a pH of 7.39 that implies that the patient has chronic hypercapnic respiratory failure with adequate metabolic compensation. Patient is on propofol at 25 mcg/kg/min he is on IV fluid 0.9 at 75 cc/h and he is sedated, could not assess the patient mentally hence I recommended stopping propofol and starting the patient on Precedex the plan is to awaken the patient and give the patient at least a weani ng trial if possible today. WBC count is 5.11 hemoglobin 15.5, electrolytes were noted to be normal renal profile is normal, chest x-ray this morning showed cardiomegaly and right basilar opacity, possible atelectasis involving the right lower lobe. Initial chest x-ray in the ER showed no evidence of infiltrate or atelectasis. Patient was seen today on 11/08/2024, remains in the ICU intubated and mechanically ventilated, patient is on assist-control rate of 22 tidal volume 350 FiO2 50% and PEEP of 5 ABG showed a pO2 of 110 pCO2 47 pH of 7.45, patient is on propofol at 35 mcg/kg/min IV fluid is 0.9 at 75 cc/h. Patient remains empirically on antibiotics,/ceftriaxone. Remains on bronchodilators, GI and DVT prophylaxis, and the patient is receiving enteral feeding/nutritional support. Patient is also on multiple seizure medications considering his seizure history. Patient is sedated, it is difficult to assess his mental status as he seems to be arousable but does not follow any instructions, seems to be a bit confused, went ahead and recommended stopping propofol and starting the patient on Precedex, and hopefully we can get to the point where he can assess mental status fully off propofol. Labs today were reviewed CBC is basically unremarkable. Electrolytes are normal renal profile is normal, blood sugar is 298. Chest x-ray showed stable findings, minimal basilar atelectasis and slight prominence of the pulmonary vasculature. Endotracheal tube seems to be in proper position. Patient was seen today on 11/09/2024, patient remains in the ICU, intubated and mechanically ventilated, attempts have been made over the last 2 days to wean and extubate the patient, patient has been extremely difficult to wean. Yesterday the patient lasted less than half an hour and he was extremely tachypneic, tachycardic, could not tolerate even pressure support of 12 and CPAP for more than half an hour. Patient had to be placed back on full ventilatory support and placed back on propofol. We have tried again doing the same thing, and the patient again did not seem to do well. Patient is known to have history of Prader-Willi syndrome, and it is not surprising that the patient has profound muscle weakness with chronic hypercapnia he may eventually require tracheostomy and PEG tube placement. However my understanding today that the legal guardian is petitioning the court Sunday, and the plan is to consider comfort care measures on this patient in the next couple of days. Considering this, will not consult for tracheostomy and PEG tube placement, and will not arrange for central line or arterial line placement at this point. We are managing the patient well with peripheral lines. WBC count is 5.9 hemoglobin 13.4 his ABG today showed a pO2 of 228 pCO2 57 pH of 7.36 and this was on FiO2 of 45% hence FiO2 was cut down to 40%. Basic metabolic profile is normal, bicarb is 31. Renal profile is normal. Chest x-ray showed mostly minimal interstitial prominence, no clear-cut evidence of pneumonia although underlying infiltrates not completely excluded. Patient remains empirically on antibiotics. The findings on the chest x-ray are mostly findings of bibasilar atelectasis. 11/10/2024 patient seen and examined at bedside. Patient intubated, sedated and on mechanical ventilation. No acute events overnight. Legal guardian from [employer] mentions that they were not aware of plans for change of code status and no process initiated as it requires documentation that patient is clinically deteriorating. Current ventilator settings are volume control with a rate of 22, tidal volume 350, FiO2 40 and a PEEP of 5. Drips currently running are propofol 50 mcg/kg/hr, 0.9 normal saline 75 cc/h. Enteral feeding with [employer] 1.4 at 15ml/hr. Chest x-ray today showed ongoing CHF with pulmonary vascular congestion with some interval improvement, ongoing right pleural effusion with adjacent atelectasis and/for consultation. Labs: WBC 6.97, hemoglobin 12.9, platelet count 1 54,000, potassium 4.1, chloride 105, bicarb 26, BUN 13, creatinine 0.35, glucose 192, calcium 8.5. ABG pH of 7.38, PCO2 52, PO2 113 11/11/2024 patient seen and examined at bedside in the ICU. Patient intubated, sedated and on mechanical ventilation. No acute events overnight. Current ventilator settings are volume control with a rate of 22, tidal volume 350, FiO2 40 and a PEEP of 5. Drips currently running are propofol 50 mcg/kg/hr, 0.9 normal saline 75 cc/h. Enteral feeding with [employer] 1.4 at 15ml/hr. Labs: WBC 6.05, hemoglobin 14.1, sodium 139, potassium 4.3, bicarb 27, calcium 9.3, magnesium 1.9, BUN 12, creatinine 0.36, glucose 315. ABG showed PO2 93, pCO2 41, pH 7.44 Imaging; persistent mild cardiomegaly and interstitial changes, small to moderate right pleural effusion with adjacent atelectasis and/or consolidation and patchy retrocardiac opacity 11/12/2024 patient seen and examined at bedside in the ICU. Patient intubated, sedated and on mechanical ventilation. No acute events overnight. Attempted DIS SBT yesterday but patient failed due to rapid and shallow breathing with tachycardia despite being off sedation. Current IV drips are propofol 50mcg/kg/hr, enteral feeding with [employer] 1.4 at 15ml/hr. Labs: WBC 5.09, hemoglobin 14, platelet count 200,000, sodium 139, potassium 4.1, bicarb 27, calcium 9.9, glucose 277, BUN 16, creatinine 0.39. ABG showed PO2 82, pCO2 46, pH 7.42. Sputum culture negative Imaging; chest x-ray today independently interpreted showed overall stable findings with cardiomegaly, noted basilar infiltrates 11/13/2024 patient seen and examined at bedside in the ICU. Patient was successful with spontaneous breathing trial and was extubated. No acute events overnight. No new complaints or symptoms. Attempted DIS SBT yesterday and was successful, patient was extubated around 10 AM. Failed swallow eval postextubation yesterday. Currently on n.p.o. Labs: WBC 6.3, hemoglobin 13.9, sodium 140, potassium 4.8, bicarb 29, BUN 25, c reatinine 0.35, glucose 126, calcium 9.9 Imaging; chest x-ray today showed stable small to moderate-sized right greater than left pleural effusions and bibasilar acute infiltrates and/or atelectasis. Progress note dated November 14, 2024. 34-year-old male seen today in room 351. The patient was previously on the ventilator, in the intensive care unit. He was successfully extubated, transferred out. Yesterday he developed some respiratory difficulty, he was transferred down to the third floor, and placed on BiPAP, with settings of 12/5, 60%. The patient is getting saline at 20 cc an hour. This morning, the patient had a sitter in the hospital room, and the patient was hoping to eat. I did t ell the nurse, Karla, to have respiratory change him to nasal O2, so that he could eat. Current labs include a white count 9.2, hemoglobin 14.8, hematocrit 46.4, and a platelet count of 240,000. Blood gases this morning showed a pO2 of 83, pCO2 64, and a pH of 7.39. Sodium 142, potassium 4.3, chlorides 97, CO2 36, BUN 25, and creatinine 0.34. Chest x-ray was consistent with CHF. Progress note dated November 15, 2024. 34-year-old male again seen today in room 351. The patient is currently on high flow nasal O2, 10 L. He is not receiving any IV fluids. He apparently did not wear the BiPAP last night. He is calling for his mother, this morning, while in the room. White count is 11.3, hemoglobin 15.8, hematocrit 50.4, platelet count 243,000. Sodium 136, potassium 3.7, chlorides 89, CO2 39, BUN 25, creatinine 0.50. Glucose was 497. Calcium was 9.6. Progress note dated November 16, 2024. 34-year-old male seen again today in room 351. He is currently on a liter high flow nasal cannula. He is not receiving any IV fluids. He did spend some time on BiPAP, with settings of 12/5, and 60%. Currently, he is doing about the same. Current labs, include a glucose of 169. 11/17/2024, patient is being seen for a follow-up. The patient is post acute hypoxic/hypercapnic respiratory failure and the patient was extubated on 11/12/2024. This morning, the patient remains on 7 L of oxygen by nasal cannula. He has a sitter at the bedside. He has Prader-Willi syndrome. He was also being treated for right lower lobe pneumonia. Based on that, I ordered a follow-up chest x-ray and the chest x-ray shows low lung volumes with generalized hazy appearance which could potentially represent atelectasis. Findings are slightly worse on the right compared to the left. Electrolytes are all stable, sodium is 139, potassium is 4.1, bicarbonate 40 with a BUN of 28 and a creatinine of 0.4. The patient continues to state that he is extremely hungry and is requesting food all the time. Hemodynamically stable. Cultures including sputum and blood cultures were negative. The patient is on [facility]. The patient is on Perforomist and Pulmicort nebulized treatments twice a day, he is on Lantus 35 units at bedtime and NovoLog 15 units with meals and sliding scale coverage. He is also on a combination of Zyprexa, Risperdal and Topamax and valproic acid. He remains on Lovenox 40 mg subcu for DVT prophylaxis. He remains on Lasix 20 mg p.o. daily. On 11/18/2024, the patient is essentially the same condition. He continues to request food and this is part of his Prader-Willi syndrome. He remains on 7 L of oxygen by nasal cannula and a pulse ox around 92 to 94%. A repeat chest x- ray was done today and the findings are essentially unchanged. The patient has some elevation of the right hemidiaphragm with persistent smaller lung volumes and haziness in the right lung base right more than left. The patient also underwent a barium swallow and the patient showed penetration with thin liquid and there was no evidence of any aspiration. The blood work from yesterday was noted. No new labs are available from today. He remains on 7 L. He remains on Lasix 20 mg p.o. daily and Lantus 55 units nightly and NovoLog 15 units with meals and DuoNeb updrafts in addition to performance of Pulmicort nebulized treatments twice a day. No signs of any significant respiratory distress. The fluid balance has been -1.3 L over the past 24 hours. 11/19/2024, patient is being seen for a follow-up. The patient remains on 7 L of oxygen by nasal cannula. The patient is also being diuresed with IV Lasix. Fluid balance is negative. The repeat chest x-ray continues to show some opac ification along the right hemidiaphragm. Bilateral pleural effusions suspected. Based on that, ultrasound the chest will be ordered. The patient is on IV Lasix. Fluid balance is -1.9 L over the past 24 hours. the patient is awake and alert. No new complaints for now. Pulse ox 92% on 7 L O2 nasal cannula. 11/20/2024, the patient is being seen for a follow-up. The patient this morning was still on 7 L of oxygen by nasal cannula with a pulse ox of 94%. Will gradually start weaning down his FiO2 and I dropped him down to 5 L. Fluid balance is -2.7 L over the past 24 hours. The patient remains on Lasix 40 mg IV every 12 hours and the patient is also on bronchodilators with DuoNeb updrafts, Perforomist and Pulmicort nebulized treatments twice a day and oral prednisone. Will proceed with dropping the steroid dose as the patient has no signs of any acute bronchospasm and wheezing. The patient's condition remained stable. Electrolytes from yesterday were noted. BUN is 22 with a creatinine of 0.3. Serum bicarb is at 33, sodium level is 133, potassium is at 4.5, hemoglobin is 15.8 with a white cell count of 13.7. Platelet count is at 215. Objective - Vital Signs Vital signs: Vital Signs Temp 98.0 F 11/20/24 04:00 Pulse 72 11/20/24 04:00 Resp 16 11/20/24 00:00 BP 96/59 11/20/24 04:00 Pulse Ox 94 L 11/20/24 04:00 FiO2 60 11/18/24 11:10 Intake & Output 11/19/24 11/20/24 11/20/24 18:59 06:59 18:59 Intake Total 540 118 Output Total 1800 1450 Balance -1260 -1450 118 Intake: Oral 540 118 Output: Urine 1800 1450 Other: Voiding Method Indwelling Catheter Indwelling Catheter # Bowel Movements 1 - Exam GENERAL: The patient is calm and comfortable he is awake alert and oriented, ill-appearing, edematous, morbidly obese, the patient is currently on 7 L of oxygen by nasal cannula HEENT: Pupils are round and equally reacting to light. EOMI. No scleral icterus. No conjunctival pallor. Normocephalic, atraumatic. No pharyngeal erythema. No thyromegaly. left facial erythema CARDIOVASCULAR: S1 and S2 muffled, the rhythm is regular and there is no significant murmurs appreciated. PULMONARY: Diminished breath sounds bilaterally otherwise chest is clear to auscultation, no wheezing or crackles. Breath sounds are quite diminished in lung base bilaterally. ABDOMEN: Soft, obese, nontender, nondistended, normoactive bowel sounds. No palpable organomegaly. MUSCULOSKELETAL: No joint swelling or deformity. EXTREMITIES: No cyanosis, clubbing, or pedal edema. Edematous of upper and lower extremities NEUROLOGICAL: Gross neurological examination did not reveal any focal deficits. SKIN: No rashes. Pale, lower extremity discoloration. Deep cracked fissure on right heel. - Labs CBC & Chem 7: 11/19/24 15:06 11/19/24 15:06 Labs: Abnormal Lab Results - Last 24 Hours (Table) 11/19/24 11/19/24 11/19/24 Range/Units 11:03 15:06 15:06 WBC 13.76 H (4.50-10.00) 10*3/uL Hct 50.6 H (39.6-50.0) % MCV 97.7 H (80.0-97.0) fL MCHC 31.2 L (32.0-37.0) g/dL Immature Gran # 0.26 H (0.00-0.04) 10*3/uL Neutrophils # 12.39 H (1.80-7.70) 10*3/uL Lymphocytes # 0.74 L (0.90-5.00) 10*3/uL Sodium 133 L (137-145) mmol/L Chloride 89 L (98-107) mmol/L Carbon Dioxide 33 H (22-30) mmol/L BUN 22 H (9-20) mg/dL Creatinine 0.39 L (0.66-1.25) mg/dL Glucose 287 H (74-99) mg/dL POC Glucose (mg/dL) 225 H (70-110) mg/dL Total Protein 6.1 L (6.3-8.2) g/dL Albumin 3.3 L (3.5-5.0) g/dL 11/19/24 11/19/24 11/20/24 Range/Units 16:12 20:27 05:34 WBC (4.50-10.00) 10*3/uL Hct (39.6-50.0) % MCV (80.0-97.0) fL MCHC (32.0-37.0) g/dL Immature Gran # (0.00-0.04) 10*3/uL Neutrophils # (1.80-7.70) 10*3/uL Lymphocytes # (0.90-5.00) 10*3/uL Sodium (137-145) mmol/L Chloride (98-107) mmol/L Carbon Dioxide (22-30) mmol/L BUN (9-20) mg/dL Creatinine (0.66-1.25) mg/dL Glucose (74-99) mg/dL POC Glucose (mg/dL) 286 H 291 H 152 H (70-110) mg/dL Total Protein (6.3-8.2) g/dL Albumin (3.5-5.0) g/dL Assessment and Plan Plan: Acute hypoxemic respiratory failure, likely on the basis of chronic bronchial asthma exacerbation. Patient required intubation, and mechanical ventilation, and was successfully extubated, 11/12/2024. Chest x-ray continues to show small lung volumes and atelectatic change in lung base bilaterally. The patient remains on 7 L of oxygen by nasal cannula. There may be some bilateral pleural effusion and the patient remains on IV Lasix with excellent urine output. In fact, the patient remains in net negative fluid balance. Acute on chronic hypercapnic respiratory failure, currently on 7 L of oxygen by nasal cannula. Type 2 diabetes mellitus maintained on Lantus insulin 55 units in addition to NovoLog with meals and sliding scale coverage History of Prader-Willi syndrome. History of right lower lobe pneumonia. History of methicillin sensitive Staph aureus cellulitis/dermatitis. Plan: The patient remains on 7 L, with gradual wean down FiO2 and I dropped him down to 5 L and with moderate oxygenation. Ultrasound the chestshowed no sizable pleural effusion Continue using the incentive spirometer Continue IV Lasix and the patient is currently on 40 mg of IV Lasix every 12 hours. May utilize BiPAP overnight Continue DuoNeb nebulized treatments [id number] Continue Perforomist and Pulmicort nebulized treatments twice a day Swallow evaluation was done and there was penetration without evidence of any aspiration Lantus insulin 55 units daily and NovoLog 15 units with meals + scale coverage Will reduce the prednisone down to 10 mg p.o. daily Sitter at the bedside Pulmonary toileting Chest x-ray was reviewed Will continue to follow Monitor electrolytes Monitor oxygenation and will continue to follow Evaluation was done and 31 minutes Time with Patient: Greater than 30
--- NOTE | 2024-11-20 14:37 | P.PN ---
Progress Note - Text Progress Note Date: 11/20/24 IDENTIFYING DATA: Patient is a 34-year-old male with the public guardian, residing at [facility] REASON FOR CONSULT: Aggressive behaviors due to Prader-Willi syndrome INTERVAL HISTORY: Patient seen and evaluated. He had just received as needed Zyprexa for agitation and has been receiving this daily however it is effective. Patient was somnolent during exam. MENTAL STATUS EXAM: General Appearance: Patient appears to be stated age. Patient appears to have poor hygiene and grooming wearing hospital gown with poor eye contact. Behavior: Patient is calmly lying in bed without any agitated behavior. He was somnolent Suicidality/Homicidality: Unable to assess Perceptions: Unable to assess Judgment and insight: Poor IMPRESSIONS: Prader-Willi syndrome PLAN: -At this time patient DOES NOT meet criteria for inpatient psychiatric admission. -Would recommend the following medication changes/additions: Increase Risperdal to 2 mg twice daily, continue Depakote 500 mg 3 times daily IV, Zyprexa 10 mg IM twice daily as needed for acute safety concerns -Communicated plan to patient's nurse -Will continue to follow along as needed -Please contact with any questions.
[2024-11-20 17:10] LABS: Glucose,Whole Blood 253 mg/dL (70-110)
[2024-11-20 20:29] LABS: Glucose,Whole Blood 213 mg/dL (70-110)
[2024-11-20] MEDS: risperiDONE 2 MG TAB PO SCH (21:16)
--- NOTE | 2024-11-21 02:57 | PN ---
PROGRESS NOTE DATE OF SERVICE: 11/20/2024 SUBJECTIVE: This is a 34-year-old gentleman who was admitted with acute hypoxic respiratory failure, has Prader-Willi syndrome with hyperphagia. The patient also had minimal pleural effusion. The patient has difficulty in keeping BiPAP. Currently, 94% on high- flow nasal cannula. PAST MEDICAL HISTORY: Reviewed. REVIEW OF SYSTEMS: Could not be taken. CURRENT MEDICATIONS: Reviewed. PHYSICAL EXAMINATION: VITAL SIGNS: Pulse is 85, blood pressure n, respirations 20. CHEST: Few scattered rhonchi and crackles. ABDOMEN: Soft n. LABORATORY DATA: Reviewed. ASSESSMENT: 1. Acute on chronic hypoxic respiratory failure, requiring BiPAP and mechanical ventilation, currently extubated. 2. History of Prader-Willi syndrome with hyperphagia. 3. Right lower lobe pneumonia. 4. Change in mental status, metabolic encephalopathy. 5. Diabetes mellitus, type 2, uncontrolled with hyperglycemia. 6. Multiple complex medical issues. 7. No code, no CPR, no vent. RECOMMENDATIONS: Recommend to continue current management had a detailed discussion with the legal guardian yesterday because of the quality of care. Hospice will be pursued and continue the current medications, comfort measures. Prognosis extremely guarded because of multiple complex medical issues. Further recommendations to follow. MMODL / IJN: [id number] / MONICA
[2024-11-21 05:59] LABS: Glucose,Whole Blood 111 mg/dL (70-110)
[2024-11-21 08:51] VITALS: TEMP 98
[2024-11-21] MEDS: predniSONE 10 MG TAB PO SCH (08:52)
[2024-11-21 11:22] LABS: African American GFR (CKD) >90 (>60 ml/min/1.73 sqM); Blood Urea Nitrogen 23 mg/dL (9-20); Calcium 9.5 mg/dL (8.4-10.2); Chloride 87 mmol/L (98-107); Glucose 112 mg/dL (74-99); Non-African American GFR(CKD) >90 (>60 ml/min/1.73 sqM); Potassium 3.4 mmol/L (3.5-5.1); Sodium 138 mmol/L (137-145)
--- NOTE | 2024-11-21 11:26 | P.DS ---
Providers Date of admission: 11/07/24 02:00 Expected date of discharge: 11/21/24 Attending physician: May Montalvo Consults: 11/07/24 01:57 Consult Physician Routine Consulting Provider: Ryan Myers Consult Reason/Comments: dyspnea, acute respiratory failure Do you want consulting provider notified?: Already Contacted 11/16/24 08:28 Consult Physician Routine Consulting Provider: Betty Suazo Consult Reason/Comments: aggressive behaviors prader-willi syndrome Do you want consulting provider notified?: Yes Primary care physician: Kari Rodriguez DO Hospital Course: Final diagnosis Acute on chronic hypoxic respiratory failure, requiring BiPAP initially and then mechanical ventilation; currently extubated Possible right lower lobe pneumonia, likely aspiration History of mild intermittent asthma with acute exacerbation Volume overload 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 Patient will follow-up with Dr. Rodriguez in the outpatient setting upon discharge. Total time taken is greater than 35 minutes. Hospital course This is a 34-year-old male who presented to the emergency department from [facility] where he resides with increased shortness of breath and concerns for aspiration. Patient follows with Dr. Rodriguez in the outpatient setting with a past medical history of asthma, diabetes mellitus, hypertension, musculoskeletal disorder, pneumonia, respiratory disorder, sleep apnea, Prader-Willi syndrome with dysphagia, morbid obesity with alveolar hypoventilation yes, obstructive sleep apnea, depression. Patient has mental disabilities and has a primary l egal guardian and is considered full code at this time. Patient with difficulty keeping oxygenation on his face will make it extremely difficult to continue with oxygen therapy. Initially ER attempted BiPAP although extremely agitated and unable to tolerate with pulmonary reservoir engineer consulted recommending mechanical ventilation. Labs reviewed on admission reveal a normal white count with a hemoglobin of 13.5, platelets 183, sodium 136 with a potassium of 5.4, carbon dioxide 39, BUN 22, creatinine 0.48 and random glucose was 248. ABGs were done with a pH of 7.39, PCO2 is 70, PO2 318, bicarb is 42. EKG showing sinus rhythm chest x-ray showing stable chest postintubation. Patient was admitted to the ICU. Patient is currently on Precedex and off propofol and home medications are being reviewed and resumed as appropriate. Patient was started on antibiotic empirically and also steroids with breathing treatments. Patient is not wheezing and given sugars are elevated, discussed with pulmonary and will be discontinuing steroids. BNP was not elevated although patient does appear edematous throughout. Patient did receive a few doses of Lasix and is currently maintained on gentle IV hydration. 11/08/2024 Patient is evaluated today in follow up in the intensive care unit. Remains intubated and sedated on the mechanical ventilator. Currently sedated with propofol. Unable to be weaned today from the vent. Chest xray reveals possible fluid over load state, underlying acute infiltrates medial lung bases cannot be excluded. Labs reveal white blood cell count 4.82, hgb 13.3, sodium 133, potassium 4.1, BUN 18, creatinine 0.35. Hemoglobin A1C - 9.6. 11/09/2024 Patient evaluated today in the ICU. Remains intubated and sedated with propofol. Plans to start precedex and weaning trial today. Chest xray today reveals suspected CHF exacerbation/fluid overload state. Underlying acute infiltrates medial lung bases cannot be excluded. Lantus adjusted and blood glucose is significantly improved. 11/10/2024 Patient evaluated today remains in the intensive care unit he remains intubated and sedated on the mechanical ventilator. FiO2 40%. Currently sedated with propofol. Chest xray reveals ongoing CHF with pulmonary vascular congestion. Some interval improvement. Ongoing small right pleural effusion with adjacent atelectasis and or consolidation. Labs today reveal white blood cell count 6.97, hgb 12.9, sodium 137, potassium 4.1, BUN 13, creatinine 0.35. 11/11/2024 Evaluated today in the intensive care unit, remains sedated and intubated on the mechanical ventilator. Chest xray reveals mild cardiomegaly and interstitial change persists, small to moderate right pleural effusion with adjacent atelectasis and or consolidation similar to slightly increased. Patchy retro cardiac opacity similar to increased as well. proBNP was checked and normal at 160. Currently on TF running at 15 mls/hr which is goal rate. Remains on IV solu-medrol. White blood cell count 6.05, hgb 14.1, sodium 139, potassium 4.3, BUN 12, creatinine 0.36. 11/12/2024 Patient is evaluated today in the ICU. He has been extubated. He is asking to go home. He remains on oxygen via nasal cannula at 2L. Chest xray reveals stable findings, correlate for suspected CHF exacerbation/fluid overload state. Underlying acute basilar infiltrates. Labs today reveal white blood cell count 5.09, hgb 14.0, sodium 139, potassium 4.1, BUN 16, creatinine 0.39. 11/13/2024 Patient is evaluated today in follow up in the ICU. He has been extubated and remains on oxygen via nasal cannula at 4L. He is pointing to a sore tooth on the left maxilla and there is a slight redness to the check and mild mandibular swelling. He is noted to have poor dentition and will order a CT panorex to rule out any abscess. Chest xray today reveals persistent cardiomegaly and mild central vascular congestion along with small to moderate size right greater than left pleural effusions and bibasilar opacities. Osseous structures are intact. WBC 6.39, hgb 13.9, sodium 140, potassium 4.8, BUN 25, creatinine 0.35. 93% on 3L. He remains NPO and pending follow up with speech therapy. 11/14/2024 Patient is evaluated today in follow up on the stepdown unit. He was moved to the med/surg floor yesterday however was ateamed due to respiratory distress and concern for aspiration. Chest xray reveals worsening central increased opacity suggesting worsening CHF exacerbation fluid overload state. S/P IV lasix 40 mg and patient had 2.4 L of urine output. Echocardiogram reveals EF 55-60%; No pericardial effusion. Currently on 12L hi flow cannula. 11/15/2024 Patient is evaluated in follow-up on the medical floor. He continues to call out that he is hungry and requesting a burger although he i continued on a pured diet at this time. He continues on IV Lasix 40 mg every 12 hours with significant urine output of 8.5 L in the last 24 hours. Labs today reveal a sodium level of 136, BUN of 25 creatinine of 0.50. His blood glucose is elevated. He is currently down to an 8 L high flow cannula. The CT Panorex has been completed revealing a possible left indibulin molar small cavity. No significant soft tissue inflammatory change. 11/16/2024 Patient evaluated today in follow up. He continues on IV lasix 20 mg IV q12 hour. Indwelling catheter in place. He is requesting solid food. Continues on pureed diet and social work to follow up again tomorrow. Patient has been agitated with staff and requiring soft mitts. Sitter at the bedside. Sodium 140, potassium 3.6, bun 21, creatinine 0.54. Currently on 9L hi flow cannula with oxygen saturations of 96%. 11/17/2024 Patient evaluated today in follow up on the medical floor. Patient has been transitioned to oral lasix 20 mg daily[address] IDC in place. He is requesting solid foods. ST followed up with patient today and recommending to continue the pureed as he is aspirating and having delaying laryngeal clearance. He requires strict 1:1 supervision for feeds and honey thick liquids with spoon and no straws. Discussed in extent with Brown Braun over the phone with the [facility] regarding clinical course, oxygen needs and the issue with diet/aspiration. Did discuss DNR/Hospice as patient does want to eat solid foods and has been continually requesting a hamburger to eat. Also updated on the CT panorex results. Brown would like an update as discharge is close. PT/OT to follow up with the patient today. He is 91% on 7L of oxygen. Per Brown at the care home he has refused to wear oxygen. 11/21/2024 [facility] following and arrangements being made for back to [facility] on hospice per guardian and consents have been signed and approved and will be going today. Please refer to other consultation notes for further HPI. Overall poor and guarded prognosis PHYSICAL EXAMINATION: GENERAL: The patient is awake alert and oriented, ill-appearing, edematous, morbidly obese, currently on 3 L HEENT: Pupils are round and equally reacting to light. EOMI. No scleral icterus. No conjunctival pallor. Normocephalic, atraumatic. No pharyngeal erythema. No thyromegaly. left facial erythema CARDIOVASCULAR: S1 and S2 muffled PULMONARY: Diminished breath sounds bilaterally otherwise chest is clear to auscultation, no wheezing or crackles. ABDOMEN: Soft, obese, nontender, nondistended, normoactive bowel sounds. No palpable organomegaly. MUSCULOSKELETAL: No joint swelling or deformity. EXTREMITIES: No cyanosis, clubbing, or pedal edema. Edematous of upper and lower extremities NEUROLOGICAL: Gross neurological examination did not reveal any focal deficits. SKIN: No rashes. Pale, lower extremity discoloration. Deep cracked fissure on right heel. Please refer to medication reconciliation sheet for a list of medications. The impression and plan of care has been dictated by Mandie Colmenares, Nurse Practitioner as directed. Dr. Selvin MD I have performed a history and examination and MDM of this patient, discussed the same with the dictator, and agree with the dictator's assessment and plan as written ,documented as a scribe. Based on total visit time, I have performed more than 50% of the visit. Patient Condition at Discharge: Poor Plan - Discharge Summary Discharge Rx Participant: No New Discharge Prescriptions: New LORazepam [Ativan] 0.5 mg PO Q6HR PRN #4 tab PRN Reason: Anxiety INSULIN LISPRO (HumaLOG) [HumaLOG] 0 unit SQ ACHS each Insulin Glargine (Lantus) [Lantus Vial] 55 unit SQ HS each Formoterol Fumarate [Perforomist] 20 mcg INHALATION RT-BID ml Ipratropium-Albuterol Nebulize [Duoneb 0.5 mg-3 mg/3 ml Soln] 3 ml INHALATION RT-Q4H PRN each PRN Reason: Shortness Of Breath Or Wheezing Ipratropium-Albuterol Nebulize [Duoneb 0.5 mg-3 mg/3 ml Soln] 3 ml INHALATION RT-QID each INSULIN LISPRO (HumaLOG) [HumaLOG] 15 unit SQ AC-TID each Enoxaparin [Lovenox] 40 mg SQ DAILY each Nystatin 100,000 Unit/gm Powd [Mycostatin Powder] 1 applic TOPICAL BID each predniSONE 10 mg PO DAILY tab Budesonide [Pulmicort] 1 mg INHALATION RT-BID ml risperiDONE [RisperDAL] 2 mg PO HS tab risperiDONE [RisperDAL] 2 mg PO DAILY tab Continue Cetirizine HCl [Zyrtec] 10 mg PO DAILY Cholecalciferol [Vitamin D3 (25 Mcg = 1000 Iu)] 25 mcg PO DAILY Magnesium Oxide [Mag-Ox] 400 mg PO DAILY@1400 Melatonin 6 mg PO HS Omeprazole [PriLOSEC] 20 mg PO DAILY Propranolol [Inderal] 10 mg PO BID Simvastatin [Zocor] 20 mg PO HS Topiramate [Topamax] 50 mg PO DAILY@0700 Topiramate [Topamax] 100 mg PO DAILY@1400 Valproic Acid [Depakene] 500 mg PO TID@0700,1300,1900 Acetaminophen [Tylenol 8 Hour] 650 mg PO Q4H PRN PRN Reason: Pain Or Fever > 100.5 Albuterol Sulfate [Albuterol Sulfate Hfa] 2 puff PO RT-Q4H PRN PRN Reason: Wheezing Ammonium Lactate Cream [Lac-Hydrin 12% Cream] 1 applic TOPICAL BID Ascorbic Acid [Vitamin C] 250 mg PO DAILY Furosemide [Lasix] 40 mg PO DAILY@0700 Insulin Lispro [humaLOG Kwikpen] See Protocol SQ TID@0700,1200,1700 Insulin Lispro [humaLOG Kwikpen] 5 unit SQ TID@0700,1200,1700 Loperamide [Imodium] 2 - 4 mg PO QID PRN PRN Reason: Diarrhea Potassium Chloride [Klor-Con M20] 40 meq PO DAILY@0700 Ziprasidone [Geodon] 40 mg PO DAILY@1400 Discontinued Amoxicillin 500 mg PO TID@0700,1300,1900 Semaglutide [Ozempic] 0.5 mg SQ WE Insulin Glargine,Hum.rec.anlog [Lantus Solostar Pen] 30 units SQ DAILY Ipratropium-Albuterol Nebulize [Duoneb 0.5 mg-3 mg/3 ml Soln] 3 ml INHALATION RT-Q6H metFORMIN HCL 500 mg PO BID predniSONE See Taper PO DAILY risperiDONE [RisperDAL] 1 mg PO BID Discharge Medication List Acetaminophen [Tylenol 8 Hour] 650 mg PO Q4H PRN 11/07/24 [History] Albuterol Sulfate [Albuterol Sulfate Hfa] 2 puff PO RT-Q4H PRN 11/07/24 [Histor y] Ammonium Lactate Cream [Lac-Hydrin 12% Cream] 1 applic TOPICAL BID 11/07/24 [History] Ascorbic Acid [Vitamin C] 250 mg PO DAILY 11/07/24 [History] Cetirizine HCl [Zyrtec] 10 mg PO DAILY 11/07/24 [History] Cholecalciferol [Vitamin D3 (25 Mcg = 1000 Iu)] 25 mcg PO DAILY 11/07/24 [History] Furosemide [Lasix] 40 mg PO DAILY@0700 11/07/24 [History] Insulin Lispro [humaLOG Kwikpen] 5 unit SQ TID@0700,1200,1700 11/07/24 [History] Insulin Lispro [humaLOG Kwikpen] See Protocol SQ TID@0700,1200,1700 11/07/24 [History] Loperamide [Imodium] 2 - 4 mg PO QID PRN 11/07/24 [History] Magnesium Oxide [Mag-Ox] 400 mg PO DAILY@1400 11/07/24 [History] Melatonin 6 mg PO HS 11/07/24 [History] Omeprazole [PriLOSEC] 20 mg PO DAILY 11/07/24 [History] Potassium Chloride [Klor-Con M20] 40 meq PO DAILY@0700 11/07/24 [History] Propranolol [Inderal] 10 mg PO BID 11/07/24 [History] Simvastatin [Zocor] 20 mg PO HS 11/07/24 [History] Topiramate [Topamax] 50 mg PO DAILY@0700 11/07/24 [History] Topiramate [Topamax] 100 mg PO DAILY@1400 11/07/24 [History] Valproic Acid [Depakene] 500 mg PO TID@0700,1300,1900 11/07/24 [History] Ziprasidone [Geodon] 40 mg PO DAILY@1400 11/07/24 [History] Budesonide [Pulmicort] 1 mg INHALATION RT-BID ml 11/21/24 [Rx] Enoxaparin [Lovenox] 40 mg SQ DAILY each 11/21/24 [Rx] Formoterol Fumarate [Perforomist] 20 mcg INHALATION RT-BID ml 11/21/24 [Rx] INSULIN LISPRO (HumaLOG) [HumaLOG] 0 unit SQ ACHS each 11/21/24 [Rx] INSULIN LISPRO (HumaLOG) [HumaLOG] 15 unit SQ AC-TID each 11/21/24 [Rx] Insulin Glargine (Lantus) [Lantus Vial] 55 unit SQ HS each 11/21/24 [Rx] Ipratropium-Albuterol Nebulize [Duoneb 0.5 mg-3 mg/3 ml Soln] 3 ml INHALATION RT-Q4H PRN each 11/21/24 [Rx] Ipratropium-Albuterol Nebulize [Duoneb 0.5 mg-3 mg/3 ml Soln] 3 ml INHALATION RT-QID each 11/21/24 [Rx] LORazepam [Ativan] 0.5 mg PO Q6HR PRN #4 tab 11/21/24 [Rx] Nystatin 100,000 Unit/gm Powd [Mycostatin Powder] 1 applic TOPICAL BID each 11/21/24 [Rx] predniSONE 10 mg PO DAILY tab 11/21/24 [Rx] risperiDONE [RisperDAL] 2 mg PO DAILY tab 11/21/24 [Rx] risperiDONE [RisperDAL] 2 mg PO HS tab 11/21/24 [Rx] Follow up Appointment(s)/Referral(s): Kari Rodriguez DO [Primary Care Provider] - 1-2 days [facility] [NON-STAFF] - 1 Week Activity/Diet/Wound Care/Special Instructions: Patient returning to [facility] with [facility] services Discharge Disposition: TRANSFER TO SNF/ECF
[2024-11-21 11:29] LABS: Anion Gap 10 mmol/L
[2024-11-21 11:29] LABS: Glucose,Whole Blood 124 mg/dL (70-110)
[2024-11-21 11:32] LABS: Carbon Dioxide 41 mmol/L (22-30)
[2024-11-21 11:46] VITALS: RESP 18
[2024-11-21 12:57] VITALS: BP 110/52; PULSE 97
--- NOTE | 2024-11-21 15:48 | P.PN ---
Subjective Progress Note Date: 11/21/24 This is a 34-year-old white male with history of Prader-Willi syndrome, patient was sent from [facility] for evaluation of shortness of breath for the last few days. Patient is known to have history of asthma and he was basically receiving treatment on outpatient basis for presumptive pneumonia. His shortness of breath has become worse and his O2 saturation was noted to be very low while at the [facility]. Patient was sent to the ER, initially managed with BiPAP, however patient continued to do poorly in spite of BiPAP, after few hours of being on BiPAP, ABG was checked and his pO2 was 91 pCO2 over 98 pH was 7.25, patient became more and more obtunded hence he was intubated and placed on ventilatory support. Patient is on assist-control rate of 22, tidal volume 350 FiO2 at 50% and PEEP at 5. ABG is pending. Last ABG showed a pO2 of 318 pCO2 70 pH of 7.39. Dramatically improved after intubation mechanical ventilation, and considering the patient has a pCO2 of 70 with a pH of 7.39 that implies that the patient has chronic hypercapnic respiratory failure with adequate metabolic compensation. Patient is on propofol at 25 mcg/kg/min he is on IV fluid 0.9 at 75 cc/h and he is sedated, could not assess the patient mentally hence I recommended stopping propofol and starting the patient on Precedex the plan is to awaken the patient and give the patient at least a weani ng trial if possible today. WBC count is 5.11 hemoglobin 15.5, electrolytes were noted to be normal renal profile is normal, chest x-ray this morning showed cardiomegaly and right basilar opacity, possible atelectasis involving the right lower lobe. Initial chest x-ray in the ER showed no evidence of infiltrate or atelectasis. Patient was seen today on 11/08/2024, remains in the ICU intubated and mechanically ventilated, patient is on assist-control rate of 22 tidal volume 350 FiO2 50% and PEEP of 5 ABG showed a pO2 of 110 pCO2 47 pH of 7.45, patient is on propofol at 35 mcg/kg/min IV fluid is 0.9 at 75 cc/h. Patient remains empirically on antibiotics,/ceftriaxone. Remains on bronchodilators, GI and DVT prophylaxis, and the patient is receiving enteral feeding/nutritional support. Patient is also on multiple seizure medications considering his seizure history. Patient is sedated, it is difficult to assess his mental status as he seems to be arousable but does not follow any instructions, seems to be a bit confused, went ahead and recommended stopping propofol and starting the patient on Precedex, and hopefully we can get to the point where he can assess mental status fully off propofol. Labs today were reviewed CBC is basically unremarkable. Electrolytes are normal renal profile is normal, blood sugar is 298. Chest x-ray showed stable findings, minimal basilar atelectasis and slight prominence of the pulmonary vasculature. Endotracheal tube seems to be in proper position. Patient was seen today on 11/09/2024, patient remains in the ICU, intubated and mechanically ventilated, attempts have been made over the last 2 days to wean and extubate the patient, patient has been extremely difficult to wean. Yesterday the patient lasted less than half an hour and he was extremely tachypneic, tachycardic, could not tolerate even pressure support of 12 and CPAP for more than half an hour. Patient had to be placed back on full ventilatory support and placed back on propofol. We have tried again doing the same thing, and the patient again did not seem to do well. Patient is known to have history of Prader-Willi syndrome, and it is not surprising that the patient has profound muscle weakness with chronic hypercapnia he may eventually require tracheostomy and PEG tube placement. However my understanding today that the legal guardian is petitioning the court Sunday, and the plan is to consider comfort care measures on this patient in the next couple of days. Considering this, will not consult for tracheostomy and PEG tube placement, and will not arrange for central line or arterial line placement at this point. We are managing the patient well with peripheral lines. WBC count is 5.9 hemoglobin 13.4 his ABG today showed a pO2 of 228 pCO2 57 pH of 7.36 and this was on FiO2 of 45% hence FiO2 was cut down to 40%. Basic metabolic profile is normal, bicarb is 31. Renal profile is normal. Chest x-ray showed mostly minimal interstitial prominence, no clear-cut evidence of pneumonia although underlying infiltrates not completely excluded. Patient remains empirically on antibiotics. The findings on the chest x-ray are mostly findings of bibasilar atelectasis. 11/10/2024 patient seen and examined at bedside. Patient intubated, sedated and on mechanical ventilation. No acute events overnight. Legal guardian from [employer] mentions that they were not aware of plans for change of code status and no process initiated as it requires documentation that patient is clinically deteriorating. Current ventilator settings are volume control with a rate of 22, tidal volume 350, FiO2 40 and a PEEP of 5. Drips currently running are propofol 50 mcg/kg/hr, 0.9 normal saline 75 cc/h. Enteral feeding with [employer] 1.4 at 15ml/hr. Chest x-ray today showed ongoing CHF with pulmonary vascular congestion with some interval improvement, ongoing right pleural effusion with adjacent atelectasis and/for consultation. Labs: WBC 6.97, hemoglobin 12.9, platelet count 1 54,000, potassium 4.1, chloride 105, bicarb 26, BUN 13, creatinine 0.35, glucose 192, calcium 8.5. ABG pH of 7.38, PCO2 52, PO2 113 11/11/2024 patient seen and examined at bedside in the ICU. Patient intubated, sedated and on mechanical ventilation. No acute events overnight. Current ventilator settings are volume control with a rate of 22, tidal volume 350, FiO2 40 and a PEEP of 5. Drips currently running are propofol 50 mcg/kg/hr, 0.9 normal saline 75 cc/h. Enteral feeding with [employer] 1.4 at 15ml/hr. Labs: WBC 6.05, hemoglobin 14.1, sodium 139, potassium 4.3, bicarb 27, calcium 9.3, magnesium 1.9, BUN 12, creatinine 0.36, glucose 315. ABG showed PO2 93, pCO2 41, pH 7.44 Imaging; persistent mild cardiomegaly and interstitial changes, small to moderate right pleural effusion with adjacent atelectasis and/or consolidation and patchy retrocardiac opacity 11/12/2024 patient seen and examined at bedside in the ICU. Patient intubated, sedated and on mechanical ventilation. No acute events overnight. Attempted DIS SBT yesterday but patient failed due to rapid and shallow breathing with tachycardia despite being off sedation. Current IV drips are propofol 50mcg/kg/hr, enteral feeding with [employer] 1.4 at 15ml/hr. Labs: WBC 5.09, hemoglobin 14, platelet count 200,000, sodium 139, potassium 4.1, bicarb 27, calcium 9.9, glucose 277, BUN 16, creatinine 0.39. ABG showed PO2 82, pCO2 46, pH 7.42. Sputum culture negative Imaging; chest x-ray today independently interpreted showed overall stable findings with cardiomegaly, noted basilar infiltrates 11/13/2024 patient seen and examined at bedside in the ICU. Patient was successful with spontaneous breathing trial and was extubated. No acute events overnight. No new complaints or symptoms. Attempted DIS SBT yesterday and was successful, patient was extubated around 10 AM. Failed swallow eval postextubation yesterday. Currently on n.p.o. Labs: WBC 6.3, hemoglobin 13.9, sodium 140, potassium 4.8, bicarb 29, BUN 25, c reatinine 0.35, glucose 126, calcium 9.9 Imaging; chest x-ray today showed stable small to moderate-sized right greater than left pleural effusions and bibasilar acute infiltrates and/or atelectasis. Progress note dated November 14, 2024. 34-year-old male seen today in room 351. The patient was previously on the ventilator, in the intensive care unit. He was successfully extubated, transferred out. Yesterday he developed some respiratory difficulty, he was transferred down to the third floor, and placed on BiPAP, with settings of 12/5, 60%. The patient is getting saline at 20 cc an hour. This morning, the patient had a sitter in the hospital room, and the patient was hoping to eat. I did t ell the nurse, Karla, to have respiratory change him to nasal O2, so that he could eat. Current labs include a white count 9.2, hemoglobin 14.8, hematocrit 46.4, and a platelet count of 240,000. Blood gases this morning showed a pO2 of 83, pCO2 64, and a pH of 7.39. Sodium 142, potassium 4.3, chlorides 97, CO2 36, BUN 25, and creatinine 0.34. Chest x-ray was consistent with CHF. Progress note dated November 15, 2024. 34-year-old male again seen today in room 351. The patient is currently on high flow nasal O2, 10 L. He is not receiving any IV fluids. He apparently did not wear the BiPAP last night. He is calling for his mother, this morning, while in the room. White count is 11.3, hemoglobin 15.8, hematocrit 50.4, platelet count 243,000. Sodium 136, potassium 3.7, chlorides 89, CO2 39, BUN 25, creatinine 0.50. Glucose was 497. Calcium was 9.6. Progress note dated November 16, 2024. 34-year-old male seen again today in room 351. He is currently on a liter high flow nasal cannula. He is not receiving any IV fluids. He did spend some time on BiPAP, with settings of 12/5, and 60%. Currently, he is doing about the same. Current labs, include a glucose of 169. 11/17/2024, patient is being seen for a follow-up. The patient is post acute hypoxic/hypercapnic respiratory failure and the patient was extubated on 11/12/2024. This morning, the patient remains on 7 L of oxygen by nasal cannula. He has a sitter at the bedside. He has Prader-Willi syndrome. He was also being treated for right lower lobe pneumonia. Based on that, I ordered a follow-up chest x-ray and the chest x-ray shows low lung volumes with generalized hazy appearance which could potentially represent atelectasis. Findings are slightly worse on the right compared to the left. Electrolytes are all stable, sodium is 139, potassium is 4.1, bicarbonate 40 with a BUN of 28 and a creatinine of 0.4. The patient continues to state that he is extremely hungry and is requesting food all the time. Hemodynamically stable. Cultures including sputum and blood cultures were negative. The patient is on [facility]. The patient is on Perforomist and Pulmicort nebulized treatments twice a day, he is on Lantus 35 units at bedtime and NovoLog 15 units with meals and sliding scale coverage. He is also on a combination of Zyprexa, Risperdal and Topamax and valproic acid. He remains on Lovenox 40 mg subcu for DVT prophylaxis. He remains on Lasix 20 mg p.o. daily. On 11/18/2024, the patient is essentially the same condition. He continues to request food and this is part of his Prader-Willi syndrome. He remains on 7 L of oxygen by nasal cannula and a pulse ox around 92 to 94%. A repeat chest x- ray was done today and the findings are essentially unchanged. The patient has some elevation of the right hemidiaphragm with persistent smaller lung volumes and haziness in the right lung base right more than left. The patient also underwent a barium swallow and the patient showed penetration with thin liquid and there was no evidence of any aspiration. The blood work from yesterday was noted. No new labs are available from today. He remains on 7 L. He remains on Lasix 20 mg p.o. daily and Lantus 55 units nightly and NovoLog 15 units with meals and DuoNeb updrafts in addition to performance of Pulmicort nebulized treatments twice a day. No signs of any significant respiratory distress. The fluid balance has been -1.3 L over the past 24 hours. 11/19/2024, patient is being seen for a follow-up. The patient remains on 7 L of oxygen by nasal cannula. The patient is also being diuresed with IV Lasix. Fluid balance is negative. The repeat chest x-ray continues to show some opac ification along the right hemidiaphragm. Bilateral pleural effusions suspected. Based on that, ultrasound the chest will be ordered. The patient is on IV Lasix. Fluid balance is -1.9 L over the past 24 hours. the patient is awake and alert. No new complaints for now. Pulse ox 92% on 7 L O2 nasal cannula. 11/20/2024, the patient is being seen for a follow-up. The patient this morning was still on 7 L of oxygen by nasal cannula with a pulse ox of 94%. Will gradually start weaning down his FiO2 and I dropped him down to 5 L. Fluid balance is -2.7 L over the past 24 hours. The patient remains on Lasix 40 mg IV every 12 hours and the patient is also on bronchodilators with DuoNeb updrafts, Perforomist and Pulmicort nebulized treatments twice a day and oral prednisone. Will proceed with dropping the steroid dose as the patient has no signs of any acute bronchospasm and wheezing. The patient's condition remained stable. Electrolytes from yesterday were noted. BUN is 22 with a creatinine of 0.3. Serum bicarb is at 33, sodium level is 133, potassium is at 4.5, hemoglobin is 15.8 with a white cell count of 13.7. Platelet count is at 215. On 11/21/2024, the patient is being seen for a follow-up. For the most part, the patient oxygenation is improved and the patient is currently down to 3 L of oxygen by nasal cannula with a pulse ox of 95%. He responded nicely to diur esis. Fluid balance is -2.7 L over the past 24 hours. No significant respiratory distress at rest. The patient responded nicely to diuretics and the patient will be switched to Lasix 40 mg p.o. daily. No other new complaints otherwise for now. Serum bicarbonate 41, [id number], potassium low at 3.4, BUN 23 with a creatinine of 0.52. No other significant events overnight. Objective - Vital Signs Vital signs: Vital Signs Temp 98.0 F 11/21/24 08:49 Pulse 84 11/21/24 08:49 Resp 16 11/21/24 08:49 BP 97/57 11/21/24 08:49 Pulse Ox 94 L 11/21/24 08:49 FiO2 60 11/18/24 11:10 Intake & Output 11/20/24 11/21/24 11/21/24 18:59 06:59 18:59 Intake Total 476 118 Output Total 1700 1525 Balance -1224 -1525 118 Intake: Oral 476 118 Output: Urine 1700 1525 Other: Voiding Method Indwelling Catheter Indwelling Catheter - Exam GENERAL: The patient is calm and comfortable he is awake alert and oriented, ill-appearing, edematous, morbidly obese, the patient is currently on 3 L of oxygen by nasal cannula HEENT: Pupils are round and equally reacting to light. EOMI. No scleral icterus. No conjunctival pallor. Normocephalic, atraumatic. No pharyngeal erythema. No thyromegaly. left facial erythema CARDIOVASCULAR: S1 and S2 muffled, the rhythm is regular and there is no significant murmurs appreciated. PULMONARY: Diminished breath sounds bilaterally otherwise chest is clear to auscultation, no wheezing or crackles. Breath sounds are quite diminished in lung base bilaterally. ABDOMEN: Soft, obese, nontender, nondistended, normoactive bowel sounds. No palpable organomegaly. MUSCULOSKELETAL: No joint swelling or deformity. EXTREMITIES: No cyanosis, clubbing, or pedal edema. Edematous of upper and lower extremities NEUROLOGICAL: Gross neurological examination did not reveal any focal deficits. SKIN: No rashes. Pale, lower extremity discoloration. Deep cracked fissure on right heel. - Labs CBC & Chem 7: 11/19/24 15:06 11/21/24 10:33 Labs: Abnormal Lab Results - Last 24 Hours (Table) 11/20/24 11/20/24 11/20/24 Range/Units 11:33 17:04 20:28 POC Glucose (mg/dL) 222 H 253 H 213 H (70-110) mg/dL 11/21/24 Range/Units 05:57 POC Glucose (mg/dL) 111 H (70-110) mg/dL Assessment and Plan Plan: Acute hypoxemic respiratory failure, likely on the basis of chronic bronchial asthma exacerbation. Patient required intubation, and mechanical ventilation, and was successfully extubated, 11/12/2024. Chest x-ray continues to show small lung volumes and atelectatic change in lung base bilaterally. The patient responded nicely to diuretics and the patient is currently on 3 Suboxone by nasal cannula Acute on chronic hypercapnic respiratory failure, currently on 3 L of oxygen by nasal cannula. Type 2 diabetes mellitus maintained on Lantus insulin 55 units in addition to NovoLog with meals and sliding scale coverage History of Prader-Willi syndrome. History of right lower lobe pneumonia. History of methicillin sensitive Staph aureus cellulitis/dermatitis. Plan: The patient has been weaned down to 3 l of oxygen by nasal cannula Ultrasound the chestshowed no sizable pleural effusion Continue using the incentive spirometer Discontinue IV Lasix and switch the patient to Lasix 40 mg p.o. daily Continue DuoNeb nebulized treatments [id number] Continue Perforomist and Pulmicort nebulized treatments twice a day Swallow evaluation was done and there was penetration without evidence of any aspiration Lantus insulin 55 units daily and NovoLog 15 units with meals + scale coverage Discontinue the prednisone Monitor electrolytes Oxygenation is improved and discharge planning is in progress. Time with Patient: Greater than 30
--- NOTE | 2024-11-25 13:18 | CDI ---
Documentation Clarification Form Date: 11/25/2024 01:00:35 PM From: Brittany Tavares Phone: Admit Date: 11/07/2024 02:00:00 AM Patient Name: Dheeraj Lopez Visit Number: [id number] Discharge Date: 11/21/2024 02:51:00 PM ATTENTION: The Clinical Documentation Specialists (CDI) and [facility] Coding Staff appreciate your assistance in clarifying documentation. Please respond to the clarification below the line at the bottom and electronically sign. The CDI & [facility] Coding staff will review the response and follow-up if needed. Please note: Queries are made part of the Legal Health Record. If you have any questions, please contact the author of this message via ITS. Doctor/Provider: May Montalvo Your patient has the documented diagnosis of unspecified CHF per Progress Notes. Additional information regarding the type and acuity of CHF is requested. History/Risk Factors: 34yo M, ACH/HRF, asp PNA, AE mild intermittent asthma, volume overload, DMII w hyperglycemia, Prader-Willi syndromewithdevelopmental delayandmuscle weakness, HTN, morbid obesity with alveolar hypoventilation,OP dysphagia, depression Clinical Indicators: VS/Pulse OX: 99-100 BNP: 11/06 130 11/11 160 Echocardiogram Results: Technically difficultstudy. Echo contrast was used. Systolic function is normal. Dopplerexam is suboptimal valvular structures are not very well-seen. Nopericardial effusion. Chest X Ray: 11/07 Cardiomegalywith small rightpleural effusionand mild central vascularcongestion. Findings consistent withCHFexacerbation. 11/14 Worsening central increasedopacitysuggestsworseningCHF exacerbation/fluid overloadstate. Treatment: monitored; Pt DC to hospice. In your professional opinion, can you please clarify the acuity and type of CHF if known? [ ] Acute Systolic Heart Failure (reduced EF) [ ] Acute on Chronic Systolic Heart Failure (reduced EF) [ ] Acute Diastolic Heart Failure (preserved EF) [ ] Acute on Chronic Diastolic Heart Failure (preserved EF) [ ] Acute Systolic & Diastolic Heart Failure [ ] Acute on Chronic Heart Failure Systolic & Diastolic Heart Failure [ ] Other, please specify [ ] Unable to determine (Template Last Revised: August 2020) Unable to determine MTDD
== END 2024-11-21 14:51 | disposition hospice, inpatient (51) | DRG 207 ==
LOC: EC 22:10 → EEVIPCON 11-07 02:00 → 3SCARD 11-07 02:00 → 2SICU 11-07 04:58 → 4SSUR 11-13 21:11 → 3SCARD 11-14 06:32
PROVIDERS: ADMIT Hospitalist; ATTEND Hospitalist
PROC: 5A1955Z Respiratory Ventilation, Greater than 96 Consecutive Hours (ICD-10-PCS; principal; 2024-11-06)
PROC: 0BH18EZ Insertion of Endotracheal Airway into Trachea, Via Natural or Artificial Opening Endoscopic (ICD-10-PCS; 2024-11-06)
PROC: 5A09357 Assistance with Respiratory Ventilation, Less than 24 Consecutive Hours, Continuous Positive Airway Pressure (ICD-10-PCS; 2024-11-06)
DX: J96.21 Acute and chronic respiratory failure with hypoxia (principal); J18.9 Pneumonia, unspecified organism; G93.41 Metabolic encephalopathy; Q87.11 Prader-Willi syndrome; Z51.5 Encounter for palliative care; Z66 Do not resuscitate; R13.12 Dysphagia, oropharyngeal phase; I11.0 Hypertensive heart disease with heart failure; I50.9 Heart failure, unspecified; E66.2 Morbid (severe) obesity with alveolar hypoventilation; J45.21 Mild intermittent asthma with (acute) exacerbation; R56.9 Unspecified convulsions; E11.65 Type 2 diabetes mellitus with hyperglycemia; F32.A Depression, unspecified; Z68.42 Body mass index [BMI] 45.0-49.9, adult; F72 Severe intellectual disabilities; J96.22 Acute and chronic respiratory failure with hypercapnia; T38.0X5A Adverse effect of glucocorticoids and synthetic analogues, initial encounter; Z79.4 Long term (current) use of insulin; Z79.52 Long term (current) use of systemic steroids; Z79.84 Long term (current) use of oral hypoglycemic drugs; Z86.19 Personal history of other infectious and parasitic diseases; Z79.899 Other long term (current) drug therapy
CPT/HCPCS: 31500; 36415; 36600; 51702; 70486; 71045; 74230; 76604; 80048; 80053; 80164; 81003; 82607; 82805; 83036; 83605; 83735; 83880; 84145; 84484; 85025; 85379; 85610; 85730; 87040; 87070; 87205; 87636; 93005; 93306; 94002; 94003; 94640; 94660; 94760; 96361; 96365; 96375; 96376; 99291